=== PATIENT | male | born 1965 | race Caucasian/White ===

== ENCOUNTER 2017-06-21 22:53 | Inpatient (IN) | payer BC, OTHER ==
[~2017-06-21] VITALS: Ht 165.1 cm; Wt 81.3 kg
[~2017-06-21 22:53] MED LIST: ACET1TAB49; CARV3.1238; FENO134C; LISI-523; METF850T; NITR0.4T6; SIMV20TA2
[2017-06-21] MEDS ORDERED: ASPIRIN 81 MG TAB PO STA (22:58)
[2017-06-21] MEDS ORDERED: LIDOCAINE/MYLANTA 40 ML BTL PO ONE (23:00)
[2017-06-21] MEDS ORDERED: morphine 4 MG/ML VIAL IV STA (23:48)
--- NOTE | 2017-06-21 23:53 | RADRPT ---
PROCEDURE: CHEST - 1 VIEW CLINICAL INDICATION: 52-year-old male with chest pain. TECHNIQUE: A single frontal AP portable view of the chest was performed. The images were reviewed on a PACS workstation. COMPARISON: Chest x-ray March 24, 2008. FINDINGS: The patient has had a prior median sternotomy. The cardiomediastinal silhouette is enlarged but wit hout significant interval change. The right costophrenic angle is incompletely visualized. There i s minimal left basilar subsegmental atelectasis and/or scarring. There is no evidence for an infilt rate. There is no evidence for congestive heart failure. There is no evidence for pneumothorax. IMPRESSION: 1. Status post median sternotomy. 2. Cardiomegaly. 3. Minimal left basilar subsegmental atelectasis and/or scarring. .Natalio Rivera MD, Date Time Electronically viewed and signed by .Natalio Rivera MD, on 06/21/2017 23:53 .M/
[2017-06-22] VITALS (14 sets, daily range): BP systolic 105–148; BP diastolic 60–77; PULSE 58–69; RESP 17–20; Ht 165.1 cm; Wt 81.3 kg
[2017-06-22] MEDS ORDERED: NITROGLYCERIN (SL) 0.4 MG TAB SL ONE
[2017-06-22 00:29] LABS: BASOPHIL # 0.1 10^3/ul (0.0-0.1); BASOPHILS % 0.6 % (0.0-2.0); EOSINOPHILS # 0.1 10^3/ul (0.0-0.5); EOSINOPHILS % 1.3 % (0.0-7.0); HEMOGLOBIN 14.3 g/dl (14.0-18.0); LYMPHOCYTES # 2.9 10^3/ul (0.8-2.9); LYMPHOCYTES % 33.5 % (15.0-51.0); MEAN CORPUSCULAR HEMOGLOBIN 30.4 pg (29.0-33.0); MEAN CORPUSCULAR HGB CONC 34.9 g/dl (32.0-37.0); MEAN PLATELET VOLUME 10.7 fl (7.4-10.4); MONOCYTE # 0.8 10^3/ul (0.3-0.9); MONOCYTES % 9.1 % (0.0-11.0); PLATELET COUNT 186 10^3/UL (140-415); RED BLOOD COUNT 4.71 10^6/ul (4.70-6.10); RED CELL DISTRIBUTION WIDTH 12.4 % (11.5-14.5); WHITE BLOOD COUNT 8.6 10^3/ul (4.8-10.8)
[2017-06-22 00:44] LABS: INR 1.07; PROTIME 13.9 Sec (12.2-14.2); PT RATIO 1.1
[2017-06-22 00:45] LABS: PARTIAL THROMBOPLASTIN TIME 29.3 Sec (25.0-35.0)
[2017-06-22 00:56] LABS: CALCIUM 9.2 mg/dl (8.4-10.2); CREATININE 0.8 mg/dl (0.61-1.24); POTASSIUM 3.7 mmol/L (3.5-5.1)
[2017-06-22 01:50] LABS: TROPONIN-I 0.183 ng/ml (0.00-0.12)
[2017-06-22] MEDS ORDERED: ACETAMINOPHEN 325 MG TAB PO PRN ×2 (02:30→03:00)
[2017-06-22] MEDS ORDERED: ONDANSETRON 4 MG INJ IV PRN ×2 (02:30→03:00)
--- NOTE | 2017-06-22 02:41 | ERA ---
ER Documentation Chief Complaint Date/Time DATE: 06/22/17 TIME: 02:36 Chief Complaint chest pain x this evening HPI 52-year-old male comes in by ambulance for left-sided substernal chest pain that radiates to his left upper arm is been going on for 2 hours in the severe since. He has mild shortness of breath associated with mild nausea. He had the same sensation before the stents placed previously. ROS All systems reviewed and are negative except as per history of present illness. Medications Home Meds Reported Medications Nitroglycerin* (Nitroglycerin* SL) 0.4 Mg Tab.subl 07/30/10 Fenofibrate, Micronized (Fenofibrate) 134 Mg Capsule 07/30/10 Acetaminophen/Phenyltolx Cit (Asa Free Analgesic Tablet) 1 Tab Tablet 07/30/10 Carvedilol* (Coreg*) 3.125 Mg Tablet 07/30/10 Simvastatin (Simvastatin) 20 Mg Tablet 07/30/10 Metformin Hcl* (Metformin Hcl*) 850 Mg Tablet 07/30/10 Lisinopril* (Zestril*) 5 Mg Tablet 07/30/10 Allergies Allergies: Coded Allergies: No Known Allergy (Verified , 05/02/12) PMhx/Soc History of Surgery: Yes (CABG 04/23) Anesthesia Reaction: No Hx Neurological Disorder: No Hx Respiratory Disorders: No Hx Cardiac Disorders: Yes (CAD) Hx Psychiatric Problems: No Hx Miscellaneous Medical Probl: Yes (DM) Hx Alcohol Use: No Hx Substance Use: No Hx Tobacco Use: Yes Smoking Status: Current every day smoker Physical Exam Vitals Vital Signs Date Time Temp Pulse Resp B/P Pulse Ox O2 Delivery O2 Flow Rate FiO2 06/22/17 00:52 71 20 123/74 96 Room Air 06/22/17 00:47 67 20 139/80 97 Room Air 06/22/17 00:10 73 16 124/79 97 Room Air 06/22/17 00:04 71 16 139/79 06/22/17 00:00 76 20 151/83 99 Room Air 06/21/17 23:01 98.1 73 16 144/85 97 Physical Exam Const: [] Mild to moderate distress Head: Atraumatic Eyes: Normal Conjunctiva ENT: Normal External Ears, Nose and Mouth. Neck: Full range of motion..~ No meningismus. Resp: Clear to auscultation bilaterally Cardio: Regular rate and rhythm, no murmurs Abd: Soft, non tender, non distended. Normal bowel sounds Skin: No petechiae or rashes Back: No midline or flank tenderness Ext: No cyanosis, or edema Neur: Awake and alert Psych: Normal Mood and Affect Result Diagram: 06/21/17 2330 06/21/17 2330 Results 24 hrs Laboratory Tests Test 06/21/17 23:30 White Blood Count 8.610^3/ul Red Blood Count 4.7110^6/ul Hemoglobin 14.3g/dl Hematocrit 41.0% Mean Corpuscular Volume 87.0fl Mean Corpuscular Hemoglobin 30.4pg Mean Corpuscular Hemoglobin Concent 34.9g/dl Red Cell Distribution Width 12.4% Platelet Count 36299^3/UL Mean Platelet Volume 10.7fl Neutrophils % 55.0% Lymphocytes % 33.5% Monocytes % 9.1% Eosinophils % 1.3% Basophils % 0.6% Nucleated Red Blood Cells % 0.0/100WBC Neutrophils # (Manual) 4.710^3/ul Lymphocytes # 2.910^3/ul Monocytes # 0.810^3/ul Eosinophils # 0.110^3/ul Basophils # 0.110^3/ul Nucleated Red Blood Cells # 0.010^3/ul Prothrombin Time 13.9Sec Prothrombin Time Ratio 1.1 INR International Normalized Ratio 1.07 Activated Partial Thromboplast Time 29.3Sec Sodium Level 139mmol/L Potassium Level 3.7mmol/L Chloride Level 105mmol/L Carbon Dioxide Level 26mmol/L Anion Gap 12 Blood Urea Nitrogen 12mg/dl Creatinine 0.80mg/dl Glucose Level 118mg/dl Calcium Level 9.2mg/dl Troponin I 0.183ng/ml B-Type Natriuretic Peptide 203PG/ML Current Medications Medications (Trade) Dose Ordered Sig/Merritt Route PRN Reason Start Time Stop Time Status Last Admin Dose Admin Aspirin (Aspirin) 162 mg ONCE STAT PO 06/21/17 22:58 06/21/17 23:01 DC 06/21/17 23:18 Miscellaneous Medication (Gi Cocktail (2)) 40 ml ONCE ONCE PO 06/21/17 23:00 06/21/17 23:01 DC 06/21/17 23:18 Morphine Sulfate (morphine) 4 mg ONCE STAT IV 06/21/17 23:48 06/21/17 23:50 DC 06/22/17 00:01 Nitroglycerin (Nitroglycerin (Sl Tab) 0.4 Mg) 1 tab ONCE ONCE SL 06/22/17 00:00 06/22/17 00:01 DC 06/22/17 00:01 Ondansetron HCl (Zofran Inj) 4 mg ER BRIDGE PRN IV NAUSEA AND/OR VOMITING 06/22/17 02:30 06/23/17 02:29 Acetaminophen (Tylenol Tab) 650 mg ER BRIDGE PRN PO MILD PAIN/FEVER 06/22/17 02:30 06/23/17 02:29 Procedures/MDM Concerning acute chest pain and high risk patient with mildly elevated troponin. Was given 162 mg of aspirin and 3 sprays of nitro in the ambulance. Initial 162 mg was given as well as 2 sublingual nitroglycerin which did temporarily alleviate his pain. He had Kvng received 4 mg of morphine which had no effect on his chest pain. Also received a GI cocktail which did not affect his chest pain he described as a burning. He can be admitted for further evaluation workup. Has nonischemic EKG 2. Dr. yung is admitting EKG interpretation #1: Normal sinus rhythm rate of 72, normal axis, no ST or T- wave changes concerning for acute ischemia, normal intervals. Normal EKG EKG interpretation #2: Normal sinus rhythm at 75, normal axis, no ST or T-wave changes concerning for acute ischemia, normal intervals. Normal EKG quality assurance monitor chassis interpretation: Normal sinus rhythm without arrhythmia Chest x-ray interpretation: I see no acute process. I see no pneumothorax, no infiltrates, no pulmonary edema, no fractures. Departure Diagnosis: Primary Impression: Chest pain Additional Impression: Elevated troponin Condition: Serious OUSMANE HEDRICK DO Jun 22, 2017 02:41
--- NOTE | 2017-06-22 02:56 | HP ---
Date/Time of Note Date/Time of Note DATE: 06/22/17 TIME: 02:49 Assessment/Plan VTE Prophylaxis VTE Prophylaxis Intervention: LMWH Lines/Catheters IV Catheter Type (from Nrsg): Saline Lock Assessment/Plan Assessment/Plan 1. NSTEMI -Admit to telemetry unit -Supplemental oxygen, aspirin, statin, beta-viral, as needed nitro and morphine -2D echo and cardiology consult -Check A1c, fasting lipid and a TSH in the morning 2. History of hypertension -Continue antihypertensives with adjustment as needed 3. Type 2 diabetes -Check A1c -Insulin while in-house HPI/ROS Admit Date/Time Admit Date/Time Hx of Present Illness This is a 52-year-old male with a history of hypertension, type 2 diabetes, CAD with CABG who presented to the emergency department complaining of chest pain. Pain started a few hours ago and it is left-sided, pressure-like with radiation to the left arm was 10 out of 10 in intensity. Reported some association with shortness of breath. Denied nausea/vomiting or diaphoresis. When he presented to the ER, BP 144/85 otherwise rest of vitals are stable. First troponin is elevated at 0.183. 2 EKGs were done in the ER which showed no ST-T wave abnormalities. Patient was given nitro and aspirin with improvement of pain but not complete resolution. Chest x-ray showed cardiomegaly and minimal left basilar subsegmental atelectasis and/or scarring. . PMH/Family/Social Past Medical History Medical History: coronary artery disease, diabetes, hypertension Past Surgical History Past Surgical Hx: coronary bypass surgery Social History Alcohol Use: none Smoking Status: Current every day smoker Drug Use: none Exam/Review of Systems Vital Signs Vitals Vital Signs Date Time Temp Pulse Resp B/P Pulse Ox O2 Delivery O2 Flow Rate FiO2 06/22/17 00:52 71 20 123/74 96 Room Air 06/21/17 23:01 98.1 Labs Result Diagram: 06/21/17 23306/[id number]/[id number] MARY VELAZCO MD Jun 22, 2017 02:56
[2017-06-22] MEDS ORDERED: NACL 0.9% 3 ML SYG IV SCH (03:00)
[2017-06-22] MEDS ORDERED: ALBUTEROL/IPRATROPIUM (NEB) 3 ML AMP HHN PRN (03:00)
[2017-06-22] MEDS ORDERED: GLUCAGON 1 MG INJ IM PRN (03:30)
[2017-06-22] MEDS ORDERED: GLUCOSE GEL 15 GRAM TUBE BUCCAL PRN (03:30)
[2017-06-22] MEDS ORDERED: DEXTROSE 50% 50 ML SYRINGE IV PRN ×2 (03:30)
[2017-06-22] MEDS ORDERED: GLUCOSE GEL 15 GRAM TUBE PO PRN ×2 (03:30)
[2017-06-22] MEDS: morphine 4 MG/ML VIAL IV PRN ×4 (03:51→20:11)
[2017-06-22] MEDS: DEXTROSE 5%-0.45% NACL 1,000 ML IV SCH ×2 (03:51→16:52)
[2017-06-22] MEDS: NITROGLYCERIN (SL) 0.4 MG TAB SL PRN ×4 (05:54→11:37)
[2017-06-22 07:44] LABS: BASOPHIL # 0.1 10^3/ul (0.0-0.1); BASOPHILS % 0.8 % (0.0-2.0); EOSINOPHILS # 0.1 10^3/ul (0.0-0.5); EOSINOPHILS % 1.3 % (0.0-7.0); HEMATOCRIT 41.8 % (42.0-52.0); HEMOGLOBIN 14.3 g/dl (14.0-18.0); LYMPHOCYTES # 2.8 10^3/ul (0.8-2.9); LYMPHOCYTES % 37.5 % (15.0-51.0); MEAN CORPUSCULAR HEMOGLOBIN 29.7 pg (29.0-33.0); MEAN CORPUSCULAR HGB CONC 34.2 g/dl (32.0-37.0); MEAN CORPUSCULAR VOLUME 86.7 fl (82.0-101.0); MEAN PLATELET VOLUME 10.6 fl (7.4-10.4); MONOCYTE # 0.7 10^3/ul (0.3-0.9); MONOCYTES % 8.6 % (0.0-11.0); NEUTROPHILS % 51.1 % (39.0-77.0); PLATELET COUNT 179 10^3/UL (140-415); RED BLOOD COUNT 4.82 10^6/ul (4.70-6.10); RED CELL DISTRIBUTION WIDTH 12.7 % (11.5-14.5); WHITE BLOOD COUNT 7.6 10^3/ul (4.8-10.8)
[2017-06-22 08:02] LABS: ALBUMIN 3.6 g/dl (3.3-4.9); ALBUMIN/GLOBULIN RATIO 1.38; BILIRUBIN,INDIRECT 0.6 mg/dl (0-1.1); BILIRUBIN,TOTAL 0.6 mg/dl (0.2-1.3); CALCIUM 9.1 mg/dl (8.4-10.2); CHOL/HDL RATIO 7.8 RATIO; CREATININE 0.8 mg/dl (0.61-1.24); POTASSIUM 3.9 mmol/L (3.5-5.1); TOTAL PROTEIN 6.2 g/dl (6.1-8.1)
[2017-06-22 08:31] LABS: THYROID STIMULATING HORMONE 4.86 MIU/L (0.465-4.680)
[2017-06-22] MEDS: LISINOPRIL 5 MG TAB PO SCH (08:56)
[2017-06-22] MEDS: ASPIRIN (EC) 81 MG TAB PO SCH (08:56)
[2017-06-22] MEDS: INSULIN GLARGINE [LANtus] 3 ML PEN SC SCH (08:58)
[2017-06-22] MEDS: INSULIN ASPART [NOVOLOG] 3 ML PEN SC SCH ×4 (08:59→20:15)
[2017-06-22] MEDS ORDERED: ENOXAPARIN 40 MG/0.4 ML SYG SC SCH (09:00)
[2017-06-22 10:08] LABS: CK-MB 3.8 ng/ml (0.0-2.4); TROPONIN-I 0.432 ng/ml (0.00-0.12)
[2017-06-22] MEDS ORDERED: HEPARIN 1000 UNITS/ML 10 ML INJ IV PRN ×2 (10:30→11:30)
[2017-06-22] MEDS ORDERED: HEPARIN 1000 UNITS/ML 10 ML INJ IV ONE (11:30)
[2017-06-22] MEDS: HEPARIN 25000 UNITS/250 ML 250 ML IV SCH ×2 (11:52→20:02)
[2017-06-22 11:55] LABS: CK-MB 4.35 ng/ml (0.0-2.4); TROPONIN-I 0.547 ng/ml (0.00-0.12)
[2017-06-22 12:44] LABS: BASOPHIL # 0.1 10^3/ul (0.0-0.1); BASOPHILS % 0.7 % (0.0-2.0); EOSINOPHILS # 0.1 10^3/ul (0.0-0.5); EOSINOPHILS % 1.1 % (0.0-7.0); HEMATOCRIT 42.9 % (42.0-52.0); LYMPHOCYTES # 2.7 10^3/ul (0.8-2.9); LYMPHOCYTES % 35.8 % (15.0-51.0); MEAN CORPUSCULAR HEMOGLOBIN 30.8 pg (29.0-33.0); MEAN CORPUSCULAR VOLUME 88.1 fl (82.0-101.0); MEAN PLATELET VOLUME 10.4 fl (7.4-10.4); MONOCYTE # 0.6 10^3/ul (0.3-0.9); MONOCYTES % 7.6 % (0.0-11.0); NEUTROPHILS % 54.4 % (39.0-77.0); PLATELET COUNT 197 10^3/UL (140-415); RED BLOOD COUNT 4.87 10^6/ul (4.70-6.10); RED CELL DISTRIBUTION WIDTH 12.4 % (11.5-14.5); WHITE BLOOD COUNT 7.5 10^3/ul (4.8-10.8)
[2017-06-22 12:59] LABS: INR 1.14; PROTIME 14.6 Sec (12.2-14.2); PT RATIO 1.1
[2017-06-22] MEDS: HYDROmorphONE 1 MG/ML SYG IV PRN ×5 (15:12→23:07)
--- NOTE | 2017-06-22 17:00 | CONS ---
Date/Time of Note Date/Time of Note DATE: 06/22/17 TIME: 17:00 Assessment/Plan Assessment/Plan Chief Complaint/Hosp Course Impression: 1. Chest pain with NSTEMI-troponins are increasing 2. History of severe coronary disease status post CABG as well as stenting 9 3. History of hypertension 4. rule out GI cause of chest pain: I feel the main issue is his NSTEMI as the cause of his chest pain. 5. Type 2 diabetes-mild Recommendations: - Pls ovtain Cardiology consultation as this is more likely cardiac in origin than GI causing chest pain - start protonix 40 mg iv bid - stool for occult blood - ok to anticoagulate or use anti-platelet agents - will hold off on endoscopic procedures until cardiac w/u completed. Problems: Consultation Date/Type/Reason Admit Date/Time Date of Consultation: Jun 22, 2017 Type of Consultation: Gastroenterology Reason for Consultation atypical chest pain Referring Provider: CHARMAINE AL Hx of Present Illness 52-year-old male who is admitted for chest pain. He has a history of hypertension, type 2 diabetes, CAD with CABG. Chest pain is left-sided, pressure -like with radiation to the left arm was 10 out of 10 in intensity. Reported some association with shortness of breath. Denied nausea/vomiting or diaphoresis. First troponin is elevated at 0.183. 2 EKGs were done in the ER which showed no ST-T wave abnormalities. Patient was given nitro and aspirin with improvement of pain but not complete resolution. Chest x-ray showed cardiomegaly and minimal left basilar subsegmental atelectasis and/or scarring. Pain is also described as burning sensation. GI consulted to see if his chest pain is gastrointestinal in origin. No n/v, coffee ground emesis, hematemesis, brbpr, melena, hematochezia. All point ROS administered, pertinent positives and negatives in HPI otherwise negative. Past Medical History Medical History: coronary artery disease, diabetes, hypertension Past Surgical History Past Surgical Hx: coronary bypass surgery Family History Significant Family History: no pertinent family hx Social History Alcohol Use: none Smoking Status: Current every day smoker Drug Use: none Exam/Review of Systems Vital Signs Vitals Vital Signs Date Time Temp Pulse Resp B/P Pulse Ox O2 Delivery O2 Flow Rate FiO2 06/22/17 16:12 97.8 65 17 105/62 94 06/22/17 02:40 Room Air Intake and Output 06/21/17 06/21/17 06/22/17 15:00 23:00 07:00 Intake Total 0 ml Balance 0 ml Exam Constitutional: alert, oriented, well developed Psych: nl mood/affect, no complaints Head: atraumatic, normocephalic Eyes: EOMI, nl conjunctiva, nl lids, nl sclera ENMT: mucosa pink and moist, nl external ears & nose, nl lips & teeth, nl nasal mucosa & septum Neck: non-tender, supple Respiratory: clear to auscultation, normal air movement Cardiovascular: nl pulses, regular rate and rhythm Gastrointestinal: bowel sounds, non-tender, soft Musculoskeletal: nl extremities to inspection, nl gait and stance Extremities: normal pulses Neurological: nl mental status, nl speech, nl strength Skin: nl turgor Results Result Diagram: 06/22/17 1210 06/22/17 0705 Results 24 hrs Laboratory Tests Test 06/21/17 23:30 06/22/17 03:25 06/22/17 07:05 06/22/17 08:54 White Blood Count 8.6 7.6 Red Blood Count 4.71 4.82 Hemoglobin 14.3 14.3 Hematocrit 41.0 L 41.8 L Mean Corpuscular Volume 87.0 86.7 Mean Corpuscular Hemoglobin 30.4 29.7 Mean Corpuscular Hemoglobin Concent 34.9 34.2 Red Cell Distribution Width 12.4 12.7 Platelet Count 186 179 Mean Platelet Volume 10.7 H 10.6 H Neutrophils % 55.0 51.1 Lymphocytes % 33.5 37.5 Monocytes % 9.1 8.6 Eosinophils % 1.3 1.3 Basophils % 0.6 0.8 Nucleated Red Blood Cells % 0.0 0.0 Neutrophils # (Manual) 4.7 3.9 Lymphocytes # 2.9 2.8 Monocytes # 0.8 0.7 Eosinophils # 0.1 0.1 Basophils # 0.1 0.1 Nucleated Red Blood Cells # 0.0 0.0 Prothrombin Time 13.9 Prothrombin Time Ratio 1.1 INR International Normalized Ratio 1.07 Activated Partial Thromboplast Time 29.3 Sodium Level 139 140 Potassium Level 3.7 3.9 Chloride Level 105 106 Carbon Dioxide Level 26 26 Anion Gap 12 12 Blood Urea Nitrogen 12 12 Creatinine 0.80 0.80 Glucose Level 118 131 Calcium Level 9.2 9.1 Troponin I 0.183 *H 0.432 *H B-Type Natriuretic Peptide 203 H Bedside Glucose 125 143 Hemoglobin A1c 7.0 H Total Bilirubin 0.6 Direct Bilirubin 0.00 Indirect Bilirubin 0.6 Aspartate Amino Transf (AST/SGOT) 20 Alanine Aminotransferase (ALT/SGPT) 33 Alkaline Phosphatase 58 Creatine Kinase 69 Creatine Kinase Index 5.5 Creatinine Kinase MB (Mass) 3.80 H Total Protein 6.2 Albumin 3.6 Globulin 2.60 Albumin/Globulin Ratio 1.38 Triglycerides Level 129 Cholesterol Level 165 LDL Cholesterol, Calculated 118 HDL Cholesterol 21 L Cholesterol/HDL Ratio 7.8 Thyroid Stimulating Hormone (TSH) 4.860 H Test 06/22/17 10:55 06/22/17 12:10 06/22/17 12:50 Creatine Kinase 65 Creatine Kinase Index 6.7 Creatinine Kinase MB (Mass) 4.35 H Troponin I 0.547 *H White Blood Count 7.5 Red Blood Count 4.87 Hemoglobin 15.0 Hematocrit 42.9 Mean Corpuscular Volume 88.1 Mean Corpuscular Hemoglobin 30.8 Mean Corpuscular Hemoglobin Concent 35.0 Red Cell Distribution Width 12.4 Platelet Count 197 Mean Platelet Volume 10.4 Neutrophils % 54.4 Lymphocytes % 35.8 Monocytes % 7.6 Eosinophils % 1.1 Basophils % 0.7 Nucleated Red Blood Cells % 0.0 Neutrophils # (Manual) 4.1 Lymphocytes # 2.7 Monocytes # 0.6 Eosinophils # 0.1 Basophils # 0.1 Nucleated Red Blood Cells # 0.0 Prothrombin Time 14.6 H Prothrombin Time Ratio 1.1 INR International Normalized Ratio 1.14 Activated Partial Thromboplast Time 74.0 *H Bedside Glucose 128 Medications Medications Current Medications Ondansetron HCl (Zofran Inj) 4 mg Q6H PRN IV NAUSEA AND/OR VOMITING; Start 06/22 at 03:00 Nitroglycerin (Nitroglycerin (Sl Tab) 0.4 Mg) 1 tab Q5M PRN SL CHEST PAIN Last administered on 06/22/17t 11:37; Admin Dose 1 TAB; Start 06/22/17 at 03:00 Acetaminophen (Tylenol Tab) 650 mg Q6H PRN PO PAIN LEVEL 1-3 OR FEVER; Start at 03:00 Morphine Sulfate (morphine) 4 mg Q4H PRN IV PAIN LEVEL 7-10 Last administered on 06/22/17 12:41; Admin Dose 4 MG; Start 06/22/17 at 03:00 Carvedilol (Coreg) 3.125 mg Q12 PO Last administered on 06/22/17 08:55; Admin Dose 3.125 MG; Start 06/22/17 at 09:00 Lisinopril (Zestril) 5 mg DAILY PO Last administered on 06/22/17 08:56; Admin Dose 5 MG; Start 06/22/17 at 09:00 Atorvastatin Calcium (Lipitor) 20 mg QHS PO ; Start 06/22/17 at 21:00 Diagnostic Test (Pha) (Accu-Chek) 1 ea 02 XX ; Start 06/23/17 at 02:00 Insulin Glargine 12 unit 12 unit DAILY@08 SC Last administered on 06/22/17 08: 58; Admin Dose 12 UNIT; Start 06/22/17 at 08:00 Dextrose/Sodium Chloride (D5-1/2ns) 1,000 ml @ 75 mls/hr [id number] IV Last administered on 06/22/17 16:52; Admin Dose 75 MLS/HR; Start 06/22/17 at 03:30 Aspirin (Halfprin) 81 mg DAILY PO Last administered on 06/22/17 08:56; Admin Dose 81 MG; Start 06/22/17 at 09:00 Miscellaneous Information 1 ea NOTE XX ; Start 06/22/17 at 03:30 Glucose (Glutose) 15 gm Q15M PRN PO DECREASED GLUCOSE; Start 06/22/17 at 03:30 Glucose (Glutose) 22.5 gm Q15M PRN PO DECREASED GLUCOSE; Start 06/22/17 at 03:30 Dextrose (D50w Syringe) 25 ml Q15M PRN IV DECREASED GLUCOSE; Start 06/22/17 at 03:30 Dextrose (D50w Syringe) 50 ml Q15M PRN IV DECREASED GLUCOSE; Start 06/22/17 at 03:30 Glucagon (Glucagen) 1 mg Q15M PRN IM DECREASED GLUCOSE; Start 06/22/17 at 03:30 Glucose (Glutose) 15 gm Q15M PRN BUCCAL DECREASED GLUCOSE; Start 06/22/17 at 03: 30 Hydromorphone HCl (Dilaudid) 0.5 mg Q2 PRN IV PAIN Last administered on t 16:51; Admin Dose 0.5 MG; Start 06/22/17 at 15:00 LUCINDA BANUELOS MD Jun 22, 2017 17:00
[2017-06-22] MEDS: PANTOPRAZOLE 40 MG INJ IV SCH (18:17)
[2017-06-22] MEDS ORDERED: IODIXANOL LOCM 100 ML BTL ONE (18:33)
[2017-06-22] MEDS ORDERED: SOD CHLORIDE 0.9% 100 ML ONE (18:33)
--- NOTE | 2017-06-22 18:33 | PN ---
Date/Time of Note Date/Time of Note DATE: 06/22/17 TIME: 18:26 Assessment/Plan VTE Prophylaxis VTE Prophylaxis Intervention: heparin Lines/Catheters IV [facility] Peripheral IV Urinary Cath still in place: No Assessment/Plan Chief Complaint/Hosp Course 1. Chest pain with NSTEMI-troponins are increasing -Cardiology consultation obtained, 2D echo -Started on heparin drip -CT of the chest to rule out dissection as pain is diffuse throughout the chest and into the back -GI consultation as patient does report a burning sensation in addition to a pressure sensation -Supplemental oxygen, aspirin, statin, beta-viral, as needed nitro and morphine -A1c at 7.0, total cholesterol 165 2. History of severe coronary disease status post CABG as well as stenting 9 -Patient had a heart cath within the last year that showed further coronary arteries that were occluded but it appears that they are unable to place any further stents reportedly due to narrowing of the vessels -Continue Ranexa as well as other cardiac medications 3. History of hypertension -Continue antihypertensives with adjustment as needed 4. Type 2 diabetes-mild -Hemoglobin A1c at 7.0 -Insulin while in-house Prophylaxis: Heparin Problems: Subjective 24 Hr Interval Summary Cardiovascular: chest pain Exam/Review of Systems Vital Signs Vitals Vital Signs Date Time Temp Pulse Resp B/P Pulse Ox O2 Delivery O2 Flow Rate FiO2 06/22/17 17:03 62 06/22/17 16:12 97.8 17 105/62 94 06/22/17 02:40 Room Air Intake and Output 06/21/17 06/21/17 06/22/17 15:00 23:00 07:00 Intake Total 0 ml Balance 0 ml Exam Constitutional: alert, oriented Respiratory: clear to auscultation Cardiovascular: regular rate and rhythm Gastrointestinal: soft, No distended Musculoskeletal: nl extremities to inspection Results Result Diagram: 06/22/17 1210 06/22/17 0705 Results 24 hrs Laboratory Tests Test 06/21/17 23:30 06/22/17 03:25 06/22/17 07:05 06/22/17 08:54 White Blood Count 8.6 7.6 Red Blood Count 4.71 4.82 Hemoglobin 14.3 14.3 Hematocrit 41.0 L 41.8 L Mean Corpuscular Volume 87.0 86.7 Mean Corpuscular Hemoglobin 30.4 29.7 Mean Corpuscular Hemoglobin Concent 34.9 34.2 Red Cell Distribution Width 12.4 12.7 Platelet Count 186 179 Mean Platelet Volume 10.7 H 10.6 H Neutrophils % 55.0 51.1 Lymphocytes % 33.5 37.5 Monocytes % 9.1 8.6 Eosinophils % 1.3 1.3 Basophils % 0.6 0.8 Nucleated Red Blood Cells % 0.0 0.0 Neutrophils # (Manual) 4.7 3.9 Lymphocytes # 2.9 2.8 Monocytes # 0.8 0.7 Eosinophils # 0.1 0.1 Basophils # 0.1 0.1 Nucleated Red Blood Cells # 0.0 0.0 Prothrombin Time 13.9 Prothrombin Time Ratio 1.1 INR International Normalized Ratio 1.07 Activated Partial Thromboplast Time 29.3 Sodium Level 139 140 Potassium Level 3.7 3.9 Chloride Level 105 106 Carbon Dioxide Level 26 26 Anion Gap 12 12 Blood Urea Nitrogen 12 12 Creatinine 0.80 0.80 Glucose Level 118 131 Calcium Level 9.2 9.1 Troponin I 0.183 *H 0.432 *H B-Type Natriuretic Peptide 203 H Bedside Glucose 125 143 Hemoglobin A1c 7.0 H Total Bilirubin 0.6 Direct Bilirubin 0.00 Indirect Bilirubin 0.6 Aspartate Amino Transf (AST/SGOT) 20 Alanine Aminotransferase (ALT/SGPT) 33 Alkaline Phosphatase 58 Creatine Kinase 69 Creatine Kinase Index 5.5 Creatinine Kinase MB (Mass) 3.80 H Total Protein 6.2 Albumin 3.6 Globulin 2.60 Albumin/Globulin Ratio 1.38 Triglycerides Level 129 Cholesterol Level 165 LDL Cholesterol, Calculated 118 HDL Cholesterol 21 L Cholesterol/HDL Ratio 7.8 Thyroid Stimulating Hormone (TSH) 4.860 H Test 06/22/17 10:55 06/22/17 12:10 06/22/17 12:50 06/22/17 18:18 Creatine Kinase 65 Creatine Kinase Index 6.7 Creatinine Kinase MB (Mass) 4.35 H Troponin I 0.547 *H White Blood Count 7.5 Red Blood Count 4.87 Hemoglobin 15.0 Hematocrit 42.9 Mean Corpuscular Volume 88.1 Mean Corpuscular Hemoglobin 30.8 Mean Corpuscular Hemoglobin Concent 35.0 Red Cell Distribution Width 12.4 Platelet Count 197 Mean Platelet Volume 10.4 Neutrophils % 54.4 Lymphocytes % 35.8 Monocytes % 7.6 Eosinophils % 1.1 Basophils % 0.7 Nucleated Red Blood Cells % 0.0 Neutrophils # (Manual) 4.1 Lymphocytes # 2.7 Monocytes # 0.6 Eosinophils # 0.1 Basophils # 0.1 Nucleated Red Blood Cells # 0.0 Prothrombin Time 14.6 H Prothrombin Time Ratio 1.1 INR International Normalized Ratio 1.14 Activated Partial Thromboplast Time 74.0 *H Bedside Glucose 128 95 Medications Medications Current Medications Ondansetron HCl (Zofran Inj) 4 mg Q6H PRN IV NAUSEA AND/OR VOMITING; Start 06/22 at 03:00 Nitroglycerin (Nitroglycerin (Sl Tab) 0.4 Mg) 1 tab Q5M PRN SL CHEST PAIN Last administered on 06/22/17 11:37; Admin Dose 1 TAB; Start 06/22/17 at 03:00 Acetaminophen (Tylenol Tab) 650 mg Q6H PRN PO PAIN LEVEL 1-3 OR FEVER; Start at 03:00 Morphine Sulfate (morphine) 4 mg Q4H PRN IV PAIN LEVEL 7-10 Last administered on 06/22/17 12:41; Admin Dose 4 MG; Start 06/22/17 at 03:00 Carvedilol (Coreg) 3.125 mg Q12 PO Last administered on 06/22/17 08:55; Admin Dose 3.125 MG; Start 06/22/17 at 09:00 Lisinopril (Zestril) 5 mg DAILY PO Last administered on 06/22/17 08:56; Admin Dose 5 MG; Start 06/22/17 at 09:00 Atorvastatin Calcium (Lipitor) 20 mg QHS PO ; Start 06/22/17 at 21:00 Diagnostic Test (Pha) (Accu-Chek) 1 ea 02 XX ; Start 06/23/17 at 02:00 Insulin Glargine 12 unit 12 unit DAILY@08 SC Last administered on 06/22/17 08: 58; Admin Dose 12 UNIT; Start 06/22/17 at 08:00 Dextrose/Sodium Chloride (D5-1/2ns) 1,000 ml @ 75 mls/hr [id number] IV Last administered on 06/22/17 16:52; Admin Dose 75 MLS/HR; Start 06/22/17 at 03:30 Aspirin (Halfprin) 81 mg DAILY PO Last administered on 06/22/17 08:56; Admin Dose 81 MG; Start 06/22/17 at 09:00 Miscellaneous Information 1 ea NOTE XX ; Start 06/22/17 at 03:30 Glucose (Glutose) 15 gm Q15M PRN PO DECREASED GLUCOSE; Start 06/22/17 at 03:30 Glucose (Glutose) 22.5 gm Q15M PRN PO DECREASED GLUCOSE; Start 06/22/17 at 03:30 Dextrose (D50w Syringe) 25 ml Q15M PRN IV DECREASED GLUCOSE; Start 06/22/17 at 03:30 Dextrose (D50w Syringe) 50 ml Q15M PRN IV DECREASED GLUCOSE; Start 06/22/17 at 03:30 Glucagon (Glucagen) 1 mg Q15M PRN IM DECREASED GLUCOSE; Start 06/22/17 at 03:30 Glucose (Glutose) 15 gm Q15M PRN BUCCAL DECREASED GLUCOSE; Start 06/22/17 at 03: 30 Hydromorphone HCl (Dilaudid) 0.5 mg Q2 PRN IV PAIN Last administered on 16:51; Admin Dose 0.5 MG; Start 06/22/17 at 15:00 Pantoprazole (Protonix Iv) 40 mg BID@,18 IV Last administered on 06/22/17 18: 17; Admin Dose 40 MG; Start 06/22/17 at 18:00 CHARMAINE AL Jun 22, 2017 18:33
[2017-06-22 19:34] LABS: INR 1.1; PROTIME 14.2 Sec (12.2-14.2); PT RATIO 1.1
[2017-06-22 19:35] LABS: PARTIAL THROMBOPLASTIN TIME 51.6 Sec (25.0-35.0)
[2017-06-22] MEDS: ATORVASTATIN 20 MG TAB PO SCH (20:11)
--- NOTE | 2017-06-22 20:37 | RADRPT ---
PROCEDURE: CTA Chest and pulmonary angiogram. CLINICAL INDICATION: Chest pain TECHNIQUE: CT scan of the chest and CT pulmonary angiogram was performed on a multidetector high-r esolution CT scanner. High-resolution thin slice coronal and sagittal imaging was obtained from the axial source images. No 3-D/maximum intensity projection reformatted imaging was performed. The pa tient was examined following the intravenous administration of 100 cc of Visipaque 320. The images w ere reviewed on a PACS workstation. The total exam CTDI equals 42.25 +18.09 mGy, and the total exam DLP equals 646.65 mGy-cm. One or more the following dose reduction techniques were utilized: Automated exposure control, adjus tment of the mA and / or kV according to patient's size, or use of iterative reconstruction techniqu e. COMPARISON: Chest x-ray of 06/21/2017 FINDINGS: The patient is likely status post CABG. Study is limited due to beam-hardening artifact from dense contrast in the superior vena cava. There is appearance of a filling defect consistent with pulmona ry embolism in right middle lobe segmental pulmonary artery. Atherosclerotic changes including calc ification in thoracic aorta and great vessels. No thoracic aortic aneurysm or dissection is seen. T here is coronary artery calcification. Coronary stents apparent. There is nonspecific approximate 1 .2 cm short axis lymph node in the aortopulmonary window region of the mediastinum and approximate 1 .1 cm short axis lymph node in the subcarinal region of the mediastinum. No pleural effusion is seen . Dependent atelectasis in posterior lungs. There is appearance of 2 immediately adjacent nodular d ensities in the right lung apex each measuring approximately 3 mm. Partial atelectasis in bilateral lower lobes and lingula. There is the suggestion of a 6 x 5 mm polyp in the left anterior trachea in the upper chest. Schmorl's nodes in the thoracic spine. Degenerative changes in visualized lowe r cervical spine. Right lateral bridging osteophytes in the mid thoracic spine. IMPRESSION: Limited examination as noted above. Consistent with pulmonary embolism in right middle lobe segment al pulmonary artery. Atherosclerosis. Nonspecific mildly enlarged mediastinal lymph nodes noted abo ve. 6 x 5 mm polyp in the left anterior trachea in the upper chest. 2 immediately adjacent nodular d ensities in the right lung apex each measuring approximately 3 mm. Critical result discussed with Kwaku ward RN at 08:32 p.m. on 06/22/2017. Please see above. RPTAT: HJES .Harley Navarrete MD, MD Date Time Electronically viewed and signed by .Harley Navarrete MD, on 06/22/2017 20:37 .S/
[2017-06-23] VITALS (17 sets, daily range): BP systolic 91–128; BP diastolic 58–72; PULSE 65–85; RESP 18–20
[2017-06-23] MEDS: morphine 4 MG/ML VIAL IV PRN ×6 (00:20→22:06)
[2017-06-23] MEDS: ACCU-CHEK XX SCH (01:38)
[2017-06-23] MEDS: NITROGLYCERIN (SL) 0.4 MG TAB SL PRN ×4 (02:11→09:15)
[2017-06-23] MEDS: DEXTROSE 5%-0.45% NACL 1,000 ML IV SCH (02:13)
[2017-06-23] MEDS: HYDROmorphONE 1 MG/ML SYG IV PRN ×5 (02:28→19:47)
[2017-06-23] MEDS: HEPARIN 25000 UNITS/250 ML 250 ML IV SCH ×2 (03:28→18:49)
[2017-06-23] MEDS: PANTOPRAZOLE 40 MG INJ IV SCH ×2 (05:05→17:51)
[2017-06-23 07:06] LABS: BASOPHIL # 0.1 10^3/ul (0.0-0.1); BASOPHILS % 0.5 % (0.0-2.0); EOSINOPHILS # 0.1 10^3/ul (0.0-0.5); EOSINOPHILS % 0.7 % (0.0-7.0); HEMATOCRIT 43.4 % (42.0-52.0); HEMOGLOBIN 14.8 g/dl (14.0-18.0); LYMPHOCYTES # 2.2 10^3/ul (0.8-2.9); LYMPHOCYTES % 24.4 % (15.0-51.0); MEAN CORPUSCULAR HEMOGLOBIN 29.7 pg (29.0-33.0); MEAN CORPUSCULAR HGB CONC 34.1 g/dl (32.0-37.0); MEAN CORPUSCULAR VOLUME 87.1 fl (82.0-101.0); MEAN PLATELET VOLUME 10.4 fl (7.4-10.4); MONOCYTE # 0.8 10^3/ul (0.3-0.9); MONOCYTES % 8.4 % (0.0-11.0); NEUTROPHILS % 65.5 % (39.0-77.0); PLATELET COUNT 188 10^3/UL (140-415); RED BLOOD COUNT 4.98 10^6/ul (4.70-6.10); RED CELL DISTRIBUTION WIDTH 12.6 % (11.5-14.5); WHITE BLOOD COUNT 9.1 10^3/ul (4.8-10.8)
[2017-06-23 07:36] LABS: CALCIUM 8.8 mg/dl (8.4-10.2); CREATININE 0.93 mg/dl (0.61-1.24); MAGNESIUM 2.1 mg/dl (1.7-2.5); POTASSIUM 3.8 mmol/L (3.5-5.1)
[2017-06-23] MEDS: INSULIN ASPART [NOVOLOG] 3 ML PEN SC SCH ×4 (08:00→19:53)
[2017-06-23] MEDS ORDERED: HEPARIN 1000 UNITS/ML 10 ML INJ IV PRN ×2 (08:30)
[2017-06-23] MEDS ORDERED: HEPARIN 1000 UNITS/ML 10 ML INJ IV ONE (08:30)
[2017-06-23] MEDS: INSULIN GLARGINE [LANtus] 3 ML PEN SC SCH (09:14)
[2017-06-23] MEDS: ASPIRIN (EC) 81 MG TAB PO SCH (09:15)
[2017-06-23] MEDS: LISINOPRIL 5 MG TAB PO SCH (09:15)
[2017-06-23 10:03] LABS: INR 1.12; PROTIME 14.4 Sec (12.2-14.2); PT RATIO 1.1
[2017-06-23 10:33] LABS: PARTIAL THROMBOPLASTIN TIME 73.4 Sec (25.0-35.0)
--- NOTE | 2017-06-23 12:02 | CONS ---
Date/Time of Note Date/Time of Note DATE: 06/23/17 TIME: 11:58 Assessment/Plan Assessment/Plan Chief Complaint/Hosp Course Impression: 1. Chest pain with NSTEMI-troponins continues to rise 2. History of severe coronary disease status post CABG as well as stenting 9 3. History of hypertension 4. rule out GI cause of chest pain: I feel the main issue is his NSTEMI as the cause of his chest pain. 5. Type 2 diabetes-mild Recommendations: - Pls obtain Cardiology consultation as this is more likely cardiac in origin than GI causing chest pain. Additionally patient and family upset that they have not seen cardiology yet. - continue protonix 40 mg iv bid - stool for occult blood - ok to anticoagulate or use anti-platelet agents if indicated by cardiology consult - will hold off on endoscopic procedures until cardiac w/u completed. - Dr. Blount to resume care of this patient tomorrow Problems: Consultation Date/Type/Reason Admit Date/Time Jun 22, 2017 at 02:01 Initial Consult Date 06/22/17 Type of Consultation: Gastroenterology Referring Provider: CHARMAINE AL 24 HR Interval Summary Free Text/Dictation family and patient upset that they have not seen cardiology consult for his chest pain. However patient appears comfortable. No n/v. Exam/Review of Systems Vital Signs Vitals Vital Signs Date Time Temp Pulse Resp B/P Pulse Ox O2 Delivery O2 Flow Rate FiO2 06/23/17 08:09 69 06/23/17 07:57 98.2 18 114/61 93 06/22/17 02:40 Room Air Intake and Output 06/22/17 06/22/17 06/23/17 15:00 23:00 07:00 Intake Total 800 ml 0 ml Output Total 3 ml Balance 800 ml -3 ml Exam Constitutional: alert, oriented, well developed Psych: nl mood/affect, no complaints Head: atraumatic, normocephalic Eyes: EOMI, nl conjunctiva, nl lids, nl sclera ENMT: mucosa pink and moist, nl external ears & nose, nl lips & teeth, nl nasal mucosa & septum Neck: non-tender, supple Respiratory: clear to auscultation, normal air movement Cardiovascular: nl pulses, regular rate and rhythm Gastrointestinal: bowel sounds, non-tender, soft Results Result Diagram: 06/23/17 0647 06/23/17 0646 Results 24 hrs Laboratory Tests Test 06/22/17 12:10 06/22/17 12:50 06/22/17 18:18 06/22/17 19:04 White Blood Count 7.5 Red Blood Count 4.87 Hemoglobin 15.0 Hematocrit 42.9 Mean Corpuscular Volume 88.1 Mean Corpuscular Hemoglobin 30.8 Mean Corpuscular Hemoglobin Concent 35.0 Red Cell Distribution Width 12.4 Platelet Count 197 Mean Platelet Volume 10.4 Neutrophils % 54.4 Lymphocytes % 35.8 Monocytes % 7.6 Eosinophils % 1.1 Basophils % 0.7 Nucleated Red Blood Cells % 0.0 Neutrophils # (Manual) 4.1 Lymphocytes # 2.7 Monocytes # 0.6 Eosinophils # 0.1 Basophils # 0.1 Nucleated Red Blood Cells # 0.0 Prothrombin Time 14.6 H 14.2 Prothrombin Time Ratio 1.1 1.1 INR International Normalized Ratio 1.14 1.10 Activated Partial Thromboplast Time 74.0 *H 51.6 H Bedside Glucose 128 95 Troponin I 0.568 *H Test 06/22/17 20:14 06/23/17 02:05 06/23/17 06:46 06/23/17 06:47 Bedside Glucose 105 Activated Partial Thromboplast Time 46.8 H Sodium Level 136 Potassium Level 3.8 Chloride Level 101 Carbon Dioxide Level 29 Anion Gap 10 Blood Urea Nitrogen 13 Creatinine 0.93 Glucose Level 149 Calcium Level 8.8 Phosphorus Level 4.0 Magnesium Level 2.1 White Blood Count 9.1 # Red Blood Count 4.98 Hemoglobin 14.8 Hematocrit 43.4 Mean Corpuscular Volume 87.1 Mean Corpuscular Hemoglobin 29.7 Mean Corpuscular Hemoglobin Concent 34.1 Red Cell Distribution Width 12.6 Platelet Count 188 Mean Platelet Volume 10.4 Neutrophils % 65.5 Lymphocytes % 24.4 Monocytes % 8.4 Eosinophils % 0.7 Basophils % 0.5 Nucleated Red Blood Cells % 0.0 Neutrophils # (Manual) 6.0 Lymphocytes # 2.2 Monocytes # 0.8 Eosinophils # 0.1 Basophils # 0.1 Nucleated Red Blood Cells # 0.0 Troponin I 0.723 *H Test 06/23/17 09:02 06/23/17 09:21 Bedside Glucose 149 Prothrombin Time 14.4 H Prothrombin Time Ratio 1.1 INR International Normalized Ratio 1.12 Activated Partial Thromboplast Time 73.4 *H Medications Medications Current Medications Ondansetron HCl (Zofran Inj) 4 mg Q6H PRN IV NAUSEA AND/OR VOMITING; Start 06/22 at 03:00 Nitroglycerin (Nitroglycerin (Sl Tab) 0.4 Mg) 1 tab Q5M PRN SL CHEST PAIN Last administered on 06/23/17 09:15; Admin Dose 1 TAB; Start 06/22/17 at 03:00 Acetaminophen (Tylenol Tab) 650 mg Q6H PRN PO PAIN LEVEL 1-3 OR FEVER; Start at 03:00 Morphine Sulfate (morphine) 4 mg Q4H PRN IV PAIN LEVEL 7-10 Last administered on 06/23/17 08:56; Admin Dose 4 MG; Start 06/22/17 at 03:00 Carvedilol (Coreg) 3.125 mg Q12 PO Last administered on 06/23/17 09:15; Admin Dose 3.125 MG; Start 06/22/17 at 09:00 Lisinopril (Zestril) 5 mg DAILY PO Last administered on 06/23/17 09:15; Admin Dose 5 MG; Start 06/22/17 at 09:00 Atorvastatin Calcium (Lipitor) 20 mg QHS PO Last administered on 06/22/17 20:11 ; Admin Dose 20 MG; Start 06/22/17 at 21:00 Diagnostic Test (Pha) (Accu-Chek) 1 ea 02 XX ; Start 06/23/17 at 02:00 Insulin Glargine (Lantus) 12 unit DAILY@08 SC Last administered on 06/23/17 09: 14; Admin Dose 12 UNIT; Start 06/22/17 at 08:00 Aspirin (Halfprin) 81 mg DAILY PO Last administered on 06/23/17 09:15; Admin Dose 81 MG; Start 06/22/17 at 09:00 Miscellaneous Information 1 ea NOTE XX ; Start 06/22/17 at 03:30 Glucose (Glutose) 15 gm Q15M PRN PO DECREASED GLUCOSE; Start 06/22/17 at 03:30 Glucose (Glutose) 22.5 gm Q15M PRN PO DECREASED GLUCOSE; Start 06/22/17 at 03:30 Dextrose (D50w Syringe) 25 ml Q15M PRN IV DECREASED GLUCOSE; Start 06/22/17 at 03:30 Dextrose (D50w Syringe) 50 ml Q15M PRN IV DECREASED GLUCOSE; Start 06/22/17 at 03:30 Glucagon (Glucagen) 1 mg Q15M PRN IM DECREASED GLUCOSE; Start 06/22/17 at 03:30 Glucose (Glutose) 15 gm Q15M PRN BUCCAL DECREASED GLUCOSE; Start 06/22/17 at 03: 30 Pantoprazole (Protonix Iv) 40 mg BID@06,18 IV Last administered on 06/23/17t 05: 05; Admin Dose 40 MG; Start 06/22/17 at 18:00 Hydromorphone HCl (Dilaudid) 1 mg Q2 PRN IV PAIN; Start 06/23/17 at 08:30 LUCINDA BANUELOS MD Jun 23, 2017 12:02
[2017-06-23 18:23] LABS: INR 1.13; PROTIME 14.5 Sec (12.2-14.2); PT RATIO 1.1
[2017-06-23 18:37] LABS: PARTIAL THROMBOPLASTIN TIME 93.4 Sec (25.0-35.0)
[2017-06-23] MEDS: ATORVASTATIN 20 MG TAB PO SCH (19:47)
--- NOTE | 2017-06-23 20:19 | PN ---
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 NSTEMI: - Likely type II demand in setting of PE, though does of known coronary disease and symptoms are concerning for angina in the weeks that lead up to his acute wosrneing in past few days - Need collateral from OSH - Continue aspirin monotherapy for now - Continue statin - heparin gtt regardless in case of type I NV - Kendall to see patient tomorrow - TTE pending DMII; - basal/bolus insulin Hypertension: - Continue lisinopril Problems: Subjective 24 Hr Interval Summary Free Text/Dictation CT showing segmental R PE Started on heparin gtt STill complains of unrelenting CP, worse with breahting, very much present at rest EKG is unchanged, no ST changes Troponin noted No resrpiatory complaints aside from pain Exam/Review of Systems Vital Signs Vitals Vital Signs Date Time Temp Pulse Resp B/P Pulse Ox O2 Delivery O2 Flow Rate FiO2 06/23/17 19:56 98.1 74 19 115/59 90 06/22/17 02:40 Room Air Intake and Output 06/22/17 06/22/17 06/23/17 15:00 23:00 07:00 Intake Total 800 ml 0 ml Output Total 3 ml Balance 800 ml -3 ml Exam Appears well, in NAD Lungs claer Flat neck veins Heart sounds normal No edema Results Result Diagram: 06/23/17 0647 06/23/17 0646 Results 24 hrs Laboratory Tests Test 06/23/17 02:05 06/23/17 06:46 06/23/17 06:47 06/23/17 09:02 Activated Partial Thromboplast Time 46.8 H Sodium Level 136 Potassium Level 3.8 Chloride Level 101 Carbon Dioxide Level 29 Anion Gap 10 Blood Urea Nitrogen 13 Creatinine 0.93 Glucose Level 149 Calcium Level 8.8 Phosphorus Level 4.0 Magnesium Level 2.1 White Blood Count 9.1 # Red Blood Count 4.98 Hemoglobin 14.8 Hematocrit 43.4 Mean Corpuscular Volume 87.1 Mean Corpuscular Hemoglobin 29.7 Mean Corpuscular Hemoglobin Concent 34.1 Red Cell Distribution Width 12.6 Platelet Count 188 Mean Platelet Volume 10.4 Neutrophils % 65.5 Lymphocytes % 24.4 Monocytes % 8.4 Eosinophils % 0.7 Basophils % 0.5 Nucleated Red Blood Cells % 0.0 Neutrophils # (Manual) 6.0 Lymphocytes # 2.2 Monocytes # 0.8 Eosinophils # 0.1 Basophils # 0.1 Nucleated Red Blood Cells # 0.0 Troponin I 0.723 *H Bedside Glucose 149 Test 06/23/17 09:21 06/23/17 12:12 06/23/17 17:37 06/23/17 17:59 Prothrombin Time 14.4 H 14.5 H Prothrombin Time Ratio 1.1 1.1 INR International Normalized Ratio 1.12 1.13 Activated Partial Thromboplast Time 73.4 *H 93.4 *H Bedside Glucose 109 91 Test 06/23/17 19:53 Bedside Glucose 157 Medications Medications Current Medications Ondansetron HCl (Zofran Inj) 4 mg Q6H PRN IV NAUSEA AND/OR VOMITING Last administered on 06/23/17 18:41; Admin Dose 4 MG; Start 06/22/17 at 03:00 Nitroglycerin (Nitroglycerin (Sl Tab) 0.4 Mg) 1 tab Q5M PRN SL CHEST PAIN Last administered on 06/23/17 09:15; Admin Dose 1 TAB; Start 06/22/17 at 03:00 Acetaminophen (Tylenol Tab) 650 mg Q6H PRN PO PAIN LEVEL 1-3 OR FEVER; Start at 03:00 Morphine Sulfate (morphine) 4 mg Q4H PRN IV PAIN LEVEL 7-10 Last administered on 06/23/17 17:51; Admin Dose 4 MG; Start 06/22/17 at 03:00 Carvedilol (Coreg) 3.125 mg Q12 PO Last administered on 06/23/17 19:48; Admin Dose 3.125 MG; Start 06/22/17 at 09:00 Lisinopril (Zestril) 5 mg DAILY PO Last administered on 06/23/17 09:15; Admin Dose 5 MG; Start 06/22/17 at 09:00 Atorvastatin Calcium (Lipitor) 20 mg QHS PO Last administered on 06/23/17 19:47 ; Admin Dose 20 MG; Start 06/22/17 at 21:00 Diagnostic Test (Pha) (Accu-Chek) 1 ea 02 XX ; Start 06/23/17 at 02:00 Insulin Glargine (Lantus) 12 unit DAILY@08 SC Last administered on 06/23/17 09: 14; Admin Dose 12 UNIT; Start 06/22/17 at 08:00 Aspirin (Halfprin) 81 mg DAILY PO Last administered on 06/23/17 09:15; Admin Dose 81 MG; Start 06/22/17 at 09:00 Miscellaneous Information 1 ea NOTE XX ; Start 06/22/17 at 03:30 Glucose (Glutose) 15 gm Q15M PRN PO DECREASED GLUCOSE; Start 06/22/17 at 03:30 Glucose (Glutose) 22.5 gm Q15M PRN PO DECREASED GLUCOSE; Start 06/22/17 at 03:30 Dextrose (D50w Syringe) 25 ml Q15M PRN IV DECREASED GLUCOSE; Start 06/22/17 at 03:30 Dextrose (D50w Syringe) 50 ml Q15M PRN IV DECREASED GLUCOSE; Start 06/22/17 at 03:30 Glucagon (Glucagen) 1 mg Q15M PRN IM DECREASED GLUCOSE; Start 06/22/17 at 03:30 Glucose (Glutose) 15 gm Q15M PRN BUCCAL DECREASED GLUCOSE; Start 06/22/17 at 03: 30 Pantoprazole (Protonix Iv) 40 mg BID@06,18 IV Last administered on 06/23/17 17: 51; Admin Dose 40 MG; Start 06/22/17 at 18:00 Hydromorphone HCl (Dilaudid) 1 mg Q2 PRN IV PAIN Last administered on 06/23/17 19:47; Admin Dose 1 MG; Start 06/23/17 at 08:30 Docusate Sodium (Colace) 100 mg DAILY PO ; Start 06/24/17 at 09:00 CARRIE FRANKEL MD Jun 23, 2017 20:19
--- NOTE | 2017-06-23 22:52 | RADRPT ---
Echocardiogram Report Patient Name: TOMEKA OLIVAREZ Gender: Male Date: 1965 Study Date: 22-Jun-2017 Glass Smoother: TAMMI Location: E Ref. Physician: MARY VELAZCO Quality: Adequate Procedures: Transthoracic echocardiogram with complete 2D, M-Mode, and Doppler examination. Indications: NSTEMI. 2D/M Mode Doppler Measurement Value Normal Ranges Measurement Value Normal Ranges AoR Diam MM 3.0 cm AV Peak Shiraz 1.2 m/sec ACS MM 2.0 cm AV Peak PG 5.4 mmHg LVIDd 2D 4.5 3.5 - 5.6 cm LVOT Peak Shiraz 1.0 m/sec LVIDs 2D 2.6 2.1 - 4.1 cm LVOT Peak PG 3.9 mmHg LVPWd 2D 1.3 0.6 - 1.1 cm MV E Peak Shiraz 1.0 m/sec IVSd 2D 1.3 0.6 - 1.1 cm MV A Peak [place]az 0.7 m/sec EDV 2D 92.4 cm3 MV E/A 1.5 ESV 2D 18.3 cm3 MV Decel Time 171 msec LA Dimen 2D 4.2 2.3 - 4.0 cm MV Decel Screven 6 MV E/A 1.5 TR Peak Shiraz 2.4 m/sec TR Peak PG 22.3 mmHg PV Peak Shiraz 1.1 m/sec PV Peak PG 5.0 mmHg RVSP 25.3 mmHg Findings Left Ventricle: Normal left ventricular systolic function. Normal left ventricular cavity size. Mild concentric left ventricular hypertrophy. Ejection fraction is visually estimated at 60 %. Tissue Doppler/Mitral Doppler indices are consistent with impaired relaxation (Stage I diastolic dysfunction). Resting Segmental Wall Motion Analysis: Abnormal septal motion secondary to cardiac surgery. Right Ventricle: Normal right ventricular size. Normal right ventricular systolic function. Left Atrium: There is mild enlargement of left atrium. Right Atrium: There is mild enlargement of right atrium. Atrial Septum: Normal atrial septum. Mitral Valve: Normal appearance of the mitral valve. Mild mitral valve regurgitation. Aortic Valve: Normal appearance of the aortic valve. No significant aortic stenosis or insufficiency. Tricuspid Valve: Normal appearance of the tricuspid valve. Estimated peak PA systolic pressure 25 mmHg. There is trace tricuspid regurgitation. Pulmonic Valve: Normal pulmonic valve appearance. No evidence of pulmonic regurgitation. Pericardium: Normal pericardium with no significant pericardial effusion. Aorta: Normal aortic root. IVC: Normal size and normal respiratory collapse consistent with normal right atrial pressure. Pulmonary Artery: Normal pulmonary artery size. Conclusions Normal left ventricular systolic function. Normal left ventricular cavity size. Mild concentric left ventricular hypertrophy. Ejection fraction is visually estimated at 60 %. Tissue Doppler/Mitral Doppler indices are consistent with impaired relaxation (Stage I diastolic dysfunction). Abnormal septal motion secondary to cardiac surgery. Mild mitral valve regurgitation. Estimated peak PA systolic pressure 25 mmHg based on RA pressure of 3 mmHg. Electronically Signed By: Enoc Argueta 23-Jun-2017 22:51:58 -0700 Patient Name: TOMEKA OLIVAREZ Study Date: 22-Jun-2017 [id number]
[2017-06-24] VITALS (12 sets, daily range): BP systolic 98–121; BP diastolic 56–69; PULSE 59–90; RESP 18–20
[2017-06-24] MEDS: HYDROmorphONE 1 MG/ML SYG IV PRN ×6 (01:06→21:14)
[2017-06-24 01:44] LABS: INR 1.1; PROTIME 14.2 Sec (12.2-14.2); PT RATIO 1.1
[2017-06-24 01:56] LABS: PARTIAL THROMBOPLASTIN TIME 70.5 Sec (25.0-35.0)
[2017-06-24] MEDS: ACCU-CHEK XX SCH (02:00)
[2017-06-24] MEDS: morphine 4 MG/ML VIAL IV PRN ×3 (03:15→19:34)
[2017-06-24] MEDS: HEPARIN 25000 UNITS/250 ML 250 ML IV SCH ×4 (03:23→21:21)
[2017-06-24] MEDS: PANTOPRAZOLE 40 MG INJ IV SCH (05:14)
[2017-06-24 07:40] LABS: BASOPHIL # 0.1 10^3/ul (0.0-0.1); BASOPHILS % 0.4 % (0.0-2.0); EOSINOPHILS # 0.1 10^3/ul (0.0-0.5); EOSINOPHILS % 0.4 % (0.0-7.0); HEMATOCRIT 44.9 % (42.0-52.0); LYMPHOCYTES # 2.6 10^3/ul (0.8-2.9); LYMPHOCYTES % 22.5 % (15.0-51.0); MEAN CORPUSCULAR HEMOGLOBIN 29.4 pg (29.0-33.0); MEAN CORPUSCULAR HGB CONC 33.4 g/dl (32.0-37.0); MEAN PLATELET VOLUME 10.7 fl (7.4-10.4); MONOCYTES % 8.2 % (0.0-11.0); NEUTROPHILS % 68.1 % (39.0-77.0); PLATELET COUNT 201 10^3/UL (140-415); RED CELL DISTRIBUTION WIDTH 12.1 % (11.5-14.5); WHITE BLOOD COUNT 11.6 10^3/ul (4.8-10.8)
[2017-06-24 08:21] LABS: ALBUMIN 3.5 g/dl (3.3-4.9); ALBUMIN/GLOBULIN RATIO 1.29; BILIRUBIN,INDIRECT 0.6 mg/dl (0-1.1); BILIRUBIN,TOTAL 0.6 mg/dl (0.2-1.3); CALCIUM 8.1 mg/dl (8.4-10.2); POTASSIUM 3.7 mmol/L (3.5-5.1); TOTAL PROTEIN 6.2 g/dl (6.1-8.1)
[2017-06-24] MEDS ORDERED: PIPER-TAZO 3.375 GM IV (PMX) 100 ML IVPB STA (08:21)
[2017-06-24 08:38] LABS: TROPONIN-I 0.978 ng/ml (0.00-0.12)
[2017-06-24] MEDS: DOCUSATE SODIUM 100 MG CAP PO SCH (08:50)
[2017-06-24] MEDS: ASPIRIN (EC) 81 MG TAB PO SCH (08:50)
[2017-06-24] MEDS: LISINOPRIL 5 MG TAB PO SCH (08:51)
--- NOTE | 2017-06-24 08:51 | CONS ---
Date/Time of Note Date/Time of Note DATE: 06/24/17 TIME: 08:51 Assessment/Plan Assessment/Plan Chief Complaint/Hosp Course NSTEMI: Somewhat unclear. He was found to have a PE but it is subsegmental and no RV dysfunction by echo so somewhat unusual though possible. He is still an active smoker and has chronic angina which seems to have become progressively worse over the past 2 weeks. The other confounding variable is a high grade fever which he spiked this am. No effusion on echo, no rub by exam, non- pleuritic so less likely pericarditis but with fevers, could be possible. Chest pain: At this time somewhat unclear if truly from PE, possibly pericarditis or more likely from obstructive CAD Fever: Unclear etiology. May be from infectious process (including viral) or just from PE +/- DVT DM HTN HL Active tobacco use -for now continue to trend trops and check EKG when pt has chest pain -check lower ext US to see if extensive DVT and if so, may consider repeating CTA to see if pt has more extensive PEs that would explain the chest pain and elevated trops -f/u fever workup -will check ESR/CRP -add plavix load and daily -add imdur 30mg, uptitrate -continue heparin drip -if above workup remains unrevealing, plan for cardiac cath for evaluation Problems: Consultation Date/Type/Reason Admit Date/Time Jun 22, 2017 at 02:01 Date of Consultation: Jun 24, 2017 Type of Consultation: Cardiology Reason for Consultation NSTEMI Referring Provider: CARRIE FRANKEL MD Hx of Present Illness 52 yo M with an extensive h/o CAD including 9 prior stents, CABG (~3-4 yrs ago at [facility]) and subsequent 1-2 stents most recently 2 yrs ago per pt, active tobacco use, DM, HTN, who presented with chest pain. The pt tells me that he has been having chest pain for many years now but it has been mild and mostly managed by medications. One year ago he had a cardiac cath and was told he had obstructive lesions but that they could not revascularize him. Over the past 1-2 weeks he has been having progression of his chest pain which is mostly exertional but at rest at times. Not associated with food intake or movement. The pain is not pleuritic and feels like his prior angina. He was found to have a RML subsegmental PE by CTA but also with NSTEMI (trop up to 1.0). The pt denies SOB and has been having intermittent episodes of chest pain still though currently he has very minimal symptoms. This am he was also found to have a fever to 103 but no cough, diarrhea, dysuria. per HPI, otherwise negative. Cardiovascular: chest pain Psychological: nl mood/affect, no complaints Past Medical History Medical History: coronary artery disease, diabetes, hypertension Past Surgical History Past Surgical Hx: coronary bypass surgery Social History Alcohol Use: none Smoking Status: Current every day smoker Drug Use: none Exam/Review of Systems Vital Signs Vitals Vital Signs Date Time Temp Pulse Resp B/P Pulse Ox O2 Delivery O2 Flow Rate FiO2 06/24/17 07:50 103.2 97 18 121/62 93 06/22/17 02:40 Room Air Intake and Output 06/23/17 06/23/17 06/24/17 15:00 23:00 07:00 Intake Total 800 ml 1252 ml Balance 800 ml 1252 ml Exam Constitutional: alert, oriented Psych: nl mood/affect Head: atraumatic, normocephalic Neck: supple, No jvd Respiratory: clear to auscultation, No crackles/rales Cardiovascular: regular rate and rhythm, No edema, No systolic murmur Gastrointestinal: non-tender, soft, No distended Neurological: nl mental status, nl speech Results EKG: sinus, no ST changes, nonspecific TW changes Result Diagram: 06/24/17 0657 06/24/17 0657 Results 24 hrs Laboratory Tests Test 06/23/17 09:02 06/23/17 09:21 06/23/17 12:12 06/23/17 17:37 Bedside Glucose 149 109 Prothrombin Time 14.4 H 14.5 H Prothrombin Time Ratio 1.1 1.1 INR International Normalized Ratio 1.12 1.13 Activated Partial Thromboplast Time 73.4 *H 93.4 *H Test 06/23/17 17:59 06/23/17 19:53 06/24/17 00:58 06/24/17 06:57 Bedside Glucose 91 157 Prothrombin Time 14.2 Prothrombin Time Ratio 1.1 INR International Normalized Ratio 1.10 Activated Partial Thromboplast Time 70.5 *H Troponin I 0.521 *H 0.978 *H White Blood Count 11.6 #H Red Blood Count 5.10 Hemoglobin 15.0 Hematocrit 44.9 Mean Corpuscular Volume 88.0 Mean Corpuscular Hemoglobin 29.4 Mean Corpuscular Hemoglobin Concent 33.4 Red Cell Distribution Width 12.1 Platelet Count 201 Mean Platelet Volume 10.7 H Neutrophils % 68.1 Lymphocytes % 22.5 Monocytes % 8.2 Eosinophils % 0.4 Basophils % 0.4 Nucleated Red Blood Cells % 0.0 Neutrophils # (Manual) 7.9 H Lymphocytes # 2.6 Monocytes # 1.0 H Eosinophils # 0.1 Basophils # 0.1 Nucleated Red Blood Cells # 0.0 Sodium Level 132 L Potassium Level 3.7 Chloride Level 96 L Carbon Dioxide Level 26 Anion Gap 14 Blood Urea Nitrogen 11 Creatinine 1.00 Glucose Level 304 #H Calcium Level 8.1 L Total Bilirubin 0.6 Direct Bilirubin 0.00 Indirect Bilirubin 0.6 Aspartate Amino Transf (AST/SGOT) 33 # Alanine Aminotransferase (ALT/SGPT) 46 Alkaline Phosphatase 61 Total Protein 6.2 Albumin 3.5 Globulin 2.70 Albumin/Globulin Ratio 1.29 Test 06/24/17 08:21 Bedside Glucose 157 Medications Medications Current Medications Ondansetron HCl (Zofran Inj) 4 mg Q6H PRN IV NAUSEA AND/OR VOMITING Last administered on 06/23/17 18:41; Admin Dose 4 MG; Start 06/22/17 at 03:00 Nitroglycerin (Nitroglycerin (Sl Tab) 0.4 Mg) 1 tab Q5M PRN SL CHEST PAIN Last administered on 06/23/17 09:15; Admin Dose 1 TAB; Start 06/22/17 at 03:00 Acetaminophen (Tylenol Tab) 650 mg Q6H PRN PO PAIN LEVEL 1-3 OR FEVER; Start at 03:00 Morphine Sulfate (morphine) 4 mg Q4H PRN IV PAIN LEVEL 7-10 Last administered on 06/24/17 03:15; Admin Dose 4 MG; Start 06/22/17 at 03:00 Carvedilol (Coreg) 3.125 mg Q12 PO Last administered on 06/23/17 19:48; Admin Dose 3.125 MG; Start 06/22/17 at 09:00 Lisinopril (Zestril) 5 mg DAILY PO Last administered on 06/23/17 09:15; Admin Dose 5 MG; Start 06/22/17 at 09:00 Atorvastatin Calcium (Lipitor) 20 mg QHS PO Last administered on 06/23/17 19:47 ; Admin Dose 20 MG; Start 06/22/17 at 21:00 Diagnostic Test (Pha) (Accu-Chek) 1 ea 02 XX ; Start 06/23/17 at 02:00 Insulin Glargine (Lantus) 12 unit DAILY@08 SC Last administered on 06/23/17 09: 14; Admin Dose 12 UNIT; Start 06/22/17 at 08:00 Aspirin (Halfprin) 81 mg DAILY PO Last administered on 06/23/17 09:15; Admin Dose 81 MG; Start 06/22/17 at 09:00 Miscellaneous Information 1 ea NOTE XX ; Start 06/22/17 at 03:30 Glucose (Glutose) 15 gm Q15M PRN PO DECREASED GLUCOSE; Start 06/22/17 at 03:30 Glucose (Glutose) 22.5 gm Q15M PRN PO DECREASED GLUCOSE; Start 06/22/17 at 03:30 Dextrose (D50w Syringe) 25 ml Q15M PRN IV DECREASED GLUCOSE; Start 06/22/17 at 03:30 Dextrose (D50w Syringe) 50 ml Q15M PRN IV DECREASED GLUCOSE; Start 06/22/17 at 03:30 Glucagon (Glucagen) 1 mg Q15M PRN IM DECREASED GLUCOSE; Start 06/22/17 at 03:30 Glucose (Glutose) 15 gm Q15M PRN BUCCAL DECREASED GLUCOSE; Start 06/22/17 at 03: 30 Pantoprazole (Protonix Iv) 40 mg BID@06,18 IV Last administered on 06/24/17 05: 14; Admin Dose 40 MG; Start 06/22/17 at 18:00 Hydromorphone HCl (Dilaudid) 1 mg Q2 PRN IV PAIN Last administered on 06/24/17 05:15; Admin Dose 1 MG; Start 06/23/17 at 08:30 Docusate Sodium (Colace) 100 mg DAILY PO ; Start 06/24/17 at 09:00 KATHLEEN RODRIGES Jun 24, 2017 08:51
[2017-06-24] MEDS: INSULIN ASPART [NOVOLOG] 3 ML PEN SC SCH ×4 (08:53→21:00)
[2017-06-24] MEDS: INSULIN GLARGINE [LANtus] 3 ML PEN SC SCH (08:54)
[2017-06-24 10:29] LABS: INR 1.1; PROTIME 14.2 Sec (12.2-14.2); PT RATIO 1.1
[2017-06-24 10:31] LABS: PARTIAL THROMBOPLASTIN TIME 66.6 Sec (25.0-35.0)
--- NOTE | 2017-06-24 11:22 | CONS ---
Date/Time of Note Date/Time of Note DATE: 06/24/17 TIME: 11:16 Assessment/Plan Assessment/Plan Additional Assessment/Plan X-ray was reviewed from second of this month which is essentially unremarkable. CTA of the chest is showing right upper lobe pulmonary embolism. Assessment and recommendations; 1. Patient admitted with shortness of breath due to possible non-STEMI as well as right upper lobe pulmonary embolism. 2. Prior history of CABG, hypertension and diabetes. Continue current treatment. Patient may need to have a coronary angiogram. Patient also is a good candidate for long-term anticoagulation with Eliquis or apixaban. Consultation Date/Type/Reason Admit Date/Time Jun 22, 2017 at 02:01 Date of Consultation: Jun 24, 2017 Type of Consultation: Pulmonary Reason for Consultation Pulmonary consultation requested for evaluation of shortness of breath. Patient admitted and diagnosed with right upper lobe pulmonary embolism. History of presenting illness; patient is a 52-year-old male who was admitted to the hospital after he came to the ER with complaints of shortness of breath and left arm pain. Patient had elevated cardiac enzymes he also underwent a CTA of the chest which has been interpreted as showing right upper lobe pulmonary embolism. Patient is currently on IV heparin via protocol. He is feeling much better now denies any further shortness of breath but still complains of reproducible left anterior chest pain. Any coughing, hemoptysis wheezing or any sputum production. Denies any nausea vomiting. Past medical history; 1. Patient with history of underlying coronary artery disease status post bypass surgery. 2. Hypertension and diabetes. Medications; reviewed. Allergies; none. Family history; patient is he has 3 children. Various family members have diabetes and hypertension in the family. Occupational history; patient is on disability. Review of systems; denies any headache, visual changes. Denies any sinus symptoms. Planes of sharp left-sided chest pain with deep breathing. Has any wheezing, hemoptysis. Denies any abdominal pain, nausea vomiting. Complains of chronic mild orthopnea. Complains of snoring. Denies any edema. Denies any GI or urinary symptoms. General exam; middle-aged male, currently no distress. Awake and alert. Cardiovascular: chest pain Psychological: nl mood/affect, no complaints Past Medical History Medical History: coronary artery disease, diabetes, hypertension Past Surgical History Past Surgical Hx: coronary bypass surgery Social History Alcohol Use: none Smoking Status: Current every day smoker Drug Use: none Exam/Review of Systems Vital Signs Vitals Vital Signs Date Time Temp Pulse Resp B/P Pulse Ox O2 Delivery O2 Flow Rate FiO2 06/24/17 08:00 86 06/24/17 07:50 103.2 18 121/62 93 06/22/17 02:40 Room Air Intake and Output 06/23/17 06/23/17 06/24/17 14:59 22:59 06:59 Intake Total 800 ml 1252 ml Balance 800 ml 1252 ml Exam HEENT exam; supple neck, no JVD. No lymphadenopathy. Midline trachea. No thyromegaly. Patient has fair dentition. Pupils are small bilaterally. Chest exam; diminished but clear breath sounds. S1-S2 audible, no murmurs. Regular rhythm. There is a well-healed sternal scar. There is reproducible tenderness involving the left anterolateral chest wall. Next Abdomen exam; soft, no organomegaly. Bowel sounds audible. Extremity exam; no peripheral edema. Pulses 2+ bilaterally. No clubbing. [employer] exam; no focal deficit. Results Result Diagram: 06/24/1757 06/24/1757 Results 24 hrs Laboratory Tests Test 06/23/17 12:12 06/23/17 17:37 06/23/17 17:59 06/23/17 19:53 Bedside Glucose 109 91 157 Prothrombin Time 14.5 H Prothrombin Time Ratio 1.1 INR International Normalized Ratio 1.13 Activated Partial Thromboplast Time 93.4 *H Test 06/24/17 00:58 06/24/17 06:57 06/24/17 08:21 06/24/17 09:47 Prothrombin Time 14.2 14.2 Prothrombin Time Ratio 1.1 1.1 INR International Normalized Ratio 1.10 1.10 Activated Partial Thromboplast Time 70.5 *H 66.6 H Troponin I 0.521 *H 0.978 *H White Blood Count 11.6 #H Red Blood Count 5.10 Hemoglobin 15.0 Hematocrit 44.9 Mean Corpuscular Volume 88.0 Mean Corpuscular Hemoglobin 29.4 Mean Corpuscular Hemoglobin Concent 33.4 Red Cell Distribution Width 12.1 Platelet Count 201 Mean Platelet Volume 10.7 H Neutrophils % 68.1 Lymphocytes % 22.5 Monocytes % 8.2 Eosinophils % 0.4 Basophils % 0.4 Nucleated Red Blood Cells % 0.0 Neutrophils # (Manual) 7.9 H Lymphocytes # 2.6 Monocytes # 1.0 H Eosinophils # 0.1 Basophils # 0.1 Nucleated Red Blood Cells # 0.0 Sodium Level 132 L Potassium Level 3.7 Chloride Level 96 L Carbon Dioxide Level 26 Anion Gap 14 Blood Urea Nitrogen 11 Creatinine 1.00 Glucose Level 304 #H Calcium Level 8.1 L Total Bilirubin 0.6 Direct Bilirubin 0.00 Indirect Bilirubin 0.6 Aspartate Amino Transf (AST/SGOT) 33 # Alanine Aminotransferase (ALT/SGPT) 46 Alkaline Phosphatase 61 Total Protein 6.2 Albumin 3.5 Globulin 2.70 Albumin/Globulin Ratio 1.29 Bedside Glucose 157 Lactic Acid Level 1.0 Medications Medications Current Medications Ondansetron HCl (Zofran Inj) 4 mg Q6H PRN IV NAUSEA AND/OR VOMITING Last administered on 06/23/17 18:41; Admin Dose 4 MG; Start 06/22/17 at 03:00 Nitroglycerin (Nitroglycerin (Sl Tab) 0.4 Mg) 1 tab Q5M PRN SL CHEST PAIN Last administered on 06/23/17 09:15; Admin Dose 1 TAB; Start 06/22/17 at 03:00 Acetaminophen (Tylenol Tab) 650 mg Q6H PRN PO PAIN LEVEL 1-3 OR FEVER Last administered on 06/24/17 08:50; Admin Dose 650 MG; Start 06/22/17 at 03:00 Morphine Sulfate (morphine) 4 mg Q4H PRN IV PAIN LEVEL 7-10 Last administered on 06/24/17 03:15; Admin Dose 4 MG; Start 06/22/17 at 03:00 Carvedilol (Coreg) 3.125 mg Q12 PO Last administered on 06/24/17 08:51; Admin Dose 3.125 MG; Start 06/22/17 at 09:00 Lisinopril (Zestril) 5 mg DAILY PO Last administered on 06/24/17 08:51; Admin Dose 5 MG; Start 06/22/17 at 09:00 Atorvastatin Calcium (Lipitor) 20 mg QHS PO Last administered on 06/23/17 19:47 ; Admin Dose 20 MG; Start 06/22/17 at 21:00 Diagnostic Test (Pha) (Accu-Chek) 1 ea 02 XX ; Start 06/23/17 at 02:00 Insulin Glargine (Lantus) 12 unit DAILY@08 SC Last administered on 06/24/17 08: 54; Admin Dose 12 UNIT; Start 06/22/17 at 08:00 Aspirin (Halfprin) 81 mg DAILY PO Last administered on 06/24/17 08:50; Admin Dose 81 MG; Start 06/22/17 at 09:00 Miscellaneous Information 1 ea NOTE XX ; Start 06/22/17 at 03:30 Glucose (Glutose) 15 gm Q15M PRN PO DECREASED GLUCOSE; Start 06/22/17 at 03:30 Glucose (Glutose) 22.5 gm Q15M PRN PO DECREASED GLUCOSE; Start 06/22/17 at 03:30 Dextrose (D50w Syringe) 25 ml Q15M PRN IV DECREASED GLUCOSE; Start 06/22/17 at 03:30 Dextrose (D50w Syringe) 50 ml Q15M PRN IV DECREASED GLUCOSE; Start 06/22/17 at 03:30 Glucagon (Glucagen) 1 mg Q15M PRN IM DECREASED GLUCOSE; Start 06/22/17 at 03:30 Glucose (Glutose) 15 gm Q15M PRN BUCCAL DECREASED GLUCOSE; Start 06/22/17 at 03: 30 Pantoprazole (Protonix Iv) 40 mg BID@06,18 IV Last administered on 06/24/17 05: 14; Admin Dose 40 MG; Start 06/22/17 at 18:00 Hydromorphone HCl (Dilaudid) 1 mg Q2 PRN IV PAIN Last administered on 06/24/17 11:00; Admin Dose 1 MG; Start 06/23/17 at 08:30 Docusate Sodium (Colace) 100 mg DAILY PO Last administered on 06/24/17 08:50; Admin Dose 100 MG; Start 06/24/17 at 09:00 CORINNE STOKES Jun 24, 2017 11:22
[2017-06-24] MEDS ORDERED: CLOPIDOGREL 75 MG TAB PO ONE (12:30)
--- NOTE | 2017-06-24 13:44 | RADRPT ---
PROCEDURE: US Lower extremity venous, bilateral CLINICAL INDICATION: Pulmonary embolism, DVT TECHNIQUE: Multiple sonographic images of the bilateral lower extremity deep venous system was ob tained utilizing grayscale, color-flow, compressive sonography and doppler imaging with augmentation . The images were reviewed on a PACS workstation. COMPARISON: None. FINDINGS: There is normal compressibility and flow within the bilateral common femoral, superficial femoral , posterior tibial, peroneal and popliteal veins. RPTAT: AA IMPRESSION: No sonographic evidence for deep venous thrombosis in bilateral lower extremities. Physician Basim Date Time Electronically viewed and signed by Physician Basim on 06/24/2017 13:44 RA/
[2017-06-24] MEDS: ISOSORBIDE MONONITRATE(SR)30 MG TAB PO SCH (13:45)
--- NOTE | 2017-06-24 13:45 | RADRPT ---
PROCEDURE: XR Chest. CLINICAL INDICATION: fever TECHNIQUE: PA and lateral views of the chest were obtained. COMPARISON: Chest x-ray from 06/21/2017. FINDINGS: Sternotomy wires are again noted. The aortic arch is calcified. There is stable mild cardiomegaly. There is mild pulmonary vascular congestion. No definite focal infiltrates are identified. There is no significant pleural effusion or pneumothorax. Osseous and soft tissue structures are unremarkable. IMPRESSION: Stable mild cardiomegaly with mild pulmonary vascular congestion. No definite focal infiltrates or effusions. Aortic atherosclerosis. RPTAT: EE Physician Basim Date Time Electronically viewed and signed by Physician Basim on 06/24/2017 13:44 /
--- NOTE | 2017-06-24 15:27 | PN ---
Date/Time of Note Date/Time of Note DATE: 06/24/17 TIME: 15:23 Assessment/Plan VTE Prophylaxis VTE Prophylaxis Intervention: heparin Lines/Catheters IV Catheter Type (from Nrs): Peripheral IV Urinary Cath still in place: No Assessment/Plan Chief Complaint/Hosp Course 52 yo male with h/o CAD s/p CABG and stents presenting with crescendo chest pain symptoms, then found to have PE. Now with fever Fever: - Unclear source of profoudn fever. Perhaps this is related to his PE. No infectious s/s. Will give zosyn for now and await culture data. Broaden abx if HD unstable - ? viral, ? pericarditis on ddx Pulmonary embolism - Continue heparin gtt - Will switch to NOAC following cardiac cath NSTEMI: - Likely type II demand in setting of PE, though does have known coronary disease and symptoms are concerning for angina in the weeks that lead up to his acute wosrneing in past few days - Need collateral from OSH - Continue aspirin monotherapy for now - Continue statin - heparin gtt - [facility] following, plan for cardiac cath - TTE pending DMII; - basal/bolus insulin Hypertension: - Continue lisinopril Problems: Subjective 24 Hr Interval Summary Free Text/Dictation Marked fever this morning to 103.7, HD stable Patient without any new complaints. Only localizing sypmtoms in continued chest discomfort Troponin downtrending Exam/Review of Systems Vital Signs Vitals Vital Signs Date Time Temp Pulse Resp B/P Pulse Ox O2 Delivery O2 Flow Rate FiO2 06/24/17 12:00 67 06/24/17 11:54 98.7 18 114/69 96 06/22/17 02:40 Room Air Intake and Output 06/23/17 06/23/17 06/24/17 15:00 23:00 07:00 Intake Total 800 ml 1252 ml Balance 800 ml 1252 ml Exam Appears slightly uncomfortable, but calm, relaxed Nontoxic Chest wall is nontender on palpation Lungs clear, breathing nonlabored Ext withotu edema Heart sounds wnl Results Result Diagram: 06/24/17 0657 06/24/17 0657 Results 24 hrs Laboratory Tests Test 06/23/17 17:37 06/23/17 17:59 06/23/17 19:53 06/24/17 00:58 Prothrombin Time 14.5 H 14.2 Prothrombin Time Ratio 1.1 1.1 INR International Normalized Ratio 1.13 1.10 Activated Partial Thromboplast Time 93.4 *H 70.5 *H Bedside Glucose 91 157 Troponin I 0.521 *H Test 06/24/17 06:57 06/24/17 08:21 06/24/17 09:47 06/24/17 11:46 White Blood Count 11.6 #H Red Blood Count 5.10 Hemoglobin 15.0 Hematocrit 44.9 Mean Corpuscular Volume 88.0 Mean Corpuscular Hemoglobin 29.4 Mean Corpuscular Hemoglobin Concent 33.4 Red Cell Distribution Width 12.1 Platelet Count 201 Mean Platelet Volume 10.7 H Neutrophils % 68.1 Lymphocytes % 22.5 Monocytes % 8.2 Eosinophils % 0.4 Basophils % 0.4 Nucleated Red Blood Cells % 0.0 Neutrophils # (Manual) 7.9 H Lymphocytes # 2.6 Monocytes # 1.0 H Eosinophils # 0.1 Basophils # 0.1 Nucleated Red Blood Cells # 0.0 Sodium Level 132 L Potassium Level 3.7 Chloride Level 96 L Carbon Dioxide Level 26 Anion Gap 14 Blood Urea Nitrogen 11 Creatinine 1.00 Glucose Level 304 #H Calcium Level 8.1 L Total Bilirubin 0.6 Direct Bilirubin 0.00 Indirect Bilirubin 0.6 Aspartate Amino Transf (AST/SGOT) 33 # Alanine Aminotransferase (ALT/SGPT) 46 Alkaline Phosphatase 61 Troponin I 0.978 *H Total Protein 6.2 Albumin 3.5 Globulin 2.70 Albumin/Globulin Ratio 1.29 Bedside Glucose 157 125 Prothrombin Time 14.2 Prothrombin Time Ratio 1.1 INR International Normalized Ratio 1.10 Activated Partial Thromboplast Time 66.6 H Lactic Acid Level 1.0 Medications Medications Current Medications Ondansetron HCl (Zofran Inj) 4 mg Q6H PRN IV NAUSEA AND/OR VOMITING Last administered on 06/23/17 18:41; Admin Dose 4 MG; Start 06/22/17 at 03:00 Nitroglycerin (Nitroglycerin (Sl Tab) 0.4 Mg) 1 tab Q5M PRN SL CHEST PAIN Last administered on 06/23/17 09:15; Admin Dose 1 TAB; Start 06/22/17 at 03:00 Acetaminophen (Tylenol Tab) 650 mg Q6H PRN PO PAIN LEVEL 1-3 OR FEVER Last administered on 06/24/17 08:50; Admin Dose 650 MG; Start 06/22/17 at 03:00 Morphine Sulfate (morphine) 4 mg Q4H PRN IV PAIN LEVEL 7-10 Last administered on 06/24/17 11:35; Admin Dose 4 MG; Start 06/22/17 at 03:00 Carvedilol (Coreg) 3.125 mg Q12 PO Last administered on 06/24/17 08:51; Admin Dose 3.125 MG; Start 06/22/17 at 09:00 Lisinopril (Zestril) 5 mg DAILY PO Last administered on 06/24/17 08:51; Admin Dose 5 MG; Start 06/22/17 at 09:00 Atorvastatin Calcium (Lipitor) 20 mg QHS PO Last administered on 06/23/17 19:47 ; Admin Dose 20 MG; Start 06/22/17 at 21:00 Diagnostic Test (Pha) (Accu-Chek) 1 ea 02 XX ; Start 06/23/17 at 02:00 Insulin Glargine (Lantus) 12 unit DAILY@08 SC Last administered on 06/24/17 08: 54; Admin Dose 12 UNIT; Start 06/22/17 at 08:00 Aspirin (Halfprin) 81 mg DAILY PO Last administered on 06/24/17 08:50; Admin Dose 81 MG; Start 06/22/17 at 09:00 Miscellaneous Information 1 ea NOTE XX ; Start 06/22/17 at 03:30 Glucose (Glutose) 15 gm Q15M PRN PO DECREASED GLUCOSE; Start 06/22/17 at 03:30 Glucose (Glutose) 22.5 gm Q15M PRN PO DECREASED GLUCOSE; Start 06/22/17 at 03:30 Dextrose (D50w Syringe) 25 ml Q15M PRN IV DECREASED GLUCOSE; Start 06/22/17 at 03:30 Dextrose (D50w Syringe) 50 ml Q15M PRN IV DECREASED GLUCOSE; Start 06/22/17 at 03:30 Glucagon (Glucagen) 1 mg Q15M PRN IM DECREASED GLUCOSE; Start 06/22/17 at 03:30 Glucose (Glutose) 15 gm Q15M PRN BUCCAL DECREASED GLUCOSE; Start 06/22/17 at 03: 30 Pantoprazole (Protonix Iv) 40 mg BID@06,18 IV Last administered on 06/24/17 05: 14; Admin Dose 40 MG; Start 06/22/17 at 18:00 Hydromorphone HCl (Dilaudid) 1 mg Q2 PRN IV PAIN Last administered on 06/24/17 13:46; Admin Dose 1 MG; Start 06/23/17 at 08:30 Docusate Sodium (Colace) 100 mg DAILY PO Last administered on 06/24/17 08:50; Admin Dose 100 MG; Start 06/24/17 at 09:00 Clopidogrel Bisulfate (plaVIX) 75 mg DAILY PO ; Start 06/25/17 at 09:00 Isosorbide Mononitrate (Imdur) 30 mg DAILY PO Last administered on 06/24/17 13: 45; Admin Dose 30 MG; Start 06/24/17 at 13:00 CARRIE FRANKEL MD Jun 24, 2017 15:27
[2017-06-24 16:14] LABS: ADD UMIC YES; UR ASCORBIC ACID NEGATIVE (NEGATIVE); UR BILIRUBIN (Dip) NEGATIVE (NEGATIVE); UR BLOOD (Dip) 1+ mg/dL (NEGATIVE); UR CLARITY CLEAR (CLEAR); UR COLOR YELLOW (YELLOW); UR GLUCOSE (Dip) NEGATIVE (NEGATIVE); UR KETONES (Dip) TRACE mg/dL (NEGATIVE); UR LEUKOCYTE ESTERASE (Dip) NEGATIVE Leu/ul (NEGATIVE); UR NITRITE (Dip) NEGATIVE (NEGATIVE); UR RBC 0 /HPF (0-5); UR SPECIFIC GRAVITY (Dip) 1.011 (1.003-1.030); UR TOTAL PROTEIN (Dip) NEGATIVE (NEGATIVE); UR UROBILINOGEN (Dip) 1+ mg/dL (NEGATIVE)
[2017-06-24] MEDS: PANTOPRAZOLE (EC) 40 MG TAB PO SCH (17:25)
[2017-06-24 17:41] LABS: INR 1.09; PROTIME 14.1 Sec (12.2-14.2); PT RATIO 1.1
[2017-06-24 17:43] LABS: PARTIAL THROMBOPLASTIN TIME 62.4 Sec (25.0-35.0)
[2017-06-24] MEDS: ATORVASTATIN 20 MG TAB PO SCH (21:00)
[2017-06-25] VITALS (14 sets, daily range): BP systolic 98–126; BP diastolic 57–65; PULSE 58–96; RESP 17–20
[2017-06-25 01:49] LABS: INR 1.13; PROTIME 14.5 Sec (12.2-14.2); PT RATIO 1.1
[2017-06-25] MEDS: ACCU-CHEK XX SCH (02:00)
[2017-06-25 02:20] LABS: PARTIAL THROMBOPLASTIN TIME 80.7 Sec (25.0-35.0)
[2017-06-25] MEDS: HYDROmorphONE 1 MG/ML SYG IV PRN (04:37)
[2017-06-25] MEDS: PANTOPRAZOLE (EC) 40 MG TAB PO SCH ×2 (04:41→17:10)
[2017-06-25] MEDS: INSULIN ASPART [NOVOLOG] 3 ML PEN SC SCH ×4 (08:00→21:00)
[2017-06-25] MEDS: morphine 4 MG/ML VIAL IV PRN ×3 (08:18→21:31)
[2017-06-25] MEDS: CLOPIDOGREL 75 MG TAB PO SCH (08:20)
[2017-06-25] MEDS: ASPIRIN (EC) 81 MG TAB PO SCH (08:20)
[2017-06-25] MEDS: DOCUSATE SODIUM 100 MG CAP PO SCH (08:20)
[2017-06-25] MEDS: INSULIN GLARGINE [LANtus] 3 ML PEN SC SCH (08:22)
[2017-06-25 08:54] LABS: INR 1.16; PROTIME 14.9 Sec (12.2-14.2); PT RATIO 1.2
[2017-06-25 09:00] LABS: PARTIAL THROMBOPLASTIN TIME 91.5 Sec (25.0-35.0)
[2017-06-25] MEDS: LISINOPRIL 5 MG TAB PO SCH (09:00)
[2017-06-25] MEDS: ISOSORBIDE MONONITRATE(SR)30 MG TAB PO SCH (09:00)
--- NOTE | 2017-06-25 11:14 | CONS ---
Date/Time of Note Date/Time of Note DATE: 06/25/17 TIME: 11:09 Assessment/Plan Assessment/Plan Chief Complaint/Hosp Course NSTEMI: Somewhat unclear. He was found to have a PE but it is subsegmental and no RV dysfunction by echo so somewhat unusual though possible. He is still an active smoker and has chronic angina which seems to have become progressively worse over the past 2 weeks. The other confounding variable is a high grade fever which has since resolved. ESR/CRP do not suggest pericarditis. Chest pain: At this time somewhat unclear if truly from PE or more likely from obstructive CAD Fever: Unclear etiology. May be from infectious process (including viral) or just from PE +/- DVT DM HTN HL Active tobacco use -cath tomorrow am -NPO after midnight -ASA, plavix -lipitor -coreg -imdur 30mg -continue heparin drip Problems: Consultation Date/Type/Reason Admit Date/Time Jun 22, 2017 at 02:01 Initial Consult Date 06/24/17 Type of Consultation: Cardiology Referring Provider: CARRIE FRANKEL MD 24 HR Interval Summary Free Text/Dictation No o/n events. Still with chest pain with ambulation but not much at rest.No further fevers. ESR/CRP unremarkable. Exam/Review of Systems Vital Signs Vitals Vital Signs Date Time Temp Pulse Resp B/P Pulse Ox O2 Delivery O2 Flow Rate FiO2 06/25/17 08:33 58 06/25/17 07:38 98.5 18 98/61 95 06/22/17 02:40 Room Air Intake and Output 06/24/17 06/24/17 06/25/17 15:00 23:00 07:00 Intake Total 500 ml 900 ml Balance 500 ml 900 ml Exam Constitutional: alert, oriented Psych: nl mood/affect, no complaints Head: atraumatic, normocephalic Neck: No jvd Respiratory: clear to auscultation, No crackles/rales Cardiovascular: No edema, No regular rate and rhythm Gastrointestinal: non-tender, soft Musculoskeletal: nl extremities to inspection Neurological: nl mental status, nl speech Results Result Diagram: 06/24/17 0657 06/24/17 0657 Results 24 hrs Laboratory Tests Test 06/24/17 11:46 06/24/17 13:22 06/24/17 14:38 06/24/17 16:49 Bedside Glucose 125 Urine Color YELLOW Urine Clarity CLEAR Urine pH 5.0 Urine Specific [place] 1.011 Urine Ketones TRACE A Urine Nitrite NEGATIVE Urine Bilirubin NEGATIVE Urine Urobilinogen 1+ H Urine Leukocyte Esterase NEGATIVE Urine Microscopic RBC 0 Urine Microscopic WBC 1 Urine Hemoglobin 1+ H Urine Glucose NEGATIVE Urine Total Protein NEGATIVE Erythrocyte Sedimentation Rate 14 C-Reactive Protein 3.2 H Prothrombin Time 14.1 Prothrombin Time Ratio 1.1 INR International Normalized Ratio 1.09 Activated Partial Thromboplast Time 62.4 H Fibrinogen 497.0 H Test 06/24/17 17:14 06/24/17 21:05 06/25/17 00:41 06/25/17 07:52 Bedside Glucose 172 123 Prothrombin Time 14.5 H 14.9 H Prothrombin Time Ratio 1.1 1.2 INR International Normalized Ratio 1.13 1.16 Activated Partial Thromboplast Time 80.7 *H 91.5 *H Test 06/25/17 08:14 Bedside Glucose 127 Medications Medications Current Medications Ondansetron HCl (Zofran Inj) 4 mg Q6H PRN IV NAUSEA AND/OR VOMITING Last administered on 06/23/17 18:41; Admin Dose 4 MG; Start 06/22/17 at 03:00 Nitroglycerin (Nitroglycerin (Sl Tab) 0.4 Mg) 1 tab Q5M PRN SL CHEST PAIN Last administered on 06/23/17 09:15; Admin Dose 1 TAB; Start 06/22/17 at 03:00 Acetaminophen (Tylenol Tab) 650 mg Q6H PRN PO PAIN LEVEL 1-3 OR FEVER Last administered on 06/24/17 08:50; Admin Dose 650 MG; Start 06/22/17 at 03:00 Morphine Sulfate (morphine) 4 mg Q4H PRN IV PAIN LEVEL 7-10 Last administered on 06/25/17 08:18; Admin Dose 4 MG; Start 06/22/17 at 03:00 Carvedilol (Coreg) 3.125 mg Q12 PO Last administered on 06/24/17 08:51; Admin Dose 3.125 MG; Start 06/22/17 at 09:00 Lisinopril (Zestril) 5 mg DAILY PO Last administered on 06/24/17 08:51; Admin Dose 5 MG; Start 06/22/17 at 09:00 Atorvastatin Calcium (Lipitor) 20 mg QHS PO Last administered on 06/24/17 21:00 ; Admin Dose 20 MG; Start 06/22/17 at 21:00 Diagnostic Test (Pha) (Accu-Chek) 1 ea 02 XX ; Start 06/23/17 at 02:00 Insulin Glargine (Lantus) 12 unit DAILY@08 SC Last administered on 06/25/17 08: 22; Admin Dose 12 UNIT; Start 06/22/17 at 08:00 Aspirin (Halfprin) 81 mg DAILY PO Last administered on 06/25/17 08:20; Admin Dose 81 MG; Start 06/22/17 at 09:00 Miscellaneous Information 1 ea NOTE XX ; Start 06/22/17 at 03:30 Glucose (Glutose) 15 gm Q15M PRN PO DECREASED GLUCOSE; Start 06/22/17 at 03:30 Glucose (Glutose) 22.5 gm Q15M PRN PO DECREASED GLUCOSE; Start 06/22/17 at 03:30 Dextrose (D50w Syringe) 25 ml Q15M PRN IV DECREASED GLUCOSE; Start 06/22/17 at 03:30 Dextrose (D50w Syringe) 50 ml Q15M PRN IV DECREASED GLUCOSE; Start 06/22/17 at 03:30 Glucagon (Glucagen) 1 mg Q15M PRN IM DECREASED GLUCOSE; Start 06/22/17 at 03:30 Glucose (Glutose) 15 gm Q15M PRN BUCCAL DECREASED GLUCOSE; Start 06/22/17 at 03: 30 Hydromorphone HCl (Dilaudid) 1 mg Q2 PRN IV PAIN Last administered on 06/25/17 04:37; Admin Dose 1 MG; Start 06/23/17 at 08:30 Docusate Sodium (Colace) 100 mg DAILY PO Last administered on 06/25/17 08:20; Admin Dose 100 MG; Start 06/24/17 at 09:00 Clopidogrel Bisulfate (plaVIX) 75 mg DAILY PO Last administered on 06/25/17 08: 20; Admin Dose 75 MG; Start 06/25/17 at 09:00 Isosorbide Mononitrate (Imdur) 30 mg DAILY PO Last administered on 06/24/17 13: 45; Admin Dose 30 MG; Start 06/24/17 at 13:00 Pantoprazole (Protonix Tab) 40 mg BID@06,18 PO Last administered on 06/25/17t 04 :41; Admin Dose 40 MG; Start 06/24/17 at 18:00 KATHLEEN RODRIGES Jun 25, 2017 11:14
--- NOTE | 2017-06-25 12:03 | CONS ---
Date/Time of Note Date/Time of Note DATE: 06/25/17 TIME: 12:00 Assessment/Plan Assessment/Plan Additional Assessment/Plan Assessment and recommendations; 1. Patient admitted with chest pain and shortness of breath discovered to have right upper lobe pulmonary embolism. 2. Non-STEMI. With prior history of CABG. 3. History of hypertension or diabetes. 4. Atypical chest pain. Continue current treatment. Patient scheduled for coronary angiogram tomorrow. The patient can be switched over to either Eliquis or apixaban for long-term anticoagulation after coronary angiogram. Consultation Date/Type/Reason Admit Date/Time Jun 22, 2017 at 02:01 Initial Consult Date 06/24/17 Type of Consultation: Pulmonary Referring Provider: CARRIE FRANKEL MD 24 HR Interval Summary Free Text/Dictation Patient's condition remains stable. Still complains of sharp reproducible chest pain involving the left chest wall with certain movements. Denies any shortness of breath, coughing, wheezing, sputum production or hemoptysis. General exam; middle-aged male, awake and alert. Currently in no distress. Exam/Review of Systems Vital Signs Vitals Vital Signs Date Time Temp Pulse Resp B/P Pulse Ox O2 Delivery O2 Flow Rate FiO2 06/25/17 11:30 98.0 73 19 99/57 94 06/22/17 02:40 Room Air Intake and Output 06/24/17 06/24/17 06/25/17 15:00 23:00 07:00 Intake Total 500 ml 900 ml Balance 500 ml 900 ml Exam HEENT exam; supple neck, no JVD. No lymphadenopathy. Midline trachea. No thyromegaly. Pharynx is clear. Patient has fair dentition. Chest exam; clear to auscultation. There is a well-healed sternal scar. Regular rhythm. No murmurs. There is reproducible tenderness involving the left anterior chest wall. Abdomen exam; soft, no organomegaly. Bowel sounds audible. Extremity exam; no peripheral edema. Pulses 1+ bilaterally. CVOR NURSE exam; no focal deficit. Results Result Diagram: 06/24/17 0657 06/24/17 0657 Results 24 hrs Laboratory Tests Test 06/24/17 13:22 06/24/17 14:38 06/24/17 16:49 06/24/17 17:14 Urine Color YELLOW Urine Clarity CLEAR Urine pH 5.0 Urine Specific [place] 1.011 Urine Ketones TRACE A Urine Nitrite NEGATIVE Urine Bilirubin NEGATIVE Urine Urobilinogen 1+ H Urine Leukocyte Esterase NEGATIVE Urine Microscopic RBC 0 Urine Microscopic WBC 1 Urine Hemoglobin 1+ H Urine Glucose NEGATIVE Urine Total Protein NEGATIVE Erythrocyte Sedimentation Rate 14 C-Reactive Protein 3.2 H Prothrombin Time 14.1 Prothrombin Time Ratio 1.1 INR International Normalized Ratio 1.09 Activated Partial Thromboplast Time 62.4 H Fibrinogen 497.0 H Bedside Glucose 172 Test 06/24/17 21:05 06/25/17 00:41 06/25/17 07:52 06/25/17 08:14 Bedside Glucose 123 127 Prothrombin Time 14.5 H 14.9 H Prothrombin Time Ratio 1.1 1.2 INR International Normalized Ratio 1.13 1.16 Activated Partial Thromboplast Time 80.7 *H 91.5 *H Test 06/25/17 11:32 Bedside Glucose 137 Medications Medications Current Medications Ondansetron HCl (Zofran Inj) 4 mg Q6H PRN IV NAUSEA AND/OR VOMITING Last administered on 06/23/17 18:41; Admin Dose 4 MG; Start 06/22/17 at 03:00 Nitroglycerin (Nitroglycerin (Sl Tab) 0.4 Mg) 1 tab Q5M PRN SL CHEST PAIN Last administered on 06/23/17 09:15; Admin Dose 1 TAB; Start 06/22/17 at 03:00 Acetaminophen (Tylenol Tab) 650 mg Q6H PRN PO PAIN LEVEL 1-3 OR FEVER Last administered on 06/24/17 08:50; Admin Dose 650 MG; Start 06/22/17 at 03:00 Morphine Sulfate (morphine) 4 mg Q4H PRN IV PAIN LEVEL 7-10 Last administered on 06/25/17 08:18; Admin Dose 4 MG; Start 06/22/17 at 03:00 Carvedilol (Coreg) 3.125 mg Q12 PO Last administered on 06/24/17 08:51; Admin Dose 3.125 MG; Start 06/22/17 at 09:00 Lisinopril (Zestril) 5 mg DAILY PO Last administered on 06/24/17 08:51; Admin Dose 5 MG; Start 06/22/17 at 09:00 Atorvastatin Calcium (Lipitor) 20 mg QHS PO Last administered on 06/24/17 21:00 ; Admin Dose 20 MG; Start 06/22/17 at 21:00 Diagnostic Test (Pha) (Accu-Chek) 1 ea 02 XX ; Start 06/23/17 at 02:00 Insulin Glargine (Lantus) 12 unit DAILY@08 SC Last administered on 06/25/17 08: 22; Admin Dose 12 UNIT; Start 06/22/17 at 08:00 Aspirin (Halfprin) 81 mg DAILY PO Last administered on 06/25/17 08:20; Admin Dose 81 MG; Start 06/22/17 at 09:00 Miscellaneous Information 1 ea NOTE XX ; Start 06/22/17 at 03:30 Glucose (Glutose) 15 gm Q15M PRN PO DECREASED GLUCOSE; Start 06/22/17 at 03:30 Glucose (Glutose) 22.5 gm Q15M PRN PO DECREASED GLUCOSE; Start 06/22/17 at 03:30 Dextrose (D50w Syringe) 25 ml Q15M PRN IV DECREASED GLUCOSE; Start 06/22/17 at 03:30 Dextrose (D50w Syringe) 50 ml Q15M PRN IV DECREASED GLUCOSE; Start 06/22/17 at 03:30 Glucagon (Glucagen) 1 mg Q15M PRN IM DECREASED GLUCOSE; Start 06/22/17 at 03:30 Glucose (Glutose) 15 gm Q15M PRN BUCCAL DECREASED GLUCOSE; Start 06/22/17 at 03: 30 Hydromorphone HCl (Dilaudid) 1 mg Q2 PRN IV PAIN Last administered on 06/25/17 04:37; Admin Dose 1 MG; Start 06/23/17 at 08:30 Docusate Sodium (Colace) 100 mg DAILY PO Last administered on 06/25/17 08:20; Admin Dose 100 MG; Start 06/24/17 at 09:00 Clopidogrel Bisulfate (plaVIX) 75 mg DAILY PO Last administered on 06/25/17 08: 20; Admin Dose 75 MG; Start 06/25/17 at 09:00 Isosorbide Mononitrate (Imdur) 30 mg DAILY PO Last administered on 06/24/17 13: 45; Admin Dose 30 MG; Start 06/24/17 at 13:00 Pantoprazole (Protonix Tab) 40 mg BID@06,18 PO Last administered on 06/25/17 04 :41; Admin Dose 40 MG; Start 06/24/17 at 18:00 CORINNE STOKES Jun 25, 2017 12:03
[2017-06-25 12:21] LABS: BASOPHILS % 0.6 % (0.0-2.0); EOSINOPHILS # 0.1 10^3/ul (0.0-0.5); EOSINOPHILS % 1.7 % (0.0-7.0); HEMATOCRIT 40.3 % (42.0-52.0); HEMOGLOBIN 13.7 g/dl (14.0-18.0); LYMPHOCYTES # 1.9 10^3/ul (0.8-2.9); LYMPHOCYTES % 26.1 % (15.0-51.0); MEAN CORPUSCULAR HEMOGLOBIN 29.4 pg (29.0-33.0); MEAN CORPUSCULAR VOLUME 86.5 fl (82.0-101.0); MEAN PLATELET VOLUME 10.6 fl (7.4-10.4); MONOCYTE # 0.6 10^3/ul (0.3-0.9); MONOCYTES % 8.5 % (0.0-11.0); NEUTROPHILS % 62.7 % (39.0-77.0); PLATELET COUNT 162 10^3/UL (140-415); RED BLOOD COUNT 4.66 10^6/ul (4.70-6.10); RED CELL DISTRIBUTION WIDTH 12.3 % (11.5-14.5); WHITE BLOOD COUNT 7.2 10^3/ul (4.8-10.8)
[2017-06-25 12:45] LABS: ALBUMIN 3.3 g/dl (3.3-4.9); ALBUMIN/GLOBULIN RATIO 1.22; BILIRUBIN,INDIRECT 1.1 mg/dl (0-1.1); BILIRUBIN,TOTAL 1.1 mg/dl (0.2-1.3); CALCIUM 8.8 mg/dl (8.4-10.2); CREATININE 0.76 mg/dl (0.61-1.24); POTASSIUM 3.6 mmol/L (3.5-5.1)
[2017-06-25] MEDS: HEPARIN 25000 UNITS/250 ML 250 ML IV SCH (12:52)
[2017-06-25 13:00] LABS: TROPONIN-I 3.65 ng/ml (0.00-0.12)
--- NOTE | 2017-06-25 14:21 | PN ---
Date/Time of Note Date/Time of Note DATE: 06/25/17 TIME: 14:19 Assessment/Plan VTE Prophylaxis VTE Prophylaxis Intervention: heparin Lines/Catheters IV Catheter Type (from Nrs): Peripheral IV Urinary Cath still in place: No Assessment/Plan Chief Complaint/Hosp Course 52 yo male with h/o CAD s/p CABG and stents presenting with crescendo chest pain symptoms and NSTEMI, then found to have PE. Now with fever Fever: - Unclear source of fever. Perhaps this is related to his PE. No infectious s /s, f/u cultures - ? viral, ? pericarditis on ddx Pulmonary embolism - Continue heparin gtt - Will switch to NOAC following cardiac cath NSTEMI: - Rising troponin suggestis Type I OK. Cath per Dr Argueta - Continue aspirin and plavix - Continue statin - heparin gtt - TTE pending DMII; - basal/bolus insulin Hypertension: - Continue lisinopril PPx: on heparin Problems: Subjective 24 Hr Interval Summary Free Text/Dictation Still with chest discomfort at rest Troponin to 3.5 now EKG unchanged Pain worsens w exertion to bathroom as well as bending forward he says Exam/Review of Systems Vital Signs Vitals Vital Signs Date Time Temp Pulse Resp B/P Pulse Ox O2 Delivery O2 Flow Rate FiO2 06/25/17 12:28 76 06/25/17 11:30 98.0 19 99/57 94 06/22/17 02:40 Room Air Intake and Output 06/24/17 06/24/17 06/25/17 15:00 23:00 07:00 Intake Total 500 ml 900 ml Balance 500 ml 900 ml Results Result Diagram: 06/25/17 1139 06/25/17 1139 Results 24 hrs Laboratory Tests Test 06/24/17 14:38 06/24/17 16:49 06/24/17 17:14 06/24/17 21:05 Erythrocyte Sedimentation Rate 14 C-Reactive Protein 3.2 H Prothrombin Time 14.1 Prothrombin Time Ratio 1.1 INR International Normalized Ratio 1.09 Activated Partial Thromboplast Time 62.4 H Fibrinogen 497.0 H Bedside Glucose 172 123 Test 06/25/17 00:41 06/25/17 07:52 06/25/17 08:14 06/25/17 11:32 Prothrombin Time 14.5 H 14.9 H Prothrombin Time Ratio 1.1 1.2 INR International Normalized Ratio 1.13 1.16 Activated Partial Thromboplast Time 80.7 *H 91.5 *H Bedside Glucose 127 137 Test 06/25/17 11:39 White Blood Count 7.2 # Red Blood Count 4.66 L Hemoglobin 13.7 L Hematocrit 40.3 L Mean Corpuscular Volume 86.5 Mean Corpuscular Hemoglobin 29.4 Mean Corpuscular Hemoglobin Concent 34.0 Red Cell Distribution Width 12.3 Platelet Count 162 Mean Platelet Volume 10.6 H Neutrophils % 62.7 Lymphocytes % 26.1 Monocytes % 8.5 Eosinophils % 1.7 Basophils % 0.6 Nucleated Red Blood Cells % 0.0 Neutrophils # (Manual) 4.5 Lymphocytes # 1.9 Monocytes # 0.6 Eosinophils # 0.1 Basophils # 0.0 Nucleated Red Blood Cells # 0.0 Sodium Level 134 L Potassium Level 3.6 Chloride Level 100 Carbon Dioxide Level 29 Anion Gap 9 # Blood Urea Nitrogen 11 Creatinine 0.76 Glucose Level 147 # Calcium Level 8.8 Total Bilirubin 1.1 Direct Bilirubin 0.00 Indirect Bilirubin 1.1 Aspartate Amino Transf (AST/SGOT) 60 #H Alanine Aminotransferase (ALT/SGPT) 49 Alkaline Phosphatase 63 Troponin I 3.650 *H Total Protein 6.0 L Albumin 3.3 Globulin 2.70 Albumin/Globulin Ratio 1.22 Medications Medications Current Medications Ondansetron HCl (Zofran Inj) 4 mg Q6H PRN IV NAUSEA AND/OR VOMITING Last administered on 06/23/17 18:41; Admin Dose 4 MG; Start 06/22/17 at 03:00 Nitroglycerin (Nitroglycerin (Sl Tab) 0.4 Mg) 1 tab Q5M PRN SL CHEST PAIN Last administered on 06/23/17 09:15; Admin Dose 1 TAB; Start 06/22/17 at 03:00 Acetaminophen (Tylenol Tab) 650 mg Q6H PRN PO PAIN LEVEL 1-3 OR FEVER Last administered on 06/24/17 08:50; Admin Dose 650 MG; Start 06/22/17 at 03:00 Morphine Sulfate (morphine) 4 mg Q4H PRN IV PAIN LEVEL 7-10 Last administered on 06/25/17 12:42; Admin Dose 4 MG; Start 06/22/17 at 03:00 Carvedilol (Coreg) 3.125 mg Q12 PO Last administered on 06/24/17 08:51; Admin Dose 3.125 MG; Start 06/22/17 at 09:00 Lisinopril (Zestril) 5 mg DAILY PO Last administered on 06/24/17 08:51; Admin Dose 5 MG; Start 06/22/17 at 09:00 Atorvastatin Calcium (Lipitor) 20 mg QHS PO Last administered on 06/24/17 21:00 ; Admin Dose 20 MG; Start 06/22/17 at 21:00 Diagnostic Test (Pha) (Accu-Chek) 1 ea 02 XX ; Start 06/23/17 at 02:00 Insulin Glargine (Lantus) 12 unit DAILY@08 SC Last administered on 06/25/17 08: 22; Admin Dose 12 UNIT; Start 06/22/17 at 08:00 Aspirin (Halfprin) 81 mg DAILY PO Last administered on 06/25/17 08:20; Admin Dose 81 MG; Start 06/22/17 at 09:00 Miscellaneous Information 1 ea NOTE XX ; Start 06/22/17 at 03:30 Glucose (Glutose) 15 gm Q15M PRN PO DECREASED GLUCOSE; Start 06/22/17 at 03:30 Glucose (Glutose) 22.5 gm Q15M PRN PO DECREASED GLUCOSE; Start 06/22/17 at 03:30 Dextrose (D50w Syringe) 25 ml Q15M PRN IV DECREASED GLUCOSE; Start 06/22/17 at 03:30 Dextrose (D50w Syringe) 50 ml Q15M PRN IV DECREASED GLUCOSE; Start 06/22/17 at 03:30 Glucagon (Glucagen) 1 mg Q15M PRN IM DECREASED GLUCOSE; Start 06/22/17 at 03:30 Glucose (Glutose) 15 gm Q15M PRN BUCCAL DECREASED GLUCOSE; Start 06/22/17 at 03: 30 Hydromorphone HCl (Dilaudid) 1 mg Q2 PRN IV PAIN Last administered on 06/25/17 04:37; Admin Dose 1 MG; Start 06/23/17 at 08:30 Docusate Sodium (Colace) 100 mg DAILY PO Last administered on 06/25/17 08:20; Admin Dose 100 MG; Start 06/24/17 at 09:00 Clopidogrel Bisulfate (plaVIX) 75 mg DAILY PO Last administered on 06/25/17 08: 20; Admin Dose 75 MG; Start 06/25/17 at 09:00 Isosorbide Mononitrate (Imdur) 30 mg DAILY PO Last administered on 06/24/17 13: 45; Admin Dose 30 MG; Start 06/24/17 at 13:00 Pantoprazole (Protonix Tab) 40 mg BID@,18 PO Last administered on 06/25/17 04 :41; Admin Dose 40 MG; Start 06/24/17 at 18:00 CARRIE FRANKEL MD Jun 25, 2017 14:21
[2017-06-25] MEDS ORDERED: IODIXANOL LOCM 100 ML BTL ONE (15:31)
[2017-06-25] MEDS ORDERED: LIDOCAINE 1% (MDV) 20 ML INJ ONE (15:31)
[2017-06-25] MEDS ORDERED: HEPARIN 1000 UNITS/NS (A-LINE) 1,000 ML ONE (15:31)
[2017-06-25] MEDS ORDERED: FENTAnyl 50 MCG/ML VIAL ONE (15:31)
[2017-06-25] MEDS ORDERED: MIDAZOLAM 1 MG/ML 2 ML INJ ONE (15:31)
[2017-06-25] MEDS ORDERED: NITROGLYCERIN (IC) 100 MCG/ML INJ ONE (15:55)
[2017-06-25] MEDS ORDERED: SOD CHLORIDE 0.9% 1,000 ML IV SCH (16:46)
[2017-06-25] MEDS ORDERED: morphine 2 MG INJ IV PRN (17:00)
--- NOTE | 2017-06-25 17:07 | OPR ---
Date/Time of Note Date/Time of Note DATE: 06/25/17 TIME: 16:51 Operative Report Free Text/Dictation Procedure Date: 06/25/2017 Procedures Performed: 1)Left heart catheterization with selective left and right coronary angiography. 2)Bypass graft angiography including CHAVEZ 3)Left ventriculogram 4)Aortogram 5)Femoral angiogram with Perclose closure device Pre-operative Diagnosis:NSTEMI Post-operative Diagnosis:NSTEMI Indications:52 yo M with chest pain/NSTEMI. Pt also with small pulmonary embolism which did not explain the troponin increase (up to 3.5) and due to ongoing pain and rising troponins, the decision was made to undergo cardiac cath for evaluation. Description of Procedure: After informed consent, the patient was brought to the cardiac catheterization lab. The procedure site was prepped and draped in usual manner. The patient was premedicated with versed 1 mg and fentanyl 25 mcg. 5 mL lidocaine was injected into the right groin. Next using the Seldinger technique, the 6 khmer sheath was inserted into the right femoral artery. Next using the JL3.5 and JR4, selective angiography of the left and right coronary arteries as well as bypass grafts and CHAVEZ were obtained. The pigtail was then advanced into the ventricle and hemodynamics obtained. Left ventricle angiography was obtained. Then aortogram was obtained Next all equipment was removed and hemostasis was obtained by Perclose closure device . Findings: Anatomy/Hemodynamics: All [place] vessels are very small (1.0-1.5 mm) Left main: diffuse disease LAD:prox 100%, fills via CHAVEZ (distal vessel diffusely diseased Circumflex:ostial stent 100% Obtuse marginal:fills via SVG, diffusely diseased RCA: prox and mid stents with 80-90% ISR, mid vessel occluded, distally fills via SVG and is diffusely diseased PDA:fills via SVG and is diffusely diseased PLV:fills via SVG and is diffusely diseased CHAVEZ-LAD patent SVG-PDA patent SVG-OM patent SVG vs arterial graft to likely OM patent but supplies a tiny branch Subclavian:mild ostial disease Left vertebral ostial disease LV angiography:EF 55%, inferior wall hypokinesis LV-Ao: no gradient Contrast used: 200mL Assessment: Severe [place] disease with extremely small [place] coronaries (1-1.5mm) without improvement despite IC NTG Patent grafts supplying diffusely diseased small [place] vessels NSTEMI Small pulmonary embolism Plan: -medical management of CAD not amenable to PCI or CABG -resume heparin drip in 4 hours -consider repeat CTA to make sure the chest pain/NSTEMI is not from recurrent PEs (though most likely from severe CAD) KATHLEEN RODRIGES Jun 25, 2017 17:07
--- NOTE | 2017-06-25 19:15 | RADRPT ---
Vent Rate: 63 bpm RR Interval: 0 msec MD Interval: 174 msec QRS Duration: 90 msec QT Interval: 394 msec QTC Interval: 403 msec P-R-T [place]: 23 - 42 - 79 degrees Normal sinus rhythm Nonspecific ST and T wave abnormality Abnormal ECG Electronically Signed By: Ham Thomas [id number]
--- NOTE | 2017-06-25 19:20 | RADRPT ---
Vent Rate: 67 bpm RR Interval: 0 msec IN Interval: 166 msec QRS Duration: 80 msec QT Interval: 416 msec QTC Interval: 439 msec P-R-T [place]: 28 - 54 - -31 degrees Normal sinus rhythm Nonspecific ST and T wave abnormality Abnormal ECG Electronically Signed By: Ham Thomas [id number]
[2017-06-25] MEDS: ATORVASTATIN 20 MG TAB PO SCH (21:23)
[2017-06-26] VITALS (12 sets, daily range): BP systolic 101–107; BP diastolic 52–61; PULSE 62–74; RESP 17–18
[2017-06-26] MEDS: ACCU-CHEK XX SCH (01:32)
[2017-06-26] MEDS: PANTOPRAZOLE (EC) 40 MG TAB PO SCH ×2 (05:05→18:09)
[2017-06-26] MEDS: INSULIN ASPART [NOVOLOG] 3 ML PEN SC SCH ×4 (08:00→21:00)
--- NOTE | 2017-06-26 08:06 | CONS ---
Date/Time of Note Date/Time of Note DATE: 06/26/17 TIME: 08:01 Assessment/Plan Assessment/Plan Chief Complaint/Hosp Course NSTEMI: Possibly from PE but since Trop increased to 3.5 without e/o RV strain and had ongoing symptoms, underwent cardiac cath 06/25/17 which showed patent grafts but very small diffusely diseased [place] coronaries. No intervention possible. Medical management. Chest pain: Has severe [place] coronary disease which may explain the angina. Fever: Unclear etiology. May be from infectious process (including viral) or just from PE. Resolved DM HTN HL Active tobacco use -if Cr ok today, would obtain a repeat CTA to make sure he is not having recurrent PE. If PE is unchanged, then assume that his symptoms are all from his CAD -ok to start Xarelto or Eliquis for PE and transition off heparin -once on Xarelto or Eliquis, can d/c ASA and continue plavix -increased imdur to 60mg -lipitor -coreg 3.125mg as BP/HR tolerates (BP has been borderline) -can consider Ranexa as well in future for angina Problems: Consultation Date/Type/Reason Admit Date/Time Jun 22, 2017 at 02:01 Initial Consult Date 06/24/17 Type of Consultation: Cardiololgy Referring Provider: CARRIE FRANKEL MD 24 HR Interval Summary Free Text/Dictation S/p cath yesterday, see results. Chest pain overall improved. Exam/Review of Systems Vital Signs Vitals Vital Signs Date Time Temp Pulse Resp B/P Pulse Ox O2 Delivery O2 Flow Rate FiO2 06/26/17 07:37 98.0 72 18 105/55 98 06/26/17 04:43 Nasal Cannula Intake and Output 06/25/17 06/25/17 06/26/17 15:00 23:00 07:00 Intake Total 593 ml 200 ml Output Total 400 ml Balance 593 ml -200 ml Exam Constitutional: alert, oriented Psych: no complaints Head: atraumatic, normocephalic Neck: No jvd Respiratory: clear to auscultation, No crackles/rales Cardiovascular: regular rate and rhythm, No edema Gastrointestinal: non-tender, soft Extremities: other (righ tgroin site without hematoma ) Neurological: nl mental status, nl speech Results Result Diagram: 06/25/17 1139 06/25/17 1139 Results 24 hrs Laboratory Tests Test 06/25/17 08:14 06/25/17 11:32 06/25/17 11:39 06/25/17 17:14 Bedside Glucose 127 137 167 White Blood Count 7.2 # Red Blood Count 4.66 L Hemoglobin 13.7 L Hematocrit 40.3 L Mean Corpuscular Volume 86.5 Mean Corpuscular Hemoglobin 29.4 Mean Corpuscular Hemoglobin Concent 34.0 Red Cell Distribution Width 12.3 Platelet Count 162 Mean Platelet Volume 10.6 H Neutrophils % 62.7 Lymphocytes % 26.1 Monocytes % 8.5 Eosinophils % 1.7 Basophils % 0.6 Nucleated Red Blood Cells % 0.0 Neutrophils # (Manual) 4.5 Lymphocytes # 1.9 Monocytes # 0.6 Eosinophils # 0.1 Basophils # 0.0 Nucleated Red Blood Cells # 0.0 Sodium Level 134 L Potassium Level 3.6 Chloride Level 100 Carbon Dioxide Level 29 Anion Gap 9 # Blood Urea Nitrogen 11 Creatinine 0.76 Glucose Level 147 # Calcium Level 8.8 Total Bilirubin 1.1 Direct Bilirubin 0.00 Indirect Bilirubin 1.1 Aspartate Amino Transf (AST/SGOT) 60 #H Alanine Aminotransferase (ALT/SGPT) 49 Alkaline Phosphatase 63 Troponin I 3.650 *H Total Protein 6.0 L Albumin 3.3 Globulin 2.70 Albumin/Globulin Ratio 1.22 Test 06/25/17 21:26 Bedside Glucose 134 Medications Medications Current Medications Ondansetron HCl (Zofran Inj) 4 mg Q6H PRN IV NAUSEA AND/OR VOMITING Last administered on 06/23/17 18:41; Admin Dose 4 MG; Start 06/22/17 at 03:00 Nitroglycerin (Nitroglycerin (Sl Tab) 0.4 Mg) 1 tab Q5M PRN SL CHEST PAIN Last administered on 06/23/17 09:15; Admin Dose 1 TAB; Start 06/22/17 at 03:00 Acetaminophen (Tylenol Tab) 650 mg Q6H PRN PO PAIN LEVEL 1-3 OR FEVER Last administered on 06/24/17 08:50; Admin Dose 650 MG; Start 06/22/17 at 03:00 Morphine Sulfate (morphine) 4 mg Q4H PRN IV PAIN LEVEL 7-10 Last administered on 06/25/17 12:42; Admin Dose 4 MG; Start 06/22/17 at 03:00 Carvedilol (Coreg) 3.125 mg Q12 PO Last administered on 06/25/17 21:23; Admin Dose 3.125 MG; Start 06/22/17 at 09:00 Atorvastatin Calcium (Lipitor) 20 mg QHS PO Last administered on 06/25/17 21:23 ; Admin Dose 20 MG; Start 06/22/17 at 21:00 Diagnostic Test (Pha) (Accu-Chek) 1 ea 02 XX ; Start 06/23/17 at 02:00 Insulin Glargine (Lantus) 12 unit DAILY@08 SC Last administered on 06/25/17 08: 22; Admin Dose 12 UNIT; Start 06/22/17 at 08:00 Aspirin (Halfprin) 81 mg DAILY PO Last administered on 06/25/17 08:20; Admin Dose 81 MG; Start 06/22/17 at 09:00 Miscellaneous Information 1 ea NOTE XX ; Start 06/22/17 at 03:30 Glucose (Glutose) 15 gm Q15M PRN PO DECREASED GLUCOSE; Start 06/22/17 at 03:30 Glucose (Glutose) 22.5 gm Q15M PRN PO DECREASED GLUCOSE; Start 06/22/17 at 03:30 Dextrose (D50w Syringe) 25 ml Q15M PRN IV DECREASED GLUCOSE; Start 06/22/17 at 03:30 Dextrose (D50w Syringe) 50 ml Q15M PRN IV DECREASED GLUCOSE; Start 06/22/17 at 03:30 Glucagon (Glucagen) 1 mg Q15M PRN IM DECREASED GLUCOSE; Start 06/22/17 at 03:30 Glucose (Glutose) 15 gm Q15M PRN BUCCAL DECREASED GLUCOSE; Start 06/22/17 at 03: 30 Hydromorphone HCl (Dilaudid) 1 mg Q2 PRN IV PAIN Last administered on 06/25/17 04:37; Admin Dose 1 MG; Start 06/23/17 at 08:30 Docusate Sodium (Colace) 100 mg DAILY PO Last administered on 06/25/17 08:20; Admin Dose 100 MG; Start 06/24/17 at 09:00 Clopidogrel Bisulfate (plaVIX) 75 mg DAILY PO Last administered on 06/25/17 08: 20; Admin Dose 75 MG; Start 06/25/17 at 09:00 Pantoprazole (Protonix Tab) 40 mg BID@06,18 PO Last administered on 06/26/17 05 :05; Admin Dose 40 MG; Start 06/24/17 at 18:00 Morphine Sulfate (morphine) 2 mg Q2H PRN IV FOR NON CARDIAC PAIN (4-10) Last administered on 06/26/17 04:46; Admin Dose 2 MG; Start 06/25/17 at 17:00 Isosorbide Mononitrate (Imdur) 60 mg DAILY PO ; Start 06/26/17 at 09:00 KATHLEEN RODRIGES Jun 26, 2017 08:06
[2017-06-26] MEDS: ASPIRIN (EC) 81 MG TAB PO SCH (08:15)
[2017-06-26] MEDS: DOCUSATE SODIUM 100 MG CAP PO SCH (08:15)
[2017-06-26] MEDS: CLOPIDOGREL 75 MG TAB PO SCH (08:15)
[2017-06-26] MEDS: ISOSORBIDE MONONITRATE(SR)60 MG TAB PO SCH (08:16)
[2017-06-26] MEDS: INSULIN GLARGINE [LANtus] 3 ML PEN SC SCH (08:17)
[2017-06-26 08:36] LABS: BASOPHILS % 0.6 % (0.0-2.0); EOSINOPHILS # 0.1 10^3/ul (0.0-0.5); EOSINOPHILS % 2.1 % (0.0-7.0); HEMATOCRIT 39.7 % (42.0-52.0); HEMOGLOBIN 13.7 g/dl (14.0-18.0); LYMPHOCYTES # 1.4 10^3/ul (0.8-2.9); LYMPHOCYTES % 21.9 % (15.0-51.0); MEAN CORPUSCULAR HEMOGLOBIN 30.2 pg (29.0-33.0); MEAN CORPUSCULAR HGB CONC 34.5 g/dl (32.0-37.0); MEAN CORPUSCULAR VOLUME 87.4 fl (82.0-101.0); MEAN PLATELET VOLUME 10.4 fl (7.4-10.4); MONOCYTE # 0.6 10^3/ul (0.3-0.9); MONOCYTES % 9.3 % (0.0-11.0); NEUTROPHILS % 65.8 % (39.0-77.0); PLATELET COUNT 164 10^3/UL (140-415); RED BLOOD COUNT 4.54 10^6/ul (4.70-6.10); WHITE BLOOD COUNT 6.3 10^3/ul (4.8-10.8)
[2017-06-26 08:57] LABS: INR 1.14; PROTIME 14.6 Sec (12.2-14.2); PT RATIO 1.1
[2017-06-26 09:04] LABS: ALBUMIN 3.1 g/dl (3.3-4.9); ALBUMIN/GLOBULIN RATIO 1.19; BILIRUBIN,INDIRECT 0.5 mg/dl (0-1.1); BILIRUBIN,TOTAL 0.5 mg/dl (0.2-1.3); CREATININE 0.83 mg/dl (0.61-1.24); POTASSIUM 3.6 mmol/L (3.5-5.1); TOTAL PROTEIN 5.7 g/dl (6.1-8.1)
--- NOTE | 2017-06-26 12:28 | CONS ---
Date/Time of Note Date/Time of Note DATE: 06/26/17 TIME: 12:26 Assessment/Plan Assessment/Plan Additional Assessment/Plan Assessment and recommendations; 1. Patient admitted with chest pain discovered to have right upper lobe pulmonary embolism as well as non-STEMI. 2. Prior history of CABG. Continue current treatment. Patient scheduled for coronary angiogram today. Postprocedure patient can be switched over to either Eliquis or apixaban for long-term anticoagulation. Consultation Date/Type/Reason Admit Date/Time Jun 22, 2017 at 02:01 Initial Consult Date 06/24/17 Type of Consultation: Pulmonary Referring Provider: CARRIE FRANKEL MD 24 HR Interval Summary Free Text/Dictation Patient condition stable. Denies any chest pain, shortness of breath. General exam; middle-aged male, awake and alert. Currently in no distress. Exam/Review of Systems Vital Signs Vitals Vital Signs Date Time Temp Pulse Resp B/P Pulse Ox O2 Delivery O2 Flow Rate FiO2 06/26/17 12:14 71 06/26/17 11:52 98.3 18 104/52 98 06/26/17 04:43 Nasal Cannula Intake and Output 06/25/17 06/25/17 06/26/17 15:00 23:00 07:00 Intake Total 593 ml 200 ml Output Total 400 ml Balance 593 ml -200 ml Exam HEENT exam; supple neck, no JVD. No lymphadenopathy. Midline trachea. No thyromegaly. Pharynx is clear. Patient has fair dentition. Chest exam; clear to auscultation. Patient has mild persistent left anterior chest wall tenderness. There is a well-healed sternal scar. Abdomen exam; soft, no organomegaly. Bowel sounds audible. Extremity exam; no peripheral edema. HAND MIXER exam; no focal deficit. Results Result Diagram: 06/26/17 0754 06/26/17 0754 Results 24 hrs Laboratory Tests Test 06/25/17 17:14 06/25/17 21:26 06/26/17 07:54 06/26/17 08:14 Bedside Glucose 167 134 130 White Blood Count 6.3 Red Blood Count 4.54 L Hemoglobin 13.7 L Hematocrit 39.7 L Mean Corpuscular Volume 87.4 Mean Corpuscular Hemoglobin 30.2 Mean Corpuscular Hemoglobin Concent 34.5 Red Cell Distribution Width 12.0 Platelet Count 164 Mean Platelet Volume 10.4 Neutrophils % 65.8 Lymphocytes % 21.9 Monocytes % 9.3 Eosinophils % 2.1 Basophils % 0.6 Nucleated Red Blood Cells % 0.0 Neutrophils # (Manual) 4.1 Lymphocytes # 1.4 Monocytes # 0.6 Eosinophils # 0.1 Basophils # 0.0 Nucleated Red Blood Cells # 0.0 Prothrombin Time 14.6 H Prothrombin Time Ratio 1.1 INR International Normalized Ratio 1.14 Activated Partial Thromboplast Time Pending Sodium Level 138 Potassium Level 3.6 Chloride Level 105 Carbon Dioxide Level 29 Anion Gap 8 Blood Urea Nitrogen 12 Creatinine 0.83 Glucose Level 126 Calcium Level 9.0 Total Bilirubin 0.5 Direct Bilirubin 0.00 Indirect Bilirubin 0.5 Aspartate Amino Transf (AST/SGOT) 51 H Alanine Aminotransferase (ALT/SGPT) 42 Alkaline Phosphatase 76 Total Protein 5.7 L Albumin 3.1 L Globulin 2.60 Albumin/Globulin Ratio 1.19 Test 06/26/17 11:26 Bedside Glucose 261 H Medications Medications Current Medications Ondansetron HCl (Zofran Inj) 4 mg Q6H PRN IV NAUSEA AND/OR VOMITING Last administered on 06/23/17 18:41; Admin Dose 4 MG; Start 06/22/17 at 03:00 Nitroglycerin (Nitroglycerin (Sl Tab) 0.4 Mg) 1 tab Q5M PRN SL CHEST PAIN Last administered on 06/23/17 09:15; Admin Dose 1 TAB; Start 06/22/17 at 03:00 Acetaminophen (Tylenol Tab) 650 mg Q6H PRN PO PAIN LEVEL 1-3 OR FEVER Last administered on 06/24/17 08:50; Admin Dose 650 MG; Start 06/22/17 at 03:00 Morphine Sulfate (morphine) 4 mg Q4H PRN IV PAIN LEVEL 7-10 Last administered on 06/25/17 12:42; Admin Dose 4 MG; Start 06/22/17 at 03:00 Carvedilol (Coreg) 3.125 mg Q12 PO Last administered on 06/25/17 21:23; Admin Dose 3.125 MG; Start 06/22/17 at 09:00 Atorvastatin Calcium (Lipitor) 20 mg QHS PO Last administered on 06/25/17 21:23 ; Admin Dose 20 MG; Start 06/22/17 at 21:00 Diagnostic Test (Pha) (Accu-Chek) 1 ea 02 XX ; Start 06/23/17 at 02:00 Insulin Glargine (Lantus) 12 unit DAILY@08 SC Last administered on 06/26/17 08: 17; Admin Dose 12 UNIT; Start 06/22/17 at 08:00 Aspirin (Halfprin) 81 mg DAILY PO Last administered on 06/26/17 08:15; Admin Dose 81 MG; Start 06/22/17 at 09:00 Miscellaneous Information 1 ea NOTE XX ; Start 06/22/17 at 03:30 Glucose (Glutose) 15 gm Q15M PRN PO DECREASED GLUCOSE; Start 06/22/17 at 03:30 Glucose (Glutose) 22.5 gm Q15M PRN PO DECREASED GLUCOSE; Start 06/22/17 at 03:30 Dextrose (D50w Syringe) 25 ml Q15M PRN IV DECREASED GLUCOSE; Start 06/22/17 at 03:30 Dextrose (D50w Syringe) 50 ml Q15M PRN IV DECREASED GLUCOSE; Start 06/22/17 at 03:30 Glucagon (Glucagen) 1 mg Q15M PRN IM DECREASED GLUCOSE; Start 06/22/17 at 03:30 Glucose (Glutose) 15 gm Q15M PRN BUCCAL DECREASED GLUCOSE; Start 06/22/17 at 03: 30 Hydromorphone HCl (Dilaudid) 1 mg Q2 PRN IV PAIN Last administered on 06/25/17 04:37; Admin Dose 1 MG; Start 06/23/17 at 08:30 Docusate Sodium (Colace) 100 mg DAILY PO Last administered on 06/26/17 08:15; Admin Dose 100 MG; Start 06/24/17 at 09:00 Pantoprazole (Protonix Tab) 40 mg BID@06,18 PO Last administered on 06/26/17 05 :05; Admin Dose 40 MG; Start 06/24/17 at 18:00 Morphine Sulfate (morphine) 2 mg Q2H PRN IV FOR NON CARDIAC PAIN (4-10) Last administered on 06/26/17 04:46; Admin Dose 2 MG; Start 06/25/17 at 17:00 Isosorbide Mononitrate (Imdur) 60 mg DAILY PO Last administered on 06/26/17 08: 16; Admin Dose 60 MG; Start 06/26/17 at 09:00 CORINNE STOKES Jun 26, 2017 12:28
[2017-06-26] MEDS: RIVAROXABAN 15 MG TABLET PO SCH ×2 (12:43→18:09)
[2017-06-26 13:23] LABS: PARTIAL THROMBOPLASTIN TIME 81.3 Sec (25.0-35.0)
[2017-06-26] MEDS: HYDROmorphONE 1 MG/ML SYG IV PRN ×2 (18:14→21:01)
--- NOTE | 2017-06-26 18:16 | PN ---
Date/Time of Note Date/Time of Note DATE: 06/26/17 TIME: 18:11 Assessment/Plan VTE Prophylaxis VTE Prophylaxis Intervention: other Lines/Catheters IV [facility]from [facility] Peripheral IV Urinary Cath still in place: No Assessment/Plan Chief Complaint/Hosp Course 52 yo male with h/o CAD s/p CABG and stents presenting with crescendo chest pain symptoms and NSTEMI, then found to have PE. Now with fever Fever: - Resolved, cultures negative. Continue to monitor, hold abx Pulmonary embolism - Started on Xarelto today NSTEMI: - Continue aspirin, statin DMII; - basal/bolus insulin Hypertension: - Continue lisinopril PPx: NOAC Problems: Subjective 24 Hr Interval Summary Free Text/Dictation Underwent LHC yesterday, diffuse disease but nothing able to be revascularized Today, still with mild chest discomfort, but seems to be feeling a bit better Exam/Review of Systems Vital Signs Vitals Vital Signs Date Time Temp Pulse Resp B/P Pulse Ox O2 Delivery O2 Flow Rate FiO2 06/26/17 16:24 74 06/26/17 15:28 97.9 18 102/61 95 06/26/17 04:43 Nasal Cannula Intake and Output 06/25/17 06/25/17 06/26/17 14:59 22:59 06:59 Intake Total 593 ml 200 ml Output Total 400 ml Balance 593 ml -200 ml Exam Constitutional: alert, oriented, well developed Psych: nl mood/affect, no complaints Head: atraumatic, normocephalic Eyes: EOMI, PERRL, nl conjunctiva, nl lids, nl sclera ENMT: nl external ears & nose, nl lips & teeth, nl nasal mucosa & septum Neck: non-tender, supple Respiratory: clear to auscultation, normal air movement Cardiovascular: nl pulses, regular rate and rhythm Gastrointestinal: nl liver, spleen, non-tender, soft Musculoskeletal: nl extremities to inspection, nl gait and stance Extremities: normal pulses Neurological: CHILD DEVELOPMENT SPECIALIST II-XII intact, nl mental status, nl speech, nl strength Skin: nl turgor, No rash or lesions Lymph: nl lymph nodes Results Result Diagram: 06/26/17 0754 06/26/17 0754 Results 24 hrs Laboratory Tests Test 06/25/17 21:26 06/26/17 07:54 06/26/17 08:14 06/26/17 11:26 Bedside Glucose 134 130 261 H White Blood Count 6.3 Red Blood Count 4.54 L Hemoglobin 13.7 L Hematocrit 39.7 L Mean Corpuscular Volume 87.4 Mean Corpuscular Hemoglobin 30.2 Mean Corpuscular Hemoglobin Concent 34.5 Red Cell Distribution Width 12.0 Platelet Count 164 Mean Platelet Volume 10.4 Neutrophils % 65.8 Lymphocytes % 21.9 Monocytes % 9.3 Eosinophils % 2.1 Basophils % 0.6 Nucleated Red Blood Cells % 0.0 Neutrophils # (Manual) 4.1 Lymphocytes # 1.4 Monocytes # 0.6 Eosinophils # 0.1 Basophils # 0.0 Nucleated Red Blood Cells # 0.0 Prothrombin Time 14.6 H Prothrombin Time Ratio 1.1 INR International Normalized Ratio 1.14 Activated Partial Thromboplast Time 81.3 *H Sodium Level 138 Potassium Level 3.6 Chloride Level 105 Carbon Dioxide Level 29 Anion Gap 8 Blood Urea Nitrogen 12 Creatinine 0.83 Glucose Level 126 Calcium Level 9.0 Total Bilirubin 0.5 Direct Bilirubin 0.00 Indirect Bilirubin 0.5 Aspartate Amino Transf (AST/SGOT) 51 H Alanine Aminotransferase (ALT/SGPT) 42 Alkaline Phosphatase 76 Total Protein 5.7 L Albumin 3.1 L Globulin 2.60 Albumin/Globulin Ratio 1.19 Medications Medications Current Medications Ondansetron HCl (Zofran Inj) 4 mg Q6H PRN IV NAUSEA AND/OR VOMITING Last administered on 06/23/17 18:41; Admin Dose 4 MG; Start 06/22/17 at 03:00 Nitroglycerin (Nitroglycerin (Sl Tab) 0.4 Mg) 1 tab Q5M PRN SL CHEST PAIN Last administered on 06/23/17 09:15; Admin Dose 1 TAB; Start 06/22/17 at 03:00 Acetaminophen (Tylenol Tab) 650 mg Q6H PRN PO PAIN LEVEL 1-3 OR FEVER Last administered on 06/24/17 08:50; Admin Dose 650 MG; Start 06/22/17 at 03:00 Morphine Sulfate (morphine) 4 mg Q4H PRN IV PAIN LEVEL 7-10 Last administered on 06/25/17 12:42; Admin Dose 4 MG; Start 06/22/17 at 03:00 Carvedilol (Coreg) 3.125 mg Q12 PO Last administered on 06/25/17 21:23; Admin Dose 3.125 MG; Start 06/22/17 at 09:00 Atorvastatin Calcium (Lipitor) 20 mg QHS PO Last administered on 06/25/17 21:23 ; Admin Dose 20 MG; Start 06/22/17 at 21:00 Diagnostic Test (Pha) (Accu-Chek) 1 ea 02 XX ; Start 06/23/17 at 02:00 Insulin Glargine (Lantus) 12 unit DAILY@08 SC Last administered on 06/26/17 08: 17; Admin Dose 12 UNIT; Start 06/22/17 at 08:00 Aspirin (Halfprin) 81 mg DAILY PO Last administered on 06/26/17 08:15; Admin Dose 81 MG; Start 06/22/17 at 09:00 Miscellaneous Information 1 ea NOTE XX ; Start 06/22/17 at 03:30 Glucose (Glutose) 15 gm Q15M PRN PO DECREASED GLUCOSE; Start 06/22/17 at 03:30 Glucose (Glutose) 22.5 gm Q15M PRN PO DECREASED GLUCOSE; Start 06/22/17 at 03:30 Dextrose (D50w Syringe) 25 ml Q15M PRN IV DECREASED GLUCOSE; Start 06/22/17 at 03:30 Dextrose (D50w Syringe) 50 ml Q15M PRN IV DECREASED GLUCOSE; Start 06/22/17 at 03:30 Glucagon (Glucagen) 1 mg Q15M PRN IM DECREASED GLUCOSE; Start 06/22/17 at 03:30 Glucose (Glutose) 15 gm Q15M PRN BUCCAL DECREASED GLUCOSE; Start 06/22/17 at 03: 30 Hydromorphone HCl (Dilaudid) 1 mg Q2 PRN IV PAIN Last administered on 06/25/17 04:37; Admin Dose 1 MG; Start 06/23/17 at 08:30 Docusate Sodium (Colace) 100 mg DAILY PO Last administered on 06/26/17 08:15; Admin Dose 100 MG; Start 06/24/17 at 09:00 Pantoprazole (Protonix Tab) 40 mg BID@06,18 PO Last administered on 06/26/17 18 :09; Admin Dose 40 MG; Start 06/24/17 at 18:00 Morphine Sulfate (morphine) 2 mg Q2H PRN IV FOR NON CARDIAC PAIN (4-10) Last administered on 06/26/17 04:46; Admin Dose 2 MG; Start 06/25/17 at 17:00 Isosorbide Mononitrate (Imdur) 60 mg DAILY PO Last administered on 06/26/17 08: 16; Admin Dose 60 MG; Start 06/26/17 at 09:00 CARRIE FRANKEL MD Jun 26, 2017 18:16
[2017-06-26] MEDS: ATORVASTATIN 20 MG TAB PO SCH (20:56)
[2017-06-27] VITALS (10 sets, daily range): BP systolic 104–118; BP diastolic 56–70; PULSE 61–87; RESP 18–20
[2017-06-27] MEDS: HYDROmorphONE 1 MG/ML SYG IV PRN (01:53)
[2017-06-27] MEDS: ACCU-CHEK XX SCH (01:57)
[2017-06-27] MEDS: PANTOPRAZOLE (EC) 40 MG TAB PO SCH (05:18)
[2017-06-27] MEDS: INSULIN ASPART [NOVOLOG] 3 ML PEN SC SCH ×2 (08:00→12:44)
[2017-06-27 08:06] LABS: BASOPHILS % 0.4 % (0.0-2.0); EOSINOPHILS # 0.1 10^3/ul (0.0-0.5); HEMATOCRIT 38.5 % (42.0-52.0); HEMOGLOBIN 13.3 g/dl (14.0-18.0); LYMPHOCYTES # 1.4 10^3/ul (0.8-2.9); LYMPHOCYTES % 26.1 % (15.0-51.0); MEAN CORPUSCULAR HEMOGLOBIN 30.1 pg (29.0-33.0); MEAN CORPUSCULAR HGB CONC 34.5 g/dl (32.0-37.0); MEAN CORPUSCULAR VOLUME 87.1 fl (82.0-101.0); MEAN PLATELET VOLUME 10.4 fl (7.4-10.4); MONOCYTE # 0.5 10^3/ul (0.3-0.9); MONOCYTES % 9.7 % (0.0-11.0); NEUTROPHILS % 61.4 % (39.0-77.0); PLATELET COUNT 176 10^3/UL (140-415); RED BLOOD COUNT 4.42 10^6/ul (4.70-6.10); RED CELL DISTRIBUTION WIDTH 12.1 % (11.5-14.5); WHITE BLOOD COUNT 5.5 10^3/ul (4.8-10.8)
[2017-06-27 08:49] LABS: ALBUMIN 3.2 g/dl (3.3-4.9); ALBUMIN/GLOBULIN RATIO 1.23; BILIRUBIN,INDIRECT 0.4 mg/dl (0-1.1); BILIRUBIN,TOTAL 0.4 mg/dl (0.2-1.3); CREATININE 0.88 mg/dl (0.61-1.24); POTASSIUM 3.4 mmol/L (3.5-5.1); TOTAL PROTEIN 5.8 g/dl (6.1-8.1)
[2017-06-27] MEDS: INSULIN GLARGINE [LANtus] 3 ML PEN SC SCH (09:21)
[2017-06-27] MEDS: DOCUSATE SODIUM 100 MG CAP PO SCH (09:22)
[2017-06-27] MEDS: RIVAROXABAN 15 MG TABLET PO SCH (09:22)
[2017-06-27] MEDS: ASPIRIN (EC) 81 MG TAB PO SCH (09:23)
[2017-06-27] MEDS: ISOSORBIDE MONONITRATE(SR)60 MG TAB PO SCH (09:25)
--- NOTE | 2017-06-27 12:58 | CONS ---
Date/Time of Note Date/Time of Note DATE: 06/27/17 TIME: 12:56 Assessment/Plan Assessment/Plan Chief Complaint/Hosp Course NSTEMI: Possibly from PE but since Trop increased to 3.5 without e/o RV strain and had ongoing symptoms, underwent cardiac cath 06/25/17 which showed patent grafts but very small diffusely diseased anvik coronaries. No intervention possible. Medical management. Chest pain: Has severe anvik coronary disease which may explain the angina. Fever: Unclear etiology. May be from infectious process (including viral) or just from PE. Resolved DM HTN HL Active tobacco use -ok for d/c -plavix and Xarelto. No ASA -imdur 60mg -lipitor -coreg 3.125mg as BP/HR tolerates (BP has been borderline) -can consider Ranexa as well in future for angina Problems: Consultation Date/Type/Reason Admit Date/Time Jun 22, 2017 at 02:01 Initial Consult Date 06/24/17 Type of Consultation: Cardiology Referring Provider: CARRIE FRANKEL MD 24 HR Interval Summary Free Text/Dictation No further chest pain. Walking around without symptoms. Wants to go home. Exam/Review of Systems Vital Signs Vitals Vital Signs Date Time Temp Pulse Resp B/P Pulse Ox O2 Delivery O2 Flow Rate FiO2 06/27/17 12:37 65 06/27/17 11:27 99.4 18 118/56 96 06/26/17 04:43 Nasal Cannula Intake and Output 06/26/17 06/26/17 06/27/17 15:00 23:00 07:00 Intake Total 720 ml 300 ml Balance 720 ml 300 ml Results Result Diagram: 06/27/17 0733 06/27/17 0733 Results 24 hrs Laboratory Tests Test 06/26/17 18:08 06/26/17 20:57 06/27/17 01:56 06/27/17 07:33 Bedside Glucose 110 122 122 White Blood Count 5.5 Red Blood Count 4.42 L Hemoglobin 13.3 L Hematocrit 38.5 L Mean Corpuscular Volume 87.1 Mean Corpuscular Hemoglobin 30.1 Mean Corpuscular Hemoglobin Concent 34.5 Red Cell Distribution Width 12.1 Platelet Count 176 Mean Platelet Volume 10.4 Neutrophils % 61.4 Lymphocytes % 26.1 Monocytes % 9.7 Eosinophils % 2.0 Basophils % 0.4 Nucleated Red Blood Cells % 0.0 Neutrophils # (Manual) 3.4 Lymphocytes # 1.4 Monocytes # 0.5 Eosinophils # 0.1 Basophils # 0.0 Nucleated Red Blood Cells # 0.0 Sodium Level 139 Potassium Level 3.4 L Chloride Level 105 Carbon Dioxide Level 29 Anion Gap 8 Blood Urea Nitrogen 10 Creatinine 0.88 Glucose Level 98 Calcium Level 9.0 Total Bilirubin 0.4 Direct Bilirubin 0.00 Indirect Bilirubin 0.4 Aspartate Amino Transf (AST/SGOT) 45 Alanine Aminotransferase (ALT/SGPT) 60 Alkaline Phosphatase 73 Total Protein 5.8 L Albumin 3.2 L Globulin 2.60 Albumin/Globulin Ratio 1.23 Test 06/27/17 09:19 06/27/17 12:39 Bedside Glucose 97 172 Medications Medications Current Medications Ondansetron HCl (Zofran Inj) 4 mg Q6H PRN IV NAUSEA AND/OR VOMITING Last administered on 06/23/17 18:41; Admin Dose 4 MG; Start 06/22/17 at 03:00 Nitroglycerin (Nitroglycerin (Sl Tab) 0.4 Mg) 1 tab Q5M PRN SL CHEST PAIN Last administered on 06/23/17 09:15; Admin Dose 1 TAB; Start 06/22/17 at 03:00 Acetaminophen (Tylenol Tab) 650 mg Q6H PRN PO PAIN LEVEL 1-3 OR FEVER Last administered on 06/24/17 08:50; Admin Dose 650 MG; Start 06/22/17 at 03:00 Morphine Sulfate (morphine) 4 mg Q4H PRN IV PAIN LEVEL 7-10 Last administered on 06/25/17 12:42; Admin Dose 4 MG; Start 06/22/17 at 03:00 Carvedilol (Coreg) 3.125 mg Q12 PO Last administered on 06/27/17 09:23; Admin Dose 3.125 MG; Start 06/22/17 at 09:00 Atorvastatin Calcium (Lipitor) 20 mg QHS PO Last administered on 06/26/17 20:56 ; Admin Dose 20 MG; Start 06/22/17 at 21:00 Diagnostic Test (Pha) (Accu-Chek) 1 ea 02 XX ; Start 06/23/17 at 02:00 Insulin Glargine (Lantus) 12 unit DAILY@08 SC Last administered on 06/27/17 09: 21; Admin Dose 12 UNIT; Start 06/22/17 at 08:00 Aspirin (Halfprin) 81 mg DAILY PO Last administered on 06/27/17 09:23; Admin Dose 81 MG; Start 06/22/17 at 09:00 Miscellaneous Information 1 ea NOTE XX ; Start 06/22/17 at 03:30 Glucose (Glutose) 15 gm Q15M PRN PO DECREASED GLUCOSE; Start 06/22/17 at 03:30 Glucose (Glutose) 22.5 gm Q15M PRN PO DECREASED GLUCOSE; Start 06/22/17 at 03:30 Dextrose (D50w Syringe) 25 ml Q15M PRN IV DECREASED GLUCOSE; Start 06/22/17 at 03:30 Dextrose (D50w Syringe) 50 ml Q15M PRN IV DECREASED GLUCOSE; Start 06/22/17 at 03:30 Glucagon (Glucagen) 1 mg Q15M PRN IM DECREASED GLUCOSE; Start 06/22/17 at 03:30 Glucose (Glutose) 15 gm Q15M PRN BUCCAL DECREASED GLUCOSE; Start 06/22/17 at 03: 30 Hydromorphone HCl (Dilaudid) 1 mg Q2 PRN IV PAIN Last administered on 06/27/17 01:53; Admin Dose 1 MG; Start 06/23/17 at 08:30 Docusate Sodium (Colace) 100 mg DAILY PO Last administered on 06/27/17 09:22; Admin Dose 100 MG; Start 06/24/17 at 09:00 Pantoprazole (Protonix Tab) 40 mg BID@06,18 PO Last administered on 06/27/17 05 :18; Admin Dose 40 MG; Start 06/24/17 at 18:00 Morphine Sulfate (morphine) 2 mg Q2H PRN IV FOR NON CARDIAC PAIN (4-10) Last administered on 06/26/17 04:46; Admin Dose 2 MG; Start 06/25/17 at 17:00 Isosorbide Mononitrate (Imdur) 60 mg DAILY PO Last administered on 06/27/17 09: 25; Admin Dose 60 MG; Start 06/26/17 at 09:00 KATHLEEN RODRIGES Jun 27, 2017 12:58
--- NOTE | 2017-06-27 13:36 | CONS ---
Date/Time of Note Date/Time of Note DATE: 06/27/17 TIME: 13:34 Assessment/Plan Assessment/Plan Additional Assessment/Plan Assessment and recommendations; 1. P patient admitted with shortness of breath due to non-STEMI as well as right upper lobe pulmonary embolism. 2. Status post coronary angiogram yesterday revealing diffuse disease not amenable to any intervention. Including bypass surgery. 3. Prior history of CABG. 4. History of diabetes and hypertension. Continue current treatment. Consider discharge. Patient will need long-term anticoagulation. Consultation Date/Type/Reason Admit Date/Time Jun 22, 2017 at 02:01 Initial Consult Date 06/24/17 Type of Consultation: Pulmonary Referring Provider: CARRIE FRANKEL MD 24 HR Interval Summary Free Text/Dictation Patient condition stable. Remains awake and alert. Denies any shortness of breath, chest pain has improved markedly. Denies any coughing, wheezing, hemoptysis. General exam; middle-aged male, awake and alert. Currently in no distress. Exam/Review of Systems Vital Signs Vitals Vital Signs Date Time Temp Pulse Resp B/P Pulse Ox O2 Delivery O2 Flow Rate FiO2 06/27/17 12:37 65 06/27/17 11:27 99.4 18 118/56 96 06/26/17 04:43 Nasal Cannula Intake and Output 06/26/17 06/26/17 06/27/17 15:00 23:00 07:00 Intake Total 720 ml 300 ml Balance 720 ml 300 ml Exam HEENT exam; supple neck, no JVD. No lymphadenopathy. Midline trachea. No thyromegaly. Patient has fair dentition. Pupils are midsize and reactive to light. Chest exam; clear to auscultation. S1-S2 audible, no murmurs. There is a well- healed sternal scar. Regular rhythm. Abdomen exam; soft, no organomegaly. Nontender. Bowel sounds audible. Extremity exam; no peripheral edema. Pulses 1+ bilaterally. No clubbing. DIRECTOR ACCOUNT MANAGEMENT exam; no focal deficit. Results Result Diagram: 06/27/17 0733 06/27/17 0733 Results 24 hrs Laboratory Tests Test 06/26/17 18:08 06/26/17 20:57 06/27/17 01:56 06/27/17 07:33 Bedside Glucose 110 122 122 White Blood Count 5.5 Red Blood Count 4.42 L Hemoglobin 13.3 L Hematocrit 38.5 L Mean Corpuscular Volume 87.1 Mean Corpuscular Hemoglobin 30.1 Mean Corpuscular Hemoglobin Concent 34.5 Red Cell Distribution Width 12.1 Platelet Count 176 Mean Platelet Volume 10.4 Neutrophils % 61.4 Lymphocytes % 26.1 Monocytes % 9.7 Eosinophils % 2.0 Basophils % 0.4 Nucleated Red Blood Cells % 0.0 Neutrophils # (Manual) 3.4 Lymphocytes # 1.4 Monocytes # 0.5 Eosinophils # 0.1 Basophils # 0.0 Nucleated Red Blood Cells # 0.0 Sodium Level 139 Potassium Level 3.4 L Chloride Level 105 Carbon Dioxide Level 29 Anion Gap 8 Blood Urea Nitrogen 10 Creatinine 0.88 Glucose Level 98 Calcium Level 9.0 Total Bilirubin 0.4 Direct Bilirubin 0.00 Indirect Bilirubin 0.4 Aspartate Amino Transf (AST/SGOT) 45 Alanine Aminotransferase (ALT/SGPT) 60 Alkaline Phosphatase 73 Total Protein 5.8 L Albumin 3.2 L Globulin 2.60 Albumin/Globulin Ratio 1.23 Test 06/27/17 09:19 06/27/17 12:39 Bedside Glucose 97 172 Medications Medications Current Medications Ondansetron HCl (Zofran Inj) 4 mg Q6H PRN IV NAUSEA AND/OR VOMITING Last administered on 06/23/17 18:41; Admin Dose 4 MG; Start 06/22/17 at 03:00 Nitroglycerin (Nitroglycerin (Sl Tab) 0.4 Mg) 1 tab Q5M PRN SL CHEST PAIN Last administered on 06/23/17 09:15; Admin Dose 1 TAB; Start 06/22/17 at 03:00 Acetaminophen (Tylenol Tab) 650 mg Q6H PRN PO PAIN LEVEL 1-3 OR FEVER Last administered on 06/24/17 08:50; Admin Dose 650 MG; Start 06/22/17 at 03:00 Morphine Sulfate (morphine) 4 mg Q4H PRN IV PAIN LEVEL 7-10 Last administered on 06/25/17 12:42; Admin Dose 4 MG; Start 06/22/17 at 03:00 Carvedilol (Coreg) 3.125 mg Q12 PO Last administered on 06/27/17 09:23; Admin Dose 3.125 MG; Start 06/22/17 at 09:00 Atorvastatin Calcium (Lipitor) 20 mg QHS PO Last administered on 06/26/17 20:56 ; Admin Dose 20 MG; Start 06/22/17 at 21:00 Diagnostic Test (Pha) (Accu-Chek) 1 ea 02 XX ; Start 06/23/17 at 02:00 Insulin Glargine (Lantus) 12 unit DAILY@08 SC Last administered on 06/27/17 09: 21; Admin Dose 12 UNIT; Start 06/22/17 at 08:00 Miscellaneous Information 1 ea NOTE XX ; Start 06/22/17 at 03:30 Glucose (Glutose) 15 gm Q15M PRN PO DECREASED GLUCOSE; Start 06/22/17 at 03:30 Glucose (Glutose) 22.5 gm Q15M PRN PO DECREASED GLUCOSE; Start 06/22/17 at 03:30 Dextrose (D50w Syringe) 25 ml Q15M PRN IV DECREASED GLUCOSE; Start 06/22/17 at 03:30 Dextrose (D50w Syringe) 50 ml Q15M PRN IV DECREASED GLUCOSE; Start 06/22/17 at 03:30 Glucagon (Glucagen) 1 mg Q15M PRN IM DECREASED GLUCOSE; Start 06/22/17 at 03:30 Glucose (Glutose) 15 gm Q15M PRN BUCCAL DECREASED GLUCOSE; Start 06/22/17 at 03: 30 Hydromorphone HCl (Dilaudid) 1 mg Q2 PRN IV PAIN Last administered on 06/27/17 01:53; Admin Dose 1 MG; Start 06/23/17 at 08:30 Docusate Sodium (Colace) 100 mg DAILY PO Last administered on 06/27/17 09:22; Admin Dose 100 MG; Start 06/24/17 at 09:00 Pantoprazole (Protonix Tab) 40 mg BID@06,18 PO Last administered on 06/27/17 05 :18; Admin Dose 40 MG; Start 06/24/17 at 18:00 Morphine Sulfate (morphine) 2 mg Q2H PRN IV FOR NON CARDIAC PAIN (4-10) Last administered on 06/26/17 04:46; Admin Dose 2 MG; Start 06/25/17 at 17:00 Isosorbide Mononitrate (Imdur) 60 mg DAILY PO Last administered on 06/27/17 09: 25; Admin Dose 60 MG; Start 06/26/17 at 09:00 QARNI,CORINNE Jun 27, 2017 13:36
[2017-06-27] MEDS ORDERED: CLOP75TA27 PO (14:34)
[2017-06-27] MEDS ORDERED: RIVA15TA PO (14:34)
--- NOTE | 2017-06-27 14:51 | PDOCDIS ---
Discharge Instructions DIAGNOSIS Discharge Diagnosis Pulmonary embolism NSTEMI CONDITION Patient Condition: Good HOME CARE INSTRUCTIONS: Diet Instructions: Regular FOLLOW UP/APPOINTMENTS Follow-up Plan It is extremely important for you to take your medications as prescribed We have prescribed Xarelto (Rivaroxaban) which is a blood thinner which you should take for at least 6 months. During this time, you should not take an aspirin. You should take Plavix (Clopidogrel) instead. It is extremely important that you stop smoking and eat a very healthy diet, as there is not much else that we can do with medications or procedures to fix your disease. 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 CARRIE FRANKEL MD Jun 27, 2017 14:51
[2017-06-27] MEDS ORDERED: ISOS60TA PO (14:55)
--- NOTE | 2017-06-27 16:08 | DS ---
Date/Time of Note Date/Time of Note DATE: 06/27/17 TIME: 16:06 Discharge Summary Admission/Discharge Info Admit Date/Time Jun 22, 2017 at 02:01 Discharge Date/Time Discharge Diagnosis Pulmonary embolism NSTEMI Patient Condition: Good Hx of Present Illness This is a 52-year-old male with a history of hypertension, type 2 diabetes, CAD with CABG who presented to the emergency department complaining of chest pain. Pain started a few hours ago and it is left-sided, pressure-like with radiation to the left arm was 10 out of 10 in intensity. Reported some association with shortness of breath. Denied nausea/vomiting or diaphoresis. When he presented to the ER, BP 144/85 otherwise rest of vitals are stable. First troponin is elevated at 0.183. 2 EKGs were done in the ER which showed no ST-T wave abnormalities. Patient was given nitro and aspirin with improvement of pain but not complete resolution. Chest x-ray showed cardiomegaly and minimal left basilar subsegmental atelectasis and/or scarring. . Hospital Course NSTEMI: Possibly from PE but since Trop increased to 3.5 without e/o RV strain and had ongoing symptoms, underwent cardiac cath 06/25/17 which showed patent grafts but very small diffusely diseased diomede coronaries. No intervention possible. Medical management. He continue to complain of CP and isosorbide was started and uptitrated to 60 daily. Chest pain: Has severe diomede coronary disease which may explain the angina. Fever: Unclear etiology. May be from infectious process (including viral) or just from PE. Resolved without treatment PE was diagnosed and patient was started on a heparin drip which was continued until his cardiac cath, following this he was transitioned to Xarelto Smoking: He was strongly encouraged to stop smoking and improve his diet. 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 Home Meds Active Scripts Isosorbide Mononitrate* (Isosorbide Mononitrate*) 60 Mg Tab.er.24h, 60 MG PO DAILY for 60 Days, #60 Prov:CARRIE FRANKEL MD 06/27/17 Clopidogrel Bisulfate (Clopidogrel) 75 Mg Tablet, 75 MG PO DAILY for 60 Days, # 60 TAB Prov:CARRIE FRANKEL MD 06/27/17 Rivaroxaban* (Xarelto*) 15 Mg Tablet, 20 MG PO DAILY for 60 Days, #60 TAB Prov:CARRIE FRANKEL MD 06/27/17 Reported Medications Nitroglycerin* (Nitroglycerin* SL) 0.4 Mg Tab.subl 07/30/10 Fenofibrate, Micronized (Fenofibrate) 134 Mg Capsule 07/30/10 Acetaminophen/Phenyltolx Cit (Asa Free Analgesic Tablet) 1 Tab Tablet 07/30/10 Carvedilol* (Coreg*) 3.125 Mg Tablet 07/30/10 Simvastatin (Simvastatin) 20 Mg Tablet 07/30/10 Metformin Hcl* (Metformin Hcl*) 850 Mg Tablet 07/30/10 Lisinopril* (Zestril*) 5 Mg Tablet 07/30/10 Primary Care Provider [facility] Time spent on discharge: > 30 minutes Pending Labs Laboratory Tests Test 06/26/17 18:08 06/26/17 20:57 06/27/17 01:56 06/27/17 07:33 Bedside Glucose 110mg/dL (70-220) 122mg/dL (70-220) 122mg/dL (70-220) White Blood Count 5.510^3/ul (4.8-10.8) Red Blood Count 4.4210^6/ul (4.70-6.10) Hemoglobin 13.3g/dl (14.0-18.0) Hematocrit 38.5% (42.0-52.0) Mean Corpuscular Volume 87.1fl (82.0-101.0) Mean Corpuscular Hemoglobin 30.1pg (29.0-33.0) Mean Corpuscular Hemoglobin Concent 34.5g/dl (32.0-37.0) Red Cell Distribution Width 12.1% (11.5-14.5) Platelet Count 18289^3/UL (140-415) Mean Platelet Volume 10.4fl (7.4-10.4) Neutrophils % 61.4% (39.0-77.0) Lymphocytes % 26.1% (15.0-51.0) Monocytes % 9.7% (0.0-11.0) Eosinophils % 2.0% (0.0-7.0) Basophils % 0.4% (0.0-2.0) Nucleated Red Blood Cells % 0.0/100WBC (0.0-0.0) Neutrophils # (Manual) 3.410^3/ul (1.7-7.5) Lymphocytes # 1.410^3/ul (0.8-2.9) Monocytes # 0.510^3/ul (0.3-0.9) Eosinophils # 0.110^3/ul (0.0-0.5) Basophils # 0.010^3/ul (0.0-0.1) Nucleated Red Blood Cells # 0.010^3/ul (0.0-0.0) Sodium Level 139mmol/L (135-144) Potassium Level 3.4mmol/L (3.5-5.1) Chloride Level 105mmol/L (97-110) Carbon Dioxide Level 29mmol/L (21-31) Anion Gap 8 (8-16) Blood Urea Nitrogen 10mg/dl (7-20) Creatinine 0.88mg/dl (0.61-1.24) Glucose Level 98mg/dl (70-220) Calcium Level 9.0mg/dl (8.4-10.2) Total Bilirubin 0.4mg/dl (0.2-1.3) Direct Bilirubin 0.00mg/dl (0.00-0.20) Indirect Bilirubin 0.4mg/dl (0-1.1) Aspartate Amino Transf (AST/SGOT) 45IU/L (15-46) Alanine Aminotransferase (ALT/SGPT) 60IU/L (13-69) Alkaline Phosphatase 73IU/L (42-121) Total Protein 5.8g/dl (6.1-8.1) Albumin 3.2g/dl (3.3-4.9) Globulin 2.60g/dl (1.3-3.2) Albumin/Globulin Ratio 1.23 Test 06/27/17 09:19 06/27/17 12:39 Bedside Glucose 97mg/dL (70-220) 172mg/dL (70-220) CARRIE FRANKEL MD Jun 27, 2017 16:08
== END 2017-06-27 17:50 | disposition home or self-care (01) | DRG 280 ==
LOC: E/R 22:53 → MS4 06-22 02:01
PROVIDERS: ADMIT Internal Medicine; ATTEND Internal Medicine
PROC: B211YZZ Fluoroscopy of Multiple Coronary Arteries using Other Contrast (ICD-10-PCS; 2017-06-25)
PROC: B213YZZ Fluoroscopy of Multiple Coronary Artery Bypass Grafts using Other Contrast (ICD-10-PCS; 2017-06-25)
PROC: B218YZZ Fluoroscopy of Left Internal Mammary Bypass Graft using Other Contrast (ICD-10-PCS; 2017-06-25)
PROC: B310YZZ Fluoroscopy of Thoracic Aorta using Other Contrast (ICD-10-PCS; 2017-06-25)
PROC: B215YZZ Fluoroscopy of Left Heart using Other Contrast (ICD-10-PCS; 2017-06-25)
PROC: 4A023N7 Measurement of Cardiac Sampling and Pressure, Left Heart, Percutaneous Approach (ICD-10-PCS; principal; 2017-06-25 14:00)
DX: I21.4 Non-ST elevation (NSTEMI) myocardial infarction (principal); I26.99 Other pulmonary embolism without acute cor pulmonale; E11.9 Type 2 diabetes mellitus without complications; I10 Essential (primary) hypertension; E78.5 Hyperlipidemia, unspecified; I51.7 Cardiomegaly; I25.119 Atherosclerotic heart disease of native coronary artery with unspecified angina pectoris; F17.200 Nicotine dependence, unspecified, uncomplicated; Z95.1 Presence of aortocoronary bypass graft; Z79.4 Long term (current) use of insulin
CPT/HCPCS: 36415; 71010; 71020; 71275; 80048; 80053; 80061; 81001; 82550; 82553; 82962; 83036; 83605; 83735; 83880; 84100; 84443; 84484; 85025; 85384; 85610; 85651; 85730; 86140; 87040; 87086; 87275; 87276; 87279; 87280; 93005; 93306; 93459; 93970; 96374; C1887; C1894; C9113; J1170; J1644; J1650; J1815; J2250; J2270; J2405; J2543; J3010; J7030; J7042; Q9967

== ENCOUNTER 2019-02-21 17:28 | Observation (INO) | payer MEDICAID, OTHER ==
[~2019-02-21] VITALS: Ht 162.6 cm; Wt 79.0 kg
[~2019-02-21 17:28] MED LIST changes: +CLOP75TA27 PO; +ISOS60TA PO; -METF850T; +METF850T13; +NITR0.4T32; -NITR0.4T6; +RIVA15TA PO
[2019-02-21] MEDS ORDERED: ASPIRIN 81 MG TAB PO STA (17:42)
[2019-02-21] MEDS ORDERED: NITROGLYCERIN 2% 1 GM OINT PKT TD STA (17:42)
--- NOTE | 2019-02-21 18:16 | ERD ---
ER Documentation Chief Complaint Chief Complaint CP X 1 WEEK HPI Patient is a 53-year-old male with coronary disease, hypertension, and diabetes who presents with chest pain. The patient said that he started with chest pain 1 week ago. Is been worsening. He has left leg swelling. He has left finger numbness. He was supposed to be taking Xarelto but he is not because he cannot afford it. He does have a primary doctor and a telephonic rn. ROS All systems reviewed and are negative except as per history of present illness. Medications Home Meds Active Scripts Isosorbide Mononitrate* (Isosorbide Mononitrate*) 60 Mg Tab.er.24h, 60 MG PO DAILY for 60 Days, #60 Prov:CARRIE FRANKEL MD 06/27/17 Clopidogrel Bisulfate (Clopidogrel) 75 Mg Tablet, 75 MG PO DAILY for 60 Days, #60 TAB Prov:CARRIE FRANKEL MD 06/27/17 Rivaroxaban* (Xarelto*) 15 Mg Tablet, 20 MG PO DAILY for 60 Days, #60 TAB Prov:CARRIE FRANKEL MD 06/27/17 Reported Medications Nitroglycerin* (Nitroglycerin* SL) 0.4 Mg Tab.subl 07/30/10 Fenofibrate, Micronized (Fenofibrate) 134 Mg Capsule 07/30/10 Acetaminophen/Phenyltolx Cit (Asa Free Analgesic Tablet) 1 Tab Tablet 07/30/10 Carvedilol* (Coreg*) 3.125 Mg Tablet 07/30/10 Simvastatin (Simvastatin) 20 Mg Tablet 07/30/10 Metformin Hcl* (Metformin Hcl*) 850 Mg Tablet 07/30/10 Lisinopril* (Zestril*) 5 Mg Tablet 07/30/10 Allergies Allergies: Coded Allergies: No Known Allergy (Verified , 02/21/19) PMhx/Soc History of Surgery: Yes (CABG) Anesthesia Reaction: No Hx Neurological Disorder: No Hx Respiratory Disorders: No Hx Cardiac Disorders: Yes (CAD, CABG, HTN) Hx Psychiatric Problems: No Hx Miscellaneous Medical Probl: No Hx Alcohol Use: No Hx Substance Use: No Hx Tobacco Use: Yes FmHx Family History: coronary disease Physical Exam Vitals Vital Signs Date Temp Pulse Resp B/P (MAP) Pulse Ox O2 O2 Flow FiO2 Time Delivery Rate 02/21/19 98.1 89 18 141/67 99 17:35 (91) Physical Exam Const: Mild distress Head: Atraumatic Eyes: Normal Conjunctiva ENT: Normal External Ears, Nose and Mouth. Neck: Full range of motion. No meningismus. Resp: Clear to auscultation bilaterally Cardio: Regular rate and rhythm, no murmurs Abd: Soft, non tender, non distended. Normal bowel sounds Skin: No petechiae or rashes Back: No midline or flank tenderness Ext: No cyanosis, or edema Neur: Awake and alert Psych: Normal Mood and Affect Result Diagram: 02/21/19 1846 02/21/191845 Results 24 hrs Laboratory Tests Test 02/21/19 18:46 White Blood Count 8.8 10^3/ul Red Blood Count 5.27 10^6/ul Hemoglobin 15.7 g/dl Hematocrit 45.6 % Mean Corpuscular Volume 86.5 fl Mean Corpuscular Hemoglobin 29.8 pg Mean Corpuscular Hemoglobin Concent 34.4 g/dl Red Cell Distribution Width 12.1 % Platelet Count 204 10^3/UL Mean Platelet Volume 10.3 fl Immature Granulocytes % 0.700 % Neutrophils % 58.2 % Lymphocytes % 32.1 % Monocytes % 6.8 % Eosinophils % 1.4 % Basophils % 0.8 % Nucleated Red Blood Cells % 0.0 /100WBC Immature Granulocytes # 0.060 10^3/ul Neutrophils # 5.1 10^3/ul Lymphocytes # 2.8 10^3/ul Monocytes # 0.6 10^3/ul Eosinophils # 0.1 10^3/ul Basophils # 0.1 10^3/ul Nucleated Red Blood Cells # 0.0 10^3/ul Sodium Level 140 mmol/L Potassium Level 4.4 mmol/L Chloride Level 106 mmol/L Carbon Dioxide Level 27 mmol/L Anion Gap 7 Blood Urea Nitrogen 16 mg/dl Creatinine 0.78 mg/dl Est Glomerular Filtrat Rate mL/min > 60 mL/min Glucose Level 222 mg/dl Calcium Level 9.7 mg/dl Troponin I < 0.012 ng/ml Current Medications Medications Dose Sig/Merritt Start Time Status Last (Trade) Ordered Route PRN Stop Time Admin Dose Reason Admin Aspirin 162 mg ONCE STAT 02/21/19 DC 02/21/19 (Aspirin) PO 17:42 02/21/19 18:58 17:43 1 inch ONCE STAT 02/21/19 DC 02/21/19 Nitroglycerin TD 17:42 02/21/19 18:58 17:43 (Nitroglyceri n 2% Oint) 1 tab Q5M UP TO 3 02/21/19 02/21/19 Nitroglycerin DOSES PRN 18:00 18:58 SL .CHEST (Nitroglyceri PAIN n (Sl Tab) 0.4 Mg) Clopidogrel 75 mg DAILY PO 02/22/19 Bisulfate 09:00 (plaVIX) Isosorbide 60 mg DAILY PO 02/22/19 Mononitrate 09:00 (Imdur) Rivaroxaban 20 mg DAILY PO 02/22/19 (Xarelto) 09:00 IV Flush 3 ml PER 02/21/19 (NS 3 ml) PROTOCOL IV 20:00 Ondansetron 4 mg Q6H PRN 02/21/19 HCl (Zofran IV 20:00 Inj) NAUSEA/VOMITI NG 1 tab Q5M PRN 02/21/19 Nitroglycerin SL .CHEST 20:00 PAIN (Nitroglyceri n (Sl Tab) 0.4 Mg) 650 mg Q6H PRN 02/21/19 Acetaminophen PO .PAIN 1-3 20:00 (Tylenol OR TEMP Tab) Enoxaparin 40 mg DAILY SC 02/22/19 DC Sodium 09:00 02/22/19 (Lovenox) 09:00 Albuterol/ 3 ml Q2H RESP 02/21/19 Ipratropium THERAPY PRN 20:00 (Duoneb) HHN SHORTNESS OF BREATH Discontinue ONCE ONCE 02/21/19 DC Miscellaneous current oral XX 20:00 02/21/19 sulfonylur... 20:19 Information (* Miscellaneous Pharmacy Order) Diagnostic 1 ea 02 XX 02/22/19 Test (Pha) 02:00 (Accu-Chek) ONCE ONCE 02/21/19 DC Miscellaneous HYPOGLYCEMIA XX 20:00 02/21/19 PROTOCOL 20:19 Information w... (* Miscellaneous Pharmacy Order) Insulin NOVOLOG WITH MEALS 02/21/19 Aspart *MODERATE* BEDTIME SC 21:00 (Novolog ALGORITHM Insulin Pen) Discontinue ONCE ONCE 02/21/19 DC Miscellaneous all previ... XX 20:00 02/21/19 20:19 Information (* Miscellaneous Pharmacy Order) Carvedilol 3.125 mg Q12 PO 02/21/19 (Coreg) 21:00 Lisinopril 5 mg DAILY PO 02/22/19 (Zestril) 09:00 20 mg QHS PO 02/21/19 Atorvastatin 21:00 Calcium (Lipitor) Fenofibrate 48 mg DAILY PO 02/22/19 (Tricor) 09:00 1 ea NOTE XX 02/21/19 Miscellaneous 20:30 Information Glucose 15 gm Q15M PRN 02/21/19 (Glutose) PO DECREASED 20:30 GLUCOSE Glucose 22.5 gm Q15M PRN 02/21/19 (Glutose) PO DECREASED 20:30 GLUCOSE Dextrose 25 ml Q15M PRN 02/21/19 (D50w IV DECREASED 20:30 Syringe) GLUCOSE Dextrose 50 ml Q15M PRN 02/21/19 (D50w IV DECREASED 20:30 Syringe) GLUCOSE Glucagon 1 mg Q15M PRN 02/21/19 (Glucagen) IM DECREASED 20:30 GLUCOSE Glucose 15 gm Q15M PRN 02/21/19 (Glutose) BUCCAL 20:30 DECREASED GLUCOSE Morphine 3 mg ONCE STAT 02/21/19 DC Sulfate IV 20:12 02/21/19 (morphine) 20:20 Procedures/MDM EKG read by me: Rate/Rhythm: Regular rate and rhythm at a rate of 86 Intervals: Normal Impression: No evidence of ischemia or arrhythmia Chest x-ray read by radiology. Left lower extremely ultrasound read by radiology. Smoking Cessation Therapy: Pt. was lectured for greater than 3 minutes on the health risks of continued smoking and the benefits of cessation. Patient is a 53-year-old male with multiple cardiac risk factors who presents with chest pain. I am concerned for acute coronary syndrome. I doubt pneumonia, pneumothorax, pulmonary embolism, or aortic dissection. The patient will be admitted to a telemetry observation bed to Dr. Samaniego. The patient was given aspirin, nitroglycerin, and morphine for pain. Departure Diagnosis: Primary Impression: Chest pain Chest pain type: unspecified Qualified Codes: R07.9 - Chest pain, unspecified Condition: CHRIS Summers MD February 21, 2019 18:16
[2019-02-21] MEDS: NITROGLYCERIN (SL) 0.4 MG TAB SL PRN ×2 (18:58→23:59)
[2019-02-21] MEDS ORDERED: ACETAMINOPHEN 325 MG TAB PO PRN (20:00)
[2019-02-21] MEDS ORDERED: ONDANSETRON 4 MG INJ IV PRN (20:00)
[2019-02-21] MEDS ORDERED: ALBUTEROL/IPRATROPIUM (NEB) 3 ML AMP HHN PRN (20:00)
[2019-02-21] MEDS ORDERED: NACL 0.9% 3 ML SYG IV SCH (20:00)
[2019-02-21] MEDS ORDERED: morphine 4 MG/ML VIAL IV STA ×2 (20:12→20:43)
[2019-02-21] MEDS ORDERED: GLUCAGON 1 MG INJ IM PRN (20:30)
[2019-02-21] MEDS ORDERED: GLUCOSE GEL 15 GRAM TUBE PO PRN ×2 (20:30)
[2019-02-21] MEDS ORDERED: GLUCOSE GEL 15 GRAM TUBE BUCCAL PRN (20:30)
[2019-02-21] MEDS ORDERED: DEXTROSE 50% 50 ML SYRINGE IV PRN ×2 (20:30)
[2019-02-21] MEDS ORDERED: ONDANSETRON 4 MG INJ IV STA (20:43)
[2019-02-21] MEDS: ATORVASTATIN 20 MG TAB PO SCH (21:31)
[2019-02-21] MEDS: INSULIN ASPART [NOVOLOG] 3 ML PEN SC SCH (21:53)
--- NOTE | 2019-02-21 22:11 | HP ---
Date/Time of Note Date/Time of Note DATE: 02/21/19 TIME: 22:11 Assessment/Plan VTE Prophylaxis SCD contraindicated: low risk/ambulating Pharmacological prophylaxis: heparin Lines/Catheters IV Catheter Type (from Nrsg): Saline Lock Assessment/Plan Assessment/Plan 1. Chest pain: Rule out ACS -Continue telemetry monitoring -Supplemental oxygen, dual antiplatelet, beta-viral, statin. As needed nitro -Serial troponin -2D echo and cardiology consult 2. Type 2 diabetes: A1c 9.3 -Insulin while in-house 3. Dyslipidemia: Continue statin and fenofibrate 4. History of CAD with CABG: Last cardiac cath here was in June 2017. It showed patent graft and a very small with a diffuse disease. -See #1 5. History of PE: Diagnosed 06/2017: On Xarelto 6. Left ankle/foot pain: Pain also is radiating to his calf -Lower extremity venous study was negative for DVT -On physical exam, no sign of fracture or swelling. -Consider x-ray based on clinical course Result Diagram: 02/21/19 1846 02/21/19 1846 Results 24hrs Laboratory Tests Test 02/21/19 18:46 02/21/19 21:29 White Blood Count 8.8 # Red Blood Count 5.27 Hemoglobin 15.7 Hematocrit 45.6 Mean Corpuscular Volume 86.5 Mean Corpuscular Hemoglobin 29.8 Mean Corpuscular Hemoglobin Concent 34.4 Red Cell Distribution Width 12.1 Platelet Count 204 Mean Platelet Volume 10.3 Immature Granulocytes % 0.700 H Neutrophils % 58.2 Lymphocytes % 32.1 Monocytes % 6.8 Eosinophils % 1.4 Basophils % 0.8 Nucleated Red Blood Cells % 0.0 Immature Granulocytes # 0.060 H Neutrophils # 5.1 Lymphocytes # 2.8 Monocytes # 0.6 Eosinophils # 0.1 Basophils # 0.1 Nucleated Red Blood Cells # 0.0 Sodium Level 140 Potassium Level 4.4 Chloride Level 106 Carbon Dioxide Level 27 Anion Gap 7 Blood Urea Nitrogen 16 Creatinine 0.78 Est Glomerular Filtrat Rate mL/min > 60 Glucose Level 222 H Calcium Level 9.7 Troponin I < 0.012 Bedside Glucose 200 HPI/ROS Admit Date/Time Admit Date/Time Hx of Present Illness This is a 53-year-old male with a history of hypertension, type II diabetes, CAD with CABG, PE diagnosed in 06/2017 on Xarelto. Patient presented to ER complaining of chest pain and left ankle/foot pain. Chest pain started a few days ago, but has gotten worse since yesterday. Chest pain is diffuse, covering his entire chest and radiates to bilateral shoulder area. He said at the onset of the chest pain, he also started having left foot/ankle pain. Denies trauma. Patient had a cardiac cath here in June 2017 which showed patent grafts and very small with diffuse. When he presented to the ER, vitals were stable. First troponin is negative and EKG without ST elevation or depression. Left lower extremity venous study was negative for DVT. Chest x-ray shows Chronic interstitial changes without focal airspace opacity. PMH/Family/Social Past Medical History Medical History: other (See HPI) Medications Current Medications Nitroglycerin (Nitroglycerin (Sl Tab) 0.4 Mg) 1 tab Q5M UP TO 3 DOSES PRN SL .CHEST PAIN Last administered on 02/21/19at 18:58; Admin Dose 1 TAB; Start 02/21/19 at 18:00 Clopidogrel Bisulfate (plaVIX) 75 mg DAILY PO ; Start 02/22/19 at 09:00 Isosorbide Mononitrate (Imdur) 60 mg DAILY PO ; Start 02/22/19 at 09:00 Rivaroxaban (Xarelto) 20 mg DAILY PO ; Start 02/22/19 at 09:00 IV Flush (NS 3 ml) 3 ml PER PROTOCOL IV ; Start 02/21/19 at 20:00 Ondansetron HCl (Zofran Inj) 4 mg Q6H PRN IV NAUSEA/VOMITING; Start 02/21/19 at 20:00 Nitroglycerin (Nitroglycerin (Sl Tab) 0.4 Mg) 1 tab Q5M PRN SL .CHEST PAIN; Start 02/21/19 at 20:00 Acetaminophen (Tylenol Tab) 650 mg Q6H PRN PO .PAIN 1-3 OR TEMP; Start 02/21/19 at 20:00 Albuterol/ Ipratropium (Duoneb) 3 ml Q2H RESP THERAPY PRN HHN SHORTNESS OF BREATH; Start 02/21/19 at 20:00 Diagnostic Test (Pha) (Accu-Chek) 1 ea 02 XX ; Start 02/22/19 at 02:00 Insulin Aspart (Novolog Insulin Pen) NOVOLOG *MODERATE* ALGORITHM WITH MEALS BE DTIME SC Last administered on 02/21/19at 21:53; Admin Dose 1 UNIT; Start 02/21/19 at 21:00 Carvedilol (Coreg) 3.125 mg Q12 PO Last administered on 02/21/19at 21:50; Admin Dose 3.125 MG; Start 02/21/19 at 21:00 Lisinopril (Zestril) 5 mg DAILY PO ; Start 02/22/19 at 09:00 Atorvastatin Calcium (Lipitor) 20 mg QHS PO Last administered on 02/21/19at 21:31; Admin Dose 20 MG; Start 02/21/19 at 21:00 Fenofibrate (Tricor) 48 mg DAILY PO ; Start 02/22/19 at 09:00 Miscellaneous Information 1 ea NOTE XX ; Start 02/21/19 at 20:30 Glucose (Glutose) 15 gm Q15M PRN PO DECREASED GLUCOSE; Start 02/21/19 at 20:30 Glucose (Glutose) 22.5 gm Q15M PRN PO DECREASED GLUCOSE; Start 02/21/19 at 20:30 Dextrose (D50w Syringe) 25 ml Q15M PRN IV DECREASED GLUCOSE; Start 02/21/19 at 20:30 Dextrose (D50w Syringe) 50 ml Q15M PRN IV DECREASED GLUCOSE; Start 02/21/19 at 20:30 Glucagon (Glucagen) 1 mg Q15M PRN IM DECREASED GLUCOSE; Start 02/21/19 at 20:30 Glucose (Glutose) 15 gm Q15M PRN BUCCAL DECREASED GLUCOSE; Start 02/21/19 at 20:30 Coded Allergies: No Known Allergy (Verified , 02/21/19) Past Surgical History Past Surgical Hx: coronary bypass surgery Family History Significant Family History: no pertinent family hx Social History Alcohol Use: none Smoking Status: Current every day smoker Drug Use: none Exam/Review of Systems Vital Signs Vitals Vital Signs Date Temp Pulse Resp B/P (MAP) Pulse Ox O2 O2 Flow FiO2 Time Delivery Rate 02/21/19 69 20 121/67 96 Room Air 22:04 (85) 02/21/19 98.1 20:49 Exam Constitutional: other (No acute distress. ) Head: normocephalic, atraumatic Eyes: EOMI, PERRL Respiratory: clear to auscultation, normal air movement Cardiovascular: regular rate and rhythm, nl pulses Gastrointestinal: soft, non-tender Extremities: normal pulses MARY VELAZCO MD February 21, 2019 22:11
[2019-02-21 23:28] VITALS: PULSE 66
[2019-02-21 23:40] VITALS: Ht 162.6 cm; Wt 79.0 kg
[2019-02-22] VITALS (11 sets, daily range): BP systolic 94–122; BP diastolic 50–62; PULSE 64–83; RESP 18
[2019-02-22] MEDS: NITROGLYCERIN (SL) 0.4 MG TAB SL PRN ×3 (00:05→11:27)
[2019-02-22] MEDS ORDERED: morphine 4 MG/ML VIAL IV STA (00:27)
[2019-02-22] MEDS: ACCU-CHEK XX SCH (01:18)
[2019-02-22] MEDS: INSULIN ASPART [NOVOLOG] 3 ML PEN SC SCH ×5 (07:56→20:11)
[2019-02-22] MEDS: CLOPIDOGREL 75 MG TAB PO SCH (08:19)
[2019-02-22] MEDS: FENOFIBRATE 48 MG TAB PO SCH (08:19)
[2019-02-22] MEDS: LISINOPRIL 5 MG TAB PO SCH (08:20)
[2019-02-22] MEDS: RIVAROXABAN 20 MG TABLET PO SCH (08:21)
[2019-02-22] MEDS: ISOSORBIDE MONONITRATE(SR)60 MG TAB PO SCH (08:21)
[2019-02-22] MEDS ORDERED: ENOXAPARIN 40 MG/0.4 ML SYG SC SCH (09:00)
[2019-02-22] MEDS: morphine 2 MG INJ IV PRN ×2 (12:21→20:06)
--- NOTE | 2019-02-22 13:01 | PN ---
Date/Time of Note Date/Time of Note DATE: 02/22/19 TIME: 13:00 Assessment/Plan VTE Prophylaxis Risk score (from Nsg)>0 risk: 4 SCD applied (from Nsg): Yes Pharmacological prophylaxis: rivaroxaban Lines/Catheters IV C[facility]ter Type [facility]from [facility] Saline Lock Assessment/Plan Hospital Course SUBJECTIVE: Lying in bed, having mild substernal chest discomfort. No palpitation, diaphoresis,N/V... Had 10 beat vtach this morning.. OBJECTIVE: Vital signs-see below PHYSICAL EXAM: Constitutional: Adequately built,not in acute distress. HEENT: Head atraumatic and normocephalic. Eyes: Extraocular muscles intact. Ani cteric sclerae. Pupils equal bilaterally, reactive to light. NECK: Supple without lymph node. CHEST: Clear and good breath sounds equally. No wheezing. No rhonchi. HEART: S1, S2. Regular rate and rhythm. ABDOMEN: Soft/non tender with no rebound tenderness. Bowel sounds were present. EXTREMITIES: No cyanosis, clubbing or edema. NEUROLOGIC: Alert and oriented x3. No focal deficit. No sensory deficit. PSYCHOSOCIAL: No signs of depression. INTEGUMENTARY: No open wounds. ASSESSMENT AND PLAN:53 YO w/CAD/CABG,dm2,PE,admitted w/chest pain.. 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 -Continue Plavix,BB, statin NSVT -10 beats nonsustained-now in normal sinus rhythm -cont.BB -Monitor elect light level closely and keep K >4.0,mag>2.0 -f/u cards recs Coronary artery disease,s/p CABG -Last [facility] June 2017, CAD not amenable for PCI/CABG.. -Continue medical management on bb/antiplatelt/statin/imdur/acei DM2 -A1C 9.3 -Start basal -cont. Accu-Cheks/bolus -Carb controlled diet Dyslipidemia -On statin and fibroids History of PE 06/2017 -Patient on Xarelto, will consider discontinuation of course as there is no high risk factors for recurrent PE... VT prophylaxis: Currently on Xarelto Disposition: Continue current management. Follow-up cardiology recommendations/CTA coronary angiogram. Patient was seen in collaboration with Dr. Gavin. Result Diagram: 02/22/19 0600 02/22/19 0600 Results 24hrs Laboratory Tests Test 02/21/19 18:46 02/21/19 21:29 02/21/19 23:59 02/22/19 01:16 White Blood Count 8.8 # Red Blood Count 5.27 Hemoglobin 15.7 Hematocrit 45.6 Mean Corpuscular Volume 86.5 Mean Corpuscular 29.8 Hemoglobin Mean Corpuscular 34.4 Hemoglobin Concent Red Cell Distribution 12.1 Width Platelet Count 204 Mean Platelet Volume 10.3 Immature Granulocytes % 0.700 H Neutrophils % 58.2 Lymphocytes % 32.1 Monocytes % 6.8 Eosinophils % 1.4 Basophils % 0.8 Nucleated Red Blood 0.0 Cells % Immature Granulocytes # 0.060 H Neutrophils # 5.1 Lymphocytes # 2.8 Monocytes # 0.6 Eosinophils # 0.1 Basophils # 0.1 Nucleated Red Blood 0.0 Cells # Sodium Level 140 Potassium Level 4.4 Chloride Level 106 Carbon Dioxide Level 27 Anion Gap 7 Blood Urea Nitrogen 16 Creatinine 0.78 Est Glomerular Filtrat > 60 Rate mL/min Glucose Level 222 H Calcium Level 9.7 Troponin I < 0.012 < 0.012 Bedside Glucose 200 212 Creatine Kinase 40 Creatine Kinase Index 1.3 Creatinine Kinase MB 0.50 (Mass) Test 02/22/19 06:00 02/22/19 07:54 02/22/19 11:47 White Blood Count 7.5 Red Blood Count 5.03 Hemoglobin 15.1 Hematocrit 43.8 Mean Corpuscular Volume 87.1 Mean Corpuscular 30.0 Hemoglobin Mean Corpuscular 34.5 Hemoglobin Concent Red Cell Distribution 12.2 Width Platelet Count 183 Mean Platelet Volume 10.4 Immature Granulocytes % 0.500 H Neutrophils % 49.3 Lymphocytes % 39.5 Monocytes % 8.2 Eosinophils % 1.6 Basophils % 0.9 Nucleated Red Blood 0.0 Cells % Immature Granulocytes # 0.040 H Neutrophils # 3.7 Lymphocytes # 3.0 H Monocytes # 0.6 Eosinophils # 0.1 Basophils # 0.1 Nucleated Red Blood 0.0 Cells # Sodium Level 141 Potassium Level 4.1 Chloride Level 106 Carbon Dioxide Level 28 Anion Gap 7 Blood Urea Nitrogen 17 Creatinine 0.66 Est Glomerular Filtrat > 60 Rate mL/min Glucose Level 166 Hemoglobin A1c 9.3 H Calcium Level 9.2 Magnesium Level 1.9 Total Bilirubin 0.5 Direct Bilirubin 0.00 Indirect Bilirubin 0.5 Aspartate Amino 19 Transf (AST/SGOT) Alanine 20 Aminotransferase (ALT/SG PT) Alkaline Phosphatase 47 Creatine Kinase 45 Creatine Kinase Index 1.2 Creatinine Kinase MB 0.53 (Mass) Troponin I < 0.012 Total Protein 5.8 L Albumin 3.5 Globulin 2.30 Albumin/Globulin Ratio 1.52 Triglycerides Level 174 H Cholesterol Level 141 LDL Cholesterol, 88 Calculated HDL Cholesterol 18 L Cholesterol/HDL Ratio 7.8 Thyroid Stimulating 2.870 Hormone (TSH) Bedside Glucose 157 190 Exam/Review of Systems Exam Vitals Vital Signs Date Temp Pulse Resp B/P (MAP) Pulse Ox O2 O2 Flow FiO2 Time Delivery Rate 02/22/19 69 12:00 02/22/19 97.9 18 94/50 (65) 95 11:38 02/22/19 Room Air 00:31 Intake and Output 02/21/19 02/21/19 02/22/19 1515:00 23:00 07:00 IntakeIntake Total 250 ml BalanceBalance 250 ml Results Results 24hrs Laboratory Tests Test 02/21/19 18:46 02/21/19 21:29 02/21/19 23:59 02/22/19 01:16 White Blood Count 8.8 # Red Blood Count 5.27 Hemoglobin 15.7 Hematocrit 45.6 Mean Corpuscular Volume 86.5 Mean Corpuscular 29.8 Hemoglobin Mean Corpuscular 34.4 Hemoglobin Concent Red Cell Distribution 12.1 Width Platelet Count 204 Mean Platelet Volume 10.3 Immature Granulocytes % 0.700 H Neutrophils % 58.2 Lymphocytes % 32.1 Monocytes % 6.8 Eosinophils % 1.4 Basophils % 0.8 Nucleated Red Blood 0.0 Cells % Immature Granulocytes # 0.060 H Neutrophils # 5.1 Lymphocytes # 2.8 Monocytes # 0.6 Eosinophils # 0.1 Basophils # 0.1 Nucleated Red Blood 0.0 Cells # Sodium Level 140 Potassium Level 4.4 Chloride Level 106 Carbon Dioxide Level 27 Anion Gap 7 Blood Urea Nitrogen 16 Creatinine 0.78 Est Glomerular Filtrat > 60 Rate mL/min Glucose Level 222 H Calcium Level 9.7 Troponin I < 0.012 < 0.012 Bedside Glucose 200 212 Creatine Kinase 40 Creatine Kinase Index 1.3 Creatinine Kinase MB 0.50 (Mass) Test 02/22/19 06:00 02/22/19 07:54 02/22/19 11:47 White Blood Count 7.5 Red Blood Count 5.03 Hemoglobin 15.1 Hematocrit 43.8 Mean Corpuscular Volume 87.1 Mean Corpuscular 30.0 Hemoglobin Mean Corpuscular 34.5 Hemoglobin Concent Red Cell Distribution 12.2 Width Platelet Count 183 Mean Platelet Volume 10.4 Immature Granulocytes % 0.500 H Neutrophils % 49.3 Lymphocytes % 39.5 Monocytes % 8.2 Eosinophils % 1.6 Basophils % 0.9 Nucleated Red Blood 0.0 Cells % Immature Granulocytes # 0.040 H Neutrophils # 3.7 Lymphocytes # 3.0 H Monocytes # 0.6 Eosinophils # 0.1 Basophils # 0.1 Nucleated Red Blood 0.0 Cells # Sodium Level 141 Potassium Level 4.1 Chloride Level 106 Carbon Dioxide Level 28 Anion Gap 7 Blood Urea Nitrogen 17 Creatinine 0.66 Est Glomerular Filtrat > 60 Rate mL/min Glucose Level 166 Hemoglobin A1c 9.3 H Calcium Level 9.2 Magnesium Level 1.9 Total Bilirubin 0.5 Direct Bilirubin 0.00 Indirect Bilirubin 0.5 Aspartate Amino 19 Transf (AST/SGOT) Alanine 20 Aminotransferase (ALT/SG PT) Alkaline Phosphatase 47 Creatine Kinase 45 Creatine Kinase Index 1.2 Creatinine Kinase MB 0.53 (Mass) Troponin I < 0.012 Total Protein 5.8 L Albumin 3.5 Globulin 2.30 Albumin/Globulin Ratio 1.52 Triglycerides Level 174 H Cholesterol Level 141 LDL Cholesterol, 88 Calculated HDL Cholesterol 18 L Cholesterol/HDL Ratio 7.8 Thyroid Stimulating 2.870 Hormone (TSH) Bedside Glucose 157 190 Medications Medication Current Medications Nitroglycerin (Nitroglycerin (Sl Tab) 0.4 Mg) 1 tab Q5M UP TO 3 DOSES PRN SL .CHEST PAIN Last administered on 02/22/19at 11:27; Admin Dose 1 TAB; Start 02/21/19 at 18:00 Clopidogrel Bisulfate (plaVIX) 75 mg DAILY PO Last administered on 02/22/19at 08:19; Admin Dose 75 MG; Start 02/22/19 at 09:00 Isosorbide Mononitrate (Imdur) 60 mg DAILY PO Last administered on 02/22/19at 08:21; Admin Dose 60 MG; Start 02/22/19 at 09:00 Rivaroxaban (Xarelto) 20 mg DAILY PO Last administered on 02/22/19at 08:21; Admin Dose 20 MG; Start 02/22/19 at 09:00 IV Flush (NS 3 ml) 3 ml PER PROTOCOL IV ; Start 02/21/19 at 20:00 Ondansetron HCl (Zofran Inj) 4 mg Q6H PRN IV NAUSEA/VOMITING; Start 02/21/19 at 20:00 Nitroglycerin (Nitroglycerin (Sl Tab) 0.4 Mg) 1 tab Q5M PRN SL .CHEST PAIN Last administered on 02/22/19at 00:11; Admin Dose 1 TAB; Start 02/21/19 at 20:00 Acetaminophen (Tylenol Tab) 650 mg Q6H PRN PO .PAIN 1-3 OR TEMP; Start 02/21/19 at 20:00 Albuterol/ Ipratropium (Duoneb) 3 ml Q2H RESP THERAPY PRN HHN SHORTNESS OF BREATH; Start 02/21/19 at 20:00 Diagnostic Test (Pha) (Accu-Chek) 1 ea 02 XX Last administered on 02/22/19at 01:18; Admin Dose 1 EA; Start 02/22/19 at 02:00 Carvedilol (Coreg) 3.125 mg Q12 PO Last administered on 02/22/19at 08:20; Admin Dose 3.125 MG; Start 02/21/19 at 21:00 Lisinopril (Zestril) 5 mg DAILY PO Last administered on 02/22/19at 08:20; Admin Dose 5 MG; Start 02/22/19 at 09:00 Atorvastatin Calcium (Lipitor) 20 mg QHS PO Last administered on 02/21/19at 21:31; Admin Dose 20 MG; Start 02/21/19 at 21:00 Fenofibrate (Tricor) 48 mg DAILY PO Last administered on 02/22/19at 08:19; Admin Dose 48 MG; Start 02/22/19 at 09:00 Miscellaneous Information 1 ea NOTE XX ; Start 02/21/19 at 20:30 Glucose (Glutose) 15 gm Q15M PRN PO DECREASED GLUCOSE; Start 02/21/19 at 20:30 Glucose (Glutose) 22.5 gm Q15M PRN PO DECREASED GLUCOSE; Start 02/21/19 at 20:30 Dextrose (D50w Syringe) 25 ml Q15M PRN IV DECREASED GLUCOSE; Start 02/21/19 at 20:30 Dextrose (D50w Syringe) 50 ml Q15M PRN IV DECREASED GLUCOSE; Start 02/21/19 at 20:30 Glucagon (Glucagen) 1 mg Q15M PRN IM DECREASED GLUCOSE; Start 02/21/19 at 20:30 Glucose (Glutose) 15 gm Q15M PRN BUCCAL DECREASED GLUCOSE; Start 02/21/19 at 20:30 Morphine Sulfate (morphine) 2 mg Q4H PRN IV SEVERE PAIN LEVEL 7-10 Last administered on 02/22/19at 12:21; Admin Dose 2 MG; Start 02/22/19 at 12:30 Insulin Glargine (Lantus) 12 units DAILY@0800 SC ; Start 02/22/19 at 12:30 Insulin Aspart (Novolog Insulin Pen) 4 unit WITH MEALS SC ; Start 02/22/19 at 17:55 Insulin Aspart (Novolog Insulin Pen) NOVOLOG *MILD* ALGORITHM WITH MEALS BEDTIME SC ; Start 02/22/19 at 17:55 LIZZETTE CUELLAR NP February 22, 2019 13:01
[2019-02-22] MEDS: INSULIN GLARGINE [LANTus] (100 UNITS/ML) SYG SC SCH (13:51)
[2019-02-22] MEDS ORDERED: MAGNESIUM SULFATE 1 GM/D5W 100 ML IVPB ONE (15:30)
--- NOTE | 2019-02-22 16:06 | CONS ---
Assessment/Plan Assessment/Plan Hospital Course (Demo Recall) Chronic stable angina: Trops negative. Cardiac CTA shows patent grafts. The diffusely diseased/small OM graft was also seen on cath. He has known occlusion of all three augustine coronaries and the grafts anastomose to severely diseased and very small <1.5mm coronaries not amenable to revascularization on cath 06/2017. He has been off all meds for several months which likely explains his worsening symptoms. H/o PE: was off Xarelto. No DVT on ultrasound but has been having symptoms in the left leg so may have had a DVT. ?need to check chest CTA though probably would not twisting frame changer at this time DM HTN HL Tobacco use -start Ranexa 500mg BID -plavix and Xarelto. No ASA -imdur 60mg -lipitor -coreg 3.125mg as BP/HR tolerates (BP has been borderline) Possible d/c in am if asymptomatic or at least back to baseline. Please give new prescriptions for all above meds Consultation Date/Type/Reason Admit Date/Time Date of Consultation: February 22, 2019 Type of Consult Cardiology Reason for Consultation chest pain Requesting Provider: LIZZETTE CUELLAR NP Date/Time of Note DATE: 02/22/19 TIME: 16:06 Hx of Present Illness 53 yo M with an extensive h/o CAD including 9 prior stents, CABG CHAVEZ-LAD, SVG- OM, SVG or radial to OM, SVG-PDA (~5 yrs ago at [facility]) with cardiac cath 07/06 in setting of NSTEMI showing patent grafts with very small and severely diseased augustine arteries, chronic angina, PE previously on Xarelto, DM, HTN, COPD, who presented with chest pain. Pt is known to me from hospitalization 07/06. He had a PE that time as well as an NSTEMI with cath as noted above. After that he continued to have chest pain as per his chronic condition but it was manageable. End of 2017 he lost his Medi-Beau and has not been taking any meds for several months. He had left leg pain but no swelling and U/S here is negative for DVT. His trops were negative and I had advised we check a cardiac CTA which has resulted. His grafts remain patent though one of them is very small as was also seen on cath 07/06. He has been having dyspnea on exertion as well but no orthopnea, PND, edema. per HPI Past Medical History per HPI Home Meds Active Scripts Isosorbide Mononitrate* (Isosorbide Mononitrate*) 60 Mg Tab.er.24h, 60 MG PO DAILY for 60 Days, #60 Prov:CARRIE FRANKEL MD 06/27/17 Clopidogrel Bisulfate (Clopidogrel) 75 Mg Tablet, 75 MG PO DAILY for 60 Days, #60 TAB Prov:CARRIE FRANKEL MD 06/27/17 Rivaroxaban* (Xarelto*) 15 Mg Tablet, 20 MG PO DAILY for 60 Days, #60 TAB Prov:CARRIE FRANKEL MD 06/27/17 Reported Medications Nitroglycerin* (Nitroglycerin* SL) 0.4 Mg Tab.subl 07/30/10 Fenofibrate, Micronized (Fenofibrate) 134 Mg Capsule 07/30/10 Acetaminophen/Phenyltolx Cit (Asa Free Analgesic Tablet) 1 Tab Tablet 07/30/10 Carvedilol* (Coreg*) 3.125 Mg Tablet 07/30/10 Simvastatin (Simvastatin) 20 Mg Tablet 07/30/10 Metformin Hcl* (Metformin Hcl*) 850 Mg Tablet 07/30/10 Lisinopril* (Zestril*) 5 Mg Tablet 07/30/10 Medications Current Medications Nitroglycerin (Nitroglycerin (Sl Tab) 0.4 Mg) 1 tab Q5M UP TO 3 DOSES PRN SL .CHEST PAIN Last administered on 02/22/19at 11:27; Admin Dose 1 TAB; Start 02/21/19 at 18:00 Clopidogrel Bisulfate (plaVIX) 75 mg DAILY PO Last administered on 02/22/19at 08:19; Admin Dose 75 MG; Start 02/22/19 at 09:00 Isosorbide Mononitrate (Imdur) 60 mg DAILY PO Last administered on 02/22/19at 08:21; Admin Dose 60 MG; Start 02/22/19 at 09:00 Rivaroxaban (Xarelto) 20 mg DAILY PO Last administered on 02/22/19at 08:21; Admin Dose 20 MG; Start 02/22/19 at 09:00 IV Flush (NS 3 ml) 3 ml PER PROTOCOL IV ; Start 02/21/19 at 20:00 Ondansetron HCl (Zofran Inj) 4 mg Q6H PRN IV NAUSEA/VOMITING; Start 02/21/19 at 20:00 Nitroglycerin (Nitroglycerin (Sl Tab) 0.4 Mg) 1 tab Q5M PRN SL .CHEST PAIN Last administered on 02/22/19at 00:11; Admin Dose 1 TAB; Start 02/21/19 at 20:00 Acetaminophen (Tylenol Tab) 650 mg Q6H PRN PO .PAIN 1-3 OR TEMP; Start 02/21/19 at 20:00 Albuterol/ Ipratropium (Duoneb) 3 ml Q2H RESP THERAPY PRN HHN SHORTNESS OF BREATH; Start 02/21/19 at 20:00 Diagnostic Test (Pha) (Accu-Chek) 1 ea 02 XX Last administered on 02/22/19at 01:18; Admin Dose 1 EA; Start 02/22/19 at 02:00 Carvedilol (Coreg) 3.125 mg Q12 PO Last administered on 02/22/19at 08:20; Admin Dose 3.125 MG; Start 02/21/19 at 21:00 Lisinopril (Zestril) 5 mg DAILY PO Last administered on 02/22/19at 08:20; Admin Dose 5 MG; Start 02/22/19 at 09:00 Atorvastatin Calcium (Lipitor) 20 mg QHS PO Last administered on 02/21/19at 21:31; Admin Dose 20 MG; Start 02/21/19 at 21:00 Fenofibrate (Tricor) 48 mg DAILY PO Last administered on 02/22/19at 08:19; Admin Dose 48 MG; Start 02/22/19 at 09:00 Miscellaneous Information 1 ea NOTE XX ; Start 02/21/19 at 20:30 Glucose (Glutose) 15 gm Q15M PRN PO DECREASED GLUCOSE; Start 02/21/19 at 20:30 Glucose (Glutose) 22.5 gm Q15M PRN PO DECREASED GLUCOSE; Start 02/21/19 at 20:30 Dextrose (D50w Syringe) 25 ml Q15M PRN IV DECREASED GLUCOSE; Start 02/21/19 at 20:30 Dextrose (D50w Syringe) 50 ml Q15M PRN IV DECREASED GLUCOSE; Start 02/21/19 at 20:30 Glucagon (Glucagen) 1 mg Q15M PRN IM DECREASED GLUCOSE; Start 02/21/19 at 20:30 Glucose (Glutose) 15 gm Q15M PRN BUCCAL DECREASED GLUCOSE; Start 02/21/19 at 20:30 Morphine Sulfate (morphine) 2 mg Q4H PRN IV SEVERE PAIN LEVEL 7-10 Last administered on 02/22/19at 12:21; Admin Dose 2 MG; Start 02/22/19 at 12:30 Insulin Glargine (Lantus) 12 units DAILY@0800 SC Last administered on 02/22/19at 13:51; Admin Dose 12 UNITS; Start 02/22/19 at 12:30 Insulin Aspart (Novolog Insulin Pen) 4 unit WITH MEALS SC ; Start 02/22/19 at 17:55 Insulin Aspart (Novolog Insulin Pen) NOVOLOG *MILD* ALGORITHM WITH MEALS BEDTIME SC ; Start 02/22/19 at 17:55 Magnesium Sulfate/ Dextrose 100 ml @ 100 mls/hr ONCE ONCE IVPB ; Start 02/22/19 at 15:30; Stop 02/22/19 at 16:29 Allergies: Coded Allergies: No Known Allergy (Verified , 02/21/19) Past Surgical History Past Surgical Hx: coronary bypass surgery Social History Alcohol Use: none Smoking Status: Current every day smoker Drug Use: none Exam/Review of Systems Vital Signs Vitals Vital Signs Date Temp Pulse Resp B/P (MAP) Pulse Ox O2 O2 Flow FiO2 Time Delivery Rate 02/22/19 69 12:00 02/22/19 97.9 18 94/50 (65) 95 11:38 02/22/19 Room Air 00:31 Intake and Output 02/21/19 02/21/19 02/22/19 1515:00 23:00 07:00 IntakeIntake Total 250 ml BalanceBalance 250 ml Exam Constitutional: alert, oriented Psych: no complaints, nl mood/affect Head: normocephalic, atraumatic Neck: supple; No jvd Respiratory: diminished breath sounds; No clear to auscultation Cardiovascular: regular rate and rhythm; No edema, No systolic murmur Gastrointestinal: soft, non-tender; No distended Musculoskeletal: No nl extremities to inspection Neurological: nl mental status, nl speech Additional Comments Cath 06/2017 All augustine vessels are very small (1.0-1.5 mm) Left main: diffuse disease LAD:prox 100%, fills via CHAVEZ (distal vessel diffusely diseased Circumflex:ostial stent 100% Obtuse marginal:fills via SVG, diffusely diseased RCA: prox and mid stents with 80-90% ISR, mid vessel occluded, distally fills via SVG and is diffusely diseased PDA:fills via SVG and is diffusely diseased PLV:fills via SVG and is diffusely diseased CHAVEZ-LAD patent SVG-PDA patent SVG-OM patent SVG vs arterial graft to likely OM patent but supplies a tiny branch Labs Result Diagram: 02/22/19 0600 02/22/19 0600 Results 24hrs Laboratory Tests Test 02/21/19 18:46 02/21/19 21:29 02/21/19 23:59 02/22/19 01:16 White Blood Count 8.8 # Red Blood Count 5.27 Hemoglobin 15.7 Hematocrit 45.6 Mean Corpuscular Volume 86.5 Mean Corpuscular 29.8 Hemoglobin Mean Corpuscular 34.4 Hemoglobin Concent Red Cell Distribution 12.1 Width Platelet Count 204 Mean Platelet Volume 10.3 Immature Granulocytes % 0.700 H Neutrophils % 58.2 Lymphocytes % 32.1 Monocytes % 6.8 Eosinophils % 1.4 Basophils % 0.8 Nucleated Red Blood 0.0 Cells % Immature Granulocytes # 0.060 H Neutrophils # 5.1 Lymphocytes # 2.8 Monocytes # 0.6 Eosinophils # 0.1 Basophils # 0.1 Nucleated Red Blood 0.0 Cells # Sodium Level 140 Potassium Level 4.4 Chloride Level 106 Carbon Dioxide Level 27 Anion Gap 7 Blood Urea Nitrogen 16 Creatinine 0.78 Est Glomerular Filtrat > 60 Rate mL/min Glucose Level 222 H Calcium Level 9.7 Troponin I < 0.012 < 0.012 Bedside Glucose 200 212 Creatine Kinase 40 Creatine Kinase Index 1.3 Creatinine Kinase MB 0.50 (Mass) Test 02/22/19 06:00 02/22/19 07:54 02/22/19 11:47 02/22/19 13:49 White Blood Count 7.5 Red Blood Count 5.03 Hemoglobin 15.1 Hematocrit 43.8 Mean Corpuscular Volume 87.1 Mean Corpuscular 30.0 Hemoglobin Mean Corpuscular 34.5 Hemoglobin Concent Red Cell Distribution 12.2 Width Platelet Count 183 Mean Platelet Volume 10.4 Immature Granulocytes % 0.500 H Neutrophils % 49.3 Lymphocytes % 39.5 Monocytes % 8.2 Eosinophils % 1.6 Basophils % 0.9 Nucleated Red Blood 0.0 Cells % Immature Granulocytes # 0.040 H Neutrophils # 3.7 Lymphocytes # 3.0 H Monocytes # 0.6 Eosinophils # 0.1 Basophils # 0.1 Nucleated Red Blood 0.0 Cells # Sodium Level 141 Potassium Level 4.1 Chloride Level 106 Carbon Dioxide Level 28 Anion Gap 7 Blood Urea Nitrogen 17 Creatinine 0.66 Est Glomerular Filtrat > 60 Rate mL/min Glucose Level 166 Hemoglobin A1c 9.3 H Calcium Level 9.2 Magnesium Level 1.9 Total Bilirubin 0.5 Direct Bilirubin 0.00 Indirect Bilirubin 0.5 Aspartate Amino 19 Transf (AST/SGOT) Alanine 20 Aminotransferase (ALT/SG PT) Alkaline Phosphatase 47 Creatine Kinase 45 Creatine Kinase Index 1.2 Creatinine Kinase MB 0.53 (Mass) Troponin I < 0.012 Total Protein 5.8 L Albumin 3.5 Globulin 2.30 Albumin/Globulin Ratio 1.52 Triglycerides Level 174 H Cholesterol Level 141 LDL Cholesterol, 88 Calculated HDL Cholesterol 18 L Cholesterol/HDL Ratio 7.8 Thyroid Stimulating 2.870 Hormone (TSH) Bedside Glucose 157 190 138 Medications Medications Current Medications Nitroglycerin (Nitroglycerin (Sl Tab) 0.4 Mg) 1 tab Q5M UP TO 3 DOSES PRN SL .CHEST PAIN Last administered on 02/22/19at 11:27; Admin Dose 1 TAB; Start 02/21/19 at 18:00 Clopidogrel Bisulfate (plaVIX) 75 mg DAILY PO Last administered on 02/22/19at 08 :19; Admin Dose 75 MG; Start 02/22/19 at 09:00 Isosorbide Mononitrate (Imdur) 60 mg DAILY PO Last administered on 02/22/19at 08:21; Admin Dose 60 MG; Start 02/22/19 at 09:00 Rivaroxaban (Xarelto) 20 mg DAILY PO Last administered on 02/22/19at 08:21; Admin Dose 20 MG; Start 02/22/19 at 09:00 IV Flush (NS 3 ml) 3 ml PER PROTOCOL IV ; Start 02/21/19 at 20:00 Ondansetron HCl (Zofran Inj) 4 mg Q6H PRN IV NAUSEA/VOMITING; Start 02/21/19 at 20:00 Nitroglycerin (Nitroglycerin (Sl Tab) 0.4 Mg) 1 tab Q5M PRN SL .CHEST PAIN Last administered on 02/22/19at 00:11; Admin Dose 1 TAB; Start 02/21/19 at 20:00 Acetaminophen (Tylenol Tab) 650 mg Q6H PRN PO .PAIN 1-3 OR TEMP; Start 02/21/19 at 20:00 Albuterol/ Ipratropium (Duoneb) 3 ml Q2H RESP THERAPY PRN HHN SHORTNESS OF BREATH; Start 02/21/19 at 20:00 Diagnostic Test (Pha) (Accu-Chek) 1 ea 02 XX Last administered on 02/22/19at 01:18; Admin Dose 1 EA; Start 02/22/19 at 02:00 Carvedilol (Coreg) 3.125 mg Q12 PO Last administered on 02/22/19at 08:20; Admin Dose 3.125 MG; Start 02/21/19 at 21:00 Lisinopril (Zestril) 5 mg DAILY PO Last administered on 02/22/19at 08:20; Admin Dose 5 MG; Start 02/22/19 at 09:00 Atorvastatin Calcium (Lipitor) 20 mg QHS PO Last administered on 02/21/19at 21:31; Admin Dose 20 MG; Start 02/21/19 at 21:00 Fenofibrate (Tricor) 48 mg DAILY PO Last administered on 02/22/19at 08:19; Admin Dose 48 MG; Start 02/22/19 at 09:00 Miscellaneous Information 1 ea NOTE XX ; Start 02/21/19 at 20:30 Glucose (Glutose) 15 gm Q15M PRN PO DECREASED GLUCOSE; Start 02/21/19 at 20:30 Glucose (Glutose) 22.5 gm Q15M PRN PO DECREASED GLUCOSE; Start 02/21/19 at 20:30 Dextrose (D50w Syringe) 25 ml Q15M PRN IV DECREASED GLUCOSE; Start 02/21/19 at 20:30 Dextrose (D50w Syringe) 50 ml Q15M PRN IV DECREASED GLUCOSE; Start 02/21/19 at 20:30 Glucagon (Glucagen) 1 mg Q15M PRN IM DECREASED GLUCOSE; Start 02/21/19 at 20:30 Glucose (Glutose) 15 gm Q15M PRN BUCCAL DECREASED GLUCOSE; Start 5/5/19 at 20:30 Morphine Sulfate (morphine) 2 mg Q4H PRN IV SEVERE PAIN LEVEL 7-10 Last administered on 02/22/19at 12:21; Admin Dose 2 MG; Start 02/22/19 at 12:30 Insulin Glargine (Lantus) 12 units DAILY@0800 SC Last administered on 02/22/19at 13:51; Admin Dose 12 UNITS; Start 02/22/19 at 12:30 Insulin Aspart (Novolog Insulin Pen) 4 unit WITH MEALS SC ; Start 02/22/19 at 17:55 Insulin Aspart (Novolog Insulin Pen) NOVOLOG *MILD* ALGORITHM WITH MEALS BEDTIME SC ; Start 02/22/19 at 17:55 Magnesium Sulfate/ Dextrose 100 ml @ 100 mls/hr ONCE ONCE IVPB ; Start 02/22/19 at 15:30; Stop 02/22/19 at 16:29 KATHLEEN RODRIGES February 22, 2019 16:06
[2019-02-22] MEDS ORDERED: SOD CHLORIDE 0.9% 100 ML ONE (16:13)
[2019-02-22] MEDS ORDERED: IOHEXOL 100 ML ONE (16:13)
[2019-02-22] MEDS: RANOLAZINE (SR) 500 MG TAB PO SCH (21:00)
[2019-02-22] MEDS: ATORVASTATIN 20 MG TAB PO SCH (21:08)
[2019-02-22] MEDS ORDERED: morphine 2 MG INJ IV STA (22:49)
[2019-02-23] VITALS (7 sets, daily range): BP systolic 93–107; BP diastolic 52–63; PULSE 61–79; RESP 17–18
[2019-02-23] MEDS: ACCU-CHEK XX SCH (01:08)
[2019-02-23] MEDS: morphine 2 MG INJ IV PRN (03:31)
[2019-02-23] MEDS: INSULIN ASPART [NOVOLOG] 3 ML PEN SC SCH ×4 (07:39→12:36)
[2019-02-23] MEDS: FENOFIBRATE 48 MG TAB PO SCH (08:48)
[2019-02-23] MEDS: RANOLAZINE (SR) 500 MG TAB PO SCH ×2 (08:48→08:53)
[2019-02-23] MEDS: RIVAROXABAN 20 MG TABLET PO SCH (08:49)
[2019-02-23] MEDS: LISINOPRIL 5 MG TAB PO SCH (08:49)
[2019-02-23] MEDS: CLOPIDOGREL 75 MG TAB PO SCH (08:49)
[2019-02-23] MEDS: ISOSORBIDE MONONITRATE(SR)60 MG TAB PO SCH (08:49)
[2019-02-23] MEDS: INSULIN GLARGINE [LANTus] (100 UNITS/ML) SYG SC SCH (09:59)
--- NOTE | 2019-02-23 10:43 | PDOCDIS ---
Discharge Instructions CONDITION [id number] Patient Condition: [id number] Good ACTIVITY: [id number] Activity Restrictions [id number] Carbohydrate Comment: controlled/low-cholesterol diet. LIZZETTE CUELLAR NP February 23, 2019 10:43
--- NOTE | 2019-02-23 10:46 | RADRPT ---
Echocardiogram Report Patient Name: TOMEKA OLIVAREZPatient ID: [id number] : 1965 (53y 9m)Study Date: 02/23/2019 9:16:02 AM Gender: MAccession #: [id number] Tech: zOzy Tabor [facility] Location: [address] Ref.Physician: KATHLEEN ARGUETA Height(Cm): BSA: Weight(Kg): Quality: AdequateAccount #: Procedures: Echocardiographic Report: Transthoracic echocardiogram with complete 2D, M-Mode, and doppler examination. Indications: Chest Pain, CABG. Measurements: 2D/M Mode Doppler Measurement Value Normal Range Measurement Value Normal Range LVIDd 2D 4.4 [ 4.2 - 5.8 ] cm AV Peak Shiraz 1.3 [ 100.0 - 170.0 ] cm/sec LVIDs 2D 3.0 [ 2.5 - 4.0 ] cm AV Peak PG 7.0 [ 2.0 - 9.0 ] mmHg LVPWd 2D 1.0 [ 0.6 - 1.0 ] cm LVOT Peak Shiraz 1.0 [ 70.0 - 110.0 ] cm/sec IVSd 2D 1.5 [ 0.6 - 1.0 ] cm LVOT Peak PG 4.0 [ 2.0 - 6.0 ] mmHg AoR Diam 2D 2.5 [ 2.6 - 3.4 ] cm MV E Peak Shiraz 1.0 [ 60.0 - 130.0 ] cm/sec EDV 2D 88.2 [ 62.0 - 150.0 ] ml MV A Peak Shiraz 0.9 [ 100.0 - 120.0 ] cm/sec ESV 2D 33.9 [ 21.0 - 61.0 ] ml MV E/A 1.1 [ 0.8 - 1.5 ] ratio EF 2D 61.6 [ 52.0 - 72.0 ] percent MV Decel Time 236 [ 104 - 258 ] msec LA Dimen 2D 4.5 [ 3.0 - 4.0 ] cm Lat E` Shiraz 0.1 [ 10.0 - 15.0 ] cm/sec Lateral E/E` 9.6 [ 1.0 - 2.0 ] ratio MV E/A 1.1 [ 0.8 - 1.5 ] ratio TR Peak Shiraz 2.5 [ 100.0 - 280.0 ] cm/sec TR Peak PG 24.0 mmHg RVSP 27.0 [ 10.0 - 36.0 ] mmHg Findings: Left Ventricle: Normal left ventricular systolic function. Normal left ventricular cavity size. Sigmoid septum. Ejection fraction is visually estimated at 60 %. Tissue Doppler/Mitral Doppler indices are within normal limits. Right Ventricle: Normal right ventricular size. Normal right ventricular systolic function. Left Atrium: There is mild enlargement of left atrium. Right Atrium: The right atrium is normal in size. Mitral Valve: Normal appearance of the mitral valve. Normal appearance and function of the mitral valve with trace physiologic regurgitation. Trace mitral regurgitation. Aortic Valve: Normal appearance of the aortic valve. No significant aortic stenosis or insufficiency. Tricuspid Valve: Normal appearance of the tricuspid valve. Estimated peak PA systolic pressure 27 mmHg. There is trace to mild tricuspid regurgitation. Pulmonic Valve: Normal pulmonic valve appearance. Pericardium: Normal pericardium with no significant pericardial effusion. Aorta: Normal aortic root. IVC: Normal size and normal respiratory collapse consistent with normal right atrial pressure. Conclusions: Normal left ventricular systolic function. Normal left ventricular cavity size. Sigmoid septum. Ejection fraction is visually estimated at 60 %. Tissue Doppler/Mitral Doppler indices are within normal limits. No significant valvular stenosis or regurgitation seen. Estimated peak PA systolic pressure 27 mmHg. Normal size and normal respiratory collapse consistent with normal right atrial pressure. Electronically Signed By: Kathleen Argueta 2019-02-23 10:45:02 PDT
[2019-02-23] MEDS ORDERED: MTF1000T PO (10:49)
[2019-02-23] MEDS ORDERED: ATOR20TA65 PO (10:49)
[2019-02-23] MEDS ORDERED: RANO500T2 PO (10:49)
[2019-02-23] MEDS ORDERED: ISOS60TA PO (10:49)
[2019-02-23] MEDS ORDERED: LISI-313 PO (10:49)
[2019-02-23] MEDS ORDERED: NITR0.4T32 SL (10:49)
[2019-02-23] MEDS ORDERED: CARV3.1260 PO (10:49)
[2019-02-23] MEDS ORDERED: FENO48TA4 PO (10:49)
[2019-02-23] MEDS ORDERED: SIMV20TA2 PO (10:49)
[2019-02-23] MEDS ORDERED: RIVA15TA PO (10:49)
[2019-02-23] MEDS ORDERED: CLOP75TA27 PO (10:49)
[2019-02-23] MEDS ORDERED: RIVA10TA PO (10:55)
--- NOTE | 2019-02-23 11:02 | DS ---
Date/Time of Note Date/Time of Note DATE: 02/23/19 TIME: 10:53 Discharge Summary Admission/Discharge Info Admit Date/Time February 21, 2019 at 21:07 Discharge Date/Time Discharge Diagnosis Chest pain,likley musculoskeletal/ACS ruled out NSVT.resolved/stable Coronary artery disease,s/p CABG -Last [facility] June 2017, CAD not amenable for PCI/CABG.. DM2 Dyslipidemia History of PE 06/2017 Patient Condition: Stable Consults ,cardiology Procedures 02/22/2019. Cardiac CT. IMPRESSION: Coronary artery bypass grafts: CHAVEZ: To distal LAD appears patent throughout; focal areas of degraded visualization due to beam hardening artifact from surgical clips. G1: To OM branch is patent throughout. G2: To OM/LMB has a severely attenuated appearance with also very attenuated appearance of the target vessel. G3: To PDA is patent throughout. Severely diseased [place] coronary vessels as detailed above. Moderate stenoses of the supra-aortic branch vessels as detailed above. RPTAT: AADD .Duke Soriano MD, MD Date Time Electronically viewed and signed by .Duke Soriano MD, MD on 02/22/2019 18:17 .B/ CC: LIZZETTE CUELLAR V. MATERIAL FLOW ANALYST Hospital Course 53 YO w/CAD/CABG,dm2,PE,admitted w/chest pain.. Patient was continued on Plavix,BB, statin. He was ruled out for acute coronary syndrome with serial troponin and EKG. Patient also had nonsustained 10 beats of V. tach, self-reported without any further episodes. Patient had cardiology evaluation and he also underwent CT coronary angiography on 02/22/2019, with no evidence of reversible ischemia. Patient is cleared from cardiology standpoint for outpatient follow-up. Patient was continued on home medication for underlying comorbidities. However, it is noted that patient was actually not taking any of his medications secondary to insurance reasons. Patient was approved for [facility] and he was given all his home medication prescriptions. We also had case management follow-up on insurance verification and will also try delivering his medication to bedside if possible. I have also decrease dose of Xarelto down to 10 mg for indefinite Recurrence prophylaxis dose for PE, case management to make sure this is approved. Approximately 60-minute was spent on coordinating the discharge on this patient. Patient was [facility] in [facility] Metformin* (Glucophage*) 1,000 Mg Tablet, 1000 MG PO WITH BREAKFAST DINNE, #60 TAB Prov:CUELLAR,LIZZETTE V. MATERIAL FLOW ANALYST 02/23/19 Ranolazine* (Ranexa*) 500 Mg Tab.sr.12h, 500 MG PO Q12, #30 TAB Prov:CUELLAR,LIZZETTE V. MATERIAL FLOW ANALYST 02/23/19 Nitroglycerin* (Nitroglycerin* SL) 0.4 Mg Tab.subl, 1 TAB SL .Q5M UP TO 3 DOSES PRN for .CHEST PAIN, #1 BOTTLE Prov:CUELLAR,LIZZETTE V. MATERIAL FLOW ANALYST 02/23/19 Atorvastatin Calcium (Atorvastatin Calcium) 20 Mg Tablet, 20 MG PO QHS, #30 TAB Prov:CUELLAR,LIZZETTE V. MATERIAL FLOW ANALYST 02/23/19 Lisinopril* (Lisinopril*) 5 Mg Tablet, 5 MG PO DAILY, #30 TAB Prov:CUELLAR,LIZZETTE V. MATERIAL FLOW ANALYST 02/23/19 Carvedilol* (Carvedilol*) 3.125 Mg Tablet, 3.125 MG PO Q12, #60 TAB Prov:CUELLAR,LIZZETTE V. MATERIAL FLOW ANALYST 02/23/19 Fenofibrate Nanocrystallized* (Fenofibrate*) 48 Mg Tablet, 48 MG PO DAILY, #30 TAB Prov:CUELLAR,LIZZETTE V. MATERIAL FLOW ANALYST 02/23/19 Isosorbide Mononitrate* (Isosorbide Mononitrate*) 60 Mg Tab.er.24h, 60 MG PO DAILY, #30 TAB Prov:CUELLAR,LIZZETTE V. MATERIAL FLOW ANALYST 02/23/19 Clopidogrel Bisulfate (Clopidogrel) 75 Mg Tablet, 75 MG PO DAILY, #30 TAB Prov:CUELLAR,LIZZETTE V. MATERIAL FLOW ANALYST 02/23/19 Rivaroxaban* (Xarelto*) 15 Mg Tablet, 20 MG PO DAILY, #30 TAB Prov:CUELLAR,LIZZETTE V. MATERIAL FLOW ANALYST 02/23/19 Simvastatin (Simvastatin) 20 Mg Tablet, 20 MG PO .HS, #30 TAB Prov:LIZZETTE CUELLAR NP 02/23/19 Reported Medications Nitroglycerin* (Nitroglycerin* SL) 0.4 Mg Tab.subl 07/30/10 Fenofibrate, Micronized (Fenofibrate) 134 Mg Capsule 07/30/10 Acetaminophen/Phenyltolx Cit (Asa Free Analgesic Tablet) 1 Tab Tablet 07/30/10 Carvedilol* (Coreg*) 3.125 Mg Tablet 07/30/10 Metformin Hcl* (Metformin Hcl*) 850 Mg Tablet 07/30/10 Lisinopril* (Zestril*) 5 Mg Tablet 07/30/10 Primary Care Provider [facility] Pending Labs Laboratory Tests Test 02/22/19 11:47 02/22/19 13:49 02/22/19 17:23 02/22/19 20:10 Bedside 190 138 196 158 Glucose mg/dL (70-220) mg/dL (70-220) mg/dL (70-220) mg/dL (70-220) Test 02/23/19 07:24 02/23/19 07:32 Sodium Level 140 mmol/L (135-144 ) Potassium 4.1 Level mmol/L (3.5-5.1 ) Chloride Level 105 mmol/L (97-110) Carbon Dioxide 29 Level mmol/L (21-31) Anion Gap 6 (5-13) Blood Urea 18 mg/dl (7-20) Nitrogen Creatinine 0.77 mg/dl (0.61-1.2 4) Est Glomerular > 60 Filtrat mL/min (>60) Rate mL/min Glucose Level 163 mg/dl (70-220) Calcium Level 9.0 mg/dl (8.4-10.2 ) Magnesium 2.0 Level mg/dl (1.7-2.5) Bedside 171 Glucose mg/dL (70-220) LIZZETTE CUELLAR NP February 23, 2019 11:02
== END 2019-02-23 13:00 | disposition home or self-care (01) ==
LOC: E/R 17:28 → TEL 21:07 → INTOOBSV 21:07
PROVIDERS: ADMIT Internal Medicine; ATTEND Internal Medicine
DX: R07.9 Chest pain, unspecified (principal); I10 Essential (primary) hypertension; E11.9 Type 2 diabetes mellitus without complications; Z79.84 Long term (current) use of oral hypoglycemic drugs; I25.10 Atherosclerotic heart disease of native coronary artery without angina pectoris; Z95.5 Presence of coronary angioplasty implant and graft; Z95.1 Presence of aortocoronary bypass graft; E78.5 Hyperlipidemia, unspecified; Z86.711 Personal history of pulmonary embolism; Z72.0 Tobacco use
CPT/HCPCS: 36415; 71045; 75571; 75574; 80048; 80053; 80061; 82550; 82553; 82962; 83036; 83735; 84443; 84484; 85025; 93005; 93306; 93971; 96374; 96375; J1815; J2270; J2405; J3475; Q9967; Z7500; Z7502; Z7610; 99217; G0378

== ENCOUNTER 2019-03-11 18:55 | Inpatient (IN) | payer MEDICAID ==
[~2019-03-11] VITALS: Ht 162.6 cm; Wt 78.7 kg
[~2019-03-11 18:55] MED LIST changes: -ACET1TAB49; +ATOR20TA65 PO; -CARV3.1238; +CARV3.1260 PO; -FENO134C; +FENO48TA4 PO; +LISI-313 PO; -LISI-523; -METF850T13; +MTF1000T PO; -NITR0.4T32; +NITR0.4T32 SL; +RANO500T2 PO; +RIVA10TA PO; -RIVA15TA PO; -SIMV20TA2
[2019-03-11 18:59] VITALS: Ht 162.6 cm; Wt 78.7 kg
[2019-03-11] MEDS ORDERED: SOD CHLORIDE 0.9% 1,000 ML IV STA (19:48)
[2019-03-11] MEDS ORDERED: ONDANSETRON 4 MG INJ IV STA (19:48)
[2019-03-11] MEDS ORDERED: HYDROmorphONE 1 MG/ML SYG IV STA (19:48)
[2019-03-11] MEDS ORDERED: ASPIRIN 325 MG TAB PO ONE (20:00)
[2019-03-11] MEDS ORDERED: HYDROmorphONE 2 MG/ML SYG IV STA (22:19)
[2019-03-11] MEDS ORDERED: NITROGLYCERIN 2% 1 GM OINT PKT TD STA (22:20)
[2019-03-11] MEDS ORDERED: NITROGLYCERIN (SL) 0.4 MG TAB SL PRN (22:30)
[2019-03-11] MEDS ORDERED: ONDANSETRON 4 MG INJ IV PRN (22:30)
[2019-03-11] MEDS ORDERED: ACETAMINOPHEN 325 MG TAB PO PRN (22:30)
--- NOTE | 2019-03-11 22:52 | ERD ---
ER Documentation Chief Complaint Chief Complaint LLE from knee down pain +2wks +CMS; chronic SOB/CP CHRONIC NAUSEA HPI Patient is a 53-year-old male with coronary disease, hypertension, and diabetes who presents with chest pain and leg pain. The patient has had chest pain across the chest. It comes and goes. He also has left leg pain from the knee down to his foot and says that he feels like the foot was cold. He has had the symptoms for the past 2 weeks. He has been seen before for the same. He says "I cannot walk". Upon review of old medical records this is the patient's sixth visit to the ER since 2007. He does not currently have a primary doctor. ROS All systems reviewed and are negative except as per history of present illness. Medications Home Meds Active Scripts Rivaroxaban* (Xarelto*) 10 Mg Tablet, 10 MG PO DAILY, #30 TAB Prov:CUELLARARUNAA V. LICENSED PHYSICAL THERAPY ASSISTANT 02/23/19 Metformin* (Glucophage*) 1,000 Mg Tablet, 1000 MG PO WITH BREAKFAST DINNE, #60 TAB Prov:CUELLARARUNAA V. LICENSED PHYSICAL THERAPY ASSISTANT 02/23/19 Ranolazine* (Ranexa*) 500 Mg Tab.sr.12h, 500 MG PO Q12, #30 TAB Prov:CUELLARLIZZETTE V. LICENSED PHYSICAL THERAPY ASSISTANT 02/23/19 Nitroglycerin* (Nitroglycerin* SL) 0.4 Mg Tab.subl, 1 TAB SL .Q5M UP TO 3 DOSES PRN for .CHEST PAIN, #1 BOTTLE Prov:LIZZETTE CUELLAR V. LICENSED PHYSICAL THERAPY ASSISTANT 02/23/19 Atorvastatin Calcium (Atorvastatin Calcium) 20 Mg Tablet, 20 MG PO QHS, #30 TAB Prov:CUELLARARUNAA V. LICENSED PHYSICAL THERAPY ASSISTANT 02/23/19 Lisinopril* (Lisinopril*) 5 Mg Tablet, 5 MG PO DAILY, #30 TAB Prov:CUELLARARUNAA V. LICENSED PHYSICAL THERAPY ASSISTANT 02/23/19 Carvedilol* (Carvedilol*) 3.125 Mg Tablet, 3.125 MG PO Q12, #60 TAB Prov:CUELLARARUNAA V. LICENSED PHYSICAL THERAPY ASSISTANT 02/23/19 Fenofibrate Nanocrystallized* (Fenofibrate*) 48 Mg Tablet, 48 MG PO DAILY, #30 TAB Prov:CUELLAR,LIZZETTE V. LICENSED PHYSICAL THERAPY ASSISTANT 02/23/19 Isosorbide Mononitrate* (Isosorbide Mononitrate*) 60 Mg Tab.er.24h, 60 MG PO DAILY, #30 TAB Prov:CUELLAR,LIZZETTE V. LICENSED PHYSICAL THERAPY ASSISTANT 02/23/19 Clopidogrel Bisulfate (Clopidogrel) 75 Mg Tablet, 75 MG PO DAILY, #30 TAB Prov:CUELLAR,LIZZETTE V. LICENSED PHYSICAL THERAPY ASSISTANT 02/23/19 Allergies Allergies: Coded Allergies: No Known Allergy (Verified , 02/21/19) PMhx/Soc History of Surgery: Yes (CABG) Anesthesia Reaction: No Hx Neurological Disorder: No Hx Respiratory Disorders: No Hx Cardiac Disorders: Yes (CAD) Hx Psychiatric Problems: No Hx Miscellaneous Medical Probl: No Hx Alcohol Use: No Hx Substance Use: No Hx Tobacco Use: Yes Smoking Status: Current every day smoker FmHx Family History: coronary disease Physical Exam Vitals Vital Signs Date Temp Pulse Resp B/P (MAP) Pulse Ox O2 O2 Flow FiO2 Time Delivery Rate 03/11/19 69 21 105/46 96 Room Air 22:04 (65) 03/11/19 99.1 83 20 128/68 97 18:59 (88) Physical Exam Const: Moderate distress Head: Atraumatic Eyes: Normal Conjunctiva ENT: Normal External Ears, Nose and Mouth. Neck: Full range of motion. No meningismus. Resp: Clear to auscultation bilaterally Cardio: Regular rate and rhythm, no murmurs Abd: Soft, non tender, non distended. Normal bowel sounds Skin: Decreased capillary refill in bilateral lower extremities, cooler to touch on the left foot than the right, no DP pulses palpated in either lower extremity Back: No midline or flank tenderness Ext: No cyanosis, or edema Neur: Awake and alert Psych: Normal Mood and Affect Result Diagram: 03/11/19195303/11/191953 Results 24 hrs Laboratory Tests Test 03/11/19 19:54 White Blood Count 7.5 10^3/ul Red Blood Count 5.08 10^6/ul Hemoglobin 15.1 g/dl Hematocrit 43.8 % Mean Corpuscular Volume 86.2 fl Mean Corpuscular Hemoglobin 29.7 pg Mean Corpuscular Hemoglobin Concent 34.5 g/dl Red Cell Distribution Width 12.0 % Platelet Count 177 10^3/UL Mean Platelet Volume 10.3 fl Immature Granulocytes % 0.400 % Neutrophils % 57.2 % Lymphocytes % 32.6 % Monocytes % 7.5 % Eosinophils % 1.5 % Basophils % 0.8 % Nucleated Red Blood Cells % 0.0 /100WBC Immature Granulocytes # 0.030 10^3/ul Neutrophils # 4.3 10^3/ul Lymphocytes # 2.4 10^3/ul Monocytes # 0.6 10^3/ul Eosinophils # 0.1 10^3/ul Basophils # 0.1 10^3/ul Nucleated Red Blood Cells # 0.0 10^3/ul Prothrombin Time 14.1 Sec Prothrombin Time Ratio 1.1 INR International Normalized Ratio 1.08 Activated Partial Thromboplast Time 33.7 Sec Sodium Level 141 mmol/L Potassium Level 4.1 mmol/L Chloride Level 110 mmol/L Carbon Dioxide Level 25 mmol/L Anion Gap 6 Blood Urea Nitrogen 14 mg/dl Creatinine 0.61 mg/dl Est Glomerular Filtrat Rate mL/min > 60 mL/min Glucose Level 247 mg/dl Calcium Level 9.1 mg/dl Creatine Kinase 70 IU/L Creatine Kinase Index 1.1 Creatinine Kinase MB (Mass) 0.75 ng/ml Troponin I < 0.012 ng/ml Current Medications Medications Dose Sig/Merritt Start Time Status Last (Trade) Ordered Route PRN Stop Time Admin Dose Reason Admin Sodium 1,000 ml @ Q1H STAT 03/11/19 DC 03/11/19 Chloride 1,000 mls/hr IV 19:48 20:03 03/11/19 20:47 1 mg ONCE STAT 03/11/19 DC 03/11/19 Hydromorphone IV 19:48 20:04 HCl 03/11/19 19:49 (Dilaudid) Ondansetron 4 mg ONCE STAT 03/11/19 DC 03/11/19 HCl (Zofran IV 19:48 20:03 Inj) 03/11/19 19:49 Aspirin 325 mg ONCE ONCE 03/11/19 DC 03/11/19 (Aspirin) PO 20:00 20:04 03/11/19 20:01 1 mg ONCE STAT 03/11/19 DC 03/11/19 Hydromorphone IV 22:19 22:26 HCl 03/11/19 22:20 (Dilaudid) 1 inch ONCE STAT 03/11/19 DC Nitroglycerin TD 22:20 03/11/19 22:21 (Nitroglyceri n 2% Oint) 1 tab Q5M UP TO 3 03/11/19 Nitroglycerin DOSES PRN 22:30 SL .CHEST (Nitroglyceri PAIN n (Sl Tab) 0.4 Mg) Ondansetron 4 mg ER BRIDGE 03/11/19 HCl (Zofran PRN IV 22:30 Inj) NAUSEA/VOMITI 03/12/19 22:29 NG 650 mg ER BRIDGE 03/11/19 Acetaminophen PRN PO 22:30 (Tylenol .MILD PAIN 03/12/19 22:29 Tab) 1-3 OR TEMP Procedures/MDM Arterial ultrasound of bilateral lower extremities read by radiology shows monophasic flow to the bilateral lower extremities. There is occlusion of the left DP artery but there is flow through the posterior tibial artery. Chest x-ray read by radiology. EKG read by me: Rate/Rhythm: Regular rate and rhythm at a normal rate Intervals: Normal Impression: No evidence of ischemia or arrhythmia Smoking Cessation Therapy: Pt. was lectured for greater than 3 minutes on the health risks of continued smoking and the benefits of cessation. Patient is a 53-year-old male with multiple cardiac risk factors who presents with chest pain and leg pain. I believe he has potential for acute coronary syndrome and will need admission to the hospital to a telemetry observation bed. I doubt pneumonia, pneumothorax, pulmonary embolism, or aortic dissection. The patient also has arterial insufficiency of the lower extremity's bilaterally with the left being worse than the right. However he does not have pure alvarez rial occlusion at this time and I do not believe he requires imminent vascular consultation at this time. The patient will be admitted for medical management. Departure Diagnosis: Primary Impression: Chest pain Chest pain type: unspecified Qualified Codes: R07.9 - Chest pain, unspecified Additional Impression: Arterial insufficiency Condition: CHRIS Summers MD March 11, 2019 22:52
[2019-03-12] VITALS (13 sets, daily range): BP systolic 98–123; BP diastolic 46–64; PULSE 54–72; RESP 17–20
[2019-03-12] MEDS ORDERED: NACL 0.9% 3 ML SYG IV SCH (02:00)
[2019-03-12] MEDS ORDERED: NITROGLYCERIN (SL) 0.4 MG TAB SL PRN ×2 (02:00)
[2019-03-12] MEDS ORDERED: ACETAMINOPHEN 325 MG TAB PO PRN (02:00)
[2019-03-12] MEDS ORDERED: ALBUTEROL/IPRATROPIUM (NEB) 3 ML AMP HHN PRN (02:00)
[2019-03-12] MEDS: KETOROLAC 30 MG INJ IV SCH ×4 (03:32→20:42)
[2019-03-12] MEDS: ACCU-CHEK XX SCH ×4 (05:52→21:34)
--- NOTE | 2019-03-12 08:07 | HP ---
Date/Time of Note Date/Time of Note DATE: 03/12/19 TIME: 08:01 Assessment/Plan VTE Prophylaxis Risk score (from Ns)>0 risk: 2 SCD applied (from Ns): Yes Pharmacological prophylaxis: other Lines/Catheters [facility] [place] Urinary Cath still in place: No Assessment/Plan Assessment/Plan 1. Bilateral lower extremity arterial insufficiency -Vascular surgery consult -will anticoagulate -Continue antiplatelet and statin 2. Chest pain: Rule out ACS -[facility] in 2017 shows CAD not amenable for PCI/CABG -First troponin negative and EKG without ST elevation or depression -Serial troponin -Continue home med -Consider cardiology consult 3. CAD with CABG: Continue home med 4. Type 2 diabetes: Continue meds 5. Dyslipidemia: Statin Result Diagram: 03/12/19 0716 03/12/19 0716 Results 24hrs Laboratory Tests Test 03/11/19 19:54 03/12/19 02:28 03/12/19 05:39 03/12/19 07:16 White Blood Count 7.5 7.2 Red Blood Count 5.08 5.01 Hemoglobin 15.1 15.0 Hematocrit 43.8 43.9 Mean Corpuscular 86.2 87.6 Volume Mean Corpuscular 29.7 29.9 Hemoglobin Mean Corpuscular 34.5 34.2 Hemoglobin Concent Red Cell 12.0 12.3 Distribution Width Platelet Count 177 157 Mean Platelet Volume 10.3 10.4 Immature 0.400 0.400 Granulocytes % Neutrophils % 57.2 50.8 Lymphocytes % 32.6 38.4 Monocytes % 7.5 7.9 Eosinophils % 1.5 1.7 Basophils % 0.8 0.8 Nucleated Red Blood 0.0 0.0 Cells % Immature 0.030 0.030 Granulocytes # Neutrophils # 4.3 3.6 Lymphocytes # 2.4 2.8 Monocytes # 0.6 0.6 Eosinophils # 0.1 0.1 Basophils # 0.1 0.1 Nucleated Red Blood 0.0 0.0 Cells # Prothrombin Time 14.1 Prothrombin Time 1.1 Ratio INR International 1.08 Normalized Ratio Activated 33.7 Partial Thromboplast Time Sodium Level 141 141 Potassium Level 4.1 4.1 Chloride Level 110 112 H Carbon Dioxide Level 25 25 Anion Gap 6 4 L Blood Urea Nitrogen 14 17 Creatinine 0.61 0.71 Est Glomerular > 60 > 60 Filtrat Rate mL/min Glucose Level 247 H 183 Calcium Level 9.1 8.7 Creatine Kinase 70 55 55 Creatine Kinase 1.1 1.4 Pending Index Creatinine Kinase MB 0.75 0.77 Pending (Mass) Troponin I < 0.012 < 0.012 Pending Bedside Glucose 163 Magnesium Level 2.0 Total Bilirubin 0.7 Direct Bilirubin 0.00 Indirect Bilirubin 0.7 Aspartate Amino 18 Transf (AST/SGOT) Alanine 24 Aminotransferase (AL T/SGPT) Alkaline Phosphatase 43 Total Protein 6.0 L Albumin 3.6 Globulin 2.40 Albumin/Globulin 1.50 Ratio HPI/ROS Admit Date/Time Admit Date/Time March 11, 2019 at 22:22 Hx of Present Illness This is a 53-year-old male with a history of hypertension, type 2 diabetes, dyslipidemia, CAD with CABG, PE in 2017 who presented to ER complaining of left lower extremity pain. He also reported some chest pain. His left lower extremity pain is been a progressively getting worse for the past 2 weeks. Toward the end, he also reported occasionally he having trouble bending some of his fingers on the left hand. In the ER, lower extremity arterial study shows the following Heavy calcification of the bilateral lower extremity arterial system. Greater than 75% stenosis of the right mid superficial femoral artery. Additional less severe stenoses along the right common femoral and deep femoral arteries. There are monophasic waveforms in the right lower extremity arteries, from the proximal superficial femoral artery distally, indicative of inflow disease due to upstream stenosis. Greater than 75% stenosis of the left deep femoral artery. Approximately 50% stenosis of the proximal left superficial femoral artery. There are monophasic waveforms in the left extremity arteries, from the mid superficial femoral artery distally. 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 PMH/Family/Social Past Medical History Medical History: other Medications Current Medications Ondansetron HCl (Zofran Inj) 4 mg ER BRIDGE PRN IV NAUSEA/VOMITING; Start 03/11/19 at 22:30; Stop 03/12/19 at 22:29 Acetaminophen (Tylenol Tab) 650 mg ER BRIDGE PRN PO .MILD PAIN 1-3 OR TEMP; Start 03/11/19 at 22:30; Stop 03/12/19 at 22:29 IV Flush (NS 3 ml) 3 ml PER PROTOCOL IV ; Start 03/12/19 at 02:00 Ondansetron HCl (Zofran Inj) 4 mg Q6H PRN IV NAUSEA/VOMITING; Start 03/12/19 at 02:00 Nitroglycerin (Nitroglycerin (Sl Tab) 0.4 Mg) 1 tab Q5M PRN SL .CHEST PAIN; Start 03/12/19 at 02:00 Acetaminophen (Tylenol Tab) 650 mg Q6H PRN PO .PAIN 1-3 OR TEMP; Start 03/12/19 at 02:00 Acetaminophen/ Hydrocodone Bitart ([place] (5/325)) 1 tab Q6H PRN PO .PAIN 4-6; Start 03/12/19 at 02:00 Acetaminophen/ Hydrocodone Bitart ([place] (5/325)) 2 tab Q6H PRN PO .PAIN 7-10; Start 03/12/19 at 02:00 Albuterol/ Ipratropium (Duoneb) 3 ml Q2H RESP THERAPY PRN HHN SHORTNESS OF BREATH; Start 03/12/19 at 02:00 Atorvastatin Calcium (Lipitor) 20 mg QHS PO ; Start 03/12/19 at 21:00 Carvedilol (Coreg) 3.125 mg Q12 PO ; Start 03/12/19 at 09:00 Clopidogrel Bisulfate (plaVIX) 75 mg DAILY PO ; Start 03/12/19 at 09:00 Fenofibrate (Tricor) 48 mg DAILY PO ; Start 03/12/19 at 09:00 Isosorbide Mononitrate (Imdur) 60 mg DAILY PO ; Start 03/12/19 at 09:00 Lisinopril (Zestril) 5 mg DAILY PO ; Start 03/12/19 at 09:00 Metformin HCl (Glucophage) 1,000 mg WITH BREAKFAST DINNE PO ; Start 03/12/19 at 08:00 Rivaroxaban (Xarelto) 10 mg DAILY PO ; Start 03/12/19 at 09:00 Diagnostic Test (Pha) (Accu-Chek) 1 ea AC MEALS AND BEDTIME XX Last administered on 03/12/19at 05:52; Admin Dose 1 EA; Start 03/12/19 at 07:00 Ketorolac Tromethamine (Toradol) 30 mg Q6H IV Last administered on 03/12/19at 03:32; Admin Dose 30 MG; Start 03/12/19 at 03:30; Stop 03/13/19 at 03:00 Coded Allergies: No Known Allergy (Unverified , 03/12/19) Past Surgical History Past Surgical Hx: coronary bypass surgery Family History Significant Family History: no pertinent family hx Social History Smoking Status: Current every day smoker Exam/Review of Systems Vital Signs Vitals Vital Signs Date Temp Pulse Resp B/P (MAP) Pulse Ox O2 O2 Flow FiO2 Time Delivery Rate 03/12/19 97.3 18 123/64 97 Room Air 07:08 (83) 03/12/19 54 04:00 Intake and Output 03/11/19 03/11/19 03/12/19 1515:00 23:00 07:00 IntakeIntake Total 300 ml BalanceBalance 300 ml Exam Constitutional: alert, oriented Head: normocephalic, atraumatic Eyes: EOMI Neck: supple, non-tender Respiratory: normal air movement Cardiovascular: nl pulses Gastrointestinal: soft MARY VELAZCO MD March 12, 2019 08:07
[2019-03-12] MEDS ORDERED: ENOXAPARIN 80 MG/0.8 ML SYG ONE (08:32)
[2019-03-12] MEDS: CLOPIDOGREL 75 MG TAB PO SCH (08:39)
[2019-03-12] MEDS: LISINOPRIL 5 MG TAB PO SCH (08:40)
[2019-03-12] MEDS: FENOFIBRATE 48 MG TAB PO SCH (08:40)
[2019-03-12] MEDS: ISOSORBIDE MONONITRATE(SR)60 MG TAB PO SCH (08:41)
[2019-03-12] MEDS: metFORMIN 500 MG TAB PO SCH ×2 (08:41→18:03)
[2019-03-12] MEDS ORDERED: RIVAROXABAN 10 MG TABLET PO SCH (09:00)
[2019-03-12] MEDS: HYDROCODONE/APAP (5/325) TAB PO PRN ×2 (10:01→12:10)
--- NOTE | 2019-03-12 14:40 | CONS ---
DATE OF ADMISSION: 03/11/2019 DATE OF CONSULTATION: 03/12/2019 TYPE OF CONSULTATION: Vascular. REFERRING PHYSICIAN: Duke Velazco MD REASON FOR CONSULTATION: Left foot pain. HISTORY OF PRESENT ILLNESS: This is a 53-year-old gentleman with diabetes, hypertension, coronary ar tang disease, current smoker. He came in with pain in the left ankle and toes for about 2 weeks. He is not a great historian. He has been having pain in his calves when he walks, but then started dev eloping pain in the ankle on the left and it hurts all the time. It has been going on for 2 weeks. He has not been walking very much because of that. He went to another hospital and was discharged an d they told him everything was fine. He came in here and had some arterial studies done yesterday th at showed fairly severe arterial insufficiency in both lower extremities. He has a severe stenosis i n the left profunda. It looks like diffuse tibial disease and also some stenosis in the left superfi cial femoral artery that is moderate although it may be more severe given the very low velocity wavef orms downstream from this area. He has also got monophasic waveforms throughout the right lower extr emity and moderately elevated stenosis in the right profunda. He has had CABG in the past. The vein was harvested from his left leg. He has also been complaining of chest pain, although currently he is not having any but he was complaining of chest pain when he came in. PAST MEDICAL HISTORY: Significant for diabetes, hypertension, peripheral arterial disease, coronary artery disease status post CABG. MEDICATIONS: Consist of: 1. Lipitor. 2. Subcutaneous Lovenox. 3. Coreg. 4. Plavix. 5. TriCor. 6. Imdur. 7. Zestril. 8. Xarelto. 9. Glucophage. 10. Zofran. 11. DuoNeb. 12. Nitroglycerin paste. 13. Aspirin. 14. Zofran. PAST SURGICAL HISTORY: Significant for CABG and again his left great saphenous vein was harvested al l the way down into the calf. SOCIAL HISTORY: He is a current everyday smoker. 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 His hands are stained some thing with jewelry. He does not drink or use any illicit drugs. He is [place]. He speaks Lao, but a little bit of difficulty. FAMILY HISTORY: Noncontributory. REVIEW OF SYSTEMS: He currently denies any chest pain, although he was complaining of chest pain whe n he came in. No fevers, no chills, no recent weight gain or weight loss. He is having pain in the left ankle in left 5th toe. The other toes seem to be okay. He has no loss of motor or sensory func tion in the left foot. PHYSICAL EXAMINATION: GENERAL: He is a middle-aged [place] gentleman. VITAL SIGNS: He has been afebrile. His blood pressure is 115/63, heart rate is 58, respiratory rate is 18. He is 96% sat on room air. PERIPHERAL VASCULAR: He has 2+ carotid, radial and brachial pulses bilaterally. LUNGS: Clear. HEART: Regular rate and rhythm. ABDOMEN: Obese, soft, nontender, nondistended. EXTREMITIES: He got 2+ right femoral, 1+ left femoral. No popliteal, DP or PT pulses in either lowe r extremity. The right foot has little bit than the left. The left is little cool. There is no mottling, no discoloration, no ecchymosis, but very tender when you touch the 5th toe on the left foot. On the other toes, he does not have any problems. There is normal sensation and motor functio n. DIAGNOSTIC DATA: Again, I reviewed his arterial studies that showed basically severe diffuse disease bilaterally, but on the left, triphasic common femoral at a very high velocity in the deep femoral a nd elevated velocity in the proximal SFA at a very low velocity in the mid SFA, so he probably has se cordell profunda stenosis and likely stenosis or occlusion in the SFA as well. It is not acute. He has chronic arterial insufficiency due to his poor genetics and smoking. I am going to order a CT angiogram. He has normal kidney function and then determine what is the bes t plan for revascularization. He will probably benefit from the left femoral endarterectomy. He bridget l need cardiac clearance prior to this as well. Dictated By: JAYLEEN TANG/BRIAN Conf#: [id number] DID#: [id number] CC: DUKE VELAZCO MD; MOISES VELAZQUEZ NP;*EndCC*
[2019-03-12] MEDS ORDERED: SOD CHLORIDE 0.9% 100 ML ONE (16:06)
[2019-03-12] MEDS ORDERED: IOHEXOL 100 ML ONE (16:06)
--- NOTE | 2019-03-12 16:16 | PN ---
Date/Time of Note Date/Time of Note DATE: 03/12/19 TIME: 16:08 Assessment/Plan VTE Prophylaxis [place] [facility] [place]: 2 [place]CD applied [place] [facility] [place] No SCD contraindicated: other (PAD) Pharmacological prophylaxis: LMWH Lines/Catheters IV [facility] Type [facility]from [facility] Saline Lock Urinary Cath still in place: No Assessment/Plan Hospital Course Assessment and plan 1. Bilateral lower extremity arterial insufficiency. - Vascular surgeon was called and consulted. -Follow-up on CT angiogram LLE. - Tentative plan for left femoral endarterectomy. - Will get auto air conditioning mechanic clearance. 2. Reported chest pain. - Rule out ACS. - Troponin x2 is negative. - Industrial Workers to follow. 3. CAD with CABG. - Continue statin. 4. Diabetes. - Last A1c on February 22, 2019 was 9.3. - Continue on insulin regimen. Disposition and plan. Follow-up on CT angiogram. Industrial [employer] consult pending. Continue medical optimization. Further recommendations pending clinical course. Discussed plan of care with Dr. Mcclain Result Diagram: 03/12/19 0716 03/12/19 0716 Results 24hrs Laboratory Tests Test 03/11/19 19:54 03/12/19 02:28 03/12/19 05:39 03/12/19 07:16 White Blood Count 7.5 7.2 Red Blood Count 5.08 5.01 Hemoglobin 15.1 15.0 Hematocrit 43.8 43.9 Mean Corpuscular 86.2 87.6 Volume Mean Corpuscular 29.7 29.9 Hemoglobin Mean Corpuscular 34.5 34.2 Hemoglobin Concent Red Cell 12.0 12.3 Distribution Width Platelet Count 177 157 Mean Platelet Volume 10.3 10.4 Immature 0.400 0.400 Granulocytes % Neutrophils % 57.2 50.8 Lymphocytes % 32.6 38.4 Monocytes % 7.5 7.9 Eosinophils % 1.5 1.7 Basophils % 0.8 0.8 Nucleated Red Blood 0.0 0.0 Cells % Immature 0.030 0.030 Granulocytes # Neutrophils # 4.3 3.6 Lymphocytes # 2.4 2.8 Monocytes # 0.6 0.6 Eosinophils # 0.1 0.1 Basophils # 0.1 0.1 Nucleated Red Blood 0.0 0.0 Cells # Prothrombin Time 14.1 Prothrombin Time 1.1 Ratio INR International 1.08 Normalized Ratio Activated 33.7 Partial Thromboplast Time Sodium Level 141 141 Potassium Level 4.1 4.1 Chloride Level 110 112 H Carbon Dioxide Level 25 25 Anion Gap 6 4 L Blood Urea Nitrogen 14 17 Creatinine 0.61 0.71 Est Glomerular > 60 > 60 Filtrat Rate mL/min Glucose Level 247 H 183 Calcium Level 9.1 8.7 Creatine Kinase 70 55 55 Creatine Kinase 1.1 1.4 1.3 Index Creatinine Kinase MB 0.75 0.77 0.70 (Mass) Troponin I < 0.012 < 0.012 < 0.012 Bedside Glucose 163 Magnesium Level 2.0 Total Bilirubin 0.7 Direct Bilirubin 0.00 Indirect Bilirubin 0.7 Aspartate Amino 18 Transf (AST/SGOT) Alanine 24 Aminotransferase (AL T/SGPT) Alkaline Phosphatase 43 Total Protein 6.0 L Albumin 3.6 Globulin 2.40 Albumin/Globulin 1.50 Ratio Test 03/12/19 12:11 Bedside Glucose 122 Subjective 24 Hr Interval Summary Free Text/Dictation still reports pain on LLE Exam/Review of Systems Exam Vitals Vital Signs Date Temp Pulse Resp B/P (MAP) Pulse Ox O2 O2 Flow FiO2 Time Delivery Rate 03/12/19 62 12:07 03/12/19 97.9 18 115/63 96 Room Air 11:04 (80) Intake and Output 03/11/19 03/11/19 03/12/19 1515:00 23:00 07:00 IntakeIntake Total 300 ml BalanceBalance 300 ml Constitutional: alert Psych: nl mood/affect Head: normocephalic Neck: supple, non-tender Respiratory: clear to auscultation Cardiovascular: regular rate and rhythm, nl pulses Gastrointestinal: soft, nl liver, spleen Extremities: No normal pulses Neurological: REPAIR SERVICE DISPATCHER II-XII intact, nl mental status, nl speech Results Results 24hrs Laboratory Tests Test 03/11/19 19:54 03/12/19 02:28 03/12/19 05:39 03/12/19 07:16 White Blood Count 7.5 7.2 Red Blood Count 5.08 5.01 Hemoglobin 15.1 15.0 Hematocrit 43.8 43.9 Mean Corpuscular 86.2 87.6 Volume Mean Corpuscular 29.7 29.9 Hemoglobin Mean Corpuscular 34.5 34.2 Hemoglobin Concent Red Cell 12.0 12.3 Distribution Width Platelet Count 177 157 Mean Platelet Volume 10.3 10.4 Immature 0.400 0.400 Granulocytes % Neutrophils % 57.2 50.8 Lymphocytes % 32.6 38.4 Monocytes % 7.5 7.9 Eosinophils % 1.5 1.7 Basophils % 0.8 0.8 Nucleated Red Blood 0.0 0.0 Cells % Immature 0.030 0.030 Granulocytes # Neutrophils # 4.3 3.6 Lymphocytes # 2.4 2.8 Monocytes # 0.6 0.6 Eosinophils # 0.1 0.1 Basophils # 0.1 0.1 Nucleated Red Blood 0.0 0.0 Cells # Prothrombin Time 14.1 Prothrombin Time 1.1 Ratio INR International 1.08 Normalized Ratio Activated 33.7 Partial Thromboplast Time Sodium Level 141 141 Potassium Level 4.1 4.1 Chloride Level 110 112 H Carbon Dioxide Level 25 25 Anion Gap 6 4 L Blood Urea Nitrogen 14 17 Creatinine 0.61 0.71 Est Glomerular > 60 > 60 Filtrat Rate mL/min Glucose Level 247 H 183 Calcium Level 9.1 8.7 Creatine Kinase 70 55 55 Creatine Kinase 1.1 1.4 1.3 Index Creatinine Kinase MB 0.75 0.77 0.70 (Mass) Troponin I < 0.012 < 0.012 < 0.012 Bedside Glucose 163 Magnesium Level 2.0 Total Bilirubin 0.7 Direct Bilirubin 0.00 Indirect Bilirubin 0.7 Aspartate Amino 18 Transf (AST/SGOT) Alanine 24 Aminotransferase (AL T/SGPT) Alkaline Phosphatase 43 Total Protein 6.0 L Albumin 3.6 Globulin 2.40 Albumin/Globulin 1.50 Ratio Test 03/12/19 12:11 Bedside Glucose 122 Medications Medication Current Medications IV Flush (NS 3 ml) 3 ml PER PROTOCOL IV ; Start 03/12/19 at 02:00 Ondansetron HCl (Zofran Inj) 4 mg Q6H PRN IV NAUSEA/VOMITING; Start 03/12/19 at 02:00 Nitroglycerin (Nitroglycerin (Sl Tab) 0.4 Mg) 1 tab Q5M PRN SL .CHEST PAIN; Start 03/12/19 at 02:00 Acetaminophen (Tylenol Tab) 650 mg Q6H PRN PO .PAIN 1-3 OR TEMP; Start 03/12/19 at 02:00 Acetaminophen/ Hydrocodone Bitart ([place] (5/325)) 1 tab Q6H PRN PO .PAIN 4-6 Last administered on 03/12/19 10:01; Admin Dose 1 TAB; Start 03/12/19 at 02:00 Acetaminophen/ Hydrocodone Bitart ([place] (5/325)) 2 tab Q6H PRN PO .PAIN 7-10 Last administered on 03/12/19 12:10; Admin Dose 2 TAB; Start 03/12/19 at 02:00 Albuterol/ Ipratropium (Duoneb) 3 ml Q2H RESP THERAPY PRN HHN SHORTNESS OF BREATH; Start 03/12/19 at 02:00 Atorvastatin Calcium (Lipitor) 20 mg QHS PO ; Start 03/12/19 at 21:00 Carvedilol (Coreg) 3.125 mg Q12 PO Last administered on 03/12/19 08:40; Admin Dose 3.125 MG; Start 03/12/19 at 09:00 Clopidogrel Bisulfate (plaVIX) 75 mg DAILY PO Last administered on 03/12/19 0 8:39; Admin Dose 75 MG; Start 03/12/19 at 09:00 Fenofibrate (Tricor) 48 mg DAILY PO Last administered on 03/12/19 08:40; Admin Dose 48 MG; Start 03/12/19 at 09:00 Isosorbide Mononitrate (Imdur) 60 mg DAILY PO Last administered on 03/12/19 08:41; Admin Dose 60 MG; Start 03/12/19 at 09:00 Lisinopril (Zestril) 5 mg DAILY PO Last administered on 03/12/19 08:40; Admin Dose 5 MG; Start 03/12/19 at 09:00 Metformin HCl (Glucophage) 1,000 mg WITH BREAKFAST DINNE PO Last administered on 03/12/19 08:41; Admin Dose 1,000 MG; Start 03/12/19 at 08:00 Diagnostic Test (Pha) (Accu-Chek) 1 ea AC MEALS AND BEDTIME XX Last administered on 03/12/19 12:28; Admin Dose 1 EA; Start 03/12/19 at 07:00 Ketorolac Tromethamine (Toradol) 30 mg Q6H IV Last administered on 5/24/19at 15:41; Admin Dose 30 MG; Start 03/12/19 at 03:30; Stop 03/13/19 at 03:00 Enoxaparin Sodium (Lovenox) 80 mg Q24H SC ; Start 03/12/19 at 21:00 MOISES VELAZQUEZ NP March 12, 2019 16:16
[2019-03-12] MEDS: ONDANSETRON 4 MG INJ IV PRN (20:42)
[2019-03-12] MEDS: ATORVASTATIN 20 MG TAB PO SCH (20:42)
[2019-03-12] MEDS: ENOXAPARIN 80 MG/0.8 ML SYG SC SCH (20:48)
[2019-03-13] VITALS (11 sets, daily range): BP systolic 109–127; BP diastolic 55–62; PULSE 57–87; RESP 17–20
[2019-03-13] MEDS: ACCU-CHEK XX SCH ×5 (06:19→20:23)
[2019-03-13] MEDS: metFORMIN 500 MG TAB PO SCH ×2 (08:20→20:53)
[2019-03-13] MEDS: FENOFIBRATE 48 MG TAB PO SCH (08:21)
[2019-03-13] MEDS: LISINOPRIL 5 MG TAB PO SCH (08:21)
[2019-03-13] MEDS: CLOPIDOGREL 75 MG TAB PO SCH (08:21)
[2019-03-13] MEDS: ISOSORBIDE MONONITRATE(SR)60 MG TAB PO SCH (08:22)
[2019-03-13] MEDS: HYDROCODONE/APAP (5/325) TAB PO PRN ×3 (08:22→20:55)
--- NOTE | 2019-03-13 11:19 | CONS ---
Assessment/Plan Assessment/Plan Assessment/Plan (Daily) DM2 with peripheral neuropathy PAD arterial insufficiency Nicotine dependence CAD hx of CABG Pain in limb. Plan Patient was seen and examined and discussed findings with patient. There are no open lesion sites and has localized pain to specific sites of his foot. Ordered MRI and X-rays to correlate with pain symptoms. Uric acid levels ordered. Continue with tight glycemic control and discussed smoking cessation. Appreciate input from vascular surgery. Weight bearing as tolerated. Consultation Date/Type/Reason Admit Date/Time March 11, 2019 at 22:22 Date/Time of Note DATE: 03/13/19 TIME: 11:16 Hx of Present Illness 53 y/o diabetic M patient who is a smoker presents to the floor with pain to both lower extremities however left is worse than the right. Patient is known to have peripheral arterial disease and is being followed by Dr. Bettencourt from vascular surgery. Patient points to his left heel, ankle region and toes. Patient rates pain 6/10 sharp and occasionally radiates proximal. Pain is relieved when he is non weight bearing and worsened with long durations of weight bearing activities. Patient denies any particular trauma or inciting event. ROS Negative except for HPI Past Medical History hypertension, type 2 diabetes, dyslipidemia, CAD with CABG, PE in 2017 Home Meds Active Scripts Rivaroxaban* (Xarelto*) 10 Mg Tablet, 10 MG PO DAILY, #30 TAB Prov:CUELLAR,LIZZETTE V. LUBRICATION TECHNICIAN 02/23/19 Metformin* (Glucophage*) 1,000 Mg Tablet, 1000 MG PO WITH BREAKFAST DINNE, #60 TAB Prov:CUELLAR,LIZZETTE V. LUBRICATION TECHNICIAN 02/23/19 Nitroglycerin* (Nitroglycerin* SL) 0.4 Mg Tab.subl, 1 TAB SL .Q5M UP TO 3 DOSES PRN for .CHEST PAIN, #1 BOTTLE Prov:CUELLAR,LIZZETTE V. LUBRICATION TECHNICIAN 02/23/19 Atorvastatin Calcium (Atorvastatin Calcium) 20 Mg Tablet, 20 MG PO QHS, #30 TAB Prov:CUELLAR,LIZZETTE V. LUBRICATION TECHNICIAN 02/23/19 Lisinopril* (Lisinopril*) 5 Mg Tablet, 5 MG PO DAILY, #30 TAB Prov:CUELLAR,LIZZETTE V. LUBRICATION TECHNICIAN 02/23/19 Carvedilol* (Carvedilol*) 3.125 Mg Tablet, 3.125 MG PO Q12, #60 TAB Prov:POLOLIZZETTE V. LUBRICATION TECHNICIAN 02/23/19 Fenofibrate Nanocrystallized* (Fenofibrate*) 48 Mg Tablet, 48 MG PO DAILY, #30 TAB Prov:LIZZETTE CUELLAR V. LUBRICATION TECHNICIAN 02/23/19 Isosorbide Mononitrate* (Isosorbide Mononitrate*) 60 Mg Tab.er.24h, 60 MG PO DAILY, #30 TAB Prov:CUELLARARUNAA V. LUBRICATION TECHNICIAN 02/23/19 Clopidogrel Bisulfate (Clopidogrel) 75 Mg Tablet, 75 MG PO DAILY, #30 TAB Prov:CUELLAR,LIZZETTE V. LUBRICATION TECHNICIAN 02/23/19 Discontinued Scripts Ranolazine* (Ranexa*) 500 Mg Tab.sr.12h, 500 MG PO Q12, #30 TAB Prov:POLOLIZZETTE V. LUBRICATION TECHNICIAN 02/23/19 Medications Current Medications IV Flush (NS 3 ml) 3 ml PER PROTOCOL IV ; Start 03/12/19 at 02:00 Ondansetron HCl (Zofran Inj) 4 mg Q6H PRN IV NAUSEA/VOMITING Last administered on 03/12/19at 20:42; Admin Dose 4 MG; Start 03/12/19 at 02:00 Nitroglycerin (Nitroglycerin (Sl Tab) 0.4 Mg) 1 tab Q5M PRN SL .CHEST PAIN; Start 03/12/19 at 02:00 Acetaminophen (Tylenol Tab) 650 mg Q6H PRN PO .PAIN 1-3 OR TEMP; Start 03/12/19 at 02:00 Acetaminophen/ Hydrocodone Bitart ([place] (5/325)) 1 tab Q6H PRN PO .PAIN 4-6 Last administered on 03/12/19at 10:01; Admin Dose 1 TAB; Start 03/12/19 at 02:00 Acetaminophen/ Hydrocodone Bitart ([place] (5/325)) 2 tab Q6H PRN PO .PAIN 7-10 Last administered on 03/13/19at 08:22; Admin Dose 2 TAB; Start 03/12/19 at 02:00 Albuterol/ Ipratropium (Duoneb) 3 ml Q2H RESP THERAPY PRN HHN SHORTNESS OF BREATH; Start 03/12/19 at 02:00 Atorvastatin Calcium (Lipitor) 20 mg QHS PO Last administered on 03/12/19 20:42; Admin Dose 20 MG; Start 03/12/19 at 21:00 Carvedilol (Coreg) 3.125 mg Q12 PO Last administered on 03/12/19 08:40; Admin Dose 3.125 MG; Start 03/12/19 at 09:00 Clopidogrel Bisulfate (plaVIX) 75 mg DAILY PO Last administered on 03/13/19 08:21; Admin Dose 75 MG; Start 03/12/19 at 09:00 Fenofibrate (Tricor) 48 mg DAILY PO Last administered on 03/13/19 08:21; Admin Dose 48 MG; Start 03/12/19 at 09:00 Isosorbide Mononitrate (Imdur) 60 mg DAILY PO Last administered on 03/13/19 08:22; Admin Dose 60 MG; Start 03/12/19 at 09:00 Lisinopril (Zestril) 5 mg DAILY PO Last administered on 03/13/19 08:21; Admin Dose 5 MG; Start 03/12/19 at 09:00 Metformin HCl (Glucophage) 1,000 mg WITH BREAKFAST DINNE PO Last administered on 03/13/19 08:20; Admin Dose 1,000 MG; Start 03/12/19 at 08:00 Diagnostic Test (Pha) (Accu-Chek) 1 ea AC MEALS AND BEDTIME XX Last administered on 03/13/19 06:19; Admin Dose 1 EA; Start 03/12/19 at 07:00 Enoxaparin Sodium (Lovenox) 80 mg Q24H SC Last administered on 03/12/19 20:48; Admin Dose 80 MG; Start 03/12/19 at 21:00 Allergies: Coded Allergies: No Known Allergy (Unverified , 03/12/19) Past Surgical History Past Surgical Hx: coronary bypass surgery Family History Significant Family History: heart disease, diabetes Social History Smoking Status: Current every day smoker Exam/Review of Systems Exam Vitals Vital Signs Date Temp Pulse Resp B/P (MAP) Pulse Ox O2 O2 Flow FiO2 Time Delivery Rate 03/13/19 97.7 57 20 127/62 98 11:07 (83) 03/12/19 Room Air 15:30 Intake and Output 03/12/19 03/12/19 03/13/19 1515:00 23:00 07:00 IntakeIntake Total 1200 ml 600 ml BalanceBalance 1200 ml 600 ml Exam Unable to palpate popliteal, DP or PT pulses in bilateral lower extremity No open lesions appreciated Absent protective sensations Left foot pain on palpation to plantar heel Pain with left foot inversion Pain to left foot digits No pain to plantar heel or malleolar region 5/5 muscle strength in all compartments of the foot b/l No prominent protuberances to painful sites No crepitus appreciated to ankle joint, STJ, or MPJs Results Result Diagram: 03/13/19 0506 03/13/19 0506 Results 24hrs Laboratory Tests Test 03/12/19 12:11 03/12/19 18:01 03/12/19 21:32 03/13/19 05:06 Bedside Glucose 122 116 133 White Blood Count 7.5 Red Blood Count 4.51 L Hemoglobin 13.4 L Hematocrit 39.7 L Mean Corpuscular 88.0 Volume Mean Corpuscular 29.7 Hemoglobin Mean Corpuscular 33.8 Hemoglobin Concent Red Cell 12.0 Distribution Width Platelet Count 132 L Mean Platelet Volume 10.6 H Immature 0.500 H Granulocytes % Neutrophils % 67.0 Lymphocytes % 23.1 Monocytes % 7.3 Eosinophils % 1.6 Basophils % 0.5 Nucleated Red Blood 0.0 Cells % Immature 0.040 H Granulocytes # Neutrophils # 5.0 Lymphocytes # 1.7 Monocytes # 0.6 Eosinophils # 0.1 Basophils # 0.0 Nucleated Red Blood 0.0 Cells # Sodium Level 142 Potassium Level 4.1 Chloride Level 110 Carbon Dioxide Level 27 Anion Gap 5 Blood Urea Nitrogen 21 H Creatinine 0.77 Est Glomerular > 60 Filtrat Rate mL/min Glucose Level 118 # Calcium Level 8.9 Phosphorus Level 4.3 Magnesium Level 1.9 Test 03/13/19 06:12 Bedside Glucose 139 Medications Medication Current Medications IV Flush (NS 3 ml) 3 ml PER PROTOCOL IV ; Start 03/12/19 at 02:00 Ondansetron HCl (Zofran Inj) 4 mg Q6H PRN IV NAUSEA/VOMITING Last administered on 03/12/19at 20:42; Admin Dose 4 MG; Start 03/12/19 at 02:00 Nitroglycerin (Nitroglycerin (Sl Tab) 0.4 Mg) 1 tab Q5M PRN SL .CHEST PAIN; Start 03/12/19 at 02:00 Acetaminophen (Tylenol Tab) 650 mg Q6H PRN PO .PAIN 1-3 OR TEMP; Start 03/12/19 at 02:00 Acetaminophen/ Hydrocodone Bitart ([place] (5/325)) 1 tab Q6H PRN PO .PAIN 4-6 Last administered on 03/12/19 10:01; Admin Dose 1 TAB; Start 03/12/19 at 02:00 Acetaminophen/ Hydrocodone Bitart ([place] (5/325)) 2 tab Q6H PRN PO .PAIN 7-10 Last administered on 03/13/19 08:22; Admin Dose 2 TAB; Start 03/12/19 at 02:00 Albuterol/ Ipratropium (Duoneb) 3 ml Q2H RESP THERAPY PRN HHN SHORTNESS OF BREATH; Start 03/12/19 at 02:00 Atorvastatin Calcium (Lipitor) 20 mg QHS PO Last administered on 03/12/19 20:42; Admin Dose 20 MG; Start 03/12/19 at 21:00 Carvedilol (Coreg) 3.125 mg Q12 PO Last administered on 03/12/19 08:40; Admin Dose 3.125 MG; Start 03/12/19 at 09:00 Clopidogrel Bisulfate (plaVIX) 75 mg DAILY PO Last administered on 03/13/19 08:21; Admin Dose 75 MG; Start 03/12/19 at 09:00 Fenofibrate (Tricor) 48 mg DAILY PO Last administered on 03/13/19 08:21; Admin Dose 48 MG; Start 03/12/19 at 09:00 Isosorbide Mononitrate (Imdur) 60 mg DAILY PO Last administered on 03/13/19 08:22; Admin Dose 60 MG; Start 03/12/19 at 09:00 Lisinopril (Zestril) 5 mg DAILY PO Last administered on 03/13/19 08:21; Admin Dose 5 MG; Start 03/12/19 at 09:00 Metformin HCl (Glucophage) 1,000 mg WITH BREAKFAST DINNE PO Last administered on 03/13/19 08:20; Admin Dose 1,000 MG; Start 03/12/19 at 08:00 Diagnostic Test (Pha) (Accu-Chek) 1 ea AC MEALS AND BEDTIME XX Last administered on 03/13/19at 06:19; Admin Dose 1 EA; Start 03/12/19 at 07:00 Enoxaparin Sodium (Lovenox) 80 mg Q24H SC Last administered on 03/12/19at 20:48; Admin Dose 80 MG; Start 03/12/19 at 21:00 CARLY DIXON DPM March 13, 2019 11:18
--- NOTE | 2019-03-13 17:37 | CONS ---
Assessment/Plan Assessment/Plan Hospital Course (Demo Recall) Assessment: Pre-operative cardiac evaluation - planned for left lower extremity revascularization Chronic stable angina - no change in symptoms in at least two years Coronary artery disease, status post CABG - coronary CTA 02/22/2019 showed patent grafts and small, severely diseased [place] coronaries not amenable to revascularization Hypertension Dyslipidemia Diabetes mellitus Severe peripheral vascular disease History of pulmonary embolism Ongoing tobacco use - counselled on smoking cessation for >10 minutes Recommendations: No current evidence of unstable cardiac condition. Patient is a moderate to high cardiac risk patient, but as best optimized for surgery as possible from a cardiac standpoint. -continue clopidogrel 75mg daily -hold anticoagulation as needed for surgery, resume as able post-operatively -continue carvedilol 3.125mg BID, lisinopril 5mg daily, and Imdur 60mg daily as tolerated -continue atorvastatin 20mg daily -resume on Ranexa 500mg BID Consultation Date/Type/Reason Admit Date/Time March 11, 2019 at 22:22 Type of Consult Cardiology Reason for Consultation pre-operative evaluation, chest pain Date/Time of Note DATE: 03/13/19 TIME: 17:23 Hx of Present Illness The patient is a 53 year-old male who presented with left lower extremity pain thought secondary to severe peripheral vascular disease. He has been evaluated by vascular surgery (Dr. Ham Bettencourt) and planned for lower extremity revascularization surgery. The patient also endorses exertional chest pain, which has remained unchanged for the past two years. He has extensive coronary artery disease and is status post nine prior coronary stent implantations, coronary artery bypass graft surgery with CHAVEZ-LAD, SVG-OM, SVG or radial to OM, and SVG-PDA. Cardiac catheterization in June 2017 in the setting of NSTEMI showed patent grafts and very small and severely diseased [place] arteries. He was managed medically as no targets were amenable to revascularization. A recent coronary CTA 02/22/2019 showed anatomy without significant changes since June 2017. Currently, EKG showed sinus rhythm without acute ischemic changes. Troponins have been negative x3. 14 point review of systems negative other than per HPI. Past Medical History Coronary artery disease Hypertension Dyslipidemia Diabetes mellitus Peripheral vascular disease History of pulmonary embolism Home Meds Active Scripts Rivaroxaban* (Xarelto*) 10 Mg Tablet, 10 MG PO DAILY, #30 TAB Prov:LIZZETTE CUELLAR V. SURVEY OPERATIONS DIRECTOR 02/23/19 Metformin* (Glucophage*) 1,000 Mg Tablet, 1000 MG PO WITH BREAKFAST DINNE, #60 TAB Prov:CUELLARLIZZETTE JAIN V. SURVEY OPERATIONS DIRECTOR 02/23/19 Nitroglycerin* (Nitroglycerin* SL) 0.4 Mg Tab.subl, 1 TAB SL .Q5M UP TO 3 DOSES PRN for .CHEST PAIN, #1 BOTTLE Prov:LIZZETTE CUELLAR V. SURVEY OPERATIONS DIRECTOR 02/23/19 Atorvastatin Calcium (Atorvastatin Calcium) 20 Mg Tablet, 20 MG PO QHS, #30 TAB Prov:CUELLARLIZZETTE V. SURVEY OPERATIONS DIRECTOR 02/23/19 Lisinopril* (Lisinopril*) 5 Mg Tablet, 5 MG PO DAILY, #30 TAB Prov:LIZZETTE CUELLAR V. SURVEY OPERATIONS DIRECTOR 02/23/19 Carvedilol* (Carvedilol*) 3.125 Mg Tablet, 3.125 MG PO Q12, #60 TAB Prov:CUELLARLIZZETTE JAIN V. SURVEY OPERATIONS DIRECTOR 02/23/19 Fenofibrate Nanocrystallized* (Fenofibrate*) 48 Mg Tablet, 48 MG PO DAILY, #30 TAB Prov:CUELLARLIZZETTE JAIN V. SURVEY OPERATIONS DIRECTOR 02/23/19 Isosorbide Mononitrate* (Isosorbide Mononitrate*) 60 Mg Tab.er.24h, 60 MG PO DAILY, #30 TAB Prov:LIZZETTE CUELLAR V. SURVEY OPERATIONS DIRECTOR 02/23/19 Clopidogrel Bisulfate (Clopidogrel) 75 Mg Tablet, 75 MG PO DAILY, #30 TAB Prov:CUELLARLIZZETTE JAIN V. SURVEY OPERATIONS DIRECTOR 02/23/19 Discontinued Scripts Ranolazine* (Ranexa*) 500 Mg Tab.sr.12h, 500 MG PO Q12, #30 TAB Prov:LIZZETTE CUELLAR V. SURVEY OPERATIONS DIRECTOR 02/23/19 Medications Current Medications IV Flush (NS 3 ml) 3 ml PER PROTOCOL IV ; Start 03/12/19 at 02:00 Ondansetron HCl (Zofran Inj) 4 mg Q6H PRN IV NAUSEA/VOMITING Last administered on 03/12/19at 20:42; Admin Dose 4 MG; Start 03/12/19 at 02:00 Nitroglycerin (Nitroglycerin (Sl Tab) 0.4 Mg) 1 tab Q5M PRN SL .CHEST PAIN; Start 03/12/19 at 02:00 Acetaminophen (Tylenol Tab) 650 mg Q6H PRN PO .PAIN 1-3 OR TEMP; Start 03/12/19 at 02:00 Acetaminophen/ Hydrocodone Bitart ([place] (5/325)) 1 tab Q6H PRN PO .PAIN 4-6 Last administered on 03/12/19 10:01; Admin Dose 1 TAB; Start 03/12/19 at 02:00 Acetaminophen/ Hydrocodone Bitart ([place] (5/325)) 2 tab Q6H PRN PO .PAIN 7-10 L ast administered on 03/13/19 15:20; Admin Dose 2 TAB; Start 03/12/19 at 02:00 Albuterol/ Ipratropium (Duoneb) 3 ml Q2H RESP THERAPY PRN HHN SHORTNESS OF BREATH; Start 03/12/19 at 02:00 Atorvastatin Calcium (Lipitor) 20 mg QHS PO Last administered on 03/12/19 20:42; Admin Dose 20 MG; Start 03/12/19 at 21:00 Carvedilol (Coreg) 3.125 mg Q12 PO Last administered on 03/12/19 08:40; Admin Dose 3.125 MG; Start 03/12/19 at 09:00 Clopidogrel Bisulfate (plaVIX) 75 mg DAILY PO Last administered on 03/13/19 08:21; Admin Dose 75 MG; Start 03/12/19 at 09:00 Fenofibrate (Tricor) 48 mg DAILY PO Last administered on 03/13/19 08:21; Admin Dose 48 MG; Start 03/12/19 at 09:00 Isosorbide Mononitrate (Imdur) 60 mg DAILY PO Last administered on 03/13/19 08:22; Admin Dose 60 MG; Start 03/12/19 at 09:00 Lisinopril (Zestril) 5 mg DAILY PO Last administered on 03/13/19 08:21; Admin Dose 5 MG; Start 03/12/19 at 09:00 Metformin HCl (Glucophage) 1,000 mg WITH BREAKFAST DINNE PO Last administered on 03/13/19 08:20; Admin Dose 1,000 MG; Start 03/12/19 at 08:00 Diagnostic Test (Pha) (Accu-Chek) 1 ea AC MEALS AND BEDTIME XX Last administered on 03/13/19at 06:19; Admin Dose 1 EA; Start 03/12/19 at 07:00 Enoxaparin Sodium (Lovenox) 80 mg Q24H SC Last administered on 03/12/19at 20:48; Admin Dose 80 MG; Start 03/12/19 at 21:00 Allergies: Coded Allergies: No Known Allergy (Unverified , 03/12/19) Past Surgical History Past Surgical Hx: coronary bypass surgery Family History Significant Family History: no pertinent family hx Social History Smoking Status: Current every day smoker Exam/Review of Systems Vital Signs Vitals Vital Signs Date Temp Pulse Resp B/P (MAP) Pulse Ox O2 O2 Flow FiO2 Time Delivery Rate 03/13/19 58 16:54 03/13/19 98.3 20 115/59 95 15:49 (77) 03/12/19 Room Air 15:30 Intake and Output 03/12/19 03/12/19 03/13/19 1515:00 23:00 07:00 IntakeIntake Total 1200 ml 600 ml BalanceBalance 1200 ml 600 ml Exam Constitutional: alert, well developed Psych: no complaints, nl mood/affect Head: normocephalic, atraumatic Eyes: nl conjunctiva, nl lids ENMT: nl external ears & nose, nl nasal mucosa & septum Neck: supple, non-tender Respiratory: clear to auscultation, normal air movement Cardiovascular: regular rate and rhythm Gastrointestinal: soft, non-tender Musculoskeletal: nl extremities to inspection Extremities: No cyanosis, No clubbing, No edema Neurological: nl mental status, nl speech Labs Result Diagram: 03/13/19 0506 03/13/19 0506 Results 24hrs Laboratory Tests Test 03/12/19 18:01 03/12/19 21:32 03/13/19 05:06 03/13/19 06:12 Bedside Glucose 116 133 139 White Blood Count 7.5 Red Blood Count 4.51 L Hemoglobin 13.4 L Hematocrit 39.7 L Mean Corpuscular 88.0 Volume Mean Corpuscular 29.7 Hemoglobin Mean Corpuscular 33.8 Hemoglobin Concent Red Cell 12.0 Distribution Width Platelet Count 132 L Mean Platelet Volume 10.6 H Immature 0.500 H Granulocytes % Neutrophils % 67.0 Lymphocytes % 23.1 Monocytes % 7.3 Eosinophils % 1.6 Basophils % 0.5 Nucleated Red Blood 0.0 Cells % Immature 0.040 H Granulocytes # Neutrophils # 5.0 Lymphocytes # 1.7 Monocytes # 0.6 Eosinophils # 0.1 Basophils # 0.0 Nucleated Red Blood 0.0 Cells # Sodium Level 142 Potassium Level 4.1 Chloride Level 110 Carbon Dioxide Level 27 Anion Gap 5 Blood Urea Nitrogen 21 H Creatinine 0.77 Est Glomerular > 60 Filtrat Rate mL/min Glucose Level 118 # Uric Acid 2.6 L Calcium Level 8.9 Phosphorus Level 4.3 Magnesium Level 1.9 Test 03/13/19 12:00 Bedside Glucose 135 Medications Medications Current Medications IV Flush (NS 3 ml) 3 ml PER PROTOCOL IV ; Start 03/12/19 at 02:00 Ondansetron HCl (Zofran Inj) 4 mg Q6H PRN IV NAUSEA/VOMITING Last administered on 03/12/19at 20:42; Admin Dose 4 MG; Start 03/12/19 at 02:00 Nitroglycerin (Nitroglycerin (Sl Tab) 0.4 Mg) 1 tab Q5M PRN SL .CHEST PAIN; Start 03/12/19 at 02:00 Acetaminophen (Tylenol Tab) 650 mg Q6H PRN PO .PAIN 1-3 OR TEMP; Start 03/12/19 at 02:00 Acetaminophen/ Hydrocodone Bitart ([place] (5/325)) 1 tab Q6H PRN PO .PAIN 4-6 Last administered on 03/12/19at 10:01; Admin Dose 1 TAB; Start 03/12/19 at 02:00 Acetaminophen/ Hydrocodone Bitart ([place] (5/325)) 2 tab Q6H PRN PO .PAIN 7-10 Last administered on 03/13/19at 15:20; Admin Dose 2 TAB; Start 03/12/19 at 02:00 Albuterol/ Ipratropium (Duoneb) 3 ml Q2H RESP THERAPY PRN HHN SHORTNESS OF BREATH; Start 03/12/19 at 02:00 Atorvastatin Calcium (Lipitor) 20 mg QHS PO Last administered on 03/12/19at 20:42; Admin Dose 20 MG; Start 03/12/19 at 21:00 Carvedilol (Coreg) 3.125 mg Q12 PO Last administered on 03/12/19at 08:40; Admin Dose 3.125 MG; Start 03/12/19 at 09:00 Clopidogrel Bisulfate (plaVIX) 75 mg DAILY PO Last administered on 03/13/19 08:21; Admin Dose 75 MG; Start 03/12/19 at 09:00 Fenofibrate (Tricor) 48 mg DAILY PO Last administered on 03/13/19 08:21; Admin Dose 48 MG; Start 03/12/19 at 09:00 Isosorbide Mononitrate (Imdur) 60 mg DAILY PO Last administered on 03/13/19 08:22; Admin Dose 60 MG; Start 03/12/19 at 09:00 Lisinopril (Zestril) 5 mg DAILY PO Last administered on 03/13/19 08:21; Admin Dose 5 MG; Start 03/12/19 at 09:00 Metformin HCl (Glucophage) 1,000 mg WITH BREAKFAST DINNE PO Last administered on 03/13/19 08:20; Admin Dose 1,000 MG; Start 03/12/19 at 08:00 Diagnostic Test (Pha) (Accu-Chek) 1 ea AC MEALS AND BEDTIME XX Last adm inistered on 03/13/19 06:19; Admin Dose 1 EA; Start 03/12/19 at 07:00 Enoxaparin Sodium (Lovenox) 80 mg Q24H SC Last administered on 03/12/19 20:48; Admin Dose 80 MG; Start 03/12/19 at 21:00 CHADWICK EGAN MD March 13, 2019 17:34
[2019-03-13] MEDS: ATORVASTATIN 20 MG TAB PO SCH (20:45)
[2019-03-13] MEDS: RANOLAZINE (SR) 500 MG TAB PO SCH (20:46)
[2019-03-13] MEDS: ENOXAPARIN 80 MG/0.8 ML SYG SC SCH (20:49)
--- NOTE | 2019-03-13 21:02 | PN ---
Date/Time of Note Date/Time of Note DATE: 03/13/19 Assessment/Plan VTE Prophylaxis Risk score (from [facility])>0 risk: 1 SCD applied (from [facility]): No SCD contraindicated: other (PAD) Pharmacological prophylaxis: LMWH Pharm contraindication: other Lines/Catheters IV C[facility]ter Type (from [facility]): Peripheral IV Urinary Cath still in place: No Assessment/Plan Hospital Course Assessment and plan 1. Bilateral lower extremity arterial insufficiency. - Vascular surgeon following - Tentative plan for left femoral endarterectomy. -Oracle E[employer] Architect consult obtained - Patient his moderate to high risk for surgery. Continue medical optimization 2. Reported chest pain. - Rule out ACS. - Troponin x2 is negative. - Oracle Ebs Architect to following 3. CAD with CABG. - Continue statin. 4. Diabetes. - Last A1c on February 22, 2019 was 9.3. - Continue on insulin regimen. Disposition and plan. Continue medical optimization. Analgesics PRN. f/u vas cular surgeon. continue inhouse monitoring Discussed plan of care with Dr. Mcclain Result Diagram: 03/13/19 0506 03/13/19 0506 Results 24hrs Laboratory Tests Test 03/12/19 21:32 03/13/19 05:06 03/13/19 06:12 03/13/19 12:00 Bedside Glucose 133 139 135 White Blood Count 7.5 Red Blood Count 4.51 L Hemoglobin 13.4 L Hematocrit 39.7 L Mean Corpuscular 88.0 Volume Mean Corpuscular 29.7 Hemoglobin Mean Corpuscular 33.8 Hemoglobin Concent Red Cell 12.0 Distribution Width Platelet Count 132 L Mean Platelet Volume 10.6 H Immature 0.500 H Granulocytes % Neutrophils % 67.0 Lymphocytes % 23.1 Monocytes % 7.3 Eosinophils % 1.6 Basophils % 0.5 Nucleated Red Blood 0.0 Cells % Immature 0.040 H Granulocytes # Neutrophils # 5.0 Lymphocytes # 1.7 Monocytes # 0.6 Eosinophils # 0.1 Basophils # 0.0 Nucleated Red Blood 0.0 Cells # Sodium Level 142 Potassium Level 4.1 Chloride Level 110 Carbon Dioxide Level 27 Anion Gap 5 Blood Urea Nitrogen 21 H Creatinine 0.77 Est Glomerular > 60 Filtrat Rate mL/min Glucose Level 118 # Uric Acid 2.6 L Calcium Level 8.9 Phosphorus Level 4.3 Magnesium Level 1.9 Test 03/13/19 17:43 03/13/19 20:14 Bedside Glucose 112 120 Subjective 24 Hr Interval Summary Free Text/Dictation reports pain on LLE but can still walk on his leg. Denies any chest pain or shortness of breath at this time Exam/Review of Systems Exam Vitals Vital Signs Date Temp Pulse Resp B/P (MAP) Pulse Ox O2 O2 Flow FiO2 Time Delivery Rate 03/13/19 71 20:37 03/13/19 98.1 18 113/60 95 19:26 (77) 03/12/19 Room Air 15:30 Intake and Output 03/12/19 03/12/19 03/13/19 1515:00 23:00 07:00 IntakeIntake Total 1200 ml 600 ml BalanceBalance 1200 ml 600 ml Constitutional: alert Head: normocephalic Eyes: nl conjunctiva Respiratory: clear to auscultation, normal air movement Cardiovascular: regular rate and rhythm Gastrointestinal: soft, non-tender Extremities: No normal pulses Neurological: SEAL DELIVERY VEHICLE OFFICER II-XII intact, nl mental status, nl speech Results Results 24hrs Laboratory Tests Test 03/12/19 21:32 03/13/19 05:06 03/13/19 06:12 03/13/19 12:00 Bedside Glucose 133 139 135 White Blood Count 7.5 Red Blood Count 4.51 L Hemoglobin 13.4 L Hematocrit 39.7 L Mean Corpuscular 88.0 Volume Mean Corpuscular 29.7 Hemoglobin Mean Corpuscular 33.8 Hemoglobin Concent Red Cell 12.0 Distribution Width Platelet Count 132 L Mean Platelet Volume 10.6 H Immature 0.500 H Granulocytes % Neutrophils % 67.0 Lymphocytes % 23.1 Monocytes % 7.3 Eosinophils % 1.6 Basophils % 0.5 Nucleated Red Blood 0.0 Cells % Immature 0.040 H Granulocytes # Neutrophils # 5.0 Lymphocytes # 1.7 Monocytes # 0.6 Eosinophils # 0.1 Basophils # 0.0 Nucleated Red Blood 0.0 Cells # Sodium Level 142 Potassium Level 4.1 Chloride Level 110 Carbon Dioxide Level 27 Anion Gap 5 Blood Urea Nitrogen 21 H Creatinine 0.77 Est Glomerular > 60 Filtrat Rate mL/min Glucose Level 118 # Uric Acid 2.6 L Calcium Level 8.9 Phosphorus Level 4.3 Magnesium Level 1.9 Test 03/13/19 17:43 03/13/19 20:14 Bedside Glucose 112 120 Medications Medication Current Medications IV Flush (NS 3 ml) 3 ml PER PROTOCOL IV ; Start 03/12/19 at 02:00 Ondansetron HCl (Zofran Inj) 4 mg Q6H PRN IV NAUSEA/VOMITING Last administered on 03/12/19 20:42; Admin Dose 4 MG; Start 03/12/19 at 02:00 Nitroglycerin (Nitroglycerin (Sl Tab) 0.4 Mg) 1 tab Q5M PRN SL .CHEST PAIN; Start 03/12/19 at 02:00 Acetaminophen (Tylenol Tab) 650 mg Q6H PRN PO .PAIN 1-3 OR TEMP; Start 03/12/19 at 02:00 Acetaminophen/ Hydrocodone Bitart ([place] (5/325)) 1 tab Q6H PRN PO .PAIN 4-6 Last administered on 03/12/19 10:01; Admin Dose 1 TAB; Start 03/12/19 at 02:00 Acetaminophen/ Hydrocodone Bitart ([place] (5/325)) 2 tab Q6H PRN PO .PAIN 7-10 Last administered on 03/13/19 15:20; Admin Dose 2 TAB; Start 03/12/19 at 02:00 Albuterol/ Ipratropium (Duoneb) 3 ml Q2H RESP THERAPY PRN HHN SHORTNESS OF BREATH; Start 03/12/19 at 02:00 Atorvastatin Calcium (Lipitor) 20 mg QHS PO Last administered on 03/13/19 20:45; Admin Dose 20 MG; Start 03/12/19 at 21:00 Carvedilol (Coreg) 3.125 mg Q12 PO Last administered on 03/13/19 20:47; Admin Dose 3.125 MG; Start 03/12/19 at 09:00 Clopidogrel Bisulfate (plaVIX) 75 mg DAILY PO Last administered on 03/13/19 08:21; Admin Dose 75 MG; Start 03/12/19 at 09:00 Fenofibrate (Tricor) 48 mg DAILY PO Last administered on 03/13/19 08:21; Admin Dose 48 MG; Start 03/12/19 at 09:00 Isosorbide Mononitrate (Imdur) 60 mg DAILY PO Last administered on 03/13/19 08:22; Admin Dose 60 MG; Start 5/24/19 at 09:00 Lisinopril (Zestril) 5 mg DAILY PO Last administered on 03/13/19 08:21; Admin Dose 5 MG; Start 03/12/19 at 09:00 Metformin HCl (Glucophage) 1,000 mg WITH BREAKFAST DINNE PO Last administered on 03/13/19 20:53; Admin Dose 1,000 MG; Start 03/12/19 at 08:00 Diagnostic Test (Pha) (Accu-Chek) 1 ea AC MEALS AND BEDTIME XX Last administered on 03/13/19 20:23; Admin Dose 1 EA; Start 03/12/19 at 07:00 Enoxaparin Sodium (Lovenox) 80 mg Q24H SC Last administered on 03/13/19 20:49; Admin Dose 80 MG; Start 03/12/19 at 21:00 Ranolazine (Ranexa) 500 mg Q12 PO Last administered on 03/13/19 20:46; Admin Dose 500 MG; Start 03/13/19 at 21:00 MOISES VELAZQUEZ NP March 13, 2019 21:02
[2019-03-13] MEDS: ONDANSETRON 4 MG INJ IV PRN (22:30)
[2019-03-14] VITALS (12 sets, daily range): BP systolic 110–132; BP diastolic 62–67; PULSE 60–80; RESP 18–20
[2019-03-14] MEDS: HYDROCODONE/APAP (5/325) TAB PO PRN ×3 (04:22→16:25)
[2019-03-14] MEDS: ACCU-CHEK XX SCH ×4 (07:00→21:00)
[2019-03-14] MEDS: LISINOPRIL 5 MG TAB PO SCH (08:27)
[2019-03-14] MEDS: CLOPIDOGREL 75 MG TAB PO SCH (08:27)
[2019-03-14] MEDS: ISOSORBIDE MONONITRATE(SR)60 MG TAB PO SCH (08:27)
[2019-03-14] MEDS: RANOLAZINE (SR) 500 MG TAB PO SCH ×2 (08:27→20:26)
[2019-03-14] MEDS: FENOFIBRATE 48 MG TAB PO SCH (08:27)
[2019-03-14] MEDS: metFORMIN 500 MG TAB PO SCH ×2 (08:30→17:19)
--- NOTE | 2019-03-14 12:40 | PN ---
Date/Time of Note Date/Time of Note DATE: 03/14/19 TIME: 12:36 Assessment/Plan VTE Prophylaxis Risk score (from [facility])>0 risk: 1 SCD applied (from [facility]): No SCD contraindicated: other (PAD, pain LLE ) Pharmacological prophylaxis: LMWH Lines/Catheters [facility] [place] Lock Urinary Cath still in place: No Assessment/Plan Hospital Course Assessment and plan 1. Bilateral lower extremity arterial insufficiency. - Vascular surgeon following - Tentative plan for left femoral endarterectomy. -Tank Car Cleaner consult obtained - Patient his moderate to high risk for surgery. Continue medical optimization 2. Reported chest pain. - Rule out ACS. - Troponin x3 is negative. - Tank Car Cleaner to following 3. CAD with CABG. - Continue statin. - continue medical optimization 4. Diabetes. - Last A1c on February 22, 2019 was 9.3. - Continue on insulin regimen. 5. Current cigarette smoker - smoking cessation advised. Disposition and plan. Continue medical optimization. Analgesics PRN. f/u for possible surgical intervention per vascular surgeon. d/c when medically stable and cleared by consults Discussed plan of care with Dr. Mcclain Result Diagram: 03/14/19 1157 03/14/19 1157 Results 24hrs Laboratory Tests Test 03/13/19 17:43 03/13/19 20:14 03/14/19 07:47 03/14/19 11:28 Bedside Glucose 112 120 118 100 Test 03/14/19 11:57 White Blood Count 6.7 Red Blood Count 4.48 L Hemoglobin 13.6 L Hematocrit 39.2 L Mean Corpuscular 87.5 Volume Mean Corpuscular 30.4 Hemoglobin Mean Corpuscular 34.7 Hemoglobin Concent Red Cell 11.9 Distribution Width Platelet Count 139 L Mean Platelet Volume 10.7 H Immature 0.300 Granulocytes % Neutrophils % 63.8 Lymphocytes % 26.4 Monocytes % 7.6 Eosinophils % 1.3 Basophils % 0.6 Nucleated Red Blood 0.0 Cells % Immature 0.020 Granulocytes # Neutrophils # 4.3 Lymphocytes # 1.8 Monocytes # 0.5 Eosinophils # 0.1 Basophils # 0.0 Nucleated Red Blood 0.0 Cells # Sodium Level 138 Potassium Level 4.4 Chloride Level 104 Carbon Dioxide Level 30 Anion Gap 4 L Blood Urea Nitrogen 17 Creatinine 0.87 Est Glomerular > 60 Filtrat Rate mL/min Glucose Level 100 Calcium Level 8.7 Subjective 24 Hr Interval Summary Free Text/Dictation still reports pain on LLE. family at bedside. 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, nl mental status, nl speech Results Results 24hrs Laboratory Tests Test 03/13/19 17:43 03/13/19 20:14 03/14/19 07:47 03/14/19 11:28 Bedside Glucose 112 120 118 100 Test 03/14/19 11:57 White Blood Count 6.7 Red Blood Count 4.48 L Hemoglobin 13.6 L Hematocrit 39.2 L Mean Corpuscular 87.5 Volume Mean Corpuscular 30.4 Hemoglobin Mean Corpuscular 34.7 Hemoglobin Concent Red Cell 11.9 Distribution Width Platelet Count 139 L Mean Platelet Volume 10.7 H Immature 0.300 Granulocytes % Neutrophils % 63.8 Lymphocytes % 26.4 Monocytes % 7.6 Eosinophils % 1.3 Basophils % 0.6 Nucleated Red Blood 0.0 Cells % Immature 0.020 Granulocytes # Neutrophils # 4.3 Lymphocytes # 1.8 Monocytes # 0.5 Eosinophils # 0.1 Basophils # 0.0 Nucleated Red Blood 0.0 Cells # Sodium Level 138 Potassium Level 4.4 Chloride Level 104 Carbon Dioxide Level 30 Anion Gap 4 L Blood Urea Nitrogen 17 Creatinine 0.87 Est Glomerular > 60 Filtrat Rate mL/min Glucose Level 100 Calcium Level 8.7 Medications Medication Current Medications IV Flush (NS 3 ml) 3 ml PER PROTOCOL IV ; Start 03/12/19 at 02:00 Ondansetron HCl (Zofran Inj) 4 mg Q6H PRN IV NAUSEA/VOMITING Last administered on 03/13/19 22:30; Admin Dose 4 MG; Start 03/12/19 at 02:00 Nitroglycerin (Nitroglycerin (Sl Tab) 0.4 Mg) 1 tab Q5M PRN SL .CHEST PAIN; Start 03/12/19 at 02:00 Acetaminophen (Tylenol Tab) 650 mg Q6H PRN PO .PAIN 1-3 OR TEMP; Start 03/12/19 at 02:00 Acetaminophen/ Hydrocodone Bitart ([place] (5/325)) 1 tab Q6H PRN PO .PAIN 4-6 Last administered on 03/12/19 10:01; Admin Dose 1 TAB; Start 03/12/19 at 02:00 Acetaminophen/ Hydrocodone Bitart ([place] (5/325)) 2 tab Q6H PRN PO .PAIN 7-10 Last administered on 03/14/19 10:29; Admin Dose 2 TAB; Start 03/12/19 at 02:00 Albuterol/ Ipratropium (Duoneb) 3 ml Q2H RESP THERAPY PRN HHN SHORTNESS OF BREATH; Start 03/12/19 at 02:00 Atorvastatin Calcium (Lipitor) 20 mg QHS PO Last administered on 03/13/19 20:45; Admin Dose 20 MG; Start 03/12/19 at 21:00 Carvedilol (Coreg) 3.125 mg Q12 PO Last administered on 03/14/19 08:27; Admin Dose 3.125 MG; Start 03/12/19 at 09:00 Clopidogrel Bisulfate (plaVIX) 75 mg DAILY PO Last administered on 03/14/19 08:27; Admin Dose 75 MG; Start 03/12/19 at 09:00 Fenofibrate (Tricor) 48 mg DAILY PO Last administered on 03/14/19 08:27; Admin Dose 48 MG; Start 03/12/19 at 09:00 Isosorbide Mononitrate (Imdur) 60 mg DAILY PO Last administered on 03/14/19 08:27; Admin Dose 60 MG; Start 03/12/19 at 09:00 Lisinopril (Zestril) 5 mg DAILY PO Last administered on 03/14/19 08:27; Admin Dose 5 MG; Start 5/24/19 at 09:00 Metformin HCl (Glucophage) 1,000 mg WITH BREAKFAST DINNE PO Last administered on 03/14/19 08:30; Admin Dose 1,000 MG; Start 03/12/19 at 08:00 Diagnostic Test (Pha) (Accu-Chek) 1 ea AC MEALS AND BEDTIME XX Last administered on 03/13/19 20:23; Admin Dose 1 EA; Start 03/12/19 at 07:00 Enoxaparin Sodium (Lovenox) 80 mg Q24H SC Last administered on 03/13/19 20:49; Admin Dose 80 MG; Start 03/12/19 at 21:00 Ranolazine (Ranexa) 500 mg Q12 PO Last administered on 03/14/19 08:27; Admin Dose 500 MG; Start 03/13/19 at 21:00 MOISES VELAZQUEZ NP March 14, 2019 12:40
[2019-03-14] MEDS: ONDANSETRON 4 MG INJ IV PRN (13:12)
[2019-03-14] MEDS: ATORVASTATIN 20 MG TAB PO SCH (20:26)
[2019-03-14] MEDS: ENOXAPARIN 80 MG/0.8 ML SYG SC SCH (20:31)
[2019-03-14] MEDS: KETOROLAC 30 MG INJ IV SCH (21:50)
[2019-03-15] VITALS (12 sets, daily range): BP systolic 122–155; BP diastolic 61–87; PULSE 62–82; RESP 17–18
[2019-03-15] MEDS: KETOROLAC 30 MG INJ IV SCH ×3 (03:52→15:56)
[2019-03-15] MEDS: ACCU-CHEK XX SCH ×4 (07:59→21:31)
[2019-03-15] MEDS: metFORMIN 500 MG TAB PO SCH ×2 (08:04→17:13)
--- NOTE | 2019-03-15 08:31 | CONS ---
Assessment/Plan Assessment/Plan Assessment/Plan (Daily) Left peroneal tendinitis Left FHL tendinitis Edema DM2 with peripheral neuropathy PAD arterial insufficiency Nicotine dependence CAD hx of CABG Pain in limb. Plan Patient was seen and examined and discussed findings with patient. There are no open lesion sites and has localized pain to specific sites of his foot. Reviewed MRI and X-ray findings and there is mild pathology associated with the peroneal and FHL tendons which can contribute to the isolated pain. Recommend CAM boot and work with physical therapy. Uric acid levels in low range. Continue with tight glycemic control and discussed smoking cessation. Appreciate input from vascular surgery. Weight bearing as tolerated. Consultation Date/Type/Reason Admit Date/Time March 12, 2019 at 16:07 Initial Consult Date Date/Time of Note DATE: 03/15/19 TIME: 08:31 24 HR Interval Summary Free Text/Dictation No acute events overnight. Exam/Review of Systems Exam Vitals Vital Signs Date Temp Pulse Resp B/P (MAP) Pulse Ox O2 O2 Flow FiO2 Time Delivery Rate 03/15/19 97.7 63 18 155/80 95 Room Air 07:18 (105) Intake and Output 03/14/19 03/14/19 03/15/19 1515:00 23:00 07:00 IntakeIntake Total 2050 ml 350 ml BalanceBalance 2050 ml 350 ml Exam Unable to palpate popliteal, DP or PT pulses in bilateral lower extremity No open lesions appreciated Absent protective sensations Left foot pain on palpation to plantar heel Pain with left foot inversion/eversion pain along course of peroneal tendons. Pain with flexion of hallux left foot Pain to left foot digits No pain to plantar heel or malleolar region 5/5 muscle strength in all compartments of the foot b/l No prominent protuberances to painful sites No crepitus appreciated to ankle joint, STJ, or MPJs Ankle MRI IMPRESSION: 1. No acute fracture or advanced degenerative change. No osteochondral lesion identified. Focal signal heterogeneity in the tibial plafond cartilage. 2. Mild tendinosis of the peroneus longus with trace fluid in the peroneal tendon sheath. Small amount of fluid in the flexor hallucis longus tendon sheath as above. Trace amount of fluid in the retrocalcaneal bursa and trace retro Achilles edema. 3. Small tibiotalar and subtalar joint effusions. 4. Sequelae of prior anterior talofibular, calcaneofibular and deltoid injury as above. Foot MRI IMPRESSION: 1. No evidence of osteomyelitis. No acute fracture. 2. Subcutaneous edema in the dorsum of the forefoot as well as in the second through fifth toes as above. 3. Degenerative changes at the first MTP joint as above. Results Result Diagram: 03/15/19 0556 03/15/19 0556 Results 24hrs Laboratory Tests Test 03/14/19 11:28 03/14/19 11:57 03/14/19 17:05 03/14/19 20:26 Bedside Glucose 100 130 112 White Blood Count 6.7 Red Blood Count 4.48 L Hemoglobin 13.6 L Hematocrit 39.2 L Mean Corpuscular 87.5 Volume Mean Corpuscular 30.4 Hemoglobin Mean Corpuscular 34.7 Hemoglobin Concent Red Cell 11.9 Distribution Width Platelet Count 139 L Mean Platelet Volume 10.7 H Immature 0.300 Granulocytes % Neutrophils % 63.8 Lymphocytes % 26.4 Monocytes % 7.6 Eosinophils % 1.3 Basophils % 0.6 Nucleated Red Blood 0.0 Cells % Immature 0.020 Granulocytes # Neutrophils # 4.3 Lymphocytes # 1.8 Monocytes # 0.5 Eosinophils # 0.1 Basophils # 0.0 Nucleated Red Blood 0.0 Cells # Sodium Level 138 Potassium Level 4.4 Chloride Level 104 Carbon Dioxide Level 30 Anion Gap 4 L Blood Urea Nitrogen 17 Creatinine 0.87 Est Glomerular > 60 Filtrat Rate mL/min Glucose Level 100 Calcium Level 8.7 Test 03/15/19 05:56 03/15/19 07:58 White Blood Count 7.4 Red Blood Count 4.83 Hemoglobin 14.5 Hematocrit 42.3 Mean Corpuscular 87.6 Volume Mean Corpuscular 30.0 Hemoglobin Mean Corpuscular 34.3 Hemoglobin Concent Red Cell 11.9 Distribution Width Platelet Count 138 L Mean Platelet Volume 10.6 H Immature 0.500 H Granulocytes % Neutrophils % 68.3 Lymphocytes % 21.2 Monocytes % 7.8 Eosinophils % 1.5 Basophils % 0.7 Nucleated Red Blood 0.0 Cells % Immature 0.040 H Granulocytes # Neutrophils # 5.1 Lymphocytes # 1.6 Monocytes # 0.6 Eosinophils # 0.1 Basophils # 0.1 Nucleated Red Blood 0.0 Cells # Sodium Level 142 Potassium Level 4.3 Chloride Level 105 Carbon Dioxide Level 31 Anion Gap 6 Blood Urea Nitrogen 17 Creatinine 0.93 Est Glomerular > 60 Filtrat Rate mL/min Glucose Level 114 Calcium Level 9.2 Bedside Glucose 113 Medications Medication Current Medications IV Flush (NS 3 ml) 3 ml PER PROTOCOL IV ; Start 03/12/19 at 02:00 Ondansetron HCl (Zofran Inj) 4 mg Q6H PRN IV NAUSEA/VOMITING Last administered on 03/14/19 13:12; Admin Dose 4 MG; Start 03/12/19 at 02:00 Nitroglycerin (Nitroglycerin (Sl Tab) 0.4 Mg) 1 tab Q5M PRN SL .CHEST PAIN; Start 03/12/19 at 02:00 Acetaminophen (Tylenol Tab) 650 mg Q6H PRN PO .PAIN 1-3 OR TEMP; Start 03/12/19 at 02:00 Acetaminophen/ Hydrocodone Bitart ([place] (5/325)) 1 tab Q6H PRN PO .PAIN 4-6 Last administered on 03/12/19at 10:01; Admin Dose 1 TAB; Start 03/12/19 at 02:00 Acetaminophen/ Hydrocodone Bitart ([place] (5/325)) 2 tab Q6H PRN PO .PAIN 7-10 Last administered on 03/14/19 16:25; Admin Dose 2 TAB; Start 03/12/19 at 02:00 Albuterol/ Ipratropium (Duoneb) 3 ml Q2H RESP THERAPY PRN HHN SHORTNESS OF BREATH; Start 03/12/19 at 02:00 Atorvastatin Calcium (Lipitor) 20 mg QHS PO Last administered on 03/14/19 20:26; Admin Dose 20 MG; Start 03/12/19 at 21:00 Carvedilol (Coreg) 3.125 mg Q12 PO Last administered on 03/14/19 20:27; Admin Dose 3.125 MG; Start 03/12/19 at 09:00 Clopidogrel Bisulfate (plaVIX) 75 mg DAILY PO Last administered on 03/14/19 08:27; Admin Dose 75 MG; Start 03/12/19 at 09:00 Fenofibrate (Tricor) 48 mg DAILY PO Last administered on 03/14/19 08:27; Admin Dose 48 MG; Start 5/24/19 at 09:00 Isosorbide Mononitrate (Imdur) 60 mg DAILY PO Last administered on 03/14/19 08:27; Admin Dose 60 MG; Start 03/12/19 at 09:00 Lisinopril (Zestril) 5 mg DAILY PO Last administered on 03/14/19 08:27; Admin Dose 5 MG; Start 03/12/19 at 09:00 Metformin HCl (Glucophage) 1,000 mg WITH BREAKFAST DINNE PO Last administered on 03/15/19 08:04; Admin Dose 1,000 MG; Start 03/12/19 at 08:00 Diagnostic Test (Pha) (Accu-Chek) 1 ea AC MEALS AND BEDTIME XX Last administered on 03/15/19 07:59; Admin Dose 1 EA; Start 03/12/19 at 07:00 Enoxaparin Sodium (Lovenox) 80 mg Q24H SC Last administered on 03/14/19 20:31; Admin Dose 80 MG; Start 03/12/19 at 21:00 Ranolazine (Ranexa) 500 mg Q12 PO Last administered on 03/14/19 20:26; Admin Dose 500 MG; Start 03/13/19 at 21:00 Ketorolac Tromethamine (Toradol) 30 mg Q6H IV Last administered on 03/15/19 03:52; Admin Dose 30 MG; Start 03/14/19 at 22:00; Stop 03/15/19 at 16:01 CARLY DIXON DPM March 15, 2019 08:31
[2019-03-15] MEDS: FENOFIBRATE 48 MG TAB PO SCH (09:28)
[2019-03-15] MEDS: RANOLAZINE (SR) 500 MG TAB PO SCH ×2 (09:28→20:43)
[2019-03-15] MEDS: LISINOPRIL 5 MG TAB PO SCH (09:29)
[2019-03-15] MEDS: ISOSORBIDE MONONITRATE(SR)60 MG TAB PO SCH (09:29)
[2019-03-15] MEDS: CLOPIDOGREL 75 MG TAB PO SCH (09:30)
[2019-03-15] MEDS: ONDANSETRON 4 MG INJ IV PRN (10:36)
--- NOTE | 2019-03-15 10:45 | PN ---
Date/Time of Note Date/Time of Note DATE: 03/15/19 TIME: 10:44 Assessment/Plan VTE Prophylaxis Risk score (from Ns)>0 risk: 1 SCD applied (from Nsg): Yes Pharmacological prophylaxis: LMWH Lines/Catheters IV Catheter Type (from Nrs): Saline Lock Urinary Cath still in place: No Assessment/Plan Hospital Course SUBJECTIVE: Complained of left hand/FINGERS pain and has been going on for a while according to him. OBJECTIVE: Vital signs-see below PHYSICAL EXAM: Constitutional: Adequately built,not in acute distress. HEENT: Head atraumatic and normocephalic. Eyes: Extraocular muscles intact. Anicteric sclerae. Pupils equal bilaterally, reactive to light. NECK: Supple without lymph node. CHEST: Clear and good breath sounds equally. No wheezing. No rhonchi. HEART: S1, S2. Regular rate and rhythm. ABDOMEN: Soft/non tender with no rebound tenderness. Bowel sounds were present. EXTREMITIES: Pain on left hand fingers flexion. Pain on left ffot/heel. No cyanosis, clubbing or edema. NEUROLOGIC: Alert and oriented x3. No focal deficit. No sensory deficit. PSYCHOSOCIAL: No signs of depression. INTEGUMENTARY: No open wounds. ASSESSMENT AND PLAN:53 yo M w/htn,cad,dm2,tobacco use her w/left ankles/toes pain. PAD, bilateral lower extremities with possible left SFA occlusion -Vascular following and possible plan for left femoral endarterectomy. -Appreciate cardiology preoperative risk stratification. Coronary artery disease, status post CABG -Continue antiplatelets/beta-blockers/statin/Ranexa DMII. -START Basal/bolus insulin Peripheral neuropathy -pt also complains of left hand/fingers pain. Will obtain a Xray -Add gabapentin Tobacco use/tendency -Cessation advised. -Acute and patch Hx Pulmonary embolism -on ATC in light of severe PAD DVT prophylaxis: On therapeutic dose of Lovenox. Disposition: Follow-up vascular recommendations. Patient was seen in collaboration with Dr. Gavin. Result Diagram: 03/15/19 0556 03/15/19 0556 Results 24hrs Laboratory Tests Test 03/14/19 11:28 03/14/19 11:57 03/14/19 17:05 03/14/19 20:26 Bedside Glucose 100 130 112 White Blood Count 6.7 Red Blood Count 4.48 L Hemoglobin 13.6 L Hematocrit 39.2 L Mean Corpuscular 87.5 Volume Mean Corpuscular 30.4 Hemoglobin Mean Corpuscular 34.7 Hemoglobin Concent Red Cell 11.9 Distribution Width Platelet Count 139 L Mean Platelet Volume 10.7 H Immature 0.300 Granulocytes % Neutrophils % 63.8 Lymphocytes % 26.4 Monocytes % 7.6 Eosinophils % 1.3 Basophils % 0.6 Nucleated Red Blood 0.0 Cells % Immature 0.020 Granulocytes # Neutrophils # 4.3 Lymphocytes # 1.8 Monocytes # 0.5 Eosinophils # 0.1 Basophils # 0.0 Nucleated Red Blood 0.0 Cells # Sodium Level 138 Potassium Level 4.4 Chloride Level 104 Carbon Dioxide Level 30 Anion Gap 4 L Blood Urea Nitrogen 17 Creatinine 0.87 Est Glomerular > 60 Filtrat Rate mL/min Glucose Level 100 Calcium Level 8.7 Test 03/15/19 05:56 03/15/19 07:58 White Blood Count 7.4 Red Blood Count 4.83 Hemoglobin 14.5 Hematocrit 42.3 Mean Corpuscular 87.6 Volume Mean Corpuscular 30.0 Hemoglobin Mean Corpuscular 34.3 Hemoglobin Concent Red Cell 11.9 Distribution Width Platelet Count 138 L Mean Platelet Volume 10.6 H Immature 0.500 H Granulocytes % Neutrophils % 68.3 Lymphocytes % 21.2 Monocytes % 7.8 Eosinophils % 1.5 Basophils % 0.7 Nucleated Red Blood 0.0 Cells % Immature 0.040 H Granulocytes # Neutrophils # 5.1 Lymphocytes # 1.6 Monocytes # 0.6 Eosinophils # 0.1 Basophils # 0.1 Nucleated Red Blood 0.0 Cells # Sodium Level 142 Potassium Level 4.3 Chloride Level 105 Carbon Dioxide Level 31 Anion Gap 6 Blood Urea Nitrogen 17 Creatinine 0.93 Est Glomerular > 60 Filtrat Rate mL/min Glucose Level 114 Calcium Level 9.2 Bedside Glucose 113 Exam/Review of Systems Exam Vitals Vital Signs Date Temp Pulse Resp B/P (MAP) Pulse Ox O2 O2 Flow FiO2 Time Delivery Rate 03/15/19 68 08:26 03/15/19 97.7 18 155/80 95 Room Air 07:18 (105) Intake and Output 03/14/19 03/14/19 03/15/19 1515:00 23:00 07:00 IntakeIntake Total 2050 ml 350 ml BalanceBalance 2050 ml 350 ml Results Results 24hrs Laboratory Tests Test 03/14/19 11:28 03/14/19 11:57 03/14/19 17:05 03/14/19 20:26 Bedside Glucose 100 130 112 White Blood Count 6.7 Red Blood Count 4.48 L Hemoglobin 13.6 L Hematocrit 39.2 L Mean Corpuscular 87.5 Volume Mean Corpuscular 30.4 Hemoglobin Mean Corpuscular 34.7 Hemoglobin Concent Red Cell 11.9 Distribution Width Platelet Count 139 L Mean Platelet Volume 10.7 H Immature 0.300 Granulocytes % Neutrophils % 63.8 Lymphocytes % 26.4 Monocytes % 7.6 Eosinophils % 1.3 Basophils % 0.6 Nucleated Red Blood 0.0 Cells % Immature 0.020 Granulocytes # Neutrophils # 4.3 Lymphocytes # 1.8 Monocytes # 0.5 Eosinophils # 0.1 Basophils # 0.0 Nucleated Red Blood 0.0 Cells # Sodium Level 138 Potassium Level 4.4 Chloride Level 104 Carbon Dioxide Level 30 Anion Gap 4 L Blood Urea Nitrogen 17 Creatinine 0.87 Est Glomerular > 60 Filtrat Rate mL/min Glucose Level 100 Calcium Level 8.7 Test 03/15/19 05:56 03/15/19 07:58 White Blood Count 7.4 Red Blood Count 4.83 Hemoglobin 14.5 Hematocrit 42.3 Mean Corpuscular 87.6 Volume Mean Corpuscular 30.0 Hemoglobin Mean Corpuscular 34.3 Hemoglobin Concent Red Cell 11.9 Distribution Width Platelet Count 138 L Mean Platelet Volume 10.6 H Immature 0.500 H Granulocytes % Neutrophils % 68.3 Lymphocytes % 21.2 Monocytes % 7.8 Eosinophils % 1.5 Basophils % 0.7 Nucleated Red Blood 0.0 Cells % Immature 0.040 H Granulocytes # Neutrophils # 5.1 Lymphocytes # 1.6 Monocytes # 0.6 Eosinophils # 0.1 Basophils # 0.1 Nucleated Red Blood 0.0 Cells # Sodium Level 142 Potassium Level 4.3 Chloride Level 105 Carbon Dioxide Level 31 Anion Gap 6 Blood Urea Nitrogen 17 Creatinine 0.93 Est Glomerular > 60 Filtrat Rate mL/min Glucose Level 114 Calcium Level 9.2 Bedside Glucose 113 Medications Medication Current Medications IV Flush (NS 3 ml) 3 ml PER PROTOCOL IV ; Start 03/12/19 at 02:00 Ondansetron HCl (Zofran Inj) 4 mg Q6H PRN IV NAUSEA/VOMITING Last administered on 03/14/19 13:12; Admin Dose 4 MG; Start 03/12/19 at 02:00 Nitroglycerin (Nitroglycerin (Sl Tab) 0.4 Mg) 1 tab Q5M PRN SL .CHEST PAIN; Start 03/12/19 at 02:00 Acetaminophen (Tylenol Tab) 650 mg Q6H PRN PO .PAIN 1-3 OR TEMP; Start 03/12/19 at 02:00 Acetaminophen/ Hydrocodone Bitart ([place] (5/325)) 1 tab Q6H PRN PO .PAIN 4-6 Last administered on 03/12/19 10:01; Admin Dose 1 TAB; Start 03/12/19 at 02:00 Acetaminophen/ Hydrocodone Bitart ([place] (5/325)) 2 tab Q6H PRN PO .PAIN 7-10 Last administered on 03/14/19 16:25; Admin Dose 2 TAB; Start 03/12/19 at 02:00 Albuterol/ Ipratropium (Duoneb) 3 ml Q2H RESP THERAPY PRN HHN SHORTNESS OF BREATH; Start 03/12/19 at 02:00 Atorvastatin Calcium (Lipitor) 20 mg QHS PO Last administered on 03/14/19 20:26; Admin Dose 20 MG; Start 03/12/19 at 21:00 Carvedilol (Coreg) 3.125 mg Q12 PO Last administered on 03/15/19 09:30; Admin Dose 3.125 MG; Start 03/12/19 at 09:00 Clopidogrel Bisulfate (plaVIX) 75 mg DAILY PO Last administered on 03/15/19 09 :30; Admin Dose 75 MG; Start 03/12/19 at 09:00 Fenofibrate (Tricor) 48 mg DAILY PO Last administered on 03/15/19 09:28; Admin Dose 48 MG; Start 03/12/19 at 09:00 Isosorbide Mononitrate (Imdur) 60 mg DAILY PO Last administered on 03/15/19 09:29; Admin Dose 60 MG; Start 03/12/19 at 09:00 Lisinopril (Zestril) 5 mg DAILY PO Last administered on 03/15/19 09:29; Admin Dose 5 MG; Start 03/12/19 at 09:00 Metformin HCl (Glucophage) 1,000 mg WITH BREAKFAST DINNE PO Last administered on 03/15/19 08:04; Admin Dose 1,000 MG; Start 03/12/19 at 08:00 Diagnostic Test (Pha) (Accu-Chek) 1 ea AC MEALS AND BEDTIME XX Last administered on 03/15/19 07:59; Admin Dose 1 EA; Start 03/12/19 at 07:00 Enoxaparin Sodium (Lovenox) 80 mg Q24H SC Last administered on 03/14/19 20:31; Admin Dose 80 MG; Start 03/12/19 at 21:00 Ranolazine (Ranexa) 500 mg Q12 PO Last administered on 03/15/19 09:28; Admin Dose 500 MG; Start 03/13/19 at 21:00 Ketorolac Tromethamine (Toradol) 30 mg Q6H IV Last administered on 03/15/19 09:31; Admin Dose 30 MG; Start 03/14/19 at 22:00; Stop 03/15/19 at 16:01 LIZZETTE CUELLAR NP March 15, 2019 10:45
--- NOTE | 2019-03-15 11:06 | QN ---
Documentation Comment No new c/o. Pain and tenderness in the L ankle and 5th toe. The foot is warm and has normal color, sensation and motor function and does not look acutely ischemic MRI showed inflammation c/w prior trauma, Dr. Romero's recommendations noted. CTA showed L SFA occlusion and deep femoral severe stenosis. He has ischemia but this would not cause ankle pain and tenderness although it is clearly the source of his calf claudication and possibly the toe pain. - He will benefit from L femoral endarterectomy - will schedule once he is cleared from cardiology standpoint with h/o CAD / CABG and recent episode of CP JAYLEEN NOLAN MD March 15, 2019 11:06
[2019-03-15] MEDS ORDERED: GLUCOSE GEL 15 GRAM TUBE BUCCAL PRN (11:30)
[2019-03-15] MEDS ORDERED: GLUCAGON 1 MG INJ IM PRN (11:30)
[2019-03-15] MEDS ORDERED: GLUCOSE GEL 15 GRAM TUBE PO PRN ×2 (11:30)
[2019-03-15] MEDS ORDERED: DEXTROSE 50% 50 ML SYRINGE IV PRN ×2 (11:30)
[2019-03-15] MEDS: GABAPENTIN 300 MG CAP PO SCH ×2 (12:19→20:51)
[2019-03-15] MEDS: INSULIN ASPART [NOVOLOG] 3 ML PEN SC SCH ×3 (12:22→21:00)
[2019-03-15] MEDS: HYDROCODONE/APAP (5/325) TAB PO PRN ×2 (17:07→21:30)
[2019-03-15] MEDS ORDERED: INSULIN GLARGINE [LANTus] (100 UNITS/ML) SYG SC SCH (20:00)
[2019-03-15] MEDS: ATORVASTATIN 20 MG TAB PO SCH (20:43)
[2019-03-15] MEDS: ENOXAPARIN 80 MG/0.8 ML SYG SC SCH (20:49)
[2019-03-16] VITALS (8 sets, daily range): BP systolic 118–135; BP diastolic 58–74; PULSE 57–154; RESP 16–20
[2019-03-16] MEDS ORDERED: ACCU-CHEK XX SCH (02:00)
[2019-03-16] MEDS: INSULIN ASPART [NOVOLOG] 3 ML PEN SC SCH ×2 (08:00→12:00)
[2019-03-16] MEDS: GABAPENTIN 300 MG CAP PO SCH (08:08)
[2019-03-16] MEDS: FENOFIBRATE 48 MG TAB PO SCH (08:08)
[2019-03-16] MEDS: CLOPIDOGREL 75 MG TAB PO SCH (08:08)
[2019-03-16] MEDS: RANOLAZINE (SR) 500 MG TAB PO SCH (08:08)
[2019-03-16] MEDS: LISINOPRIL 5 MG TAB PO SCH (08:09)
[2019-03-16] MEDS: ISOSORBIDE MONONITRATE(SR)60 MG TAB PO SCH (08:10)
[2019-03-16] MEDS: ACCU-CHEK XX SCH ×2 (08:13→11:30)
[2019-03-16] MEDS: metFORMIN 500 MG TAB PO SCH (08:13)
--- NOTE | 2019-03-16 10:27 | PDOCDIS ---
Discharge Instructions CONDITION [id number] Patient Condition: [id number] Stable HOME CARE INSTRUCTIONS: [id number] Diet Instructions: [id number] Regular FOLLOW UP/APPOINTMENTS Follow-up Plan You need to have vascular surgery and preferably next week. You will need to follow-up with for timing/scheduling/admitting for this elective procedure. Ham Bettencourt Jr, MD Specialty Vascular Surgery Comments Office Address [facility] [id number] [place] [address], [place] [address] Office Follow-up with primary care physician in 1 week LIZZETTE CUELLAR NP March 16, 2019 10:27
[2019-03-16] MEDS ORDERED: MEDICAL NOTE (10:38)
[2019-03-16] MEDS ORDERED: GABA300C16 PO (10:38)
--- NOTE | 2019-03-16 10:46 | DS ---
Date/Time of Note Date/Time of Note DATE: 03/16/19 TIME: 10:42 Discharge Summary Admission/Discharge Info Admit Date/Time March 12, 2019 at 16:07 Discharge Date/Time Discharge Diagnosis PAD, bilateral lower extremities with possible left SFA occlusion.Needs left femoral endarterectomy. Coronary artery disease, status post CABG DMII. Peripheral neuropathy Tobacco use/tendency Hx Pulmonary embolism Patient Condition: Stable Consults ,vascular ,podiatry Procedures 03/12/2019:: CT angiogram of the aorta and bilateral runoff. IMPRESSION: Vascular: 1. Moderate fibrofatty and calcific plaques in the abdominal aorta without significant narrowing or aneurysmal dilatation. No aortic dissection. 2. SMA, celiac artery and bilateral renal arteries are patent with no significant ostial stenosis. 3. Some ostial stenosis of the inferior mesenteric artery. Right le. No significant aortoiliac disease. 2. Mild ostial stenosis of the right SFA. Long segment irregular atherosclerotic plaque in the mid distal right SFA with two focal areas of severe stenoses. Please see henriquez images. 3. Patent popliteal artery with no significant stenosis. 4. Occlusion of the anterior tibial artery with no distal reconstitution. 5. Severe atherosclerotic changes involving the tibioperoneal trunk, proximal peroneal and posterior tibial arteries with significant stenosis of the posterior tibial artery and tibioperoneal trunk. Mild to moderate stenosis of the proximal peroneal artery. Left le. No significant aortoiliac disease. 2. Moderate ostial stenosis of the left SFA. Short segment occlusion of the mid distal SFA measures approximately 4 cm in length. Please see henriquez images. 3. Patent popliteal artery with no significant stenosis. 4. Severe atherosclerotic changes at the tibioperoneal trunk, proximal peroneal and posterior tibial arteries with at least moderate stenosis of the tibioperoneal trunk, severe stenosis of the proximal [employer] and peroneal arteries. 5. Occlusion of the anterior tibial artery with no distal reconstitution. Abdomen and pelvis: 1. No mass, lymphadenopathy or acute inflammatory changes. 2. Sigmoid diverticulosis without evidence of acute diverticulitis. 3. Bilateral renal cysts. RPTAT: HHO .Stephanie Man MD, MD Date Time Electronically viewed and signed by .Stephanie Man MD, on 03/13/2019 08:47 .O/ CC: JAYLEEN NOLAN MD [phone] Hospital Course 53 yo M w/htn,cad,dm2,tobacco use her w/left ankles/toes pain. Patient was noted with severe peripheral arterial disease of bilateral lower extremities with possible left SFA occlusion. Patient is being followed by vascular surgeon and recommended eventual left femoral endarterectomy. Patient was continued on anticoagulation in light of his history of pulmonary embolism. Patient was given basal/bolus insulin for diabetes management. He was also not ed with peripheral neuropathy affecting multiple joints including left hand/fingers. Patient had unremarkable x-ray. He responded well to gabapentin. He was counseled on tobacco cessation. He was continued on antiplatelets/beta- blockers/statin/Ranexa for underlying coronary artery disease. At this time, no further inpatient work-up indicated and patient is stable for discharge with eventual left femoral endarterectomy tentatively scheduled for sometimes later next week for which patient to follow-up with Dr. Nolan to come back to the hospital. Approximately 60 m spent on coordinating the discharge on this patient. Patient was [facility] [Medical Note] No Conflict Check Please excuse Mr.Akop Merritt attending work from 03/12/3019 to 03/26/2019 due to his medical condition. Prov:CUELLAR,LIZZETTE V. JACK WINDER 03/16/19 Gabapentin* (Gabapentin*) 300 Mg Capsule, 300 MG PO TID, #90 CAP Prov:CUELLAR,LIZZETTE V. JACK WINDER 03/16/19 Rivaroxaban* (Xarelto*) 10 Mg Tablet, 10 MG PO DAILY, #30 TAB Prov:CUELLAR,LIZZETTE V. JACK WINDER 02/23/19 Metformin* (Glucophage*) 1,000 Mg Tablet, 1000 MG PO WITH BREAKFAST DINNE, #60 TAB Prov:CUELLAR,LIZZETTE V. JACK WINDER 02/23/19 Nitroglycerin* (Nitroglycerin* SL) 0.4 Mg Tab.subl, 1 TAB SL .Q5M UP TO 3 DOSES PRN for .CHEST PAIN, #1 BOTTLE Prov:CUELLARARUNAA V. JACK WINDER 02/23/19 Atorvastatin Calcium (Atorvastatin Calcium) 20 Mg Tablet, 20 MG PO QHS, #30 TAB Prov:CUELLAR,LIZZETTE V. JACK WINDER 02/23/19 Lisinopril* (Lisinopril*) 5 Mg Tablet, 5 MG PO DAILY, #30 TAB Prov:CUELLAR,LIZZETTE V. JACK WINDER 02/23/19 Carvedilol* (Carvedilol*) 3.125 Mg Tablet, 3.125 MG PO Q12, #60 TAB Prov:CUELLAR,LIZZETTE V. JACK WINDER 02/23/19 Fenofibrate Nanocrystallized* (Fenofibrate*) 48 Mg Tablet, 48 MG PO DAILY, #30 TAB Prov:CUELLAR,LIZZETTE V. JACK WINDER 02/23/19 Isosorbide Mononitrate* (Isosorbide Mononitrate*) 60 Mg Tab.er.24h, 60 MG PO DAILY, #30 TAB Prov:CUELLAR,LIZZETTE V. JACK WINDER 02/23/19 Clopidogrel Bisulfate (Clopidogrel) 75 Mg Tablet, 75 MG PO DAILY, #30 TAB Prov:CUELLAR,LIZZETTE V. JACK WINDER 02/23/19 Discontinued Scripts Ranolazine* (Ranexa*) 500 Mg Tab.sr.12h, 500 MG PO Q12, #30 TAB Prov:CUELLARLIZZETTE V. JACK WINDER 02/23/19 Follow-up Plan You need to have vascular surgery and preferably next week. You will need to follow-up with for timing/scheduling/admitting for this elective procedure. Rut Stewart, Jayleen Kraft MD Specialty Vascular Surgery Comments Office Address [facility] [id number] [place] [id number] Office Follow-up with primary care physician in 1 week Primary Care Provider [facility] Pending Labs Laboratory Tests Test 03/15/19 12:13 03/15/19 17:10 03/15/19 20:41 03/16/19 08:07 Bedside 144 139 143 97 Glucose mg/dL (70-220) mg/dL (70-220) mg/dL (70-220) mg/dL (70-220) LIZZETTE CUELLAR V. JACK WINDER March 16, 2019 10:46
== END 2019-03-16 13:00 | disposition home or self-care (01) | DRG 301 ==
LOC: E/R 18:55 → 6WM 22:22 → OBSVTOIN 03-12 16:07
PROVIDERS: ADMIT Internal Medicine; ATTEND Internal Medicine
DX: E11.51 Type 2 diabetes mellitus with diabetic peripheral angiopathy without gangrene (principal); M76.72 Peroneal tendinitis, left leg; I25.10 Atherosclerotic heart disease of native coronary artery without angina pectoris; Z95.1 Presence of aortocoronary bypass graft; F17.200 Nicotine dependence, unspecified, uncomplicated; R07.9 Chest pain, unspecified; Z79.82 Long term (current) use of aspirin; E78.5 Hyperlipidemia, unspecified; K57.90 Diverticulosis of intestine, part unspecified, without perforation or abscess without bleeding; N28.1 Cyst of kidney, acquired
CPT/HCPCS: 36415; 71045; 73120; 73610; 73718; 73721; 75635; 80048; 80053; 82550; 82553; 82962; 83735; 84100; 84484; 84560; 85025; 85610; 85730; 93005; 93922; 96374; 96375; 96376; 97161; G0378; J1170; J1815; J1885; J2405; J7030; Q9967

== ENCOUNTER 2019-03-31 17:13 | Inpatient (IN) | payer MEDICAID ==
[~2019-03-31] VITALS: Ht 167.6 cm; Wt 78.2 kg
[~2019-03-31 17:13] MED LIST changes: +GABA300C16 PO; +MEDICAL NOTE; -RANO500T2 PO
[2019-03-31] MEDS ORDERED: ONDANSETRON 4 MG INJ IV STA (18:18)
[2019-03-31] MEDS ORDERED: morphine 4 MG/ML VIAL IV STA (18:18)
[2019-03-31] MEDS ORDERED: SOD CHLORIDE 0.9% 500 ML IV STA (18:18)
[2019-03-31] MEDS ORDERED: ONDANSETRON 4 MG INJ IV PRN ×2 (19:00→20:00)
[2019-03-31] MEDS ORDERED: ACETAMINOPHEN 325 MG TAB PO PRN ×2 (19:00→20:00)
--- NOTE | 2019-03-31 19:27 | ERD ---
ER Documentation Chief Complaint Chief Complaint left lower leg pain HPI 53-year-old male with recent hospitalization and diagnosis of left lower extremity peripheral arterial disease. The patient presents with worsening claudication and pain at rest. His pain currently is 3 out of 10. He describes a burning sensation to the medial aspect of his left leg. Left foot. Symptoms are moderate to severe. Patient was sent in by his vascular surgeon to be admitted for surgical management of his peripheral arterial disease. ROS All systems reviewed and are negative except as per history of present illness. Medications Home Meds Active Scripts [Medical Note] No Conflict Check Please excuse Mr.Akop Merritt attending work from 03/12/3019 to 03/26/2019 due to his medical condition. Prov:LIZZETTE CUELLAR V. HOU[employer]Y CAREGIVER 03/16/19 Gabapentin* (Gabapentin*) 300 Mg Capsule, 300 MG PO TID, #90 CAP Prov:CUELLARARUNAA V. HOURLY CAREGIVER 03/16/19 Rivaroxaban* (Xarelto*) 10 Mg Tablet, 10 MG PO DAILY, #30 TAB Prov:LIZZETTE CUELLAR V. [employer] C[employer]GIVER 02/23/19 Metformin* (Glucophage*) 1,000 Mg Tablet, 1000 MG PO WITH BREAKFAST DINNE, #60 TAB Prov:CUELLARLIZZETTE V. HOURLY CAREGIVER 02/23/19 Nitroglycerin* (Nitroglycerin* SL) 0.4 Mg Tab.subl, 1 TAB SL .Q5M UP TO 3 DOSES PRN for .CHEST PAIN, #1 BOTTLE Prov:LIZZETTE CUELLAR V. [employer] C[employer]GIVER 02/23/19 Atorvastatin Calcium (Atorvastatin Calcium) 20 Mg Tablet, 20 MG PO QHS, #30 TAB Prov:LIZZETTE CUELLAR V. [employer] C[employer]GIVER 02/23/19 Lisinopril* (Lisinopril*) 5 Mg Tablet, 5 MG PO DAILY, #30 TAB Prov:CUELLARARUNAA V. HOU[employer]Y CAREGIVER 02/23/19 Carvedilol* (Carvedilol*) 3.125 Mg Tablet, 3.125 MG PO Q12, #60 TAB Prov:CUELLARARUNAA V. HOU[employer]Y CAREGIVER 02/23/19 Fenofibrate Nanocrystallized* (Fenofibrate*) 48 Mg Tablet, 48 MG PO DAILY, #30 TAB Prov:CUELLARARUNAA V. HOU[employer]Y CAREGIVER 02/23/19 Isosorbide Mononitrate* (Isosorbide Mononitrate*) 60 Mg Tab.er.24h, 60 MG PO DAILY, #30 TAB Prov:CUELLAR,LIZZETTE V. [employer] CAREGIVER 02/23/19 Clopidogrel Bisulfate (Clopidogrel) 75 Mg Tablet, 75 MG PO DAILY, #30 TAB Prov:CUELLAR,LIZZETTE V. HOU[employer]Y CAREGIVER 02/23/19 Allergies Allergies: Coded Allergies: No Known Allergy (Unverified , 03/12/19) PMhx/Soc History of Surgery: Yes (CABG) Anesthesia Reaction: No Hx Neurological Disorder: No Hx Respiratory Disorders: No Hx Cardiac Disorders: Yes (CAD, HTN) Hx Psychiatric Problems: No Hx Miscellaneous Medical Probl: Yes (DM, CAD, WITH CABG , JAILENE.BLE'S ARTERIAL INSUFFICIENCY) Hx Alcohol Use: No Hx Substance Use: No Hx Tobacco Use: Yes Smoking Status: Never smoker FmHx Family History: No diabetes Physical Exam Vitals Vital Signs Date Temp Pulse Resp B/P (MAP) Pulse Ox O2 O2 Flow FiO2 Time Delivery Rate 03/31/19 98.2 101 19 166/83 97 17:21 (110) Physical Exam General: Well developed, well nourished, no acute distress Head: Normocephalic, atraumatic. Eyes: EOM intact ENT: Moist mucous membranes Neck: Full ROM Respiratory: No respiratory distress Cardiovascular: Well perfused distally Abdominal: Nondistended : Deferred MSK: Left lower extremity with slight temperature deficit. Faint dorsalis pedis pulses. Neurologic: Alert and oriented, moving all extremities, normal speech, steady gait Skin: No rash Psych: Normal mood Result Diagram: 03/31/19 1832 03/31/19 1832 Results 24 hrs Laboratory Tests Test 03/31/19 18:32 White Blood Count 11.6 10^3/ul Red Blood Count 5.44 10^6/ul Hemoglobin 16.4 g/dl Hematocrit 46.9 % Mean Corpuscular Volume 86.2 fl Mean Corpuscular Hemoglobin 30.1 pg Mean Corpuscular Hemoglobin Concent 35.0 g/dl Red Cell Distribution Width 12.1 % Platelet Count 275 10^3/UL Mean Platelet Volume 10.2 fl Immature Granulocytes % 0.500 % Neutrophils % 62.6 % Lymphocytes % 28.5 % Monocytes % 5.9 % Eosinophils % 1.5 % Basophils % 1.0 % Nucleated Red Blood Cells % 0.0 /100WBC Immature Granulocytes # 0.060 10^3/ul Neutrophils # 7.3 10^3/ul Lymphocytes # 3.3 10^3/ul Monocytes # 0.7 10^3/ul Eosinophils # 0.2 10^3/ul Basophils # 0.1 10^3/ul Nucleated Red Blood Cells # 0.0 10^3/ul Prothrombin Time 15.3 Sec Prothrombin Time Ratio 1.2 INR International Normalized Ratio 1.20 Activated Partial Thromboplast Time 35.2 Sec Sodium Level 143 mmol/L Potassium Level 4.4 mmol/L Chloride Level 105 mmol/L Carbon Dioxide Level 25 mmol/L Anion Gap 13 Blood Urea Nitrogen 14 mg/dl Creatinine 0.72 mg/dl Est Glomerular Filtrat Rate mL/min > 60 mL/min Glucose Level 189 mg/dl Calcium Level 10.0 mg/dl Lipase 109 U/L Current Medications Medications Dose Sig/Merritt Start Time Status Last (Trade) Ordered Route PRN Stop Time Admin Dose Reason Admin Sodium 500 ml @ Q1H STAT 03/31/19 DC 03/31/19 Chloride 500 mls/hr IV 18:18 18:36 03/31/19 19:17 Morphine 4 mg ONCE STAT 03/31/19 DC 03/31/19 Sulfate IV 18:18 18:35 (morphine) 03/31/19 18:19 Ondansetron 4 mg ONCE STAT 03/31/19 DC 03/31/19 HCl (Zofran IV 18:18 18:35 Inj) 03/31/19 18:19 Ondansetron 4 mg BRIDGE ORDER 03/31/19 HCl (Zofran PRN IV 19:00 Inj) NAUSEA/VOMITI 04/01/19 18:59 NG 650 mg ER BRIDGE 03/31/19 Acetaminophen PRN PO 19:00 (Tylenol .MILD PAIN 04/01/19 18:59 Tab) 1-3 OR TEMP Procedures/MDM Recent discharge summary Discharge Diagnosis PAD, bilateral lower extremities with possible left SFA occlusion.Needs left fem oral endarterectomy. Coronary artery disease, status post CABG DMII. Peripheral neuropathy Tobacco use/tendency Hx Pulmonary embolism Patient Condition: Stable Consults ,vascular ,podiatry LAB INTERPRETATION: I reviewed the laboratory testing and it shows no evidence of acute process MEDICAL DECISION MAKING: Patient presents with an exacerbation of his left lower extremity peripheral arterial disease. No clinical signs or symptoms of acute vascular occlusion. The patient currently takes Xarelto. I discussed the case with Dr. Bettencourt who recommends admission, pain control and likely operative intervention. He does not request heparin. He would like to discontinue Xarelto tomorrow. ER COURSE: * Patient given pain control medication. CONSULTATION: Vascular surgeon Dr. Bettencourt DISPOSITION PLAN: Accepting care team and consultations: I discussed the current laboratory data, diagnostic imaging and emergency care provided. Admitting team: Dr. Fairchild Admitting team indication: Insurance directed Departure Diagnosis: Primary Impression: Peripheral arterial disease Condition: Stable LOLI BOLAND MD Mar 31, 2019 19:27
[2019-03-31] MEDS ORDERED: NACL 0.9% 3 ML SYG IV SCH (20:00)
[2019-03-31] MEDS ORDERED: NITROGLYCERIN (SL) 0.4 MG TAB SL PRN (20:00)
[2019-03-31] MEDS ORDERED: MAGNESIUM HYDROXIDE 30ML CUP PO PRN (20:00)
[2019-03-31] MEDS ORDERED: DOCUSATE SODIUM 100 MG CAP PO PRN (20:00)
[2019-03-31] MEDS ORDERED: HYDROCODONE/APAP (5/325) TAB PO PRN ×2 (20:00)
--- NOTE | 2019-03-31 20:52 | HP ---
Date/Time of Note Date/Time of Note DATE: 03/31/19 TIME: 20:35 Assessment/Plan VTE Prophylaxis Pharmacological prophylaxis: heparin Lines/Catheters IV [facility] Peripheral IV Assessment/Plan Hospital Course This is a 53-year-old male being admitted to the [facility] floor for: #1 severe peripheral arterial disease: Patient continues have pain of the left lower externally. Vascular surgeon Dr. Betancur is planning a left femoral endarterectomy. He is requesting cardiac clearance, has been consulted. Dr. Betancur is requested for us to hold Xarelto. #2 coronary artery disease: History of CABG. Will continue patient's home medications, will hold Xarelto. Defer to cardiology, vascular surgery in reg ards to Plavix. #3 hypertension: We will resume patient's home medications #4 dyslipidemia: We will continue statin, fenofibrate #5 diabetes mellitus: Insulin sliding scale, hemoglobin A1c will hold metformin #6 history of pulmonary embolism: Currently holding Xarelto #7 DVT GI prophylaxis: SCDs, no GI prophylaxis indicated Further treatment strategy will be implemented as per the clinical course. Result Diagram: 03/31/19 1832 03/31/19 1832 Results 24hrs Laboratory Tests Test 03/31/19 18:31 03/31/19 18:32 Hemoglobin A1c 8.7 H White Blood Count 11.6 #H Red Blood Count 5.44 Hemoglobin 16.4 Hematocrit 46.9 Mean Corpuscular Volume 86.2 Mean Corpuscular Hemoglobin 30.1 Mean Corpuscular Hemoglobin Concent 35.0 Red Cell Distribution Width 12.1 Platelet Count 275 # Mean Platelet Volume 10.2 Immature Granulocytes % 0.500 H Neutrophils % 62.6 Lymphocytes % 28.5 Monocytes % 5.9 Eosinophils % 1.5 Basophils % 1.0 Nucleated Red Blood Cells % 0.0 Immature Granulocytes # 0.060 H Neutrophils # 7.3 Lymphocytes # 3.3 H Monocytes # 0.7 Eosinophils # 0.2 Basophils # 0.1 Nucleated Red Blood Cells # 0.0 Prothrombin Time 15.3 H Prothrombin Time Ratio 1.2 INR International Normalized Ratio 1.20 Activated Partial Thromboplast Time 35.2 H Sodium Level 143 Potassium Level 4.4 Chloride Level 105 Carbon Dioxide Level 25 Anion Gap 13 Blood Urea Nitrogen 14 Creatinine 0.72 Est Glomerular Filtrat Rate mL/min > 60 Glucose Level 189 Calcium Level 10.0 Lipase 109 HPI/ROS Admit Date/Time Admit Date/Time Hx of Present Illness Chief complaint: Worsening left lower extremity pain This is a 53-year-old male with recent hospitalization and diagnosis of left lower extremity peripheral arterial disease. The patient presents with worsening claudication and pain at rest. His pain currently is 3 out of 10. He describes a burning sensation to the medial aspect of his left leg. Left foot. Symptoms are moderate to severe. Patient was sent in by his vascular surgeon Dr. Bettencourt to be admitted for his peripheral artery disease and cardiac clearance for surgery of femoral endarterectomy on Friday. Allergies: NKDA Medications: nonetheless. Plavix on metformin Plavix Metformin Xarelto Atorvastatin Carvedilol Fenofibrate Gabapentin Isosorbide mononitrate Lisinopril PRN nitroglycerin ROS Const: As per HPI Eyes : No pain discharge or redness or change in visual acuity ENT: No pain, sore throat, congestion, congestion, dysphagia or discharge Respiratory: No shortness of breath, cough, sputum, wheezing, or pleuritic pain Cardiovascular: No chest pain, palpitation, PND, or edema GI : no change in appetite, abdominal pain, nausea, vomiting, diarrhea, constipation, or change in the color his stool Genitourinary: No dysuria, hematuria, flank pain , discharge or CVA tenderness Musculoskeletal: As per HPI Vascular: As per HPI Skin: No rash, bruising or hives Neuro: No headache, dizziness, syncope, seizure, focal weakness Endocrine: No polyuria, polydipsia, temperature intolerance Psych: No hallucination, depression, anxiety or suicidal ideation PMH/Family/Social Past Medical History Coronary artery disease Hypertension Dyslipidemia Diabetes mellitus Severe peripheral vascular disease History of pulmonary embolism Medications Current Medications Atorvastatin Calcium (Lipitor) 20 mg QHS PO ; Start 03/31/19 at 21:00 Fenofibrate (Tricor) 48 mg DAILY PO ; Start 04/01/19 at 09:00 Gabapentin (Neurontin) 300 mg TID PO ; Start 03/31/19 at 21:00 Isosorbide Mononitrate (Imdur) 60 mg DAILY PO ; Start 04/01/19 at 09:00 Lisinopril (Zestril) 5 mg DAILY PO ; Start 04/01/19 at 09:00 Nitroglycerin (Nitroglycerin (Sl Tab) 0.4 Mg) 1 tab Q5M UP TO 3 DOSES PRN SL .CHEST PAIN; Start 03/31/19 at 20:00 Miscellaneous Information (* Miscellaneous Pharmacy Order) Discontinue current oral sulfonylur... ONCE ONCE XX ; Start 03/31/19 at 20:00; Stop 03/31/19 at 20:01; Status UNV Miscellaneous Information (* Miscellaneous Pharmacy Order) HYPOGLYCEMIA PROTOCOL w... ONCE ONCE XX ; Start 03/31/19 at 20:00; Stop 03/31/19 at 20:01; Status UNV Insulin Aspart (Novolog Insulin Pen) NOVOLOG *MILD* ALGORITHM WITH MEALS BEDTIME SC ; Start 03/31/19 at 21:00; Status UNV Miscellaneous Information (* Miscellaneous Pharmacy Order) Discontinue all previ... ONCE ONCE XX ; Start 03/31/19 at 20:00; Stop 03/31/19 at 20:01; Status UNV IV Flush (NS 3 ml) 3 ml PER PROTOCOL IV ; Start 03/31/19 at 20:00 Ondansetron HCl (Zofran Inj) 4 mg Q6H PRN IV NAUSEA/VOMITING; Start 03/31/19 at 20:00 Acetaminophen (Tylenol Tab) 650 mg Q6H PRN PO .PAIN 1-3 OR TEMP; Start 03/31/19 at 20:00 Acetaminophen/ Hydrocodone Bitart ([place] (5/325)) 1 tab Q6H PRN PO .MOD PAIN 4- 6; Start 03/31/19 at 20:00 Acetaminophen/ Hydrocodone Bitart ([place] (5/325)) 2 tab Q6H PRN PO .SEVERE PAIN 7-10; Start 03/31/19 at 20:00 Morphine Sulfate (morphine) 2 mg Q4H PRN IV .SEVERE PAIN 7-10; Start 03/31/19 at 20:00 Docusate Sodium (Colace) 100 mg Q12H PRN PO .CONSTIPATION; Start 03/31/19 at 20:00 Magnesium Hydroxide (Milk Of Mag) 30 ml DAILY PRN PO .CONSTIPATION; Start 03/31/19 at 20:00 Pantoprazole (Protonix Tab) 40 mg DAILY@06 PO ; Start 04/01/19 at 06:00 Heparin Sodium (Porcine) (Heparin (5000 Units/1ml)) 5,000 unit Q8 SC ; Start 03/31/19 at 22:00 Coded Allergies: No Known Allergy (Unverified , 03/31/19) Past Surgical History h/o CAD including 9 prior stents, CABG CHAVEZ-LAD, SVG-OM, SVG or radial to OM, SVG-PDA (~5 yrs ago at [facility]) , chronic angina, PE previously on Xarelto, DM, HTN, COPD, Past Surgical Hx: coronary bypass surgery Family History Significant Family History: no pertinent family hx Social History Alcohol Use: none Smoking Status: Never smoker Drug Use: none Exam/Review of Systems Vital Signs Vitals Vital Signs Date Temp Pulse Resp B/P (MAP) Pulse Ox O2 O2 Flow FiO2 Time Delivery Rate 03/31/19 98.2 101 19 166/83 97 17:21 (110) Exam Exam General: Patient is well-developed well-nourished The patient is alert oriented -3 lying comfortably in bed. HEENT: Atraumatic, normocephalic. The pupils are equal, round and reactive. Extraocular motor are intact Neck: Supple with full range of motion. No rigidity or meningismus Chest: Nontender Lungs: Clear to auscultation bilaterally no crackles rales or wheezing Heart: Normal S1-S2, Regular rhythm and rate. No murmur, S3, or S4 Abdomen: Soft , nontender, nondistended , bowel sounds are present. No guarding no rebound tenderness , No masses or organomegaly. No costovertebral temporal angle mass Extremities: Normal to inspection, no edema no cyanosis Neurologic: Normal mental status, speech normal, cranial nerves II through XII are intact, motor and sensory are intact, no focal weakness Additional Comments Conclusions: Normal left ventricular systolic function. Normal left ventricular cavity size. Sigmoid septum. Ejection fraction is visually estimated at 60 %. Tissue Doppler/Mitral Doppler indices are within normal limits. No significant valvular stenosis or regurgitation seen. Estimated peak PA systolic pressure 27 mmHg. Normal size and normal respiratory collapse consistent with normal right atrial pressure. Electronically Signed By: Enoc Argueta 2019-02-23 10:45:02 PRATIK CERVANTES Mar 31, 2019 20:52
[2019-03-31] MEDS ORDERED: ATORVASTATIN 20 MG TAB PO SCH (21:00)
[2019-03-31] MEDS: INSULIN ASPART [NOVOLOG] 3 ML PEN SC SCH (21:00)
[2019-03-31] MEDS ORDERED: GLUCOSE GEL 15 GRAM TUBE BUCCAL PRN (21:00)
[2019-03-31] MEDS ORDERED: GLUCAGON 1 MG INJ IM PRN (21:00)
[2019-03-31] MEDS ORDERED: GLUCOSE GEL 15 GRAM TUBE PO PRN ×2 (21:00)
[2019-03-31] MEDS ORDERED: DEXTROSE 50% 50 ML SYRINGE IV PRN ×2 (21:00)
[2019-03-31] MEDS: HEPARIN 5,000 UNIT/1 ML VIAL SC SCH (21:34)
[2019-03-31] MEDS: GABAPENTIN 300 MG CAP PO SCH (21:41)
[2019-03-31] MEDS ORDERED: ENALAPRILAT 1.25 MG INJ IV PRN (22:00)
[2019-03-31 22:10] VITALS: BP 125/62; PULSE 66; RESP 18
[2019-03-31] MEDS: morphine 2 MG INJ IV PRN (22:19)
[2019-03-31 22:22] VITALS: Ht 167.6 cm; Wt 78.2 kg
[2019-04-01 01:51] VITALS: BP 106/71; PULSE 60; RESP 17
[2019-04-01] MEDS ORDERED: PANTOPRAZOLE (EC) 40 MG TAB PO SCH (06:00)
[2019-04-01] MEDS: morphine 2 MG INJ IV PRN ×4 (06:06→23:24)
[2019-04-01] MEDS: HEPARIN 5,000 UNIT/1 ML VIAL SC SCH ×2 (06:17→14:49)
[2019-04-01] MEDS: GABAPENTIN 300 MG CAP PO SCH ×3 (08:07→20:27)
[2019-04-01] MEDS: LISINOPRIL 5 MG TAB PO SCH (08:07)
[2019-04-01] MEDS: FENOFIBRATE 48 MG TAB PO SCH (08:07)
[2019-04-01] MEDS: ISOSORBIDE MONONITRATE(SR)60 MG TAB PO SCH (08:07)
[2019-04-01] MEDS: INSULIN ASPART [NOVOLOG] 3 ML PEN SC SCH ×4 (08:14→20:36)
[2019-04-01 08:30] VITALS: BP 101/55; PULSE 74; RESP 18
--- NOTE | 2019-04-01 08:58 | CONS ---
Assessment/Plan Assessment/Plan Hospital Course (Demo Recall) Pre-operative evaluation: The patient is to undergo intermediate-high risk surgery (left femoral endarterectomy). He has significant baseline cardiac disease but he has patent bypass grafts as of last month and a preserved EF. No unstable cardiac conditions such as ACS, CHF, arrhythmias, etc. He has chronic stable angina with significant exertion which has now improved with medications. No rest symptoms. Therefore he is intermediate-high risk for surgery but there is nothing to be done to mitigate this risk and he may proceed with surgery as planned. Would be judicious with intra-op fluid management and hopefully can avoid hemodynamic swings with anesthesia induction. PAD with rest ischemia of left foot: plan for endarterectomy as above Chronic stable angina: Cardiac CTA shows patent grafts as of 02/2019. The diffusely diseased/small OM graft was also seen on cath. He has known occlusion of all three kashia coronaries and the grafts anastomose to severely diseased and very small <1.5mm coronaries not amenable to revascularization on cath 06/2017. Minimal symptoms on medical management H/o PE: on Xarelto DM HTN HL Tobacco use -ok for surgery as discussed above -plavix and Xarelto on hold for surgery. Please restart at least plavix as soon as possible post-op and then Xarelto when safe -Ranexa 500mg BID -imdur 60mg -lipitor 80mg -coreg 3.125mg -lisinopril 5mg Consultation Date/Type/Reason Admit Date/Time Date of Consultation: Apr 01, 2019 Type of Consult Cardiology Reason for Consultation Pre-op eval Requesting Provider: PRATIK BETANCUR Date/Time of Note DATE: 04/01/19 TIME: 08:46 Hx of Present Illness 53 yo M with an extensive h/o CAD including 9 prior stents, CABG CHAVEZ-LAD, SVG- OM, SVG or radial to OM, SVG-PDA (~5 yrs ago at [facility]) with cardiac cath 07/06 in setting of NSTEMI showing patent grafts with very small and severely diseased kashia arteries and cardiac CTA 02/2019 showing the same, chronic angina, PAD with severe bilateral disease and left resting claudication with plans for left SFA endarterectomy, h/o PE on Xarelto, DM, HTN, COPD, who presented with worsening rest leg cardenas and is to undergo surgery tomorrow. He notes that his main concern is the left foot pain which has been limiting his ability to work as well as causing sleeping difficulty. He now has rare episodes of exertional chest pain once he restarted his meds (was off them for many months due to loss of insurance). No SOB, orthopnea, PND, edema. per hPI Past Medical History per HPI Home Meds Active Scripts [Medical Note] No Conflict Check Please excuse Mr.Akop Merritt attending work from 03/12/3019 to 03/26/2019 due to his medical condition. Prov:CUELLARLIZZETTE V. JEWELRY CONSULTANT 03/16/19 Gabapentin* (Gabapentin*) 300 Mg Capsule, 300 MG PO TID, #90 CAP Prov:CUELLARARUNAA V. JEWELRY CONSULTANT 03/16/19 Rivaroxaban* (Xarelto*) 10 Mg Tablet, 10 MG PO DAILY, #30 TAB Prov:CUELLARARUNAA V. JEWELRY CONSULTANT 02/23/19 Metformin* (Glucophage*) 1,000 Mg Tablet, 1000 MG PO WITH BREAKFAST DINNE, #60 TAB Prov:LIZZETTE CUELLAR V. JEWELRY CONSULTANT 02/23/19 Nitroglycerin* (Nitroglycerin* SL) 0.4 Mg Tab.subl, 1 TAB SL .Q5M UP TO 3 DOSES PRN for .CHEST PAIN, #1 BOTTLE Prov:LIZZETTE CUELLAR V. JEWELRY CONSULTANT 02/23/19 Atorvastatin Calcium (Atorvastatin Calcium) 20 Mg Tablet, 20 MG PO QHS, #30 TAB Prov:CUELLARARUNA JAINA V. JEWELRY CONSULTANT 02/23/19 Lisinopril* (Lisinopril*) 5 Mg Tablet, 5 MG PO DAILY, #30 TAB Prov:CUELLARARUNAA V. JEWELRY CONSULTANT 02/23/19 Carvedilol* (Carvedilol*) 3.125 Mg Tablet, 3.125 MG PO Q12, #60 TAB Prov:CUELLARLIZZETTE V. JEWELRY CONSULTANT 02/23/19 Fenofibrate Nanocrystallized* (Fenofibrate*) 48 Mg Tablet, 48 MG PO DAILY, #30 TAB Prov:CUELLARLIZZETTE V. JEWELRY CONSULTANT 02/23/19 Isosorbide Mononitrate* (Isosorbide Mononitrate*) 60 Mg Tab.er.24h, 60 MG PO DAILY, #30 TAB Prov:CUELLAR,LIZZETTE V. JEWELRY CONSULTANT 02/23/19 Clopidogrel Bisulfate (Clopidogrel) 75 Mg Tablet, 75 MG PO DAILY, #30 TAB Prov:LIZZETTE CUELLAR V. JEWELRY CONSULTANT 02/23/19 Medications Current Medications Atorvastatin Calcium (Lipitor) 20 mg QHS PO Last administered on 03/31/19 21:34; Admin Dose 20 MG; Start 03/31/19 at 21:00 Fenofibrate (Tricor) 48 mg DAILY PO Last administered on 04/01/19 08:07; Admin Dose 48 MG; Start 04/01/19 at 09:00 Gabapentin (Neurontin) 300 mg TID PO Last administered on 04/01/19 08:07; Admin Dose 300 MG; Start 03/31/19 at 21:00 Isosorbide Mononitrate (Imdur) 60 mg DAILY PO Last administered on 04/01/19 08:07; Admin Dose 60 MG; Start 04/01/19 at 09:00 Lisinopril (Zestril) 5 mg DAILY PO Last administered on 04/01/19 08:07; Admin Dose 5 MG; Start 04/01/19 at 09:00 Nitroglycerin (Nitroglycerin (Sl Tab) 0.4 Mg) 1 tab Q5M UP TO 3 DOSES PRN SL .CHEST PAIN; Start 03/31/19 at 20:00 Insulin Aspart (Novolog Insulin Pen) NOVOLOG *MILD* ALGORITHM WITH MEALS BEDTIME SC Last administered on 04/01/19 08:14; Admin Dose 1 UNIT; Start 03/31/19 at 21:00 IV Flush (NS 3 ml) 3 ml PER PROTOCOL IV ; Start 03/31/19 at 20:00 Ondansetron HCl (Zofran Inj) 4 mg Q6H PRN IV NAUSEA/VOMITING Last administered on 04/01/19 08:07; Admin Dose 4 MG; Start 03/31/19 at 20:00 Acetaminophen (Tylenol Tab) 650 mg Q6H PRN PO .PAIN 1-3 OR TEMP; Start 03/31/19 at 20:00 Acetaminophen/ Hydrocodone Bitart ([place] (5/325)) 1 tab Q6H PRN PO .MOD PAIN 4- 6 Last administered on 03/31/19at 21:19; Admin Dose 1 TAB; Start 03/31/19 at 20:00 Acetaminophen/ Hydrocodone Bitart ([place] (5/325)) 2 tab Q6H PRN PO .SEVERE PAIN 7-10; Start 03/31/19 at 20:00 Morphine Sulfate (morphine) 2 mg Q4H PRN IV .SEVERE PAIN 7-10 Last administered on 04/01/19at 06:06; Admin Dose 2 MG; Start 03/31/19 at 20:00 Docusate Sodium (Colace) 100 mg Q12H PRN PO .CONSTIPATION Last administered on 03/31/19at 21:34; Admin Dose 100 MG; Start 03/31/19 at 20:00 Magnesium Hydroxide (Milk Of Mag) 30 ml DAILY PRN PO .CONSTIPATION; Start 03/31/19 at 20:00 Pantoprazole (Protonix Tab) 40 mg DAILY@06 PO Last administered on 04/01/19at 06:06; Admin Dose 40 MG; Start 04/01/19 at 06:00 Heparin Sodium (Porcine) (Heparin (5000 Units/1ml)) 5,000 unit Q8 SC Last administered on 04/01/19at 06:17; Admin Dose 5,000 UNIT; Start 03/31/19 at 22:00 Miscellaneous Information 1 ea NOTE XX ; Start 03/31/19 at 21:00 Glucose (Glutose) 15 gm Q15M PRN PO DECREASED GLUCOSE; Start 03/31/19 at 21:00 Glucose (Glutose) 22.5 gm Q15M PRN PO DECREASED GLUCOSE; Start 03/31/19 at 21:00 Dextrose (D50w Syringe) 25 ml Q15M PRN IV DECREASED GLUCOSE; Start 03/31/19 at 21:00 Dextrose (D50w Syringe) 50 ml Q15M PRN IV DECREASED GLUCOSE; Start 03/31/19 at 21:00 Glucagon (Glucagen) 1 mg Q15M PRN IM DECREASED GLUCOSE; Start 03/31/19 at 21:00 Glucose (Glutose) 15 gm Q15M PRN BUCCAL DECREASED GLUCOSE; Start 03/31/19 at 21:00 Carvedilol (Coreg) 3.125 mg Q12 PO Last administered on 04/01/19at 08:07; Admin Dose 3.125 MG; Start 03/31/19 at 22:00 Enalaprilat (Vasotec Iv) 0.625 mg Q4H PRN IV ELEVATED BLOOD PRESSURE; Start 03/31/19 at 22:00 Allergies: Coded Allergies: No Known Allergy (Unverified , 03/31/19) Past Surgical History Past Surgical Hx: coronary bypass surgery Social History Alcohol Use: none Smoking Status: Never smoker Drug Use: none Exam/Review of Systems Vital Signs Vitals Vital Signs Date Temp Pulse Resp B/P (MAP) Pulse Ox O2 O2 Flow FiO2 Time Delivery Rate 04/01/19 98.1 74 18 101/55 94 08:30 (70) 03/31/19 Room Air 22:10 Intake and Output 03/31/19 03/31/19 04/01/19 1515:00 23:00 07:00 IntakeIntake Total 500 ml BalanceBalance 500 ml Exam Constitutional: alert, oriented Psych: no complaints, nl mood/affect Head: normocephalic, atraumatic Neck: supple; No jvd Respiratory: diminished breath sounds; No clear to auscultation, No crackles/rales Cardiovascular: regular rate and rhythm; No edema Gastrointestinal: soft, non-tender; No distended Extremities: No normal pulses Neurological: nl mental status, nl speech Labs Result Diagram: 04/01/19 0549 04/01/19 0549 Results 24hrs Laboratory Tests Test 03/31/19 18:31 03/31/19 18:32 03/31/19 21:40 04/01/19 05:49 Hemoglobin A1c 8.7 H White Blood Count 11.6 #H 8.0 # Red Blood Count 5.44 5.49 Hemoglobin 16.4 16.3 Hematocrit 46.9 47.7 Mean Corpuscular 86.2 86.9 Volume Mean Corpuscular 30.1 29.7 Hemoglobin Mean Corpuscular 35.0 34.2 Hemoglobin Concent Red Cell 12.1 12.4 Distribution Width Platelet Count 275 # 223 Mean Platelet Volume 10.2 10.1 Immature 0.500 H 0.600 H Granulocytes % Neutrophils % 62.6 48.3 Lymphocytes % 28.5 40.9 Monocytes % 5.9 7.4 Eosinophils % 1.5 1.8 Basophils % 1.0 1.0 Nucleated Red Blood 0.0 0.0 Cells % Immature 0.060 H 0.050 H Granulocytes # Neutrophils # 7.3 3.9 Lymphocytes # 3.3 H 3.3 H Monocytes # 0.7 0.6 Eosinophils # 0.2 0.1 Basophils # 0.1 0.1 Nucleated Red Blood 0.0 0.0 Cells # Prothrombin Time 15.3 H 14.4 Prothrombin Time 1.2 1.1 Ratio INR International 1.20 1.11 Normalized Ratio Activated 35.2 H 32.2 Partial Thromboplast Time Sodium Level 143 141 Potassium Level 4.4 4.4 Chloride Level 105 105 Carbon Dioxide Level 25 30 Anion Gap 13 6 Blood Urea Nitrogen 14 15 Creatinine 0.72 0.78 Est Glomerular > 60 > 60 Filtrat Rate mL/min Glucose Level 189 152 Calcium Level 10.0 9.3 Lipase 109 Bedside Glucose 143 Test 04/01/19 07:56 Bedside Glucose 166 Medications Medications Current Medications Atorvastatin Calcium (Lipitor) 20 mg QHS PO Last administered on 03/31/19at 21:34; Admin Dose 20 MG; Start 03/31/19 at 21:00 Fenofibrate (Tricor) 48 mg DAILY PO Last administered on 04/01/19at 08:07; Admin Dose 48 MG; Start 04/01/19 at 09:00 Gabapentin (Neurontin) 300 mg TID PO Last administered on 04/01/19at 08:07; Admi n Dose 300 MG; Start 03/31/19 at 21:00 Isosorbide Mononitrate (Imdur) 60 mg DAILY PO Last administered on 04/01/19at 08:07; Admin Dose 60 MG; Start 04/01/19 at 09:00 Lisinopril (Zestril) 5 mg DAILY PO Last administered on 04/01/19at 08:07; Admin Dose 5 MG; Start 04/01/19 at 09:00 Nitroglycerin (Nitroglycerin (Sl Tab) 0.4 Mg) 1 tab Q5M UP TO 3 DOSES PRN SL .CHEST PAIN; Start 03/31/19 at 20:00 Insulin Aspart (Novolog Insulin Pen) NOVOLOG *MILD* ALGORITHM WITH MEALS BEDTIME SC Last administered on 04/01/19at 08:14; Admin Dose 1 UNIT; Start 03/31/19 at 21:00 IV Flush (NS 3 ml) 3 ml PER PROTOCOL IV ; Start 03/31/19 at 20:00 Ondansetron HCl (Zofran Inj) 4 mg Q6H PRN IV NAUSEA/VOMITING Last administered on 04/01/19at 08:07; Admin Dose 4 MG; Start 03/31/19 at 20:00 Acetaminophen (Tylenol Tab) 650 mg Q6H PRN PO .PAIN 1-3 OR TEMP; Start 03/31/19 at 20:00 Acetaminophen/ Hydrocodone Bitart ([place] (5/325)) 1 tab Q6H PRN PO .MOD PAIN 4- 6 Last administered on 03/31/19at 21:19; Admin Dose 1 TAB; Start 03/31/19 at 20:00 Acetaminophen/ Hydrocodone Bitart ([place] (5/325)) 2 tab Q6H PRN PO .SEVERE PAIN 7-10; Start 03/31/19 at 20:00 Morphine Sulfate (morphine) 2 mg Q4H PRN IV .SEVERE PAIN 7-10 Last administered on 04/01/19at 06:06; Admin Dose 2 MG; Start 03/31/19 at 20:00 Docusate Sodium (Colace) 100 mg Q12H PRN PO .CONSTIPATION Last administered on 03/31/19at 21:34; Admin Dose 100 MG; Start 03/31/19 at 20:00 Magnesium Hydroxide (Milk Of Mag) 30 ml DAILY PRN PO .CONSTIPATION; Start 03/31/19 at 20:00 Pantoprazole (Protonix Tab) 40 mg DAILY@06 PO Last administered on 04/01/19at 06:06; Admin Dose 40 MG; Start 04/01/19 at 06:00 Heparin Sodium (Porcine) (Heparin (5000 Units/1ml)) 5,000 unit Q8 SC Last administered on 04/01/19at 06:17; Admin Dose 5,000 UNIT; Start 03/31/19 at 22:00 Miscellaneous Information 1 ea NOTE XX ; Start 03/31/19 at 21:00 Glucose (Glutose) 15 gm Q15M PRN PO DECREASED GLUCOSE; Start 03/31/19 at 21:00 Glucose (Glutose) 22.5 gm Q15M PRN PO DECREASED GLUCOSE; Start 03/31/19 at 21:00 Dextrose (D50w Syringe) 25 ml Q15M PRN IV DECREASED GLUCOSE; Start 03/31/19 at 21:00 Dextrose (D50w Syringe) 50 ml Q15M PRN IV DECREASED GLUCOSE; Start 03/31/19 at 21:00 Glucagon (Glucagen) 1 mg Q15M PRN IM DECREASED GLUCOSE; Start 03/31/19 at 21:00 Glucose (Glutose) 15 gm Q15M PRN BUCCAL DECREASED GLUCOSE; Start 03/31/19 at 21:00 Carvedilol (Coreg) 3.125 mg Q12 PO Last administered on 04/01/19at 08:07; Admin Dose 3.125 MG; Start 03/31/19 at 22:00 Enalaprilat (Vasotec Iv) 0.625 mg Q4H PRN IV ELEVATED BLOOD PRESSURE; Start 03/31/19 at 22:00 KATHLEEN RODRIGES Apr 01, 2019 08:58
[2019-04-01] MEDS: ASPIRIN 325 MG TAB PO SCH (12:29)
[2019-04-01] MEDS: RANOLAZINE (SR) 500 MG TAB PO SCH ×2 (12:30→22:02)
--- NOTE | 2019-04-01 14:48 | PREAC ---
Date/Time of Note Date/Time of Note DATE: 04/01/19 TIME: 14:47 Anesthesia Eval and Record Evaluation Time Pre-Procedure Interview DATE: 04/01/19 TIME: 14:47 Age 53 Sex male NPO: 8 hrs Preoperative diagnosis exacerbation of his left lower extremity peripheral arterial disease Planned procedure LEFT FEMORAL ENDARTERECTOMY Past Medical History Past Medical History: Includes Cardio: HTN, Dyslipidemia, CAD, CABG (CABG CHAVEZ-LAD, SVG-OM, SVG or radial to OM, SVG-PDA (~5 yrs ago at [facility] PTCA/Stent, Other (Angina) Endo: Diabetes Pulm: Smoking Hx, COPD Surgery & Anesthesia Issues No known issue Meds Anticoagulation: No Beta January within 24 hr: No Reason Beta January not given: Pt. not on B-January Active Scripts [Medical Note] No Conflict Check Please excuse Mr.Akop Merritt attending work from 03/12/3019 to 03/26/2019 due to his medical condition. Prov:CUELLAR,LIZZETTE V. AFTER SCHOOL TUTOR 03/16/19 Gabapentin* (Gabapentin*) 300 Mg Capsule, 300 MG PO TID, #90 CAP Prov:CUELLAR,LIZZETTE V. AFTER SCHOOL TUTOR 03/16/19 Rivaroxaban* (Xarelto*) 10 Mg Tablet, 10 MG PO DAILY, #30 TAB Prov:CUELLAR,LIZZETTE V. AFTER SCHOOL TUTOR 02/23/19 Metformin* (Glucophage*) 1,000 Mg Tablet, 1000 MG PO WITH BREAKFAST DINNE, #60 TAB Prov:CUELLAR,LIZZETTE V. AFTER SCHOOL TUTOR 02/23/19 Nitroglycerin* (Nitroglycerin* SL) 0.4 Mg Tab.subl, 1 TAB SL .Q5M UP TO 3 DOSES PRN for .CHEST PAIN, #1 BOTTLE Prov:CUELLAR,LIZZETTE V. AFTER SCHOOL TUTOR 02/23/19 Atorvastatin Calcium (Atorvastatin Calcium) 20 Mg Tablet, 20 MG PO QHS, #30 TAB Prov:CUELLAR,LIZZETTE V. AFTER SCHOOL TUTOR 02/23/19 Lisinopril* (Lisinopril*) 5 Mg Tablet, 5 MG PO DAILY, #30 TAB Prov:CUELLAR,LIZZETTE V. AFTER SCHOOL TUTOR 02/23/19 Carvedilol* (Carvedilol*) 3.125 Mg Tablet, 3.125 MG PO Q12, #60 TAB Prov:CUELLAR,LIZZETTE V. AFTER SCHOOL TUTOR 02/23/19 Fenofibrate Nanocrystallized* (Fenofibrate*) 48 Mg Tablet, 48 MG PO DAILY, #30 TAB Prov:CUELLAR,LIZZETTE V. AFTER SCHOOL TUTOR 02/23/19 Isosorbide Mononitrate* (Isosorbide Mononitrate*) 60 Mg Tab.er.24h, 60 MG PO DAILY, #30 TAB Prov:CUELLAR,LIZZETTE V. AFTER SCHOOL TUTOR 02/23/19 Clopidogrel Bisulfate (Clopidogrel) 75 Mg Tablet, 75 MG PO DAILY, #30 TAB Prov:CUELLAR,LIZZETTE V. AFTER SCHOOL TUTOR 02/23/19 Current Medications Fenofibrate (Tricor) 48 mg DAILY PO Last administered on 04/01/19 08:07; Admin Dose 48 MG; Start 04/01/19 at 09:00 Gabapentin (Neurontin) 300 mg TID PO Last administered on 04/01/19 12:30; Admin Dose 300 MG; Start 03/31/19 at 21:00 Isosorbide Mononitrate (Imdur) 60 mg DAILY PO Last administered on 04/01/19at 08:07; Admin Dose 60 MG; Start 04/01/19 at 09:00 Lisinopril (Zestril) 5 mg DAILY PO Last administered on 04/01/19 08:07; Admin Dose 5 MG; Start 04/01/19 at 09:00 Nitroglycerin (Nitroglycerin (Sl Tab) 0.4 Mg) 1 tab Q5M UP TO 3 DOSES PRN SL .CHEST PAIN; Start 03/31/19 at 20:00 Insulin Aspart (Novolog Insulin Pen) NOVOLOG *MILD* ALGORITHM WITH MEALS BEDTIME SC Last administered on 04/01/19at 12:39; Admin Dose 1 UNIT; Start 03/31/19 at 21:00 IV Flush (NS 3 ml) 3 ml PER PROTOCOL IV ; Start 03/31/19 at 20:00 Ondansetron HCl (Zofran Inj) 4 mg Q6H PRN IV NAUSEA/VOMITING Last administered on 04/01/19 08:07; Admin Dose 4 MG; Start 03/31/19 at 20:00 Acetaminophen (Tylenol Tab) 650 mg Q6H PRN PO .PAIN 1-3 OR TEMP; Start 03/31/19 at 20:00 Acetaminophen/ Hydrocodone Bitart ([place] (5/325)) 1 tab Q6H PRN PO .MOD PAIN 4- 6 Last administered on 03/31/19at 21:19; Admin Dose 1 TAB; Start 03/31/19 at 20:00 Acetaminophen/ Hydrocodone Bitart ([place] (5/325)) 2 tab Q6H PRN PO .SEVERE PAIN 7-10; Start 03/31/19 at 20:00 Morphine Sulfate (morphine) 2 mg Q4H PRN IV .SEVERE PAIN 7-10 Last administered on 04/01/19at 10:29; Admin Dose 2 MG; Start 03/31/19 at 20:00 Docusate Sodium (Colace) 100 mg Q12H PRN PO .CONSTIPATION Last administered on 03/31/19at 21:34; Admin Dose 100 MG; Start 03/31/19 at 20:00 Magnesium Hydroxide (Milk Of Mag) 30 ml DAILY PRN PO .CONSTIPATION; Start 03/31/19 at 20:00 Pantoprazole (Protonix Tab) 40 mg DAILY@06 PO Last administered on 04/01/19at 06:06; Admin Dose 40 MG; Start 04/01/19 at 06:00 Heparin Sodium (Porcine) (Heparin (5000 Units/1ml)) 5,000 unit Q8 SC Last administered on 04/01/19at 06:17; Admin Dose 5,000 UNIT; Start 03/31/19 at 22:00 Miscellaneous Information 1 ea NOTE XX ; Start 03/31/19 at 21:00 Glucose (Glutose) 15 gm Q15M PRN PO DECREASED GLUCOSE; Start 03/31/19 at 21:00 Glucose (Glutose) 22.5 gm Q15M PRN PO DECREASED GLUCOSE; Start 03/31/19 at 21:00 Dextrose (D50w Syringe) 25 ml Q15M PRN IV DECREASED GLUCOSE; Start 03/31/19 at 21:00 Dextrose (D50w Syringe) 50 ml Q15M PRN IV DECREASED GLUCOSE; Start 03/31/19 at 21:00 Glucagon (Glucagen) 1 mg Q15M PRN IM DECREASED GLUCOSE; Start 03/31/19 at 21:00 Glucose (Glutose) 15 gm Q15M PRN BUCCAL DECREASED GLUCOSE; Start 03/31/19 at 21:00 Carvedilol (Coreg) 3.125 mg Q12 PO Last administered on 04/01/19at 08:07; Admin Dose 3.125 MG; Start 03/31/19 at 22:00 Enalaprilat (Vasotec Iv) 0.625 mg Q4H PRN IV ELEVATED BLOOD PRESSURE; Start 03/31/19 at 22:00 Atorvastatin Calcium (Lipitor) 80 mg QHS PO ; Start 04/01/19 at 21:00 Ranolazine (Ranexa) 500 mg Q12 PO Last administered on 04/01/19at 12:30; Admin Dose 500 MG; Start 04/01/19 at 10:00 Aspirin (Aspirin) 325 mg DAILY PO Last administered on 04/01/19at 12:29; Admin Dose 325 MG; Start 04/01/19 at 12:00 Meds reviewed: Yes Allergies Coded Allergies: No Known Allergy (Unverified , 03/31/19) Allergies Reviewed: Yes Labs/Studies Labs Reviewed: Reviewed by anesthesiologist Result Diagram: 04/01/19 0549 04/01/19 0549 Laboratory Tests 04/01/19 05:49 test: N/A Studies: ECG, CXR (Cardiomegaly with new mild failure, and new mild bibasilar atelectasis versus airspace disease.), 2D Echo (EF 60%) Pre-procedure Exam Last vitals Vital Signs Date Temp Pulse Resp B/P (MAP) Pulse Ox O2 O2 Flow FiO2 Time Delivery Rate 04/01/19 98.1 74 18 101/55 94 08:30 (70) 03/31/19 Room Air 22:10 Airway: Adequate mouth opening Mallampati: Mallampati II Teeth: Normal Lung: Normal Heart: Normal ASA Physical Status ASA physical status: 3 Emergency: None Planned Anesthetic General/MAC: ETT Pre-operative Attestations Prior to commencing anesthesia and surgery, the patient was re-evaluated, there was verification of: *The patient's identity *The results of appropriate recent lab work and preoperative vital signs *The above evaluation not changing prior to induction *Anesthetic plan, risk benefits, alternative and complications discussed with patient/family; questions answered; patient/family understands, accepts and wishes to proceed. ANNI OKEEFE Apr 01, 2019 14:48
[2019-04-01 14:55] VITALS: BP 97/53; PULSE 77; RESP 18
--- NOTE | 2019-04-01 14:59 | RADRPT ---
Vent Rate: 71 bpm RR Interval: 852 msec OK Interval: 182 msec QRS Duration: 82 msec QT Interval: 408 msec QTC Interval: 442 msec P-R-T Hope: 29 - 45 - 52 degrees Sinus rhythm...normal P axis, V-rate 50- 99 Electronically Signed By: Nayan Dhaliwal
--- NOTE | 2019-04-01 15:28 | PN ---
Date/Time of Note Date/Time of Note DATE: 04/01/19 TIME: 15:25 Assessment/Plan VTE Prophylaxis Risk score (from [facility] [place])>0 risk: 3 SCD applied (from [facility] [place]): No SCD contraindicated: low risk/ambulating Pharmacological prophylaxis: NA/contraindicated Pharm contraindication: surgical contra Lines/Catheters IV C[facility]ter Type (from [facility] [place] Urinary Cath still in place: No Assessment/Plan Hospital Course A/P 1. Intermittent claudication, PAD, for surgery tomorrow Intermediate/ high risk, patient stable for surgery 2. Chronic CAD/ stents. Patient optimized and ready for surgery. Plavix once stable from surgical standpoint 3. Chr PE, on Xarelto on hold as expected 4. Type 2 diabetes A1c 8.7 not at goal 5. Dyslipidemia low HDL 6. Hypertension stable S: No distress no chest pain angina O: Vital signs stable PE No pallor s1s2 reg no m/r/g Clear Bs + nt nd no RRG No edema Result Diagram: 04/01/19 0549 04/01/19 0549 Results 24hrs Laboratory Tests Test 03/31/19 18:31 03/31/19 18:32 03/31/19 21:40 04/01/19 05:49 Hemoglobin A1c 8.7 H White Blood Count 11.6 #H 8.0 # Red Blood Count 5.44 5.49 Hemoglobin 16.4 16.3 Hematocrit 46.9 47.7 Mean Corpuscular 86.2 86.9 Volume Mean Corpuscular 30.1 29.7 Hemoglobin Mean Corpuscular 35.0 34.2 Hemoglobin Concent Red Cell 12.1 12.4 Distribution Width Platelet Count 275 # 223 Mean Platelet Volume 10.2 10.1 Immature 0.500 H 0.600 H Granulocytes % Neutrophils % 62.6 48.3 Lymphocytes % 28.5 40.9 Monocytes % 5.9 7.4 Eosinophils % 1.5 1.8 Basophils % 1.0 1.0 Nucleated Red Blood 0.0 0.0 Cells % Immature 0.060 H 0.050 H Granulocytes # Neutrophils # 7.3 3.9 Lymphocytes # 3.3 H 3.3 H Monocytes # 0.7 0.6 Eosinophils # 0.2 0.1 Basophils # 0.1 0.1 Nucleated Red Blood 0.0 0.0 Cells # Prothrombin Time 15.3 H 14.4 Prothrombin Time 1.2 1.1 Ratio INR International 1.20 1.11 Normalized Ratio Activated 35.2 H 32.2 Partial Thromboplast Time Sodium Level 143 141 Potassium Level 4.4 4.4 Chloride Level 105 105 Carbon Dioxide Level 25 30 Anion Gap 13 6 Blood Urea Nitrogen 14 15 Creatinine 0.72 0.78 Est Glomerular > 60 > 60 Filtrat Rate mL/min Glucose Level 189 152 Calcium Level 10.0 9.3 Lipase 109 Bedside Glucose 143 Test 04/01/19 07:56 04/01/19 12:16 Bedside Glucose 166 162 Exam/Review of Systems Exam Vitals Vital Signs Date Temp Pulse Resp B/P (MAP) Pulse Ox O2 O2 Flow FiO2 Time Delivery Rate 04/01/19 98.1 77 18 97/53 (68) 94 14:55 03/31/19 Room Air 22:10 Intake and Output 03/31/19 03/31/19 04/01/19 1515:00 23:00 07:00 IntakeIntake Total 500 ml BalanceBalance 500 ml Results Results 24hrs Laboratory Tests Test 03/31/19 18:31 03/31/19 18:32 03/31/19 21:40 04/01/19 05:49 Hemoglobin A1c 8.7 H White Blood Count 11.6 #H 8.0 # Red Blood Count 5.44 5.49 Hemoglobin 16.4 16.3 Hematocrit 46.9 47.7 Mean Corpuscular 86.2 86.9 Volume Mean Corpuscular 30.1 29.7 Hemoglobin Mean Corpuscular 35.0 34.2 Hemoglobin Concent Red Cell 12.1 12.4 Distribution Width Platelet Count 275 # 223 Mean Platelet Volume 10.2 10.1 Immature 0.500 H 0.600 H Granulocytes % Neutrophils % 62.6 48.3 Lymphocytes % 28.5 40.9 Monocytes % 5.9 7.4 Eosinophils % 1.5 1.8 Basophils % 1.0 1.0 Nucleated Red Blood 0.0 0.0 Cells % Immature 0.060 H 0.050 H Granulocytes # Neutrophils # 7.3 3.9 Lymphocytes # 3.3 H 3.3 H Monocytes # 0.7 0.6 Eosinophils # 0.2 0.1 Basophils # 0.1 0.1 Nucleated Red Blood 0.0 0.0 Cells # Prothrombin Time 15.3 H 14.4 Prothrombin Time 1.2 1.1 Ratio INR International 1.20 1.11 Normalized Ratio Activated 35.2 H 32.2 Partial Thromboplast Time Sodium Level 143 141 Potassium Level 4.4 4.4 Chloride Level 105 105 Carbon Dioxide Level 25 30 Anion Gap 13 6 Blood Urea Nitrogen 14 15 Creatinine 0.72 0.78 Est Glomerular > 60 > 60 Filtrat Rate mL/min Glucose Level 189 152 Calcium Level 10.0 9.3 Lipase 109 Bedside Glucose 143 Test 04/01/19 07:56 04/01/19 12:16 Bedside Glucose 166 162 Medications Medication Current Medications Fenofibrate (Tricor) 48 mg DAILY PO Last administered on 04/01/19 08:07; Admin Dose 48 MG; Start 04/01/19 at 09:00 Gabapentin (Neurontin) 300 mg TID PO Last administered on 04/01/19 12:30; Admin Dose 300 MG; Start 03/31/19 at 21:00 Isosorbide Mononitrate (Imdur) 60 mg DAILY PO Last administered on 04/01/19 08:07; Admin Dose 60 MG; Start 04/01/19 at 09:00 Lisinopril (Zestril) 5 mg DAILY PO Last administered on 04/01/19 08:07; Admin Dose 5 MG; Start 04/01/19 at 09:00 Nitroglycerin (Nitroglycerin (Sl Tab) 0.4 Mg) 1 tab Q5M UP TO 3 DOSES PRN SL .CHEST PAIN; Start 03/31/19 at 20:00 Insulin Aspart (Novolog Insulin Pen) NOVOLOG *MILD* ALGORITHM WITH MEALS BEDTIME SC Last administered on 04/01/19at 12:39; Admin Dose 1 UNIT; Start 03/31/19 at 21:00 IV Flush (NS 3 ml) 3 ml PER PROTOCOL IV ; Start 03/31/19 at 20:00 Ondansetron HCl (Zofran Inj) 4 mg Q6H PRN IV NAUSEA/VOMITING Last administered on 04/01/19 08:07; Admin Dose 4 MG; Start 03/31/19 at 20:00 Acetaminophen (Tylenol Tab) 650 mg Q6H PRN PO .PAIN 1-3 OR TEMP; Start 03/31/19 at 20:00 Acetaminophen/ Hydrocodone Bitart ([place] (5/325)) 1 tab Q6H PRN PO .MOD PAIN 4- 6 Last administered on 03/31/19at 21:19; Admin Dose 1 TAB; Start 03/31/19 at 20:00 Acetaminophen/ Hydrocodone Bitart ([place] (5/325)) 2 tab Q6H PRN PO .SEVERE PAIN 7-10; Start 03/31/19 at 20:00 Morphine Sulfate (morphine) 2 mg Q4H PRN IV .SEVERE PAIN 7-10 Last administered on 04/01/19at 10:29; Admin Dose 2 MG; Start 03/31/19 at 20:00 Docusate Sodium (Colace) 100 mg Q12H PRN PO .CONSTIPATION Last administered on 03/31/19at 21:34; Admin Dose 100 MG; Start 03/31/19 at 20:00 Magnesium Hydroxide (Milk Of Mag) 30 ml DAILY PRN PO .CONSTIPATION; Start 03/31/19 at 20:00 Pantoprazole (Protonix Tab) 40 mg DAILY@06 PO Last administered on 04/01/19at 06:06; Admin Dose 40 MG; Start 04/01/19 at 06:00 Heparin Sodium (Porcine) (Heparin (5000 Units/1ml)) 5,000 unit Q8 SC Last administered on 04/01/19at 14:49; Admin Dose 5,000 UNIT; Start 03/31/19 at 22:00 Miscellaneous Information 1 ea NOTE XX ; Start 03/31/19 at 21:00 Glucose (Glutose) 15 gm Q15M PRN PO DECREASED GLUCOSE; Start 03/31/19 at 21:00 Glucose (Glutose) 22.5 gm Q15M PRN PO DECREASED GLUCOSE; Start 03/31/19 at 21:00 Dextrose (D50w Syringe) 25 ml Q15M PRN IV DECREASED GLUCOSE; Start 03/31/19 at 21:00 Dextrose (D50w Syringe) 50 ml Q15M PRN IV DECREASED GLUCOSE; Start 03/31/19 at 21:00 Glucagon (Glucagen) 1 mg Q15M PRN IM DECREASED GLUCOSE; Start 03/31/19 at 21:00 Glucose (Glutose) 15 gm Q15M PRN BUCCAL DECREASED GLUCOSE; Start 03/31/19 at 21:00 Carvedilol (Coreg) 3.125 mg Q12 PO Last administered on 04/01/19at 08:07; Admin Dose 3.125 MG; Start 03/31/19 at 22:00 Enalaprilat (Vasotec Iv) 0.625 mg Q4H PRN IV ELEVATED BLOOD PRESSURE; Start 03/31/19 at 22:00 Atorvastatin Calcium (Lipitor) 80 mg QHS PO ; Start 04/01/19 at 21:00 Ranolazine (Ranexa) 500 mg Q12 PO Last administered on 04/01/19at 12:30; Admin Dose 500 MG; Start 04/01/19 at 10:00 Aspirin (Aspirin) 325 mg DAILY PO Last administered on 04/01/19at 12:29; Admin Dose 325 MG; Start 04/01/19 at 12:00 MERYL HA MD Apr 01, 2019 15:28
[2019-04-01 19:34] VITALS: BP 113/58; PULSE 68; RESP 17
[2019-04-01] MEDS: ATORVASTATIN 80 MG TAB PO SCH (20:27)
[2019-04-01] MEDS: HYDROCODONE/APAP (10/325) TAB PO PRN (20:29)
[2019-04-02] VITALS (36 sets, daily range): BP systolic 110–136; BP diastolic 46–89; PULSE 82–98; RESP 13–32
[2019-04-02] MEDS: DEXTROSE 5%-0.45% NACL 1,000 ML IV SCH ×2 (00:27→17:11)
[2019-04-02] MEDS: INSULIN ASPART [NOVOLOG] 3 ML PEN SC SCH ×6 (00:42→20:53)
[2019-04-02] MEDS: morphine 2 MG INJ IV PRN ×2 (05:33→09:47)
[2019-04-02] MEDS: GABAPENTIN 300 MG CAP PO SCH ×3 (09:00→20:55)
[2019-04-02] MEDS: LISINOPRIL 5 MG TAB PO SCH (09:00)
[2019-04-02] MEDS: FENOFIBRATE 48 MG TAB PO SCH (09:00)
[2019-04-02] MEDS: RANOLAZINE (SR) 500 MG TAB PO SCH ×2 (09:00→20:55)
[2019-04-02] MEDS: ISOSORBIDE MONONITRATE(SR)60 MG TAB PO SCH (09:00)
[2019-04-02] MEDS: ASPIRIN 325 MG TAB PO SCH (09:00)
[2019-04-02] MEDS: FAMOTIDINE 20 MG TAB PO SCH (09:00)
[2019-04-02] MEDS ORDERED: GELATIN SIZE 100 SPONGE ONE (12:08)
[2019-04-02] MEDS ORDERED: THROMBIN 5000 UNIT VIAL ONE (12:08)
[2019-04-02] MEDS ORDERED: HEPARIN 1000 UNITS/ML 10 ML INJ ONE ×2 (12:09→14:05)
--- NOTE | 2019-04-02 12:24 | CONS ---
Assessment/Plan Assessment/Plan Hospital Course (Demo Recall) Pre-operative evaluation: The patient is to undergo intermediate-high risk surgery (left femoral endarterectomy). He has significant baseline cardiac disease but he has patent bypass grafts as of last month and a preserved EF. No unstable cardiac conditions such as ACS, CHF, arrhythmias, etc. He has chronic stable angina with significant exertion which has now improved with medications. No rest symptoms. Therefore he is intermediate-high risk for surgery but there is nothing to be done to mitigate this risk and he may proceed with surgery as planned. Would be judicious with intra-op fluid management and hopefully can avoid hemodynamic swings with anesthesia induction. PAD with rest ischemia of left foot: plan for endarterectomy as above Chronic stable angina: Cardiac CTA shows patent grafts as of 02/2019. The diffusely diseased/small OM graft was also seen on cath. He has known occlusion of all three deering coronaries and the grafts anastomose to severely diseased and very small <1.5mm coronaries not amenable to revascularization on cath 06/2017. Minimal symptoms on medical management H/o PE: on Xarelto DM HTN HL Tobacco use -ok for surgery as discussed above -plavix and Xarelto on hold for surgery. Please restart at least plavix as soon as possible post-op and then Xarelto when safe -Ranexa 500mg BID -imdur 60mg -lipitor 80mg -coreg 3.125mg -lisinopril 5mg Consultation Date/Type/Reason Admit Date/Time Mar 31, 2019 at 18:52 Initial Consult Date 04/01/19 Type of Consult Cardiology Requesting Provider: PRATIK BETANCUR Date/Time of Note DATE: 04/02/19 TIME: 12:23 24 HR Interval Summary Free Text/Dictation Awaiting surgery soon. No complaints. No chest pain or SOB at this time Exam/Review of Systems Vital Signs Vitals Vital Signs Date Temp Pulse Resp B/P (MAP) Pulse Ox O2 O2 Flow FiO2 Time Delivery Rate 04/02/19 98.5 86 20 118/60 94 08:03 (79) 03/31/19 Room Air 22:10 Intake and Output 04/01/19 04/01/19 04/02/19 1515:00 23:00 07:00 IntakeIntake Total 600 ml BalanceBalance 600 ml Exam Constitutional: alert, oriented Psych: no complaints, nl mood/affect Head: normocephalic, atraumatic Respiratory: clear to auscultation; No crackles/rales Cardiovascular: regular rate and rhythm; No edema, No systolic murmur Gastrointestinal: soft, non-tender; No distended Extremities: No normal pulses Neurological: nl mental status, nl speech Labs Result Diagram: 04/02/19 0553 04/02/19 0553 Results 24hrs Laboratory Tests Test 04/01/19 17:34 04/01/19 20:23 04/02/19 00:28 04/02/19 05:37 Bedside Glucose 166 185 204 231 H Test 04/02/19 05:53 04/02/19 08:57 White Blood Count 7.2 Red Blood Count 4.90 Hemoglobin 14.7 Hematocrit 42.1 Mean Corpuscular 85.9 Volume Mean Corpuscular 30.0 Hemoglobin Mean Corpuscular 34.9 Hemoglobin Concent Red Cell 12.2 Distribution Width Platelet Count 200 Mean Platelet Volume 10.1 Immature 0.400 Granulocytes % Neutrophils % 55.5 Lymphocytes % 33.7 Monocytes % 8.1 Eosinophils % 1.5 Basophils % 0.8 Nucleated Red Blood 0.0 Cells % Immature 0.030 Granulocytes # Neutrophils # 4.0 Lymphocytes # 2.4 Monocytes # 0.6 Eosinophils # 0.1 Basophils # 0.1 Nucleated Red Blood 0.0 Cells # Sodium Level 139 Potassium Level 3.8 Chloride Level 106 Carbon Dioxide Level 26 Anion Gap 7 Blood Urea Nitrogen 16 Creatinine 0.82 Est Glomerular > 60 Filtrat Rate mL/min Glucose Level 224 H Calcium Level 8.8 Total Bilirubin 0.3 Direct Bilirubin 0.00 Indirect Bilirubin 0.3 Aspartate Amino 23 Transf (AST/SGOT) Alanine 32 Aminotransferase (AL T/SGPT) Alkaline Phosphatase 59 Total Protein 6.0 L Albumin 3.5 Globulin 2.50 Albumin/Globulin 1.40 Ratio Bedside Glucose 221 H Medications Medications Current Medications Fenofibrate (Tricor) 48 mg DAILY PO Last administered on 04/01/19at 08:07; Admin Dose 48 MG; Start 04/01/19 at 09:00 Gabapentin (Neurontin) 300 mg TID PO Last administered on 04/01/19at 20:27; Admin Dose 300 MG; Start 03/31/19 at 21:00 Isosorbide Mononitrate (Imdur) 60 mg DAILY PO Last administered on 04/01/19at 08:07; Admin Dose 60 MG; Start 04/01/19 at 09:00 Lisinopril (Zestril) 5 mg DAILY PO Last administered on 04/01/19at 08:07; Admin Dose 5 MG; Start 04/01/19 at 09:00 Nitroglycerin (Nitroglycerin (Sl Tab) 0.4 Mg) 1 tab Q5M UP TO 3 DOSES PRN SL .CHEST PAIN; Start 03/31/19 at 20:00 IV Flush (NS 3 ml) 3 ml PER PROTOCOL IV ; Start 03/31/19 at 20:00 Ondansetron HCl (Zofran Inj) 4 mg Q6H PRN IV NAUSEA/VOMITING Last administered on 04/01/19at 08:07; Admin Dose 4 MG; Start 03/31/19 at 20:00 Acetaminophen (Tylenol Tab) 650 mg Q6H PRN PO .PAIN 1-3 OR TEMP; Start 03/31/19 at 20:00 Morphine Sulfate (morphine) 2 mg Q4H PRN IV .SEVERE PAIN 7-10 Last administered on 04/02/19at 09:47; Admin Dose 2 MG; Start 03/31/19 at 20:00 Docusate Sodium (Colace) 100 mg Q12H PRN PO .CONSTIPATION Last administered on 03/31/19at 21:34; Admin Dose 100 MG; Start 03/31/19 at 20:00 Miscellaneous Information 1 ea NOTE XX ; Start 03/31/19 at 21:00 Glucose (Glutose) 15 gm Q15M PRN PO DECREASED GLUCOSE; Start 03/31/19 at 21:00 Glucose (Glutose) 22.5 gm Q15M PRN PO DECREASED GLUCOSE; Start 03/31/19 at 21:00 Dextrose (D50w Syringe) 25 ml Q15M PRN IV DECREASED GLUCOSE; Start 03/31/19 at 21:00 Dextrose (D50w Syringe) 50 ml Q15M PRN IV DECREASED GLUCOSE; Start 03/31/19 at 21:00 Glucagon (Glucagen) 1 mg Q15M PRN IM DECREASED GLUCOSE; Start 03/31/19 at 21:00 Glucose (Glutose) 15 gm Q15M PRN BUCCAL DECREASED GLUCOSE; Start 03/31/19 at 21:00 Carvedilol (Coreg) 3.125 mg Q12 PO Last administered on 04/01/19 08:07; Admin Dose 3.125 MG; Start 03/31/19 at 22:00 Enalaprilat (Vasotec Iv) 0.625 mg Q4H PRN IV ELEVATED BLOOD PRESSURE; Start 03/31/19 at 22:00 Atorvastatin Calcium (Lipitor) 80 mg QHS PO Last administered on 04/01/19 20:27; Admin Dose 80 MG; Start 04/01/19 at 21:00 Ranolazine (Ranexa) 500 mg Q12 PO Last administered on 04/01/19 22:02; Admin Dose 500 MG; Start 04/01/19 at 10:00 Aspirin (Aspirin) 325 mg DAILY PO Last administered on 04/01/19 12:29; Admin Dose 325 MG; Start 04/01/19 at 12:00 Acetaminophen/ Hydrocodone Bitart ([place] (10/325)) 1 tab Q3H PRN PO MODERATE PAIN LEVEL 4-6 Last administered on 04/01/19 20:29; Admin Dose 1 TAB; Start 04/01/19 at 15:30 Famotidine (Pepcid) 20 mg DAILY PO ; Start 04/02/19 at 09:00 Dextrose/Sodium Chloride 1,000 ml @ 70 mls/hr [id number] IV Last administered on 04/02/19 00:27; Admin Dose 70 MLS/HR; Start 04/02/19 at 00:00 Insulin Aspart (Novolog Insulin Pen) NOVOLOG *MILD* ALGORI... Q4 SC Last administered on 04/02/19 09:07; Admin Dose 3 UNIT; Start 04/02/19 at 01:00 KATHLEEN RODRIGES Apr 02, 2019 12:24
[2019-04-02] MEDS ORDERED: MIDAZOLAM 1 MG/ML 2 ML INJ ONE (12:45)
--- NOTE | 2019-04-02 13:02 | HPN ---
Date/Time of Note Date/Time of Note DATE: 04/02/19 TIME: 13:02 Interval H&P Admission Note Pt. seen H&P reviewed: No system changes JAYLEEN NOLAN MD Apr 02, 2019 13:02
[2019-04-02] MEDS ORDERED: CEFAZOLIN 1 GM INJ ONE (15:09)
[2019-04-02] MEDS ORDERED: ETOMIDATE 20 MG INJ ONE (15:09)
[2019-04-02] MEDS ORDERED: LIDOCAINE 2% (SDV) 5 ML INJ ONE (15:09)
[2019-04-02] MEDS ORDERED: ROCURONIUM 50 MG INJ ONE (15:09)
--- NOTE | 2019-04-02 15:09 | SIPON ---
Date/Time of Note Date/Time of Note DATE: 04/02/19 TIME: 15:06 Operative Report Preoperative Diagnosis Left foot rest pain Postoperative Diagnosis same Operation/Procedure Performed Left deep femoral endarterectomy / Bov[place] carotid patch angioplasty Surgeon see signature line psych assistant JACQUELINE Park Anesthesia: general Estimated blood loss: 10 - 50 ml's Transfusion Required none Specimen deep femoral artery plaque Grafts/Implants none Complications none JAYLEEN NOLAN MD Apr 02, 2019 15:09
[2019-04-02] MEDS ORDERED: ONDANSETRON 4 MG INJ ONE (15:10)
--- NOTE | 2019-04-02 15:25 | PAC ---
Date/Time of Note Date/Time of Note DATE: 04/02/19 TIME: 15:24 Post-Anesthesia Notes Post-Anesthesia Note Last documented vital signs Vital Signs Date Temp Pulse Resp B/P (MAP) Pulse Ox O2 O2 Flow FiO2 Time Delivery Rate 04/02/19 98.0 15:19 04/02/19 86 20 118/60 94 08:03 (79) 03/31/19 Room Air 22:10 Activity: WNL Respiratory function: WNL Cardiovascular function: WNL Mental status: Baseline Pain reasonably controlled: Yes Hydration appropriate: Yes Nausea/Vomiting absent: Yes Comments BP:124/67, P:78, SPo2:100%, T:98,8 RICCARDO DURBIN MD Apr 02, 2019 15:25
[2019-04-02] MEDS ORDERED: FENTAnyl 50 MCG/ML VIAL IV PRN (15:30)
[2019-04-02] MEDS ORDERED: METOCLOPRAMIDE 10 MG INJ IV PRN (15:30)
[2019-04-02] MEDS ORDERED: HYDROmorphONE 1 MG/5 ML IV SYRINGE IV PRN ×2 (15:30)
[2019-04-02] MEDS ORDERED: MEPERIDINE 25 MG INJ IV PRN (15:30)
[2019-04-02] MEDS ORDERED: LABETALOL HCL 20MG INJ IV PRN (15:30)
[2019-04-02] MEDS ORDERED: hydrALAzine 20 MG INJ IV PRN (15:30)
[2019-04-02] MEDS ORDERED: ONDANSETRON 4 MG INJ IV PRN (15:30)
[2019-04-02] MEDS ORDERED: DIPHENHYDRAMINE 50 MG INJ IV PRN (15:30)
--- NOTE | 2019-04-02 15:55 | PN ---
Date/Time of Note Date/Time of Note DATE: 04/02/19 TIME: 15:54 Assessment/Plan VTE Prophylaxis Risk score (from [facility])>0 risk: 2 SCD applied (from [facility] [place]): No SCD contraindicated: low risk/ambulating Pharmacological prophylaxis: NA/contraindicated Pharm contraindication: surgical contra Lines/Catheters IV Catheter Type (from [facility] A Line Urinary Cath still in place: No Assessment/Plan Hospital Course A/P 1. Intermittent claudication, PAD, for surgery Intermediate/ high risk, patient stable for surgery 2. Chronic CAD/ stents. Patient optimized and ready for surgery. Plavix once stable from surgical standpoint 3. Chr PE, on Xarelto on hold as expected 4. Type 2 diabetes A1c 8.7 not at goal 5. Dyslipidemia low HDL 6. Hypertension stable S: 04/01 no distress no chest pain angina 04/02 patient had no more O: Vital signs stable PE Deferred Patient in OR Result Diagram: 04/02/19 0553 04/02/19 0553 Results 24hrs Laboratory Tests Test 04/01/19 17:34 04/01/19 20:23 04/02/19 00:28 04/02/19 05:37 Bedside Glucose 166 185 204 231 H Test 04/02/19 05:53 04/02/19 08:57 White Blood Count 7.2 Red Blood Count 4.90 Hemoglobin 14.7 Hematocrit 42.1 Mean Corpuscular 85.9 Volume Mean Corpuscular 30.0 Hemoglobin Mean Corpuscular 34.9 Hemoglobin Concent Red Cell 12.2 Distribution Width Platelet Count 200 Mean Platelet Volume 10.1 Immature 0.400 Granulocytes % Neutrophils % 55.5 Lymphocytes % 33.7 Monocytes % 8.1 Eosinophils % 1.5 Basophils % 0.8 Nucleated Red Blood 0.0 Cells % Immature 0.030 Granulocytes # Neutrophils # 4.0 Lymphocytes # 2.4 Monocytes # 0.6 Eosinophils # 0.1 Basophils # 0.1 Nucleated Red Blood 0.0 Cells # Sodium Level 139 Potassium Level 3.8 Chloride Level 106 Carbon Dioxide Level 26 Anion Gap 7 Blood Urea Nitrogen 16 Creatinine 0.82 Est Glomerular > 60 Filtrat Rate mL/min Glucose Level 224 H Calcium Level 8.8 Total Bilirubin 0.3 Direct Bilirubin 0.00 Indirect Bilirubin 0.3 Aspartate Amino 23 Transf (AST/SGOT) Alanine 32 Aminotransferase (AL T/SGPT) Alkaline Phosphatase 59 Total Protein 6.0 L Albumin 3.5 Globulin 2.50 Albumin/Globulin 1.40 Ratio Bedside Glucose 221 H Exam/Review of Systems Exam Vitals Vital Signs Date Temp Pulse Resp B/P (MAP) Pulse Ox O2 O2 Flow FiO2 Time Delivery Rate 04/02/19 98.0 15:19 04/02/19 88 18 126/62 99 Mask 6.0 15:15 (83) Intake and Output 04/01/19 04/01/19 04/02/19 1515:00 23:00 07:00 IntakeIntake Total 600 ml BalanceBalance 600 ml Results Results 24hrs Laboratory Tests Test 04/01/19 17:34 04/01/19 20:23 04/02/19 00:28 04/02/19 05:37 Bedside Glucose 166 185 204 231 H Test 04/02/19 05:53 04/02/19 08:57 White Blood Count 7.2 Red Blood Count 4.90 Hemoglobin 14.7 Hematocrit 42.1 Mean Corpuscular 85.9 Volume Mean Corpuscular 30.0 Hemoglobin Mean Corpuscular 34.9 Hemoglobin Concent Red Cell 12.2 Distribution Width Platelet Count 200 Mean Platelet Volume 10.1 Immature 0.400 Granulocytes % Neutrophils % 55.5 Lymphocytes % 33.7 Monocytes % 8.1 Eosinophils % 1.5 Basophils % 0.8 Nucleated Red Blood 0.0 Cells % Immature 0.030 Granulocytes # Neutrophils # 4.0 Lymphocytes # 2.4 Monocytes # 0.6 Eosinophils # 0.1 Basophils # 0.1 Nucleated Red Blood 0.0 Cells # Sodium Level 139 Potassium Level 3.8 Chloride Level 106 Carbon Dioxide Level 26 Anion Gap 7 Blood Urea Nitrogen 16 Creatinine 0.82 Est Glomerular > 60 Filtrat Rate mL/min Glucose Level 224 H Calcium Level 8.8 Total Bilirubin 0.3 Direct Bilirubin 0.00 Indirect Bilirubin 0.3 Aspartate Amino 23 Transf (AST/SGOT) Alanine 32 Aminotransferase (AL T/SGPT) Alkaline Phosphatase 59 Total Protein 6.0 L Albumin 3.5 Globulin 2.50 Albumin/Globulin 1.40 Ratio Bedside Glucose 221 H Medications Medication Current Medications Fenofibrate (Tricor) 48 mg DAILY PO Last administered on 04/01/19at 08:07; Admin Dose 48 MG; Start 04/01/19 at 09:00 Gabapentin (Neurontin) 300 mg TID PO Last administered on 04/01/19at 20:27; Admin Dose 300 MG; Start 03/31/19 at 21:00 Isosorbide Mononitrate (Imdur) 60 mg DAILY PO Last administered on 04/01/19at 08:07; Admin Dose 60 MG; Start 04/01/19 at 09:00 Lisinopril (Zestril) 5 mg DAILY PO Last administered on 04/01/19at 08:07; Admin Dose 5 MG; Start 04/01/19 at 09:00 Nitroglycerin (Nitroglycerin (Sl Tab) 0.4 Mg) 1 tab Q5M UP TO 3 DOSES PRN SL .CHEST PAIN; Start 03/31/19 at 20:00 IV Flush (NS 3 ml) 3 ml PER PROTOCOL IV ; Start 03/31/19 at 20:00 Ondansetron HCl (Zofran Inj) 4 mg Q6H PRN IV NAUSEA/VOMITING Last administered on 04/01/19at 08:07; Admin Dose 4 MG; Start 03/31/19 at 20:00 Acetaminophen (Tylenol Tab) 650 mg Q6H PRN PO .PAIN 1-3 OR TEMP; Start 03/31/19 at 20:00 Morphine Sulfate (morphine) 2 mg Q4H PRN IV .SEVERE PAIN 7-10 Last administered on 04/02/19at 09:47; Admin Dose 2 MG; Start 03/31/19 at 20:00 Docusate Sodium (Colace) 100 mg Q12H PRN PO .CONSTIPATION Last administered on 03/31/19at 21:34; Admin Dose 100 MG; Start 03/31/19 at 20:00 Miscellaneous Information 1 ea NOTE XX ; Start 03/31/19 at 21:00 Glucose (Glutose) 15 gm Q15M PRN PO DECREASED GLUCOSE; Start 03/31/19 at 21:00 Glucose (Glutose) 22.5 gm Q15M PRN PO DECREASED GLUCOSE; Start 03/31/19 at 21:00 Dextrose (D50w Syringe) 25 ml Q15M PRN IV DECREASED GLUCOSE; Start 03/31/19 at 21:00 Dextrose (D50w Syringe) 50 ml Q15M PRN IV DECREASED GLUCOSE; Start 03/31/19 at 21:00 Glucagon (Glucagen) 1 mg Q15M PRN IM DECREASED GLUCOSE; Start 03/31/19 at 21:00 Glucose (Glutose) 15 gm Q15M PRN BUCCAL DECREASED GLUCOSE; Start 03/31/19 at 21:00 Carvedilol (Coreg) 3.125 mg Q12 PO Last administered on 04/01/19at 08:07; Admin Dose 3.125 MG; Start 03/31/19 at 22:00 Enalaprilat (Vasotec Iv) 0.625 mg Q4H PRN IV ELEVATED BLOOD PRESSURE; Start 03/31/19 at 22:00 Atorvastatin Calcium (Lipitor) 80 mg QHS PO Last administered on 04/01/19at 20:27; Admin Dose 80 MG; Start 04/01/19 at 21:00 Ranolazine (Ranexa) 500 mg Q12 PO Last administered on 04/01/19at 22:02; Admin Dose 500 MG; Start 04/01/19 at 10:00 Aspirin (Aspirin) 325 mg DAILY PO Last administered on 04/01/19at 12:29; Admin Dose 325 MG; Start 04/01/19 at 12:00 Acetaminophen/ Hydrocodone Bitart ([place] (10/325)) 1 tab Q3H PRN PO MODERATE PAIN LEVEL 4-6 Last administered on 04/01/19at 20:29; Admin Dose 1 TAB; Start 04/01/19 at 15:30 Famotidine (Pepcid) 20 mg DAILY PO ; Start 04/02/19 at 09:00 Dextrose/Sodium Chloride 1,000 ml @ 70 mls/hr [id number] IV Last administered on 04/02/19at 00:27; Admin Dose 70 MLS/HR; Start 04/02/19 at 00:00 Insulin Aspart (Novolog Insulin Pen) NOVOLOG *MILD* ALGORI... Q4 SC Last administered on 04/02/19at 09:07; Admin Dose 3 UNIT; Start 04/02/19 at 01:00 Hydromorphone HCl (Dilaudid) 0.2 mg PACU PRN IV MILD PAIN 1-3; Start 04/02/19 at 15:30; Stop 04/02/19 at 20:00 Hydromorphone HCl (Dilaudid) 0.4 mg PACU PRN IV MOD PAIN 4-6; Start 04/02/19 at 15:30; Stop 04/02/19 at 20:00 Fentanyl (Sublimaze) 25 mcg PACU ORDER PRN IV MILD PAIN 1-3; Start 04/02/19 at 15:30; Stop 04/02/19 at 20:00 Ondansetron HCl (Zofran Inj) 4 mg PACU ORDER PRN IV NAUSEA/VOMITING; Start 04/02/19 at 15:30; Stop 04/02/19 at 20:00 Metoclopramide HCl (Reglan) 10 mg PACU ORDER PRN IV NAUSEA/VOMITING; Start 04/02/19 at 15:30; Stop 04/02/19 at 20:00 Labetalol HCl (Labetalol) 5 mg PACU ORDER PRN IV HIGH BLOOD PRESSURE; Start 04/02/19 at 15:30; Stop 04/02/19 at 20:00 Hydralazine HCl (Apresoline) 5 mg PACU ORDER PRN IV HIGH BLOOD PRESSURE; Start 04/02/19 at 15:30; Stop 04/02/19 at 20:00 Meperidine HCl (Demerol) 25 mg PACU ORDER PRN IV .RIGORS; Start 04/02/19 at 15:30; Stop 04/02/19 at 20:00 Diphenhydramine HCl (Benadryl) 25 mg PACU ORDER PRN IV .PRURITUS; Start 04/02/19 at 15:30; Stop 04/02/19 at 20:00 MERYL HA MD Apr 02, 2019 15:55
[2019-04-02] MEDS: ATORVASTATIN 80 MG TAB PO SCH (20:55)
[2019-04-02] MEDS: HYDROCODONE/APAP (10/325) TAB PO PRN (20:56)
[2019-04-03] VITALS (20 sets, daily range): BP systolic 94–126; BP diastolic 43–79; PULSE 79–97; RESP 14–30
[2019-04-03] MEDS: INSULIN ASPART [NOVOLOG] 3 ML PEN SC SCH ×4 (01:23→12:22)
[2019-04-03] MEDS: DEXTROSE 5%-0.45% NACL 1,000 ML IV SCH ×2 (04:36→04:46)
--- NOTE | 2019-04-03 08:59 | PN ---
Date/Time of Note Date/Time of Note DATE: 04/03/19 TIME: 08:57 Assessment/Plan Lines/Catheters IV Catheter Type (from Nrsg): A Line [place] in Place (from Nrsg): Yes Assessment/Plan Assessment/Plan Doing well s/p L deep femoral endarterectomy, rest pain has resolved and there is a strong doppler signal in the foot Restart Xarelto Ambulate Discharge home later, f/u with me in the office next week Subjective 24 Hr Interval Summary Awake and alert, no pain, Rest pain in the left foot has resolved. Exam/Review of Systems Vital Signs Vitals Vital Signs Date Temp Pulse Resp B/P (MAP) Pulse Ox O2 O2 Flow FiO2 Time Delivery Rate 04/03/19 94 20 121/72 96 Nasal 2.0 06:00 (88) Cannula 04/03/19 98.9 04:00 Intake and Output 04/02/19 04/02/19 04/03/19 1515:00 23:00 07:00 IntakeIntake Total 840 ml 1725 ml 970 ml OutputOutput Total 950 ml 1075 ml BalanceBalance 840 ml 775 ml -105 ml Exam Free Text/Dictation L groin incision clean and dry, no hematoma L foot is warm and pink with (3+) PT signal Results Result Diagram: 04/02/19 0553 04/02/19 0553 JAYLEEN NOLAN MD Apr 03, 2019 08:59
[2019-04-03] MEDS ORDERED: CLOPIDOGREL 75 MG TAB PO SCH (09:00)
[2019-04-03] MEDS ORDERED: RIVAROXABAN 10 MG TABLET PO SCH (09:00)
[2019-04-03] MEDS: ASPIRIN 325 MG TAB PO SCH (09:01)
[2019-04-03] MEDS: GABAPENTIN 300 MG CAP PO SCH ×2 (09:01→12:17)
[2019-04-03] MEDS: FENOFIBRATE 48 MG TAB PO SCH (09:01)
[2019-04-03] MEDS: ISOSORBIDE MONONITRATE(SR)60 MG TAB PO SCH (09:02)
[2019-04-03] MEDS: RANOLAZINE (SR) 500 MG TAB PO SCH (09:02)
[2019-04-03] MEDS: LISINOPRIL 5 MG TAB PO SCH (09:02)
[2019-04-03] MEDS: FAMOTIDINE 20 MG TAB PO SCH (09:03)
--- NOTE | 2019-04-03 10:04 | CONS ---
Assessment/Plan Assessment/Plan Hospital Course (Demo Recall) PAD with rest ischemia of left foot: s/p left femoral endarterectomy 04/02/19. Now pain resolved Chronic stable angina: Cardiac CTA shows patent grafts as of 02/2019. The diffusely diseased/small OM graft was also seen on cath. 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 Minimal symptoms on medical management H/o PE: on Xarelto DM HTN HL Tobacco use -restart plavix and Xarelto. Ok per surgery -Ranexa 500mg BID -imdur 60mg -lipitor 80mg -coreg 3.125mg -lisinopril 5mg Consultation Date/Type/Reason Admit Date/Time Mar 31, 2019 at 18:52 Initial Consult Date 04/01/19 Type of Consult Cardiology Requesting Provider: PRATIK BETANCUR Date/Time of Note DATE: 04/03/19 TIME: 10:02 24 HR Interval Summary Free Text/Dictation s/p surgery. No events. Doing well. No further leg pain except very mild at incision site. No chest pain or SOB Exam/Review of Systems Vital Signs Vitals Vital Signs Date Temp Pulse Resp B/P (MAP) Pulse Ox O2 O2 Flow FiO2 Time Delivery Rate 04/03/19 86 20 120/79 95 Room Air 09:00 (93) 04/03/19 98.4 08:00 04/03/19 2.0 07:15 Intake and Output 04/02/19 04/02/19 04/03/19 1515:00 23:00 07:00 IntakeIntake Total 840 ml 1725 ml 1040 ml OutputOutput Total 950 ml 1075 ml BalanceBalance 840 ml 775 ml -35 ml Exam Constitutional: alert, oriented Psych: no complaints, nl mood/affect Head: normocephalic, atraumatic Neck: supple; No jvd Respiratory: clear to auscultation; No crackles/rales Cardiovascular: regular rate and rhythm; No edema Gastrointestinal: soft, non-tender; No distended Neurological: nl mental status, nl speech Labs Result Diagram: 04/02/19 0553 04/02/19 0553 Results 24hrs Laboratory Tests Test 04/02/19 17:32 04/02/19 20:52 04/03/19 01:15 04/03/19 04:41 Bedside Glucose 138 138 152 163 Test 04/03/19 08:26 Bedside Glucose 164 Medications Medications Current Medications Fenofibrate (Tricor) 48 mg DAILY PO Last administered on 04/03/19 09:01; Admin Dose 48 MG; Start 04/01/19 at 09:00 Gabapentin (Neurontin) 300 mg TID PO Last administered on 04/03/19 09:01; Admin Dose 300 MG; Start 03/31/19 at 21:00 Isosorbide Mononitrate (Imdur) 60 mg DAILY PO Last administered on 04/03/19 09:02; Admin Dose 60 MG; Start 04/01/19 at 09:00 Lisinopril (Zestril) 5 mg DAILY PO Last administered on 04/03/19 09:02; Admin Dose 5 MG; Start 04/01/19 at 09:00 Nitroglycerin (Nitroglycerin (Sl Tab) 0.4 Mg) 1 tab Q5M UP TO 3 DOSES PRN SL .C HEST PAIN; Start 03/31/19 at 20:00 IV Flush (NS 3 ml) 3 ml PER PROTOCOL IV ; Start 03/31/19 at 20:00 Ondansetron HCl (Zofran Inj) 4 mg Q6H PRN IV NAUSEA/VOMITING Last administered on 04/01/19 08:07; Admin Dose 4 MG; Start 03/31/19 at 20:00 Acetaminophen (Tylenol Tab) 650 mg Q6H PRN PO .PAIN 1-3 OR TEMP Last administered on 04/03/19 06:12; Admin Dose 650 MG; Start 03/31/19 at 20:00 Morphine Sulfate (morphine) 2 mg Q4H PRN IV .SEVERE PAIN 7-10 Last administered on 04/02/19 09:47; Admin Dose 2 MG; Start 03/31/19 at 20:00 Docusate Sodium (Colace) 100 mg Q12H PRN PO .CONSTIPATION Last administered on 03/31/19 21:34; Admin Dose 100 MG; Start 03/31/19 at 20:00 Miscellaneous Information 1 ea NOTE XX ; Start 03/31/19 at 21:00 Glucose (Glutose) 15 gm Q15M PRN PO DECREASED GLUCOSE; Start 03/31/19 at 21:00 Glucose (Glutose) 22.5 gm Q15M PRN PO DECREASED GLUCOSE; Start 03/31/19 at 21:00 Dextrose (D50w Syringe) 25 ml Q15M PRN IV DECREASED GLUCOSE; Start 03/31/19 at 21:00 Dextrose (D50w Syringe) 50 ml Q15M PRN IV DECREASED GLUCOSE; Start 03/31/19 at 21:00 Glucagon (Glucagen) 1 mg Q15M PRN IM DECREASED GLUCOSE; Start 03/31/19 at 21:00 Glucose (Glutose) 15 gm Q15M PRN BUCCAL DECREASED GLUCOSE; Start 03/31/19 at 21:00 Carvedilol (Coreg) 3.125 mg Q12 PO Last administered on 04/03/19 09:02; Admin Dose 3.125 MG; Start 03/31/19 at 22:00 Enalaprilat (Vasotec Iv) 0.625 mg Q4H PRN IV ELEVATED BLOOD PRESSURE; Start 03/31/19 at 22:00 Atorvastatin Calcium (Lipitor) 80 mg QHS PO Last administered on 04/02/19 20:55; Admin Dose 80 MG; Start 04/01/19 at 21:00 Ranolazine (Ranexa) 500 mg Q12 PO Last administered on 04/03/19 09:02; Admin Dose 500 MG; Start 04/01/19 at 10:00 Acetaminophen/ Hydrocodone Bitart ([place] (10/325)) 1 tab Q3H PRN PO MODERATE PAIN LEVEL 4-6 Last administered on 04/02/19 20:56; Admin Dose 1 TAB; Start 04/01/19 at 15:30 Famotidine (Pepcid) 20 mg DAILY PO Last administered on 04/03/19 09:03; Admin Dose 20 MG; Start 04/02/19 at 09:00 Dextrose/Sodium Chloride 1,000 ml @ 70 mls/hr [id number] IV Last administered on 04/03/19 04:46; Admin Dose 70 MLS/HR; Start 04/02/19 at 00:00 Insulin Aspart (Novolog Insulin Pen) NOVOLOG *MILD* ALGORI... Q4 SC Last admin istered on 04/03/19 08:40; Admin Dose 1 UNIT; Start 04/02/19 at 01:00 Clopidogrel Bisulfate (plaVIX) 75 mg DAILY PO Last administered on 04/03/19at 09:32; Admin Dose 75 MG; Start 04/03/19 at 09:00 Metformin HCl (Glucophage) 1,000 mg WITH BREAKFAST DINNE PO ; Start 04/03/19 at 17:35 Rivaroxaban (Xarelto) 20 mg DAILY PO ; Start 04/04/19 at 09:00 KATHLEEN RODRIGES Apr 03, 2019 10:04
[2019-04-03] MEDS ORDERED: RIVAROXABAN 20 MG TABLET PO SCH (10:15)
--- NOTE | 2019-04-03 11:15 | PN ---
Date/Time of Note Date/Time of Note DATE: 04/03/19 TIME: 11:05 Assessment/Plan VTE Prophylaxis Risk score (from Ns)>0 risk: 10 SCD applied (from Ns): Yes Pharmacological prophylaxis: rivaroxaban Lines/Catheters IV Catheter Type (from Nrsg): A Line Urinary Cath still in place: No Assessment/Plan Assessment/Plan 1. Peripheral artery disease s/p L femoral endarterectomy - Dr. Bettencourt on board and appreciate consultation. okay to restart anticoagulation and discharge today. will need to follow up as outpatient - pulses palpable 2. Coronary artery disease s/p stents - restarted on Plavix - Cardiology input appreciated 3. Chronic pulmonary embolism - restarted on Xarelto this am 4. Diabetes mellitus, type 2 - A1c noted - ISS or accuchecks - continue on metformin 5. HTN - stable 6. Disposition - If remains stable, cleared for discharge from Vascular surgery standpoint. Result Diagram: 04/02/19 0553 04/02/19 0553 Results 24hrs Laboratory Tests Test 04/02/19 17:32 04/02/19 20:52 04/03/19 01:15 04/03/19 04:41 Bedside Glucose 138 138 152 163 Test 04/03/19 08:26 Bedside Glucose 164 Subjective 24 Hr Interval Summary Free Text/Dictation Patient doing well and no acute overnight events. Denies any pain but does admit to diminished appetite. Ambulated around unit without any issues. Exam/Review of Systems Exam Vitals Vital Signs Date Temp Pulse Resp B/P (MAP) Pulse Ox O2 O2 Flow FiO2 Time Delivery Rate 04/03/19 86 17 111/74 96 Room Air 10:00 (86) 04/03/19 98.4 08:00 04/03/19 2.0 07:15 Intake and Output 04/02/19 04/02/19 04/03/19 1515:00 23:00 07:00 IntakeIntake Total 840 ml 1725 ml 1040 ml OutputOutput Total 950 ml 1075 ml BalanceBalance 840 ml 775 ml -35 ml Exam General: no acute distress Neck: Supple Chest: Nontender Lungs: Clear to auscultation bilaterally no crackles rales or wheezing Heart: Normal S1-S2, Regular rhythm and rate. No murmur, S3, or S4 Abdomen: Soft , nontender, nondistended , bowel sounds are present. No guarding no rebound tenderness Extremities: Normal to inspection, no edema no cyanosis, good palpable pulses bilaterally Results Results 24hrs Laboratory Tests Test 04/02/19 17:32 04/02/19 20:52 04/03/19 01:15 04/03/19 04:41 Bedside Glucose 138 138 152 163 Test 04/03/19 08:26 Bedside Glucose 164 Medications Medication Current Medications Fenofibrate (Tricor) 48 mg DAILY PO Last administered on 04/03/19 09:01; Admin Dose 48 MG; Start 04/01/19 at 09:00 Gabapentin (Neurontin) 300 mg TID PO Last administered on 04/03/19 09:01; Admin Dose 300 MG; Start 03/31/19 at 21:00 Isosorbide Mononitrate (Imdur) 60 mg DAILY PO Last administered on 04/03/19 09:02; Admin Dose 60 MG; Start 04/01/19 at 09:00 Lisinopril (Zestril) 5 mg DAILY PO Last administered on 04/03/19 09:02; Admin Dose 5 MG; Start 04/01/19 at 09:00 Nitroglycerin (Nitroglycerin (Sl Tab) 0.4 Mg) 1 tab Q5M UP TO 3 DOSES PRN SL .CHEST PAIN; Start 03/31/19 at 20:00 IV Flush (NS 3 ml) 3 ml PER PROTOCOL IV ; Start 03/31/19 at 20:00 Ondansetron HCl (Zofran Inj) 4 mg Q6H PRN IV NAUSEA/VOMITING Last administered on 04/01/19 08:07; Admin Dose 4 MG; Start 03/31/19 at 20:00 Acetaminophen (Tylenol Tab) 650 mg Q6H PRN PO .PAIN 1-3 OR TEMP Last administered on 04/03/19 06:12; Admin Dose 650 MG; Start 03/31/19 at 20:00 Morphine Sulfate (morphine) 2 mg Q4H PRN IV .SEVERE PAIN 7-10 Last administered on 04/02/19 09:47; Admin Dose 2 MG; Start 03/31/19 at 20:00 Docusate Sodium (Colace) 100 mg Q12H PRN PO .CONSTIPATION Last administered on 03/31/19 21:34; Admin Dose 100 MG; Start 03/31/19 at 20:00 Miscellaneous Information 1 ea NOTE XX ; Start 03/31/19 at 21:00 Glucose (Glutose) 15 gm Q15M PRN PO DECREASED GLUCOSE; Start 03/31/19 at 21:00 Glucose (Glutose) 22.5 gm Q15M PRN PO DECREASED GLUCOSE; Start 03/31/19 at 21 :00 Dextrose (D50w Syringe) 25 ml Q15M PRN IV DECREASED GLUCOSE; Start 03/31/19 at 21:00 Dextrose (D50w Syringe) 50 ml Q15M PRN IV DECREASED GLUCOSE; Start 03/31/19 at 21:00 Glucagon (Glucagen) 1 mg Q15M PRN IM DECREASED GLUCOSE; Start 03/31/19 at 21:00 Glucose (Glutose) 15 gm Q15M PRN BUCCAL DECREASED GLUCOSE; Start 03/31/19 at 21:00 Carvedilol (Coreg) 3.125 mg Q12 PO Last administered on 04/03/19at 09:02; Admin Dose 3.125 MG; Start 03/31/19 at 22:00 Enalaprilat (Vasotec Iv) 0.625 mg Q4H PRN IV ELEVATED BLOOD PRESSURE; Start 03/31/19 at 22:00 Atorvastatin Calcium (Lipitor) 80 mg QHS PO Last administered on 04/02/19at 20:55; Admin Dose 80 MG; Start 04/01/19 at 21:00 Ranolazine (Ranexa) 500 mg Q12 PO Last administered on 04/03/19at 09:02; Admin Dose 500 MG; Start 04/01/19 at 10:00 Acetaminophen/ Hydrocodone Bitart ([place] (10/325)) 1 tab Q3H PRN PO MODERATE PAIN LEVEL 4-6 Last administered on 04/02/19at 20:56; Admin Dose 1 TAB; Start 04/01/19 at 15:30 Famotidine (Pepcid) 20 mg DAILY PO Last administered on 04/03/19at 09:03; Admin Dose 20 MG; Start 04/02/19 at 09:00 Dextrose/Sodium Chloride 1,000 ml @ 70 mls/hr [id number] IV Last administered on 04/03/19at 04:46; Admin Dose 70 MLS/HR; Start 04/02/19 at 00:00 Insulin Aspart (Novolog Insulin Pen) NOVOLOG *MILD* ALGORI... Q4 SC Last administered on 04/03/19at 08:40; Admin Dose 1 UNIT; Start 04/02/19 at 01:00 Clopidogrel Bisulfate (plaVIX) 75 mg DAILY PO Last administered on 04/03/19at 09:32; Admin Dose 75 MG; Start 04/03/19 at 09:00 Metformin HCl (Glucophage) 1,000 mg WITH BREAKFAST DINNE PO ; Start 04/03/19 at 17:35 Rivaroxaban (Xarelto) 20 mg DAILY PO Last administered on 04/03/19at 10:52; Admin Dose 20 MG; Start 04/03/19 at 10:15 HANNAH HURTADO MD Apr 03, 2019 11:15
[2019-04-03] MEDS ORDERED: RIVA20TA5 PO (11:21)
[2019-04-03] MEDS ORDERED: ATOR-2 PO (11:21)
[2019-04-03] MEDS ORDERED: Ranolazine (Sr) PO (11:21)
--- NOTE | 2019-04-03 11:27 | PDOCDIS ---
Discharge Instructions DIAGNOSIS Discharge Diagnosis 1. Peripheral artery disease s/p L femoral endarterectomy 2. Coronary artery disease s/p stents 3. Chronic pulmonary embolism 4. Diabetes mellitus, type 2 5. HTN CONDITION [id number] Patient Condition: [id number] Stable HOME CARE INSTRUCTIONS: [id number] Diet Instructions: [id number] Reduced Sodium FOLLOW UP/APPOINTMENTS Follow-up Plan 1. Follow up with your primary care physician in 1-2 weeks 2. Follow up with Dr. Bettencourt next week. Please call his office to schedule an appointment 3. Please continue all medications as prescribed. If you have any falls with head trauma or cuts that do not heal, please go to the closest emergency department to assist with stopping the bleed 4. If experiencing any concerning symptoms, please go to the closest emergency department REFERRALS Other Referrals Ham Bettencourt Jr, MD Specialty: Vascular Surgery Comments Office Address [facility] [address] [place] [address] Office HANNAH HURTADO MD Apr 03, 2019 11:27
[2019-04-03] MEDS ORDERED: metFORMIN 500 MG TAB PO SCH (17:35)
--- NOTE | 2019-04-03 17:47 | DS ---
Date/Time of Note Date/Time of Note DATE: 04/03/19 TIME: 17:44 Discharge Summary Admission/Discharge Info Admit Date/Time Mar 31, 2019 at 18:52 Discharge Date/Time Apr 03, 2019 at 14:10 Discharge Diagnosis 1. Peripheral artery disease s/p L femoral endarterectomy 2. Coronary artery disease s/p stents 3. Chronic pulmonary embolism 4. Diabetes mellitus, type 2 5. HTN Patient Condition: Stable Consults Vascular Surgery- Dr. Bettencourt Cardiology- Dr. Argueta Procedures Date/Time of Note Date/Time of Note DATE: 04/02/19 TIME: 15:06 Operative Report Preoperative Diagnosis Left foot rest pain Postoperative Diagnosis same Operation/Procedure Performed Left deep femoral endarterectomy / Bovine carotid patch angioplasty Hx of Present Illness Chief complaint: Worsening left lower extremity pain This is a 53-year-old male with recent hospitalization and diagnosis of left lower extremity peripheral arterial disease. The patient presents with worsening claudication and pain at rest. His pain currently is 3 out of 10. He describes a burning sensation to the medial aspect of his left leg. Left foot. Symptoms are moderate to severe. Patient was sent in by his vascular surgeon Dr. Bettencourt to be admitted for his peripheral artery disease and cardiac clearance for surgery of femoral endarterectomy on Friday possibly. Allergies: NKDA Medications: nonetheless. Plavix on metformin Plavix Metformin Xarelto Atorvastatin Carvedilol Fenofibrate Gabapentin Isosorbide mononitrate Lisinopril PRN nitroglycerin Hospital Course Patient was admitted for scheduled vascular intervention and cardiac clearance prior to surgery. Cardiology was consulted and cleared for surgical intervention. Plavix and Xarelto were placed on hold. Patient underwent left femoral endarterectomy with no intraoperative or post operative complications. He was admitted to ICU following intervention for close monitoring of LLE. Patient was restarted on anticoagulation with no acute issues. Patient was cleared for discharge from vascular standpoint. Vitals and physical exam remained. stable. Patient was discharged home in good condition. Home Meds Active Scripts [Ranolazine (Sr)] 500 MG TABSR No Conflict Check, 500 MG PO Q12 for 30 Days, #60 TAB 1 Refill Prov:HANNAH HURTADO MD 04/03/19 Rivaroxaban* (Xarelto*) 20 Mg Tablet, 20 MG PO WITH DINNER for 30 Days, #30 TAB 1 Refill Prov:HANNAH HURTADO MD 04/03/19 Atorvastatin* (Atorvastatin*) 80 Mg Tablet, 80 MG PO QHS for 30 Days, #30 TAB Prov:HANNAH HURTADO MD 04/03/19 Gabapentin* (Gabapentin*) 300 Mg Capsule, 300 MG PO TID, #90 CAP Prov:LIZZETTE CUELLAR [employer] 03/16/19 Metformin* (Glucophage*) 1,000 Mg Tablet, 1000 MG PO WITH BREAKFAST DINNE, #60 TAB Prov:LIZZETTE CUELLAR [employer] 02/23/19 Nitroglycerin* (Nitroglycerin* SL) 0.4 Mg Tab.subl, 1 TAB SL .Q5M UP TO 3 DOSES PRN for .CHEST PAIN, #1 BOTTLE Prov:LIZZETTE CUELLAR [employer] 02/23/19 Lisinopril* (Lisinopril*) 5 Mg Tablet, 5 MG PO DAILY, #30 TAB Prov:LIZZETTE CUELLAR [employer] 02/23/19 Carvedilol* (Carvedilol*) 3.125 Mg Tablet, 3.125 MG PO Q12, #60 TAB Prov:LIZZETTE CUELLAR [employer] 02/23/19 Fenofibrate Nanocrystallized* (Fenofibrate*) 48 Mg Tablet, 48 MG PO DAILY, #30 TAB Prov:LIZZETTE CUELLAR [employer] 02/23/19 Isosorbide Mononitrate* (Isosorbide Mononitrate*) 60 Mg Tab.er.24h, 60 MG PO D AILY, #30 TAB Prov:LIZZETTE CUELLAR [employer] 02/23/19 Clopidogrel Bisulfate (Clopidogrel) 75 Mg Tablet, 75 MG PO DAILY, #30 TAB Prov:LIZZETTE CUELLAR [employer] 02/23/19 Discontinued Scripts [Medical Note] No Conflict Check Please excuse Mr.Akop Merritt attending work from 03/12/3019 to 03/26/2019 due to his medical condition. Prov:LIZZETTE CUELLAR [employer] 03/16/19 Rivaroxaban* (Xarelto*) 10 Mg Tablet, 10 MG PO DAILY, #30 TAB Prov:ARUNA CUELLARA [employer]CH[employer]IC 02/23/19 Atorvastatin Calcium (Atorvastatin Calcium) 20 Mg Tablet, 20 MG PO QHS, #30 TAB Prov:LIZZETTE UCELLAR Adelita YATES 02/23/19 Follow-up Plan 1. Follow up with your primary care physician in 1-2 weeks 2. Follow up with Dr. Bettencourt next week. Please call his office to schedule an appointment 3. Please continue all medications as prescribed. If you have any falls with head trauma or cuts that do not heal, please go to the closest emergency department to assist with stopping the bleed 4. If experiencing any concerning symptoms, please go to the closest emergency department Primary Care Provider [facility] Time spent on discharge: > 30 minutes Pending Labs Laboratory Tests Test 04/02/19 20:52 04/03/19 01:15 04/03/19 04:41 04/03/19 08:26 Bedside 138 152 163 164 Glucose mg/dL (70-220) mg/dL (70-220) mg/dL (70-220) mg/dL (70-220) Test 04/03/19 12:18 Bedside 213 Glucose mg/dL (70-220) Microbiology Date/Time Source Procedure Growth Status 04/02/19 18:10 Nares MRSA Screen - Preliminary Screening in process Resulted HANNAH HURTADO MD Apr 03, 2019 17:47
[2019-04-04] MEDS ORDERED: RIVAROXABAN 20 MG TABLET PO SCH (09:00)
--- NOTE | 2019-04-05 09:28 | OPR ---
DATE OF OPERATION: 04/02/2019 PREOPERATIVE DIAGNOSIS: Left foot rest pain. POSTOPERATIVE DIAGNOSIS: Left foot rest pain. PROCEDURE PERFORMED: Left extensive deep femoral endarterectomy. SURGEON: Jayleen Bettencourt MD ANESTHESIA: General endotracheal anesthesia. ESTIMATED BLOOD LOSS: 100 mL. COMPLICATIONS: There were no intraprocedural complications. INDICATIONS: This is a 53-year-old diabetic long time smoker with severe coronary and peripheral art erial disease, had rest pain in the left foot for about a month. He had a CT angiogram done a few we eks ago that showed there is a severe stenosis in the deep femoral artery also confirmed on duplex. The SFA occludes at the adductor. He has got monophasic tibial flow. He had the left great saphenou s vein harvested for his CABG several years ago, so brought him in today for left deep common and paulie p femoral endarterectomy and there will be enough flow into the profunda to relieve his rest pain. PROCEDURE: The patient was brought to the operating room and placed on the operating table in supine position. After induction of general endotracheal anesthesia, the left groin and leg were prepped a nd draped in the usual sterile fashion. We made a vertical incision over the common femoral artery i n the left groin, dissected down through subcutaneous tissue using electrocautery. I carefully ident ified the common femoral artery. I then dissected out the superficial femoral. The deep femoral had several branches that came off medially, but the main deep femoral came off laterally. I divided th e deep femoral vein overlying the deep femoral artery, dissected out all the way down to where the de ep femoral artery bifurcated. I isolated each of those 2 branches distally and controlled them with Vesseloops. The common femoral artery itself was soft and had good pulse. The superficial femoral a rteries very calcified and diseased, but it was patent down to at least down to the adductor. I then gave the patient 5000 units of heparin intravenously. Once the heparin had circulated, I clamped th e distal branches of the deep femoral artery, common femoral and the superficial femoral artery. I isabel joe made an anterior arteriotomy beginning on the common femoral and extending down onto the deep fem oral. I extended it very distally almost down to where the artery bifurcated because there was so mu ch plaque in the deep femoral. The origin of the deep femoral had a 99% stenosis and the rest of it was severely stenotic by 70-80%. I did an endarterectomy beginning in the common femoral and then I just transected the plaque in the mid common femoral. There is some thickening going more proximally , but it was not stenotic at all. I then extended the endarterectomy down into the deep femoral alvarez ry until I got all the way down to where the artery bifurcated and then the plaque sort of dissipated there and the 2 distal branches were patent without a lot of thickening. The superficial femoral ar tang, I did the endarterectomy just an eversion and pulled out as much plaque as I could from the marisol fice. There was good backflow from both of the profunda branches as well as the superficial femoral. I then placed about a centimeter width bovine carotid collagen patch over the arteriotomy. The art eriotomy itself is about 4 to 5 cm in length. I used a 6-0 Prolene suture in a running standard vasc ular surgical fashion. Just prior to completing the anastomosis, I backbled each of the branches. T here was good backflow from the profunda branches and from the SFA, there was good inflow from the co mmon femoral. I flushed copiously with heparinized saline and completed the anastomosis. I put a co uple of repair sutures. Then there was excellent hemostasis. I listened with the Doppler. There wa s good triphasic signal in both the branches of the profunda and there was still a good signal, but m onophasic, biphasic in the SFA. There was good hemostasis. I put some thrombin Gelfoam over the pat ch and then closed the skin incision in 2 layers using an inner layer of 3-0 Vicryl and an outer laye r of 4-0 Monocryl subcuticular suture. Sterile dressing was applied. The patient was extubated in t operating room and transferred to the recovery room in stable condition. He tolerated the procedu re well without any complications. Dictated By: JYALEEN TANG/BRIAN Conf#: [id number] DID#: [id number] CC: HANNAH HURTADO MD; PRATIK BETANCUR MD; MARIEL ANAYA DO;*EndCC*
== END 2019-04-03 14:10 | disposition home or self-care (01) | DRG 271 ==
LOC: FTE 17:13 → 2NE 18:52 → ICU 04-02 16:45
PROVIDERS: ADMIT Internal Medicine; ATTEND Internal Medicine
PROC: 04UL3KZ Supplement Left Femoral Artery with Nonautologous Tissue Substitute, Percutaneous Approach (ICD-10-PCS; 2019-04-02)
PROC: 3E05317 Introduction of Other Thrombolytic into Peripheral Artery, Percutaneous Approach (ICD-10-PCS; 2019-04-02)
PROC: 04CL3ZZ Extirpation of Matter from Left Femoral Artery, Percutaneous Approach (ICD-10-PCS; principal; 2019-04-02 11:30)
DX: I70.222 Atherosclerosis of native arteries of extremities with rest pain, left leg (principal); I27.82 Chronic pulmonary embolism; E11.8 Type 2 diabetes mellitus with unspecified complications; E11.42 Type 2 diabetes mellitus with diabetic polyneuropathy; Z72.0 Tobacco use; I25.10 Atherosclerotic heart disease of native coronary artery without angina pectoris; E78.5 Hyperlipidemia, unspecified; I10 Essential (primary) hypertension; J44.9 Chronic obstructive pulmonary disease, unspecified; Z95.1 Presence of aortocoronary bypass graft; I20.8 Other forms of angina pectoris; Z79.02 Long term (current) use of antithrombotics/antiplatelets
CPT/HCPCS: 36415; 71045; 80048; 80053; 82962; 83036; 83690; 85025; 85610; 85730; 86850; 86900; 86901; 87081; 88304; 93005; 96374; 96375; 97166; J0690; J1170; J1644; J1815; J2250; J2270; J2405; J3010; J7040; J7042